=== PATIENT | female | born 1945 | race Caucasian/White ===

== ENCOUNTER → 2017-02-08 | Outpatient (CLI) | payer MEDICARE ==
[~2017-02-08] MED LIST: IOHEXOL 180 MG/ML 10 ML VIAL. ONE; methylPREDNISolone ACETATE 40 MG/ML VIAL. ONE; methylPREDNISolone ACETATE 80 MG/ML VIAL. ONE
--- NOTE | 2017-02-09 01:21 | PN ---
DATE: 02/08/2017 PROGRESS NOTE FOR PAIN CLINIC DIAGNOSES: 1. Lumbar radiculopathy with lumbar degenerative disk disease and lumbar spinal stenosis. 2. Cervical radiculopathy with cervical degenerative disk disease. HISTORY OF PRESENT ILLNESS: The patient is a 71-year-old female who returns for followup status post cervical epidural steroid injection x 1 and lumbar epidural steroid injection x 1. The patient reports about 50% improvement overall. The pain is improved in the low back and bilateral lower extremities. The patient reports increasing activity with greater ease and comfort, still has some significant pain, rates as a 6 on a scale 10, but is currently a 2 on a scale of 10, which is . The patient reports she is sleeping well during the night. It does not awaken her from sleep. Otherwise, no new motor or sensory deficits, no new bowel or bladder incontinence or other complaints. The patient reports the pain is on and off, is aching and dull in the low back and the bilateral posterior gluteus, posterior thighs, again much improved after last injection and not constant. PHYSICAL EXAMINATION: VITAL SIGNS: The patient's blood pressure is 132/78, pulse 73, respirations are 20, temperature is 98.2 degrees Fahrenheit, height is 5 feet 4-1/2 inches, weight is 237 pounds. GENERAL: The patient is awake, alert, oriented, appropriate, has a very pleasant demeanor. HEENT: Head shows normocephalic, atraumatic. Extraocular movements are intact and symmetrical. Oral cavity shows mucous membranes moist and pink. Dentition is intact. NECK: Shows anterior throat supple without palpable lymphadenopathy noted. Swallow reflex is symmetrical. CHEST: Shows normal on inspection. Breath sounds are clear to auscultation bilaterally. HEART: Shows S1 and S2 clear. ABDOMEN: Soft, nontender, nondistended. No palpable organomegaly. There is no rebound or guarding demonstrated. BACK: Shows spine grossly in the midline. Lumbar paraspinous muscle shows some moderate tenderness with palpation, but only diffusely bilaterally, appears roughly symmetrical. The patient shows good rotational motion bilaterally of the lumbar spine, both right and left as well as extension and flexion without difficulty. EXTREMITIES: The patient's lower extremities showed deep tendon reflexes 1+ in the patellar and tendo calcaneus tendons. Motor exam is approximately 4 on a scale of 5 with dorsiflexion, extension, quadriceps and hamstring flexion, but is equal and symmetrical. Options were discussed with the patient and the patient's old chart was reviewed as her current medication regimen updated. Current review of systems updated today as well. We will proceed with a second lumbar, third total epidural steroid injection in the series with fluoroscopic guidance. Risks were again discussed including, but not limited to bleeding, infection, possibility of epidural hematoma and subsequent neurologic compromise, dural puncture, headaches, spinal cord and/or nerve damage, side effects of steroid medication and poor results regarding pain control. The patient understands and wishes to proceed. The patient will return to clinic in approximately 2 weeks for followup, was counseled on return appointment, activity level and side effects to be aware of. DIAGNOSIS: Lumbar radiculopathy with lumbar degenerative disk disease and lumbar spinal stenosis. PROCEDURE: Lumbar epidural steroid injection in translaminar approach at L5-S1 level using C-arm fluoroscopic guidance under sterile prep and drape using local anesthetic. Medication injected is 120 mg Depo-Medrol plus 10 mL of preservative-free normal saline and 2 mL of Isovue for contrast. CONDITION AT DISCHARGE: Stable. The patient tolerated the procedure well, had no complications. SOTO COLÓN MD DR: JATIN/dominique JOB#: [id number] / [id number]
== END | disposition home or self-care (01) ==
LOC: PNCL 08:30
PROVIDERS: ATTEND Anesthesiology
DX: M51.16 Intervertebral disc disorders with radiculopathy, lumbar region (principal); M48.06 Spinal stenosis, lumbar region; M50.10 Cervical disc disorder with radiculopathy, unspecified cervical region
CPT/HCPCS: 62323; J1030; J1040

== ENCOUNTER → 2017-09-06 | Outpatient (CLI) | payer MEDICARE | END | disposition home or self-care (01) | LOC: KCIC MAMMO 11:19 | DX: Z12.31 Encounter for screening mammogram for malignant neoplasm of breast (principal) | CPT/HCPCS: 77063; 77067 ==

== ENCOUNTER → 2018-07-28 | Outpatient (CLI) | payer MEDICARE, BC ==
[2014-09-25 15:00] VITALS: BP 130/75
[~2018-07-28] MED LIST changes: +AMLO1CAP12 PO; +ASPI325T8 PO; +CA C1TAB63 PO; +CHOL500045 PO; +ESTR0.5T PO; +FLUO40CA2 PO; +HYDR-2145 PO; +HYDR-3165 PO; -IOHEXOL 180 MG/ML 10 ML VIAL. ONE; +MULT-245 PO; +NAPR-514 PO; +POTA10TA12 PO; +REGADENOSON 0.4 MG/5 ML DISP.SYRIN. IV ONE; +SIMV20TA3 PO; +TRAM50TA PO; -methylPREDNISolone ACETATE 40 MG/ML VIAL. ONE; -methylPREDNISolone ACETATE 80 MG/ML VIAL. ONE
--- NOTE | 2018-07-28 12:10 | RAD ---
MR#: [id number] Date of Study: 07/28/2018 Ordering Physician: KECIA MOON, Referring Physician: ROB AYOUB Tech: RT Inna Veras) (N) APPROVED REPORT Test Type: Pharmacological Stress Nurse/Tech: Cha Britt RN Test Indications: Arm pain,dyspnea Cardiac History: Hypertension Medications: See Electronic Medical Record Medical History: See Electronic Medical Record Resting ECG: SB Resting Heart Rate: 59 bpm Resting Blood Pressure: 123/62mmHg Pretest Chest Pain: No chest pain Nurse/Tech Notes S1,S2. Lungs clear to auscultation. Consent: The procedure was explained to the patient in lay terms. Informed consent was witnessed. Curtis eout was entered into [facility]. History and Stress Test performed by RT Dawson (R) (N) Pharm. Details Pharmacologic stress testing was performed using 0.4mg per 5ml of regadenoson given intravenously ove r 7-10 seconds. Stress Symptoms Nausea,Dyspnea POST EXERCISE Reason for Termination: Infusion complete Target HR: No Max HR: 73 bpm Max Blood Pressure: 115/50mmHg Blood Pressure response to exercise: Normal blood pressure response during stress. Heart Rate response to exercise: WNL Chest Pain: No. Arrhythmia: No. ST Change: No. INTERPRETATION Stress EKG Conclusion: Negative for stress induced EKG changes. Imaging Protocol IMAGE PROTOCOL: Rest Tc-99m/stress Tc-99m 1 day Rest: Stress: Viability: Radiopharm.Tc99m VoxxyeqohDt22w Sestamibi Mbnt63tDp 34.1mCi Duration 13min. 13min. Img Date 07/28/2018 07/28/2018 Inj-Img Umjk49jsd. 60min. Rest Admin Site:IV - Right AntecubitalAdministrator:RT Dawson (Tung)(N) Stress Admin Site: IV - Right AntecubitalAdministrator: RT Eda (R)(N) STRESS DATA End Diast. Vol.83.0mlLVEDV index BSA42.0ml End Syst. Vol.20.0mlLVESV index BSA10.0ml Myocardial Zwwo532.0gEject. Ydvawmrb48.0% Stress Scores Regional WT0.00Summed WT0.00 Regional WM0.00Summed WM5.00 The rest and stress images show normal perfusion, normal contraction and thickening. LV Perfusion There is very minimal apical and anterior wall reversible defect, likely artifactual in nature and be low the threshold of abnormality. Wall Motion Normal wall motion. EF > 70% LV Perf. Quant 17 Seg. SSS2.00 17 Seg. SRS0.00 17 Seg. SDS2.00 Stress Defect Extent (% LAD)1.30Rest Defect Extent (% LAD)0.00Rev. Defect Extent (% LAD)1.30 Stress Defect Extent (% LCX) 0.00Rest Defect Extent (% LCX)7.50Rev. Defect Extent (% LCX)0.00 Stress Defect Extent (% RCA)0.00Rest Defect Extent (% RCA)0.00Rev. Defect Extent (% RCA)0.00 Stress Defect Extent (% BAILEE)3.70Rest Defect Extent (% BAILEE)1.30Rev. Defect Extent (% BAILEE)3.50 Other Information Quality:Good Risk Assessment: Low Risk Conclusion 1. No evidence of EKG changes with stress testing. 2. Normal perfusion at stress/rest. (There is a very minimal anterior/apical perfusion defect that is below the limits of quantification, likely artifactual but no significant ischemia noted. Normal TID ratio). 3. Low risk study. 4. EF > 60%. Signed by : Barrett Cali, Electronically Approved : 07/28/2018 12:09:23
== END | disposition home or self-care (01) ==
LOC: NM 08:06
PROVIDERS: ATTEND Internal Medicine Cardiovascular Disease
DX: R07.9 Chest pain, unspecified (principal); I10 Essential (primary) hypertension
CPT/HCPCS: 78452; 93017; 96374; 96375; 96376; A9500; J2785

== ENCOUNTER → 2018-08-11 | Outpatient (CLI) | payer MEDICARE, BC ==
[2014-09-25 15:00] VITALS: BP 130/75
[~2018-08-11] MED LIST changes: -REGADENOSON 0.4 MG/5 ML DISP.SYRIN. IV ONE
--- NOTE | 2018-08-11 15:12 | CARD ---
MR#: [id number] Date of Study: 08/11/2018 Ordering Physician: KECIA MOON, Referring Physician: KECIA MOON, Tech: Keesha Okeefe [facility] APPROVED REPORT EXAM: Two-dimensional and M-mode echocardiogram with Doppler and color Doppler. Other Information Quality : AverageHR: 56bpm Rhythm : NSR INDICATION Murmur 2D DIMENSIONS RVDd3.1 (2.9-3.5cm)Left Atrium(2D)3.6 (1.6-4.0cm) IVSd1.3 (0.7-1.1cm)Aortic Root(2D)3.4 (2.0-3.7cm) LVDd4.5 (3.9-5.9cm)LVOT Diameter2.1 (1.8-2.4cm) PWd1.2 (0.7-1.1cm)LVDs2.7 (2.5-4.0cm) FS (%) 39.6 %SV63.5 ml LVEF(%)70.4 (>50%) M-Mode DIMENSIONS Left Atrium(MM)4.06 (2.5-4.0cm)Aortic Root3.75 (2.2-3.7cm) Aortic Valve AoV Peak Armando.169.8cm/sAoV VTI39.6cm AO Peak GR.11.5mmHgLVOT Peak Armando.112.3cm/s AO Mean GR.6mmHgAVA (VMAX)2.35cm2 Mitral Valve MV E Lufuasvv593.0cm/sMV DECEL VKEM458ic MV A Paclanzr943.1cm/sE/A Ratio0.8 MV A Lounszja119zh Pulmonary Valve PV Peak Pneqhncg65.9cm/s Pulmonary Vein S1 Dhohfqht21.9cm/sD2 Ooewajew52.1cm/s PVa [id number] LEFT VENTRICLE The left ventricle is normal size. There is mild concentric left ventricular hypertrophy. The left ve ntricular systolic function is normal. The Ejection Fraction is 65-70%. There is normal LV segmental wall motion. Transmitral Doppler flow pattern is Grade I-abnormal relaxation pattern. RIGHT VENTRICLE The right ventricle is normal size. There is normal right ventricular wall thickness. The right ventr icular systolic function is normal. ATRIA The left atrium size is normal. The right atrium size is normal. The interatrial septum is intact wit h no evidence for an atrial septal defect or patent foramen ovale as noted on 2-D or Doppler imaging. AORTIC VALVE The aortic valve is trileaflet. The left coronary cusp is calcified. Doppler and Color Flow revealed no significant aortic regurgitation. There is no significant aortic valvular stenosis. MITRAL VALVE The mitral valve is normal in structure and function. There is no evidence of mitral valve prolapse. There is no mitral valve stenosis. Doppler and Color-flow revealed trace mitral regurgitation. TRICUSPID VALVE The tricuspid valve is normal in structure and function. Doppler and Color Flow revealed no tricuspid valve regurgitation noted. There is no tricuspid valve prolapse or vegetation. There is no tricuspid valve stenosis. PULMONIC VALVE Pulmonic not well visualized. Doppler and Color Flow revealed no pulmonic valvular regurgitation. The re is no pulmonic valvular stenosis. GREAT VESSELS The aortic root is normal in size. The ascending aorta is normal in size. The IVC is normal in size a nd collapses >50% with inspiration. PERICARDIAL EFFUSION There is no evidence of significant pericardial effusion. Critical Notification Critical Value: No <Conclusion> The left ventricular systolic function is normal. The Ejection Fraction is 65-70%. There is normal LV segmental wall motion. Transmitral Doppler flow pattern is Grade I-abnormal relaxation pattern. Doppler and Color-flow revealed trace mitral regurgitation. There is no evidence of significant pericardial effusion. Signed by : Lance Feliz, Electronically Approved : 08/11/2018 15:11:05
== END | disposition home or self-care (01) ==
LOC: ECHO 13:31
PROVIDERS: ATTEND Internal Medicine Cardiovascular Disease
DX: I51.7 Cardiomegaly (principal)
CPT/HCPCS: 93306

== ENCOUNTER → 2018-09-05 | Outpatient (CLI) | payer MEDICARE, BC ==
[2014-09-25 15:00] VITALS: BP 130/75
[~2018-09-05] MED LIST changes: -AMLO1CAP12 PO; +AMLO1CAP13 PO
--- NOTE | 2018-09-05 11:38 | RAD ---
EXAM: Chest, 2 views. HISTORY: Shortness of breath. COMPARISON: None. FINDINGS: 2 views of the chest are obtained. There is suspected bilateral lower lobe atelectasis or scarring. There is no consolidation, pleural effusion or pneumothorax. There is enlargement of the cardiac silhouette. There are calcified granulomas. There is proximal humeral fracture fixation instrumentation. IMPRESSION: 1. Suspected bilateral lower lobe atelectasis or pleural-parenchymal scarring. 2. Mild cardiomegaly. Electronically signed by: Taisha Del Real MD (09/05/2018 11:34 AM) [place] [id number]
== END | disposition home or self-care (01) ==
LOC: RAD 10:50
PROVIDERS: ATTEND Internal Medicine Cardiovascular Disease
DX: I51.7 Cardiomegaly (principal); J84.10 Pulmonary fibrosis, unspecified
CPT/HCPCS: 71046

== ENCOUNTER → 2018-09-12 | Outpatient (CLI) | payer MEDICARE ==
[2014-09-25 15:00] VITALS: BP 130/75
[~2018-09-12] MED LIST changes: +AMLO1CAP12 PO; -AMLO1CAP13 PO
--- NOTE | 2018-09-19 15:12 | KCIC ---
BILATERAL SCREENING MAMMOGRAM, 3-D History: Routine screening. Comparison: Bilateral mammogram September 06, 2017. Technique: MLO and CC digital tomosynthesis (3D) images obtained. Radiologist reviewed these images on dedicated workstation. Findings: Breast Tissue Density B : There are scattered areas of fibroglandular density. There is a new asymmetry in the left breast on the CC view just medial to the nipple line 5.8 cm posterior to the nipple. Tomosynthesis images suggest that the finding is inferior. There are no dominant suspicious masses, suspicious microcalcifications, or architectural distortion. IMPRESSION: New asymmetry in the medial and probably inferior left breast. Recommend further evaluation with spot compression CC tomosynthesis digital view. If finding persists ultrasound is suggested. BI-RADS Category 0: Incomplete: Need additional imaging evaluation. The images were reviewed with computer-aided detection. Patient information is entered into reminder system with a target due date for the next screening mammogram. Mammography is the most sensitive method for finding small breast cancers, but it does not detect them all and is not a substitute for careful clinical examination. A negative mammogram does not negate a clinically suspicious finding and should not result in delay in biopsying a clinically suspicious abnormality. "Our facility is accredited by the [employer] Mammography Program." Electronically signed by: Gabe Sanchez MD (09/14/2018 3:51 PM) [id number]
== END | disposition home or self-care (01) ==
LOC: KCIC MAMMO 09:53
PROVIDERS: ATTEND Family Medicine
DX: Z12.31 Encounter for screening mammogram for malignant neoplasm of breast (principal)
CPT/HCPCS: 77063; 77067

== ENCOUNTER → 2018-09-14 | Outpatient (CLI) | payer MEDICARE ==
[2014-09-25 15:00] VITALS: BP 130/75
[~2018-09-14] MED LIST changes: -AMLO1CAP12 PO; +AMLO1CAP13 PO; +ZOLPIDEM 5 MG TABLET. PO ONE
--- NOTE | 2018-09-15 09:52 | SLEEP ---
DATE OF STUDY: ATTENDING PHYSICIAN: Dr. Jones. REFERRING PHYSICIAN: Dr. Eliot Giordano. The patient is 72 years old who weighs 210 pounds with a BMI of 35. The patient's [place] score was 13. The patient had a sleep study 12 years ago and was positive for CLEMENCIA, but lost 40 pounds. The patient was referred back to sleep lab for evaluation. During the night of study, the patient spent 436 minutes in bed and slept for 401 minutes with a sleep efficiency of 92%. Sleep latency was 31 minutes with a REM latency of 347 minutes, which is prolonged. Overall, sleep architecture showed normal stage I and stage 2 sleep; increased slow wave sleep, which was 29% of total sleep time and reduced REM sleep, which was 11% of the total sleep time. EKG monitoring revealed normal sinus rhythm, average heart rate was 70 beats per minute, no sustained arrhythmias were observed. Mild PLM seen at index of 19 per hour and 6 per hour caused EEG arousals. Nocturnal oximetry study revealed an average oxygen saturation of 95% with the lowest of 85%. 3% of time oxygen saturation remained between 80% and 89%. During the night study, the patient had 14 obstructive apneas, 7 mixed apneas, 1 central apnea and 60 hypopneas. The patient's apnea-hypopnea index was 12 per hour, supine index 16 per hour with a REM index of 36 per hour. Due to low AHI, the patient did not meet the split night criteria for CPAP initiation, but the patient would benefit from CPAP. IMPRESSION: 1. Mild sleep apnea-hypopnea syndrome with moderate increase during supine sleep and further increase during REM sleep. Total AHI 12 per hour with a supine AHI of 16 per hour and a REM AHI of 36 per hour. 2. Nocturnal hypoxia, which was mild and related to obstructive sleep apnea. 3. Mild PLMS. RECOMMENDATIONS: 1. The patient is clinically symptomatic and as such would benefit from treatment of sleep apnea with either oral appliance or a trial of CPAP titration. 2. If the patient undergoes CPAP titration, then she should be followed up in 4-6 weeks to assess compliance and to document clinical improvement. 3. Continued Weight loss is advised. 4. Avoid [employer] depressants. 5. Caution regarding driving until symptoms of sleep apnea resolve with the above recommendations. FOUZIA PEREZ MD DR: ELIDA/dominique JOB#: [id number] / [id number] JEFFERY Elias MD, GEORGE MD
== END | disposition home or self-care (01) ==
LOC: SLPLAB 19:00
PROVIDERS: ATTEND Internal Medicine Pulmonary Disease
DX: G47.33 Obstructive sleep apnea (adult) (pediatric) (principal); G47.34 Idiopathic sleep related nonobstructive alveolar hypoventilation; G47.61 Periodic limb movement disorder
CPT/HCPCS: 95810

== ENCOUNTER → 2018-09-21 | Outpatient (CLI) | payer MEDICARE ==
[2014-09-25 15:00] VITALS: BP 130/75
[~2018-09-21] MED LIST changes: +AMLO1CAP12 PO; -AMLO1CAP13 PO; -ZOLPIDEM 5 MG TABLET. PO ONE
== END | disposition home or self-care (01) ==
LOC: LAB 13:32
PROVIDERS: ATTEND Internal Medicine Pulmonary Disease
DX: R60.0 Localized edema (principal)
CPT/HCPCS: 36415; 85379

== ENCOUNTER → 2018-09-29 | Outpatient (CLI) | payer MEDICARE ==
[2014-09-25 15:00] VITALS: BP 130/75
--- NOTE | 2018-09-29 14:32 | KCIC ---
Left breast diagnostic digital mammogram: Reason for examination: Parenchymal asymmetry in the left breast on cc view. Comparison is made to previous examinations dated 09/06/2017 and 07/14/2013. A true lateral and coned compression CC views were obtained of the left breast. With these additional views, a parenchymal density appears to persist which appears to be located at the 6:00 B position. No other focal lesions are seen. Further evaluation with ultrasound will follow. IMPRESSION: Parenchymal density persists at 6:00 B position of the left breast. This is similar to parenchymal density seen on previous exams especially on the oblique projections. Further evaluation with ultrasound will follow. BI-RADS Category 0: Incomplete. Needs additional imaging evaluation. Left breast ultrasound: Left whole breast ultrasound including evaluation of all 4 quadrants and the retroareolar and axillary regions of the left breast was performed. In the 6:00 position 6 cm from the nipple and corresponding to the area of mammographic concern, there is a patch of heterogeneous decreased echogenicity with appearance suggesting fibrocystic changes. No other cystic or solid lesions are seen. No abnormal appearing lymph nodes are seen in the axilla. IMPRESSION: Probable fibrocystic changes in the 6:00 position. Recommend close follow-up with reevaluation with ultrasound in 3 months to verify stability of these findings. BI-RADS Category 3: Probably Benign. "Our facility is accredited by the [employer] Mammography Program." This patient's information has been entered into a reminder system for the patient to be notified with the results of her examination and a target date for the next mammogram. Electronically signed by: Lissy Dos Santos MD (09/29/2018 2:28 PM) [id number]
== END | disposition home or self-care (01) ==
LOC: KCIC MAMMO 09:20
PROVIDERS: ATTEND Family Medicine
DX: R92.8 Other abnormal and inconclusive findings on diagnostic imaging of breast (principal)
CPT/HCPCS: 76641; 77065

== ENCOUNTER → 2018-12-28 | Outpatient (CLI) | payer MEDICARE ==
[2014-09-25 15:00] VITALS: BP 130/75
--- NOTE | 2018-12-28 16:50 | KCIC ---
Left breast ultrasound: Reason for examination: Follow-up nodules. Comparison is made to previous study dated 09/29/2018. Ultrasound examination of the left breast was performed with attention to the 6:00 position and the axilla. There continue to be some patchy fibrocystic type changes in the breasts without a focal suspicious lesion seen. No abnormal appearing lymph nodes are seen in the axilla. IMPRESSION: Continued presence of some nodularity consistent with probable fibrocystic changes in the 6:00 position of the left breast without evidence of significant interval change. No suspicious abnormalities are seen. Recommend continued 6 month follow-up to be performed at the time of bilateral mammograms. BI-RADS Category 3: Probably benign. "Our facility is accredited by the [employer] Mammography Program." This patient's information has been entered into a reminder system for the patient to be notified with the results of her examination and a target date for the next mammogram. Electronically signed by: Lissy Dos Santos MD (12/28/2018 4:48 PM) [id number]
== END | disposition home or self-care (01) ==
LOC: KCIC US 08:56
PROVIDERS: ATTEND Family Medicine
DX: N63.20 Unspecified lump in the left breast, unspecified quadrant (principal)
CPT/HCPCS: 76641

== ENCOUNTER → 2019-03-17 | Outpatient (CLI) | payer MEDICARE ==
[2014-09-25 15:00] VITALS: BP 130/75
--- NOTE | 2019-03-17 09:55 | KCIC ---
LUMBAR SPINE WO CONTRAST History: Spinal stenosis. Low back pain bilateral lower extremity pain. Technique: Multiplanar, multi sequential MR imaging was performed of the lumbar spine. Comparison: MRI lumbar spine July 10, 2015 report available for review. Images not readily available for review. Findings: Normal vertebral body height and alignment. No fracture. Multilevel degenerative endplate changes with degenerative endplate edema L2-L3, L4-L5 and L5-S1. Conus terminates at the normal location. No evidence of nerve root clumping. L1-L2: Small left foraminal disc protrusion. Mild left neural foraminal narrowing. No canal narrowing. L2-L3: Minimal posterior disc bulge superimposed small left foraminal disc protrusion. No canal narrowing. Mild left neural foraminal narrowing. No right neuroforaminal narrowing. L3-L4: Minimal posterior disc bulge. Mild facet arthropathy. No canal narrowing. No neuroforaminal narrowing. L4-L5: Severe disc height loss. Broad-based disc bulge with superimposed right subarticular disc protrusion. Mild right subarticular recess narrowing. No canal narrowing. Moderate facet arthropathy. Ligamentum flavum thickening. Mild right neuroforaminal narrowing. L5-S1: Severe disc height loss. Broad-based disc bulge. Moderate facet arthropathy. Mild right subarticular recess narrowing. No canal narrowing. Moderate bilateral neural foraminal narrowing. Impression: 1. Moderate multilevel lumbar spondylosis most prominent at L4-L5 and L5-S1. 2. L4-L5 right subarticular recess disc protrusion contributing to moderate right subarticular recess narrowing. Correlate for right L5 radiculopathy. 3. Multilevel neural foraminal narrowing most prominent right L4-L5 and bilateral L5-S1. Electronically signed by: Trever Landeros DO (03/17/2019 9:52 AM) [id number]
== END | disposition home or self-care (01) ==
LOC: KCIC MRI 07:50
PROVIDERS: ATTEND Family Medicine
DX: M47.817 Spondylosis without myelopathy or radiculopathy, lumbosacral region (principal); M51.27 Other intervertebral disc displacement, lumbosacral region; M48.07 Spinal stenosis, lumbosacral region; G95.19 Other vascular myelopathies; M12.88 Other specific arthropathies, not elsewhere classified, other specified site
CPT/HCPCS: 72148

== ENCOUNTER → 2019-04-06 | Outpatient (CLI) | payer MEDICARE ==
[2014-09-25 15:00] VITALS: BP 130/75
[~2019-04-06] MED LIST changes: -AMLO1CAP12 PO; +AMLO1CAP13 PO; +IOHEXOL 180 MG/ML 10 ML VIAL. ONE; +methylPREDNISolone ACETATE 40 MG/ML VIAL. ONE; +methylPREDNISolone ACETATE 80 MG/ML VIAL. ONE
--- NOTE | 2019-04-07 02:35 | PAIN ---
DATE OF SERVICE: 04/06/2019 PROGRESS NOTE FOR PAIN CLINIC DIAGNOSES: 1. Lumbar radiculopathy with lumbar spinal stenosis, lumbar degenerative disk disease. 2. Cervical radiculopathy with cervical degenerative disk disease. HISTORY OF PRESENT ILLNESS: The patient is a 73-year-old female who returns for followup status post lumbar epidural steroid injections, last seen on 02/2017. The patient did very well with about 50% improvement overall. Pain is returning now over the past few months in her low back and bilateral lower extremities, posterior gluteus, posterior thigh, posterior calf, worse slightly on the right than the left, but present bilaterally. The patient reports it is tingling, burning, stabbing across the back is aching and dull, shooting in the legs, worse with walking, standing, changing positions, better with sitting or lying down. The patient reports it does not awaken her from sleep at night, better with resting, but worse with walking, changing positions, especially. The patient reports it as a 9 on a scale of 10 at its worst in the last week, 8 on average, 6 at the least and is a 6 today. The patient reports no new motor or sensory deficits. The patient did have a new MRI scan. We discussed that with she and her who accompanies her to visit today showing some fairly significant findings at L4-L5 and L5-S1 with ligamentum flavum thickening, broad-based disk bulge and superimposed right subarticular disk protrusion at L4-L5, severe disk height loss at L5-S1 with broad-based disk bulge, moderate bilateral neural foraminal narrowing as well. The patient reports no new motor or sensory deficits, no new bowel or bladder incontinence or other complaints. PHYSICAL EXAMINATION: VITAL SIGNS: The patient's blood pressure is 148/69, pulse 79, respirations 18, temperature 98.9 degrees Fahrenheit, height is 5 feet 3 inches, weight is 228 pounds. GENERAL: The patient is awake, alert, oriented, appropriate, very pleasant demeanor. HEENT: Head is normocephalic, atraumatic. Extraocular movements are intact and symmetrical. Oral cavity: Mucous membranes moist and pink. Dentition is intact. NECK: Shows anterior throat supple without palpable lymphadenopathy noted. Swallow reflex symmetrical. CHEST: Shows normal on inspection. Breath sounds are clear to auscultation bilaterally. HEART: Shows S1, S2 clear. No murmurs auscultated. ABDOMEN: Soft, nontender, nondistended. No palpable organomegaly is noted. No rebound or guarding demonstrated. BACK: Shows spine grossly in the midline. Normal appearing thoracic kyphosis and lumbar lordotic curvature. Lumbar paraspinous muscle shows symmetrical on inspection, on palpation shows some moderate tenderness diffusely throughout the upper, middle and lower distribution of paraspinous muscles, but only diffusely without radiation, without significant tenderness. The patient shows no tenderness over the spinous processes, sacrum or sacroiliac regions and good rotational motion both laterally greater than 10 degrees right and left as well as extension and full forward flexion without difficulty or pain reported. EXTREMITIES: The patient's lower extremities show deep tendon reflexes at 1+/4 in the patellar and tendo-calcaneus tendons. Motor exam is approximately 4 on a scale of 5, but equal and symmetrical dorsiflexion, extension, quadriceps and hamstring flexion. Peripheral pulses are 1+ posterior tibia. No peripheral edema is noted bilaterally. Options were discussed with the patient. The patient's old chart was reviewed as her current medication regimen updated. Current review of systems updated today as well. We will proceed with a lumbar epidural steroid injection today with fluoroscopic guidance. Risks were again discussed including, but not limited to bleeding, infection, possibility of epidural hematoma, subsequent neurological compromise, dural puncture, headaches, spinal cord and/or nerve damage, side effects of steroid medication and poor results regarding pain control. The patient understands and wished to proceed. The patient will return to clinic in approximately 2 weeks for followup. She was counseled on return appointment, activity level and side effects to be aware of. DIAGNOSES: Lumbar radiculopathy with lumbar spinal stenosis, lumbar degenerative disk disease. PROCEDURE: Lumbar epidural steroid injection, translaminar approach L5-S1 level using C-arm fluoroscopic guidance under sterile prep and drape using local anesthetic. MEDICATION INJECTED: A total of 120 mg Depo-Medrol plus 10 mL of preservative-free normal saline and 2 mL of contrast. CONDITION AT DISCHARGE: Stable. The patient tolerated the procedure well, had no complications. SOTO COLÓN MD DR: JATIN/dominique JOB#: [id number] / [id number]
== END ==
LOC: PNCL 08:32
PROVIDERS: ATTEND Anesthesiology
DX: M51.16 Intervertebral disc disorders with radiculopathy, lumbar region (principal); M48.061 Spinal stenosis, lumbar region without neurogenic claudication; M50.10 Cervical disc disorder with radiculopathy, unspecified cervical region
CPT/HCPCS: 62323; J1030; J1040; Q9965

== ENCOUNTER → 2019-05-19 | Outpatient (CLI) | payer MEDICARE ==
[2014-09-25 15:00] VITALS: BP 130/75
[~2019-05-19] MED LIST changes: +PANT40TA77 PO
--- NOTE | 2019-05-20 04:26 | PAIN ---
DATE OF SERVICE: 05/19/2019 PROGRESS NOTE FOR PAIN CLINIC DIAGNOSES: 1. Lumbar radiculopathy with lumbar spinal stenosis, lumbar degenerative disk disease. 2. Cervical radiculopathy with cervical degenerative disk disease. SUBJECTIVE: The patient is a 73-year-old female who returns for followup status post lumbar epidural steroid injection x 1. The patient reports only minimal decrease in pain after the last injection. She had been increasing her activity with some greater ease and comfort, but overall the pain is still same with some numbness traveling in the right leg, in the posterior gluteus, posterolateral thigh, lateral anterior thigh and posterior calf. The patient reports the numbness is increasing. Reports it is also aching, sharp pain shooting, tingling, burning pain that is becoming severe with walking and standing. The patient reports it awakens her from sleep about every 6 hours. Rates her pain as an 8 on a scale of 10 at its worst, 3 on average, 3 at its least, and is a 3 today. The patient reports no new motor or sensory deficits, no new bowel or bladder incontinence or other complaints. PHYSICAL EXAMINATION: VITAL SIGNS: The patient's blood pressure is 128/72, pulse 70, respirations 16, temperature 97.7 degrees Fahrenheit, weight is 224 pounds. GENERAL: The patient is awake, alert, oriented, appropriate, very pleasant demeanor. HEENT: Head shows normocephalic, atraumatic. Extraocular movements are intact and symmetrical. Oral cavity: Mucous membranes moist and pink. Dentition is intact. NECK: Shows anterior throat supple without palpable lymphadenopathy noted. Swallow reflex symmetrical. CHEST: Shows normal on inspection. Breath sounds are clear to auscultation bilaterally. HEART: Shows S1, S2 clear. No murmurs auscultated. ABDOMEN: Obese, soft, nontender, nondistended. No palpable organomegaly is noted. No rebound or guarding demonstrated. BACK: Shows spine grossly in the midline. Normal appearing thoracic kyphosis and lumbar lordotic curvature. Lumbar paraspinous muscles show symmetrical on inspection, on palpation shows some moderate tenderness diffusely bilaterally midline to the low lumbar distribution without significant radiation. The patient has good rotational motion of lumbar spine, both laterally as well as extension and flexion. EXTREMITIES: Lower extremities show deep tendon reflexes 1+ in patellar and tendo-calcaneus tendons. Motor exam is strong with 5/5 dorsiflexion, extension, quadriceps, and hamstring flexion and symmetrical. Peripheral pulses are 1+ posterior tibia. No peripheral edema is noted. Options were discussed with the patient. The patient's old chart was reviewed as her current medication regimen updated. Current review of systems updated today as well. We will proceed with a second in the series of lumbar epidural steroid injection today with fluoroscopic guidance. Risks were again discussed including, but not limited to, bleeding, infection, possibility of epidural hematoma, subsequent neurologic compromise, dural puncture, headaches, spinal cord and/or nerve damage, side effects of steroid medication, and poor results regarding pain control. The patient understands and wished to proceed. The patient will return to clinic in approximately 2 weeks for followup. She was counseled on return appointment, activity level and side effects to be aware of. DIAGNOSES: Lumbar radiculopathy with lumbar degenerative disk disease and lumbar spinal stenosis. PROCEDURE: Lumbar epidural steroid injection, translaminar approach at L4-L5 level using C-arm fluoroscopic guidance under sterile prep and drape using local anesthetic. MEDICATION INJECTED: The patient received a total of 120 mg Depo-Medrol plus 10 mL of preservative-free normal saline and 2 mL of contrast. CONDITION AT DISCHARGE: Stable. The patient tolerated the procedure well, had no complications. SOTO COLÓN MD DR: JATIN/dominique JOB#: [id number] / [id number]
== END ==
LOC: PNCL 08:55
PROVIDERS: ATTEND Anesthesiology
DX: M51.16 Intervertebral disc disorders with radiculopathy, lumbar region (principal); M50.10 Cervical disc disorder with radiculopathy, unspecified cervical region
CPT/HCPCS: 62323; J1030; J1040; Q9965

== ENCOUNTER → 2019-06-13 | Outpatient (CLI) | payer MEDICARE ==
[2014-09-25 15:00] VITALS: BP 130/75
[~2019-06-13] MED LIST changes: -IOHEXOL 180 MG/ML 10 ML VIAL. ONE
--- NOTE | 2019-06-14 00:35 | PAIN ---
DATE OF SERVICE: 06/13/2019 PROGRESS NOTE FOR PAIN CLINIC DIAGNOSES: Lumbar radiculopathy with lumbar degenerative disk disease and lumbar spinal stenosis. HISTORY OF PRESENT ILLNESS: The patient is a 73-year-old female who returns for followup status post lumbar epidural steroid injection x 2. The patient reports only minimal decrease in pain when the past she had benefited greatly with the injections as recently as 2016. This time around, she has only had some mild decrease in pain overall. The patient did have an MRI scan, which we again went over with her today dated 03/17 showing L4-L5 right subarticular recess disk protrusion contributing to moderate right subarticular recess narrowing. The patient reports still significant pain in low back, right lower extremity, posterior gluteus, posterolateral thigh, lateral anterior thigh, medial thigh, posterior thigh in both legs to some extent, but right greater than left and across the low back on the right as well. The patient reports some tightness in the upper back as well since last visit. The patient reports the pain is tingling and cramping in the low back, radiating and shooting into the right leg, aching, dull, tight, severe at times. The patient reports it is 8 on a scale of 10 at its worst, 7 on average, 6 at its least and is a 7 today. The patient reports it is better with sitting or lying down, but does awaken her from sleep about every 3-4 hours. The patient reports no new motor or sensory deficits, no new bowel or bladder incontinence or other complaints. PHYSICAL EXAMINATION: VITAL SIGNS: The patient's blood pressure 131/72, pulse 75, respirations 18, temperature 98.1 degrees Fahrenheit, height is 5 feet 3 inches, weighs is 221 pounds. GENERAL: The patient is awake, alert, oriented, appropriate, very pleasant demeanor. HEENT: Shows normocephalic, atraumatic. Extraocular movements are intact and symmetrical. Oral cavity: Mucous membranes moist and pink. Dentition is intact. NECK: Shows anterior throat supple without palpable lymphadenopathy noted. Swallow reflex symmetrical. CHEST: Shows normal on inspection. Breath sounds are clear to auscultation bilaterally. HEART: Shows S1, S2 clear. No murmurs auscultated. ABDOMEN: Soft, nontender, nondistended. BACK: Shows spine grossly in the midline, slight exaggerated thoracic kyphosis and minor flattening of lumbar lordotic curvature. Lumbar paraspinous muscle shows symmetrical on inspection, on palpation shows some moderate tenderness diffusely bilaterally, but only diffusely without radiation. EXTREMITIES: The patient's lower extremities show deep tendon reflexes 1+ in the patellar and tendo calcaneus tendons. Motor exam is strong with 5/5 dorsiflexion, extension, quadriceps and hamstring flexion symmetrical. Peripheral pulses are 1+ posterior tibia. No peripheral edema is noted bilaterally. Options were discussed with the patient. The patient's old chart was reviewed as her current medication regimen updated. Current review of systems updated today as well. We will proceed with a third in the series of lumbar epidural steroid injection today with fluoroscopic guidance. Risks were again discussed including, but not limited to bleeding, infection, possibility of epidural hematoma, subsequent neurological compromise, dural puncture, headaches, spinal cord and/or nerve damage, side effects of steroid medication and poor results regarding pain control. The patient understands and wished to proceed. The patient will return to clinic in approximately 2 weeks for followup. She was counseled as to return appointment, activity level and side effects to be aware of. DIAGNOSES: Lumbar radiculopathy with lumbar degenerative disk disease, lumbar spinal stenosis. PROCEDURE: Lumbar epidural steroid injection, translaminar approach L4-L5 level using C-arm fluoroscopic guidance under sterile prep and drape using local anesthetic. MEDICATION INJECTED: A total of 120 mg Depo-Medrol plus 10 mL of preservative-free normal saline and 2 mL of contrast. CONDITION AT DISCHARGE: Stable. The patient tolerated procedure well, had no complications. SOTO COLÓN MD DR: JATIN/dominique JOB#: [id number] / [id number]
== END ==
LOC: PNCL 10:34
PROVIDERS: ATTEND Anesthesiology
DX: M51.16 Intervertebral disc disorders with radiculopathy, lumbar region (principal); M48.061 Spinal stenosis, lumbar region without neurogenic claudication
CPT/HCPCS: 62323; J1030; J1040

== ENCOUNTER → 2019-09-05 | Outpatient (CLI) | payer MEDICARE ==
[2014-09-25 15:00] VITALS: BP 130/75
[~2019-09-05] MED LIST changes: +SIMV20TA18 PO; -SIMV20TA3 PO; -methylPREDNISolone ACETATE 40 MG/ML VIAL. ONE; -methylPREDNISolone ACETATE 80 MG/ML VIAL. ONE
--- NOTE | 2019-09-05 17:00 | KCIC ---
EXAM: Lumbar spine, 3 views. HISTORY: Spondylolisthesis. COMPARISON: MRI dated 03/17/2019 FINDINGS: Lateral neutral, flexion and extension views of the lumbar spine are obtained. There is degenerative endplate remodeling with disc space narrowing, facet arthropathy and vacuum phenomenon at L4-L5 and L5-S1. There is no abnormal motion between flexion and extension. IMPRESSION: 1. Degenerative change at the lower lumbar levels. 2. No acute osseous finding. Electronically signed by: Taisha Del Real MD (09/05/2019 4:57 PM) [place] [id number]
== END | disposition home or self-care (01) ==
LOC: KCIC 15:34
PROVIDERS: ATTEND Neurological Surgery
DX: M43.16 Spondylolisthesis, lumbar region (principal); M48.07 Spinal stenosis, lumbosacral region; M47.816 Spondylosis without myelopathy or radiculopathy, lumbar region; M12.88 Other specific arthropathies, not elsewhere classified, other specified site
CPT/HCPCS: 72100

== ENCOUNTER → 2019-09-25 | Outpatient (CLI) | payer MEDICARE ==
[2014-09-25 15:00] VITALS: BP 130/75
--- NOTE | 2019-09-25 13:58 | KCIC ---
MRI Cervical Spine Without Contrast History: Cervical radiculopathy, left radiculopathy, numbness and tingling for about one week Technique: Multiplanar, multi sequential noncontrast MR imaging was performed of the cervical spine. Comparison: September 19, 2015 Findings: There is some motion degradation. Cervical cord caliber is within normal limits without defined or expansile signal abnormality, limited motion for subtle signal change due to motion. Cervical vertebral body stature is overall maintained. There is minimal grade 1 anterior spondylolisthesis C7-T1. There is again advanced degenerative disc disease C3-4 and C5-C6 and to a somewhat lesser degree at C6-7, mild to moderate degenerative disc disease C4-5, minimally at C7-T1. There is no significant marrow edema. C2-C3: Spinal canal and neural foramina are adequate. C3-C4: There is minimal disc osteophyte complex, central canal minimally narrowed about 9 to 10 mm. There is bilateral facet degenerative change, also likely mild right uncovertebral degenerative change. Left neural foramen is adequate. There is likely moderate narrowing of the right neural foramen. C4-C5: There is fairly severe left facet degenerative change, minimally on the right. Central canal is adequate about 13 mm. Right neural foramen is adequate, probable minimal narrowing on the left neural foramen from posteriorly by facet. C5-C6: There is minimal disc osteophyte complex, central canal narrowed to about 8 mm. There is bilateral facet degenerative change, also uncovertebral degenerative change. Poorly characterized due to motion degradation, there is suspected probable moderate left and likely [id number] right neural foramina compromise. C6-C7: There is minimal bulge. Central canal is minimally narrowed to 9 to 10 mm measured on sagittal images. There is minimal buckling of the ligamentum flavum. Neural foramina are not significantly narrowed, possible mild narrowing on the right. There is mild facet degenerative change. C7-T1: Spinal canal and neural foramina are adequate. Impression: 1. Exam is degraded by motion, somewhat limited accurate characterization of the neural foramina. There is suspected neural foramina compromise as stated greatest on the right at C3-4 and left greater than right at C5-6. 2. There is multilevel cervical degenerative disc disease greatest C3-4, C5-6, and C6-7. 3. There is spinal stenosis on the order of 8 mm at C5-6 and to lesser degree at C3-4 and C6-7 as described. Electronically signed by: Juan Jose Govea MD (09/25/2019 1:55 PM) [id number]
== END | disposition home or self-care (01) ==
LOC: KCIC MRI 08:26
PROVIDERS: ATTEND Neurological Surgery
DX: M50.13 Cervical disc disorder with radiculopathy, cervicothoracic region (principal); M48.02 Spinal stenosis, cervical region; M25.78 Osteophyte, vertebrae; M43.13 Spondylolisthesis, cervicothoracic region
CPT/HCPCS: 72141

== ENCOUNTER → 2019-09-29 | Outpatient (CLI) | payer MEDICARE ==
[2014-09-25 15:00] VITALS: BP 130/75
--- NOTE | 2019-09-29 16:19 | KCIC ---
Barium esophagram History: Reflux, mild abnormal manometry Comparison: None. Findings: Barium esophagram was performed. Overall caliber of the esophagus is within normal limits, no flow-limiting stricture identified. There is normal relaxation of the lower esophageal sphincter. Barium capsule passed without difficulty. There was transient, small sliding hiatal hernia. Overall esophageal motility was effective, minimal residual contrast in the esophagus with patient in prone oblique position, normal emptying with patient in upright position. There is some atherosclerotic calcification of the thoracic aorta. Fluoroscopy time 93 seconds, 14 images Impression: 1. No stricture was identified. Barium capsule passed without delay. There was transient, small sliding hernia hernia. Electronically signed by: Juan Jose Govea MD (09/29/2019 4:16 PM) [facility]
== END | disposition home or self-care (01) ==
LOC: KCIC 12:35
PROVIDERS: ATTEND Internal Medicine Gastroenterology
DX: K44.9 Diaphragmatic hernia without obstruction or gangrene (principal); I70.0 Atherosclerosis of aorta
CPT/HCPCS: 74220

== ENCOUNTER → 2019-11-27 | Outpatient (CLI) | payer MEDICARE ==
[2014-09-25 15:00] VITALS: BP 130/75
[~2019-11-27] MED LIST changes: +ALEN70TA6 PO; +AMLO10TA8 PO; +ASPI-630 PO; +CHOL500062 PO; +HYDR-2761 PO; +HYDR50TA6 PO; +LATA2.5D3 OU; +LINZESS145 MCG PO; +MULT-246 PO; +POTA10TA6 PO
[2019-11-27 14:14] LABS: BASO % 1 % (0-3); EOS # 0.1 x10^3/uL (0.0-0.7); EOS % 1 % (0-3); HEMATOCRIT 39.2 % (36.0-47.0); LYMPH # 1.3 x10^3/uL (1.0-4.8); LYMPH % 21 % (24-48); MEAN CORPUSCULAR HEMOGLOBIN 31 pg (25-35); MEAN CORPUSCULAR HGB CONC 33 g/dL (31-37); MEAN CORPUSCULAR VOLUME 92 fL (79-100); MONO # 0.5 x10^3/uL (0.0-1.1); MONO % 7 % (0-9); NEUT # 4.5 x10^3/uL (1.8-7.7); NEUT % 71 % (31-73); PLATELET COUNT 200 x10^3/uL (140-400); RED BLOOD COUNT 4.26 x10^6/uL (3.50-5.40); RED CELL DISTRIBUTION WIDTH 12.6 % (11.5-14.5); WHITE BLOOD COUNT 6.3 x10^3/uL (4.0-11.0)
[2019-11-27 14:47] LABS: ALBUMIN 3.4 g/dL (3.4-5.0); ALBUMIN/GLOBULIN RATIO 0.9 (1.0-1.7); CALCIUM 9.2 mg/dL (8.5-10.1); CREATININE 0.8 mg/dL (0.6-1.0); GFR 70.1; POTASSIUM 3.1 mmol/L (3.5-5.1); TOTAL BILIRUBIN 0.5 mg/dL (0.2-1.0); TOTAL PROTEIN 7.3 g/dL (6.4-8.2)
== END | disposition home or self-care (01) ==
LOC: SURGPAT 12:45
PROVIDERS: ATTEND Neurological Surgery
DX: Z01.812 Encounter for preprocedural laboratory examination (principal); M48.02 Spinal stenosis, cervical region; M54.12 Radiculopathy, cervical region
CPT/HCPCS: 36415; 80053; 85025; 87641

== ENCOUNTER → 2020-02-19 | Outpatient (CLI) | payer MEDICARE ==
[2019-12-05 11:00] VITALS: BP 127/67
[~2020-02-19] MED LIST changes: +IOHEXOL 180 MG/ML 10 ML VIAL. IT ONE; +LIDOCAINE 1% Multi-Dose 20 ML VIAL. ID ONE
--- NOTE | 2020-02-19 11:33 | KCIC ---
CT lumbar spine exam History:Lumbar radiculopathy, stenosis, spondylolisthesis Technique: CT imaging was performed of the lumbar spine after injection for lumbar myelogram. Multiplanar reconstruction images are submitted. Exposure: One or more of the following individualized dose reduction techniques were utilized for this examination: 1. Automated exposure control 2. Adjustment of the mA and/or kV according to patient size 3. Use of iterative reconstruction technique. Comparison: March 17, 2019 Findings: Lumbar vertebral body stature is maintained. There is again fairly advanced degenerative disc disease L4-5 and L5-S1 with associated vacuum disc disease, [id number] degenerative disc disease at L2-3 and minimally at L3-4. Conus terminates at L1-2. There is mild levoscoliosis centered near L4-5, negligible left lateral subluxation L4 relative to L5. There is scattered calcified plaque of the abdominal aorta and iliac arteries. T12-L1: Neural foramina and spinal canal are adequate. L1-L2: There is mild to moderate facet degenerative change. Spinal canal is overall adequate. There is mild narrowing of the left neural foramen from posteriorly by facet, right neural foramen adequate. L2-L3: There is again minimal disc osteophyte complex. There is moderate, left greater than right facet degenerative change and mild buckling of the ligamentum flavum. Neural foramina are adequate. Spinal canal is overall adequate. L3-L4: There is moderate facet degenerative change and mild buckling of the ligamentum flavum. There is minimal disc osteophyte complex. Neural foramina and spinal canal are adequate. L4-L5: There is disc osteophyte complex more eccentric to the right lateral recess, near the descending right L5 nerve root again with near minimal posterior displacement minimal narrowing the far right lateral recess. There is minimal buckling of the ligamentum flavum and moderate facet degenerative change. Left neural foramen is adequate. There is mild narrowing of the right neural foramen. Disc osteophyte complex contacts the undersurface of the proximal extraforaminal right L4 nerve root. L5-S1: There is minimal disc osteophyte complex without displacement descending S1 nerve roots or spinal stenosis. There is moderate to severe facet degenerative change greater on the right. There is moderate left and fairly severe right neural foramina compromise, impingement of the exiting right L5 nerve root in the distal neural foramen by disc osteophyte complex, also posterior narrowing by facet. Impression: 1. There is no significant lumbar spinal stenosis, mild narrowing of the right lateral recess at L4-5 by disc osteophyte complex with contact of the descending right L5 nerve root. 2. There is fairly advanced degenerative disc disease at L4-5 and L5-S1, to lesser degree at L2-3 and L3-4. 3. There is severe narrowing of the right L5-S1 neural foramen with contact exiting right L5 nerve root by disc osteophyte complex, also posterior narrowing by facet. There is moderate narrowing of the left L5-S1 neural foramen, minimal narrowing on the left at L1-L2 and on the right at L4-5. 4. There is mild lumbar levoscoliosis. There is multilevel lumbar facet degenerative change. Electronically signed by: Juan Jose Govea MD (02/19/2020 11:30 AM) [id number]
--- NOTE | 2020-02-19 11:36 | KCIC ---
Lumbar Myelogram History: Lumbar radiculopathy Technique: Patient was informed of the risks of the procedure to include pain, infection, bleeding, seizures, nerve root injury, and allergic reaction to the contrast. All questions were answered. Patient signed a written consent form for a lumbar myelogram. The patient was placed in a prone oblique position on the fluoroscopy table. External site of the lower back was prepped and draped in the usual sterile fashion. Betadine was utilized for cleansing solution. 1% lidocaine was utilized for local anesthesia at the anticipated site of puncture right L2-3 interlaminar space. A 19-gauge guiding needle was advanced into the soft tissues. Through the guiding needle, a 25 gauge Joy needle was advanced until there was return of cerebral spinal fluid. Approximately cc of 200 were then injected during fluoroscopic visualization. The needles were removed. Fluoroscopic spot images including standing images were acquired of the lumbar spine. The patient was then transferred to the CT department for CT examination of the lumbar spine. There were no immediate complications. Fluoroscopy time: 1 minute 15 seconds, 13 images Findings: There is no evidence of myelographic block. There is mild inferior lumbar levoscoliosis. There is anterior extradural defect on the right at L4-5, also very small anterior extradural defects at L1-2, L2-3, L3-4 There is degenerative disc disease greatest L4-5 and L5-S1. There is atherosclerotic calcification of the abdominal aorta. Impression: 1. There is anterior extradural defect on the right at the L4-5 level, very small anterior extradural defects L1-L2 through L3-4. There is degenerative disc disease greatest at L4-5 and L5-S1. 2. There is mild inferior lumbar levoscoliosis. Electronically signed by: Juan Jose Govea MD (02/19/2020 11:33 AM) [id number]
== END | disposition home or self-care (01) ==
LOC: KCIC 08:59
PROVIDERS: ATTEND Neurological Surgery
DX: M43.16 Spondylolisthesis, lumbar region (principal); M54.16 Radiculopathy, lumbar region; M41.86 Other forms of scoliosis, lumbar region; M51.37 Other intervertebral disc degeneration, lumbosacral region; M47.896 Other spondylosis, lumbar region; I70.0 Atherosclerosis of aorta; I70.8 Atherosclerosis of other arteries
CPT/HCPCS: 62304; 72132; J3490; Q9965

== ENCOUNTER → 2020-02-28 | Outpatient (CLI) | payer MEDICARE ==
[2019-12-05 11:00] VITALS: BP 127/67
[~2020-02-28] MED LIST changes: -IOHEXOL 180 MG/ML 10 ML VIAL. IT ONE; -LIDOCAINE 1% Multi-Dose 20 ML VIAL. ID ONE
--- NOTE | 2020-02-28 10:43 | KCIC ---
Ultrasound of the abdomen 02/28/2020 CLINICAL HISTORY: Abdominal pain. GERD. TECHNIQUE: A real-time ultrasound examination of the abdomen was performed. Multiple images were obtained. FINDINGS: The gallbladder is well-distended. No gallstones are visualized. The gallbladder wall thickness is within normal limits. No pericholecystic fluid is seen. The common bile duct measures 2 mm in diameter which is within normal limits. The liver is mildly enlarged measuring 21 cm in length. Increased echogenicity of the liver parenchyma is seen consistent with fatty infiltration. No focal abnormality of the liver is seen. The spleen is normal in size measuring 8.6 cm in length. Both kidneys are within normal limits in size and echogenicity. The pancreas is not well-visualized due to overlying bowel gas. The abdominal aorta tapers normally. The inferior vena cava is within normal limits. No free fluid is seen. IMPRESSION: Mild hepatomegaly with fatty infiltration of the liver. Otherwise negative study. Electronically signed by: Glenn Bateman MD (02/28/2020 10:40 AM) [id number]
== END | disposition home or self-care (01) ==
LOC: KCIC US 07:53
PROVIDERS: ATTEND Internal Medicine Gastroenterology
DX: K76.0 Fatty (change of) liver, not elsewhere classified (principal); R16.0 Hepatomegaly, not elsewhere classified; K82.8 Other specified diseases of gallbladder
CPT/HCPCS: 76700

== ENCOUNTER → 2020-03-21 | Outpatient (CLI) | payer MEDICARE ==
[2019-12-05 11:00] VITALS: BP 127/67
[~2020-03-21] MED LIST changes: +DOCU-109 PO; +HYDR-2763 PO; +OMEP40CA45 PO
[2020-03-21 09:40] LABS: BASO % 1 % (0-3); EOS # 0.1 x10^3/uL (0.0-0.7); EOS % 1 % (0-3); HEMATOCRIT 38.5 % (36.0-47.0); HEMOGLOBIN 13.3 g/dL (12.0-15.5); LYMPH # 1.1 x10^3/uL (1.0-4.8); LYMPH % 19 % (24-48); MEAN CORPUSCULAR HEMOGLOBIN 32 pg (25-35); MEAN CORPUSCULAR HGB CONC 35 g/dL (31-37); MEAN CORPUSCULAR VOLUME 92 fL (79-100); MONO # 0.5 x10^3/uL (0.0-1.1); MONO % 8 % (0-9); NEUT # 4.2 x10^3/uL (1.8-7.7); NEUT % 71 % (31-73); PLATELET COUNT 208 x10^3/uL (140-400); RED BLOOD COUNT 4.18 x10^6/uL (3.50-5.40); RED CELL DISTRIBUTION WIDTH 12.4 % (11.5-14.5); WHITE BLOOD COUNT 5.9 x10^3/uL (4.0-11.0)
[2020-03-21 09:57] LABS: ALBUMIN 3.6 g/dL (3.4-5.0); ALBUMIN/GLOBULIN RATIO 0.8 (1.0-1.7); CALCIUM 9.4 mg/dL (8.5-10.1); GFR 54.2; POTASSIUM 3.4 mmol/L (3.5-5.1); TOTAL BILIRUBIN 0.3 mg/dL (0.2-1.0); TOTAL PROTEIN 7.9 g/dL (6.4-8.2)
== END | disposition home or self-care (01) ==
LOC: SURGPAT 08:49
PROVIDERS: ATTEND Neurological Surgery
DX: Z01.818 Encounter for other preprocedural examination (principal); Z11.59 Encounter for screening for other viral diseases; M47.26 Other spondylosis with radiculopathy, lumbar region; M48.061 Spinal stenosis, lumbar region without neurogenic claudication
CPT/HCPCS: 36415; 80053; 85025; 87641; U0003

== ENCOUNTER 2020-03-27 10:17 | Day surgery (SDC) | payer MEDICARE ==
--- NOTE | 2020-03-26 18:28 | HP ---
ADMIT DATE:03/27/2020. PREOPERATIVE HISTORY AND PHYSICAL DATE OF SURGERY: 03/27/2020. HISTORY OF PRESENT ILLNESS: The patient is a pleasant 74-year-old, who has difficulty with low back pain and pain which radiates into both of her hips. The right side is much more involved than the left. These problems have been present for about 4 years. She says the pain is normally a 6/10, with regard to back and hip pain. Occasionally, it can reach a 10/10. Walking increases her pain. Sitting helps her. She takes 1-2 [place] per day. She has been receiving epidural steroid injections for the last 2 years, which do seem to help but only for a short time. Prior to that, she had physical therapy. PAST MEDICAL HISTORY: Arthritis, hypertension, osteoporosis, shingles, tonsillitis. PAST SURGICAL HISTORY: Tonsillectomy in 1952, hysterectomy in 1994, shattered right ankle in 1996, broken left arm in 2007, ACDF C5-C6 in 11/2019. FAMILY HISTORY: Aneurysm and hypertension. SOCIAL HISTORY: Retired. . Rarely exercises. Denies tobacco use. Denies substance abuse. Denies alcohol consumption. Drinks coffee daily. ALLERGIES: No known drug allergies. CURRENT MEDICATIONS: Simvastatin; fluoxetine; amlodipine; hydrochlorothiazide; latanoprost; alendronate sodium; Linzess; aspirin; vitamin D3, a multivitamin per her; naproxen; [place]. REVIEW OF SYSTEMS: A 12-point review of systems was obtained and is noncontributory except that mentioned above. PHYSICAL EXAMINATION: NEUROSURGERY EXAMINATION: GENERAL APPEARANCE: Alert, pleasant, no acute distress. HEAD: Normocephalic and atraumatic. NECK AND THYROID: Well-healed incision. SKIN: Warm and dry. MUSCULOSKELETAL: Lumbar paraspinal muscle bulk is normal, restricted range of motion of the lumbar spine, [id number] tenderness of the lower lumbar spine with palpation, normal range of motion of the lower extremities bilaterally. EXTREMITIES: No clubbing, cyanosis, or edema. NEUROLOGIC: Alert and oriented x 3, normal recent and remote memory, strength 5/5 in bilateral lower extremities, sensory is intact to light touch in bilateral lower extremities, reflexes are present and symmetric in the lower extremities bilaterally, negative straight leg raising bilaterally. IMAGING: I reviewed a lumbar myelogram and post-myelogram CT scan as well as comparing these to lumbar MRI scan from last year. On these studies, I did not see significant lumbar spinal stenosis. She does have an anterior extradural defect on the right at L4-L5, which appears to be due to a right-sided disc osteophyte complex. She does also have fairly severe right neuroforaminal compromise, which does impinge on the right L5 root and L5-S1. ASSESSMENT/PLAN: I feel that her right buttock and hip pain is related to the disc osteophyte complex on the right at L4-L5 as well as foraminal narrowing at L5-S1 on the right. At this point, my recommendation would be to operate on the right and decompress both of these levels to see if this one helps her. I did speak with her about this. I explained that this might not help with all of her pain, but that I did think that it could help her significantly with some of her pain. She does understand. She would like for us to go ahead. I outlined the surgery as well as the risks and expected postoperative course. She understands. She would like to go ahead. We will make the arrangements. MERCEDES CARRIZALES MD DR: LEANNE/dominique JOB#: [id number] / [id number] MALIK
[~2020-03-27] VITALS: Ht 165.1 cm; Wt 99.7 kg
[~2020-03-27 10:17] MED LIST changes: -DOCU-109 PO; -HYDR-2763 PO; +HYDROmorphone 2 MG/ML VIAL IV PRN; +MORPHINE SULFATE 2 MG/ML VIAL. IV PRN; +ONDANSETRON PF 4 MG/2 ML VIAL. IV PRN; +PROCHLORPERAZINE 10 MG/2 ML VIAL. IV PRN; +fentaNYL PF VIAL 100 MCG/2 ML VIAL IV PRN
[2020-03-27] MEDS ORDERED: PROPOFOL 100 ML IV ONE (10:50)
[2020-03-27] MEDS: IV RINGERS,LACTATED 1000ML 1,000 ML IV SCH (10:56)
[2020-03-27] MEDS ORDERED: GLYCOPYRROLATE 1 MG/5 ML VIAL. ONE (10:59)
[2020-03-27] MEDS ORDERED: REMIFENTANIL 2 MG VIAL. IV ONE (10:59)
[2020-03-27] MEDS ORDERED: fentaNYL PF VIAL 100 MCG/2 ML VIAL ONE (10:59)
[2020-03-27] MEDS ORDERED: MIDAZOLAM HCL/PF 2 MG/2 ML VIAL. ONE (10:59)
[2020-03-27] MEDS ORDERED: ceFAZolin 2GM PREMIX 2 GM/50 ML BAG IV ONE (11:00)
[2020-03-27] MEDS ORDERED: PROPOFOL 10 MG/ML (20ML) VIAL. IV ONE (11:00)
[2020-03-27] MEDS ORDERED: NEOSTIGMINE METHYLSULFATE 5 MG/5 ML SYRINGE. ONE (11:00)
[2020-03-27] MEDS ORDERED: ROCURONIUM 50 MG/5 ML VIAL. ONE (11:00)
[2020-03-27] MEDS ORDERED: PHENYLEPHRINE 10 MG/ML VIAL. ONE ×2 (11:00→11:45)
[2020-03-27] MEDS ORDERED: DEXAMETHASONE SOD PHOS 4 MG/ML VIAL ONE (11:01)
[2020-03-27] MEDS ORDERED: LIDOCAINE 2% PF 5 ML VIAL. ONE (11:01)
[2020-03-27] MEDS ORDERED: ONDANSETRON PF 4 MG/2 ML VIAL. ONE ×2 (11:01→12:52)
--- NOTE | 2020-03-27 11:04 | EKG ---
[facility] [address] [place] [address] Test Date: 2020-03-27 Test Time: 11:03:19 Pat Name: HANS JUSTIN Department: Room: Gender: F [employer]: ALEKSANDR : 1945 Requested By: MERCEDES CARRIZALES Order Number: [id number] Reading MD: Measurements Intervals Gideon Rate: 71 P: -3 NV: 164 QRS: -17 QRSD: 80 T: -11 QT: 444 QTc: 483 Interpretive Statements SINUS RHYTHM LEFTWARD AXIS R-S TRANSITION ZONE IN V LEADS DISPLACED TO THE LEFT ST & T ABNORMALITY, CONSIDER INFERIOR ISCHEMIA OR LEFT VENTRICULAR STRAIN ABNORMAL ECG RI6.01 No previous ECG available for comparison
[2020-03-27] MEDS ORDERED: DESFLURANE > 120 MINUTES IH ONE ×2 (11:45→14:58)
[2020-03-27] MEDS ORDERED: SUCCINYLCHOLINE 200 MG/10 ML VIAL. ONE (11:52)
[2020-03-27] MEDS ORDERED: FAMOTIDINE 20 MG/2 ML VIAL ONE (11:52)
[2020-03-27] MEDS ORDERED: DEXAMETHASONE SOD PHOS 20 MG/5 ML VIAL. ONE (12:33)
[2020-03-27] MEDS: GELATIN SPONGE SIZE 100. ONE (13:09)
[2020-03-27] MEDS: BUPIVACAINE-EPI 0.5%-1:200000 MPF 30 ML VIAL. ONE (13:09)
[2020-03-27] MEDS: BACITRACIN 50,000 UNIT in IV NORMAL SALINE 1000ML BAG 1,000 ML IRR ONE (13:09)
[2020-03-27] MEDS: KETOROLAC 60 MG/2 ML VIAL. ONE (13:09)
[2020-03-27] MEDS: THROMBIN TOPICAL 20,000 UNIT SPRAY.SYRN KIT TP ONE (13:09)
[2020-03-27] MEDS ORDERED: HYDR-2763 PO (14:52)
[2020-03-27] MEDS ORDERED: DOCU-109 PO (14:52)
--- NOTE | 2020-03-27 14:54 | DISCH ---
DISCHARGE INSTRUCTIONS Condition on Discharge Condition on Discharge: Stable Activity After Discharge Activity Instructions for Disc: Activity as tolerated, Avoid exertion Bathing Instructions: Shower-keep dressing dry, No Tub Bath until see Lifting Instructions after Dis: No heavy lifting, No pulling or pushing, Do not lift >10 pounds Exercise Instruction after Dis: Progress as tolerated Driving Instructions after Dis: No driving for 2 weeks Weight Bearing Status after Di: No restrictions Diet after Discharge Diet after Discharge: Regular Additional Diet Restrictions: resume home diet Diet Texture: Regular Wound Incision Care Wound/Incision Care: Ice to area for comfort, May get incision wet Other wound/incision instructi: may remove dressing in 48 hours if dry then may shower, no soaking Contacting the DRCarissa after DC Call your doctor for: Concerns you may have Follow-Up Follow up with: Dr. Carrizales's nurse in 2 weeks [phone] Treatment/Equipment after DC Adaptive Equipment Issued: None MERCEDES CARRIZALES MD Mar 27, 2020 14:54
[2020-03-27] MEDS ORDERED: HYDROcodone/APAP 7.5/325MG 1 TAB TABLET PO ONE ×2 (15:45→17:00)
[2020-03-27 16:30] VITALS: BP 129/35
--- NOTE | 2020-03-27 19:10 | OP ---
DATE OF SURGERY: 03/27/2020 PREOPERATIVE DIAGNOSES: 1. Herniated lumbar disc, L4-L5, right, with right lumbar radiculopathy. 2. Severe lateral recess stenosis, L5-S1, right, with right lumbar radiculopathy. POSTOPERATIVE DIAGNOSES: 1. Herniated lumbar disc, L4-L5, right, with right lumbar radiculopathy. 2. Severe lateral recess stenosis, L5-S1, right, with right lumbar radiculopathy. OPERATION PERFORMED: 1. Hemilaminotomy and microdiscectomy, right L4-L5 with decompression of dura and nerve root. 2. Hemilaminotomy and decompression of dura and nerve root, L5-S1, right. The operation was done with EMG monitoring, SSEP monitoring, fluoroscopy, and microscopic dissection. SURGEON: Joseph Finney M.D. HYDROGEOLOGIST: PIEDAD Nassar assisted with the surgery. She assisted with the exposure, the 2-level microdecompression, and discectomy as well as the closure. OPERATIVE INDICATIONS: The patient is a pleasant 74-year-old who developed intractable back and primarily right lower extremity pain. On imaging studies, she had above-mentioned findings. She failed to improve with conservative measures, and I recommended surgery. She understood the surgery, the risks, the technique, and expected postoperative course and wished to go ahead. DESCRIPTION OF PROCEDURE: Following general endotracheal anesthesia, the patient was positioned prone on the Dannie table. Lumbar region prepped and draped in standard fashion. ANGELA hose and AV impulse boots were applied for DVT prophylaxis. The microscope was draped. Fluoroscopy was draped and brought into field. Monitoring was established. Ancef 2 gram was given less than 1 hour prior to initiation of surgery. Using fluoroscopic guidance, incision was made from mid L4 to mid S1, dissected down through skin and subcutaneous tissue, reflected the paraspinal muscles, and placed a [place] microdisk retractor. I directed my attention to L4-L5. I drilled a generous hemilaminotomy, trimmed away very thickened ligamentum flavum, and performed a partial foraminotomy. I gently retracted the root medially. There was a large calcified mass which was mobile, however, beneath the root and I gently retracted the root medially and then began to work through this mass and remove pieces of calcified disc material. As I worked, I was able to get an excellent decompression. I did use micro Kerrison's as well to help with removal of the disc. Following this, then I explored carefully and assured myself that the root was very free and no longer under any pressure. I then moved down to L5-S1. I drilled the generous hemilaminotomy, trimmed away ligamentum flavum, and then worked laterally. There was very thickened calcified ligament laterally which was compressing the root and its takeoff. I then gently retracted the root medially and trimmed this material away and fully decompressed the entire region and also performed a partial foraminotomy at this point, then I felt that both levels were very well decompressed. I irrigated copiously with antibiotic solution. I closed the wound in layers after obtaining excellent hemostasis. The skin was closed with several 4-0 subcuticular stitch. I felt the surgery went very well. JOSEPH CARRIZALES MD DR: LEANNE/dominique JOB#: [id number] / [id number] MALIK
--- NOTE | 2020-03-29 17:07 | PATHOLOGY ---
[facility] Accession Number: [id number] . 01 Material submitted: . vertebral column - LUMBAR DISC AND DECOMPRESSION . 01 Clinician provided ICD-10: y . 01 Clinical history: . Lumbar herniated disc with radiculopathy; back pain; stenosis . 02 Diagnosis: Segments of fibrocartilaginous, adipose, and skeletal muscle tissue and bone, lumbar disc and decompression: - Degenerative changes of fibrocartilaginous tissue. 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 02 Comment: There is no evidence of an acute inflammatory process or malignancy. 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 02 Electronically signed: . Stalin Corado MD, Pathologist NPI- [id number] . 01 Gross description: . The specimen is received in formalin, labeled "Samantha Green, lumbar disc and decompression". Received are multiple segments of pale conklin fibrous, gritty tissue admixed with small fragments of bone measuring 4.8 x 4.6 x 0.8 cm in aggregate dimensions. The specimen is submitted representatively in cassette A1, following decalcification. (CAA; 03/28/2020) QAC/QAC 03/28/2020 1715 Local . 02 Pathologist provided ICD-10: M51.36 . 02 CPT . 974299, [id number] Specimen Comment: A courtesy copy of this report has been sent to [phone], [phone] Specimen Comment: 1893 Specimen Comment: Report sent to / DR PERSAUD Performed at: [address], [place], [place] [id number] MD Patrick Lao MD Phone: [phone] Performed at: [address] [id number] MD Stalin Corado MD Phone: [phone]
== END 2020-03-27 17:27 | disposition home or self-care (01) ==
LOC: SURG 10:17
PROVIDERS: ATTEND Neurological Surgery
DX: M51.16 Intervertebral disc disorders with radiculopathy, lumbar region (principal); I10 Essential (primary) hypertension; M19.90 Unspecified osteoarthritis, unspecified site; M81.0 Age-related osteoporosis without current pathological fracture; Z82.49 Family history of ischemic heart disease and other diseases of the circulatory system; Z79.899 Other long term (current) drug therapy
CPT/HCPCS: 63030; 63047; 88304; 88311; 93005; 97116; 97162; 97530; A7015; J0330; J0690; J1100; J1885; J2250; J2370; J2405; J2704; J2710; J3010; J3490; J7030; J7120; 76000

== ENCOUNTER → 2020-07-23 | Outpatient (CLI) | payer MEDICARE ==
[~2020-07-23] MED LIST changes: -ALEN70TA6 PO; +ALEN70TA60 PO; +AMLO-187 PO; -AMLO10TA8 PO; +BUPIVACAINE MPF 0.25% 10 ML VIAL. ONE; +DOCU-109 PO; +HYDR-2763 PO; +HYDR-2765 PO; -HYDROmorphone 2 MG/ML VIAL IV PRN; +IOHEXOL 180 MG/ML 10 ML VIAL. ONE; -MORPHINE SULFATE 2 MG/ML VIAL. IV PRN; -ONDANSETRON PF 4 MG/2 ML VIAL. IV PRN; -PROCHLORPERAZINE 10 MG/2 ML VIAL. IV PRN; -fentaNYL PF VIAL 100 MCG/2 ML VIAL IV PRN; +methylPREDNISolone ACETATE 40 MG/ML VIAL. ONE; +methylPREDNISolone ACETATE 80 MG/ML VIAL. ONE
--- NOTE | 2020-07-23 10:58 | PDOC ---
Progress Note - Pain Clinic Date of Service: DOS: DATE: 07/23/20 TIME: 10:53 Diagnosis: Dx: Lumbar radiculopathy with lumbar spinal stenosis lumbar degenerative disc disease Cervical radiculopathy with cervical degenerative disc disease Bilateral sacroiliitis History or Present Illness: HPI: 11/2018. Patient has had laminectomy discectomy in the lumbar distribution as well as an anterior cervical discectomy and fusion in the cervical spine since her last visit here. Patient reports she is doing much better with the low back and especially the neck but over the past few months she started having pain which she thought was in her hip she was referred to her orthopedic surgeon who did extensive work-up and x-rays showing no significant pathology in the hips and is more worried about the low back and posterior aspect of the hips. Patient reports the pain is in the posterior aspect of the hips worse with walking standing changing position especially getting up from seated position rate is a 9 on scale 10 is worse over the past week 6 on average 5 its least is a 6 today patient cries pain is burning sharp tight dull alternating severe sometimes in the low posterior hip and unbearable on and off in intensity though generally does not awaken her from sleep at night but can but not more than once every 7 or 8 hours and may awaken her at night. Patient reports no new motor or sensory deficits no new bowel or bladder incontinence or other complaints.34- year female returns follow-up status post lumbar epidural steroid Physical Exam: VS: Blood pressure is 120/70 pulse 83 respirations 16 temperature 90.1 F height is 5 feet 3 inches weight is 218 pounds PE: PHYSICAL EXAMINATION: GENERAL: The patient is awake, alert, oriented, appropriate, very pleasant demeanor HEENT: Shows normocephalic, atraumatic. Extraocular movements are intact and symmetrical. Oral cavity: Mucous membranes moist and pink. Dentition is intact. NECK: Shows anterior throat supple without palpable lymphadenopathy noted. Swallow reflex symmetrical. CHEST: Shows normal on inspection. Breath sounds are clear bilaterally, no rales rhonchi or wheezes auscultated. HEART: Shows S1, S2 clear. No murmurs auscultated. ABDOMEN: Soft, nontender, nondistended, obese. No palpable organomegaly is noted. No rebound or guarding demonstrated. BACK: Shows spine grossly in the midline. Normal-appearing cervical lordotic curvature. There is slightly increased thoracic kyphosis, some minor flattening of the lumbar lordotic curvature. Well-healed surgical scars noted in the midline. Lumbar paraspinous muscles show symmetrical on inspection, on palpatio n shows some moderate tenderness diffusely throughout the upper, middle and lower distribution of the paraspinous muscles, but without specific trigger points, without radiation of pain. The patient has good rotational motion of the lumbar spine, both laterally as well as extension and flexion without significant difficulty. No tenderness over the spinous processes, sacrum or sac roiliac regions. EXTREMITIES: Lower extremities show deep tendon reflexes 1+ in the patellar and tendo calcaneus tendons. Motor exam is 5 on a scale of 5 with right dorsiflexion, extension, quadriceps and hamstring flexion and 5/5 on the left. Peripheral pulses are 1+ posterior tibial. No peripheral edema is noted bilaterally. Lower extremities are warm and dry to touch, equal in color and appearance. With palpation of the sacroiliac regions no significant tenderness over the posterior superior iliac spines as well as the superior and inferior aspect of the sacroiliac joints bilaterally slightly more tender on the right than the left. Gaenslen's maneuver shows positive bilaterally with external displacement and posterior displacement of the lower extremities with significant pain over the sacroiliac regions bilaterally slightly worse on the right than the left. SKIN: Shows warm and dry, good turgor. No edema. No sores, rashes or bruising throughout. Procedure: Procedure: Options were discussed with the patient. Patient chart was reviewed as her current medication regimen updated current review of systems updated today as well. We will proceed with bilateral sacroiliac joint injections today with fluoroscopic guidance. Risks were discussed including but not limited to bleeding infection possibility of intravascular injection sequelae spread local anesthetic numbness side effects of steroid medication exposure to fluoroscopy and poor results regarding pain control. Patient understands wished to proceed. Patient return to clinic in approximate 2 weeks for follow-up was counseled as to return appointment activity level and side effects to be aware of. Medication Injected: Med Injected: Under sterile prep and drape using C-arm fluoroscopic guidance, sacroiliac joints were injected using 2 cc 0.25% bupivacaine +60 mg Depo-Medrol +2 cc contrast, on each side after negative aspiration. Condition at discharge is stable, patient tolerated procedure well and had no complications. Condition at Discharge: Condition at Discharge: Patient discharged stable, patient tolerated procedure well and had no complications SOTO COLÓN MD Jul 23, 2020 10:58
== END | disposition home or self-care (01) ==
LOC: PNCL 10:05
PROVIDERS: ATTEND Anesthesiology
DX: M46.1 Sacroiliitis, not elsewhere classified (principal); M51.16 Intervertebral disc disorders with radiculopathy, lumbar region; M50.10 Cervical disc disorder with radiculopathy, unspecified cervical region; M48.061 Spinal stenosis, lumbar region without neurogenic claudication; I10 Essential (primary) hypertension; E78.00 Pure hypercholesterolemia, unspecified; K21.9 Gastro-esophageal reflux disease without esophagitis; G47.30 Sleep apnea, unspecified; E66.9 Obesity, unspecified; M19.90 Unspecified osteoarthritis, unspecified site; F32.9 Major depressive disorder, single episode, unspecified; M81.0 Age-related osteoporosis without current pathological fracture; Z90.710 Acquired absence of both cervix and uterus; Z98.890 Other specified postprocedural states; Z79.899 Other long term (current) drug therapy; Z79.82 Long term (current) use of aspirin
CPT/HCPCS: 27096; J1030; J1040; J3490; Q9965; G0260

== ENCOUNTER → 2020-09-26 | Outpatient (CLI) | payer MEDICARE ==
[~2020-09-26] MED LIST changes: -ALEN70TA60 PO; +ALEN70TA71 PO; -BUPIVACAINE MPF 0.25% 10 ML VIAL. ONE; -IOHEXOL 180 MG/ML 10 ML VIAL. ONE; -methylPREDNISolone ACETATE 40 MG/ML VIAL. ONE; -methylPREDNISolone ACETATE 80 MG/ML VIAL. ONE
--- NOTE | 2020-09-26 17:38 | KCIC ---
INDICATION: Reason: LBP S/P FALL 08/02, LUMBAR SURGERY 02/2020 / Spl. Instructions: / History: COMPARISON: January 2020 IMPRESSION: Lumbar spine: 5 views obtained including flexion and extension. Degenerative changes throughout the l umbar spine with facet hypertrophy as well as degenerative disc disease with osteophyte formation at the vertebral body endplates. Mild grade 1 anterolisthesis of L4 on 5. Mild retrolisthesis of L1 on 2 . These are seen on extension and neutral images. Calcific atherosclerosis. The anterolisthesis at L4 -5 is also seen on the flexion images but retrolisthesis at L1-2 is not. A definite acute fracture li ne is not seen. Electronically signed by: Jovan Henriquez MD (09/26/2020 5:36 PM) [id number]
== END ==
LOC: KCIC 11:14
PROVIDERS: ATTEND Neurological Surgery
DX: M47.816 Spondylosis without myelopathy or radiculopathy, lumbar region (principal); M51.36 Other intervertebral disc degeneration, lumbar region; M43.16 Spondylolisthesis, lumbar region; M25.78 Osteophyte, vertebrae
CPT/HCPCS: 72110

== ENCOUNTER → 2020-10-02 | Outpatient (CLI) | payer MEDICARE ==
[~2020-10-02] MED LIST changes: -HYDR50TA6 PO; +HYDR50TA9 PO; -OMEP40CA45 PO; +OMEP40CA7 PO
--- NOTE | 2020-10-02 13:07 | KCIC ---
Bilateral digital screening mammograms with 3-D tomosynthesis: Reason for examination: Routine screening. Comparison is made to previous studies dated back to 07/14/2013. Bilateral mammograms in CC and oblique projections were obtained with 2-D imaging and 3-D tomosynthes is imaging on a Siemens Inspiration unit and reviewed on the workstation. Interpretation was made wit h the benefit of CAD. The skin and nipples show no abnormalities. No abnormal axillary lymph nodes are seen. The breast par enchyma shows scattered fatty and fibroglandular density. (Breast density: Category B.) There are no dominant masses, suspicious calcifications or architectural distortion. Impression: No evidence of malignancy. Recommend routine screening. BI-RAD Category 1: Negative. "Our facility is accredited by the [employer] Mammography Program." This patient's information has been entered into a reminder system for the patient to be notified wit h the results of her examination and a target date for the next mammogram. Electronically signed by: Lissy Dos Santos MD (10/02/2020 1:04 PM) [id number]
== END ==
LOC: KCIC MAMMO 10:03
PROVIDERS: ATTEND Family Medicine
DX: Z12.31 Encounter for screening mammogram for malignant neoplasm of breast (principal)
CPT/HCPCS: 77063; 77067

== ENCOUNTER → 2020-10-09 | Outpatient (CLI) | payer MEDICARE ==
[~2020-10-09] MED LIST changes: +GADOTERATE 5 MMOL/10ML VIAL. IVP ONE; +OMEP40CA45 PO; -OMEP40CA7 PO
--- NOTE | 2020-10-09 16:27 | KCIC ---
MRI LUMBAR SPINE WITHOUT AND WITH IV CONTRAST Date: 10/09/2020 12:35 PM Indication: Rt lumbar radiculopathy post surgery last year Comparison: CT myelogram 02/19/2020. Technique: Multi-planar multi-weighted magnetic resonance imaging of the lumbar spine was performed w ith and without intravenous contrast using the standard lumbar spine protocol. [address] was administered intravenously during the examination. FINDINGS: The lumbar spine is normally aligned. No acute fracture. Mild multilevel degenerative disc desiccatio n and disc height loss, moderate at L4-5 and L5-S1. L1 hemangioma. The conus terminates at a normal level. No abnormal signal is seen within the visualized distal spina l cord. No clumping of intrathecal nerve roots. No soft tissue abnormality in the visualized abdomen or pelvis. T12-L1: No disc bulge. No facet arthropathy. No significant spinal stenosis or neural foraminal narro wing. L1-L2: Disc bulge. Mild facet arthropathy. No significant spinal stenosis. Mild left neural foraminal narrowing. L2-L3: Disc bulge. Mild facet arthropathy. No significant spinal stenosis. Mild bilateral neural fora anson narrowing. L3-L4: Disc bulge. Moderate facet arthropathy. No significant spinal stenosis or neural foraminal ava rowing. L4-L5: Right hemilaminectomy. Enhancing soft tissue in the laminectomy defect and right lateral reces s, likely postsurgical change. Mild facet arthropathy. No spinal canal stenosis. Mild right lateral r ecess narrowing. Mild right neural foraminal narrowing. Right far lateral disc protrusion which abuts the exiting right L4 nerve root. L5-S1: Right hemilaminectomy. Right far lateral disc protrusion which abuts the exiting right L5 nerv e root No spinal canal stenosis. Moderate bilateral neural foraminal narrowing. IMPRESSION: 1. Moderate lumbar spondylosis, detailed level by level above. 2. Postsurgical changes of posterior decompression at L4-5 and L5-S1. Electronically signed by: Juan Jose Leong MD (10/09/2020 4:24 PM) [id number]
== END ==
LOC: KCIC MRI 12:22
PROVIDERS: ATTEND Neurological Surgery
DX: M47.26 Other spondylosis with radiculopathy, lumbar region (principal)
CPT/HCPCS: 72158; A9575

== ENCOUNTER → 2020-11-05 | Outpatient (CLI) | payer MEDICARE ==
[~2020-11-05] MED LIST changes: +CONTRAST GIVEN. MC PRN; -GADOTERATE 5 MMOL/10ML VIAL. IVP ONE; +IOHEXOL 180 MG/ML 10 ML VIAL. IT ONE
[2020-11-05 09:58] VITALS: BP 122/59
[2020-11-05 10:28] VITALS: BP 119/56
--- NOTE | 2020-11-05 10:43 | RAD ---
EXAM: Fluoroscopic guided lumbar puncture for CT myelography; lumbar spine CT myelogram. HISTORY: Lower back pain the right lower extremity radiculopathy. TECHNIQUE: The risks of the procedure discussed with the patient and written consent was obtained. A timeout was performed. Fluoroscopic imaging of the lumbar spine was performed and a site overlying L5 -S1 was selected for needle entry. The skin in this location was sterilely prepped, draped and infilt rated with 1 percent lidocaine. A 22-gauge spinal needle was advanced into the thecal sac. 18 cc of O mnipaque 180 intrathecal contrast was injected into the thecal sac. The needle was removed and a ster ile bandage was placed at the needle entry site. Upright neutral, flexion and extension images and edwards pine bilateral oblique and crosstable lateral image were obtained. The total fluoroscopy time was 0.9 minutes. 7 fluoroscopic images were obtained. The patient was then transferred to the CT suite for t he post injection CT portion of the exam. The patient tolerated the procedure without difficulty and was discharged in stable condition with post myelogram instructions. *One or more of the following individualized dose reduction techniques were utilized for this examina tion: 1. Automated exposure control. 2. Adjustment of the mA and/or kV according to patient size. 3. Use of iterative reconstruction technique. COMPARISON: MRI dated 10/09/2020 and mammogram dated 02/19/2020. FINDINGS: The fluoroscopic flexion-extension images demonstrate grade 1 anterolisthesis of L4 and L5, measuring 3 mm. This does not change between flexion and extension. There is degenerative endplate r emodeling and disc space narrowing at L5-S1, and to a lesser extent, L4-L5. There are disc bulges at all levels, better characterized on the CT myelogram portion of the exam. The CT portion of the exam demonstrates grade 1 anterolisthesis of L4 and L5, measuring 2 mm. There i s degenerative endplate remodeling with disc space narrowing, Schmorl's node formation and vacuum phe nomenon at L4-L5, and to a lesser extent, L5-S1. There is mild endplate remodeling at the remainder o f the lumbar levels. There is no fracture. There is no suspicious osseous lesion. The conus terminate s at L1. There is bilateral basilar atelectasis or pleural-parenchymal scarring. There is no infiltrate or ple ural effusion. There is aortobiiliac atherosclerosis. There is a vacuum phenomenon involving the sacr oiliac joints. The uterus is surgically absent. At T11-T12, there is a minimal shallow left paracentral disc protrusion. There is no stenosis. At T12-L1, there is no stenosis. At L1-L2, there is a disc bulge and endplate remodeling. There is mild left foraminal stenosis. At L2-L3, there is a shallow broad-based left lateral recess to foraminal disc protrusion superimpose d on a left lateral predominant disc bulge and endplate remodeling. There is mild left foraminal sten osis. There is narrowing of the left lateral recess and minimal central canal stenosis. At L3-L4, there is a disc bulge and endplate remodeling. There is mild central canal stenosis. At L4-L5, there is a right paracentral to lateral recess disc protrusion and osteophyte complex with 4 mm superior and 2 mm inferior extrusion superimposed on a right lateral predominant disc bulge and endplate osteophytosis. There is moderate right facet arthropathy. There is moderate right foraminal stenosis with abutment the exiting right L4 nerve root. There is effacement of the right lateral rece ss and deviation of the traversing right nerve roots with minimal central canal stenosis. There are r ight hemilaminectomy changes. At L5-S1, there is a right paracentral to lateral recess disc protrusion and there are right greater than left foraminal to lateral disc protrusions and osteophyte complexes superimposed on a disc bulge and endplate osteophytosis. There is moderate bilateral facet arthropathy. There is severe bilateral foraminal stenosis with abutment the exiting L5 nerve roots. There is narrowing of the right lateral recess. IMPRESSION: 1. L4-L5: Right paracentral to lateral recess disc protrusion and osteophyte complex with slight extr usion superimposed on a right lateral predominant disc bulge, endplate osteophytosis and right facet arthropathy. These changes are stable to minimally increased compared to the prior CT myelogram, resu lting in moderate right foraminal stenosis with abutment the exiting right L4 nerve root and effaceme nt of the right lateral recess with deviation of the traversing right nerve roots. There are right he micolectomy changes at this level. 2. L5-S1: Right paracentral to lateral recess disc protrusion and right greater than left foraminal t o lateral disc protrusions and osteophyte complexes superimposed on a disc bulge, endplate osteophyto sis and facet arthropathy, resulting in severe bilateral foraminal stenosis with abutment the exiting L5 nerve root and narrowing of the right lateral recess. This is stable in appearance. 3. Mild degenerative change throughout the remainder of the lumbar spine, described in detail above. This is associated with mild left foraminal stenosis at L1-L2, mild left foraminal and left lateral r ecess stenosis and minimal central canal stenosis at L2-L3 and mild central canal stenosis at L3-L4. These findings are not significantly changed compared to the prior exam. 4. Minimal grade 1 anterolisthesis of L4 and L5 which does not significantly change between flexion a nd extension. Electronically signed by: Taisha Del Real MD (11/05/2020 10:41 AM) [id number]
--- NOTE | 2020-11-05 10:44 | NUR ---
Patient d/c. Taken to private vehicle via wheelchair. No bleeding at site, no pain. VS WNL. Instructions provided on procedure, patient has copy. Patient's driving home.
== END | disposition home or self-care (01) ==
LOC: RAD 09:04
PROVIDERS: ATTEND Neurological Surgery
DX: M54.5 Low back pain (principal); M54.16 Radiculopathy, lumbar region; M48.061 Spinal stenosis, lumbar region without neurogenic claudication; I10 Essential (primary) hypertension; E78.00 Pure hypercholesterolemia, unspecified; K21.9 Gastro-esophageal reflux disease without esophagitis; E66.9 Obesity, unspecified; G47.30 Sleep apnea, unspecified; M19.90 Unspecified osteoarthritis, unspecified site; F32.9 Major depressive disorder, single episode, unspecified; Z90.710 Acquired absence of both cervix and uterus; Z98.890 Other specified postprocedural states; Z79.899 Other long term (current) drug therapy; Z79.82 Long term (current) use of aspirin
CPT/HCPCS: 62304; 72132; Q9965

== ENCOUNTER → 2020-12-30 | Outpatient (CLI) | payer MEDICARE ==
[2020-11-05 10:28] VITALS: BP 119/56
[~2020-12-30] MED LIST changes: -CONTRAST GIVEN. MC PRN; -IOHEXOL 180 MG/ML 10 ML VIAL. IT ONE
--- NOTE | 2020-12-31 08:50 | KCIC ---
EXAM: PA and Lateral Views of the Chest DATE: 12/30/2020 2:19 PM INDICATION: Reason: SHORT OF AIR / Spl. Instructions: / History: COMPARISON: No Prior FINDINGS: Mild cardiac megaly. Aorta is tortuous. Small bilateral pleural effusions. No lobar consolidation. Ca lcified hilar lymph nodes bilaterally. Prominence of pulmonary arterial trunk. Patchy perihilar paren chymal opacities. IMPRESSION: 1. Cardiomegaly with bilateral parenchymal opacities and small pleural effusions may be seen with pu lmonary edema or atypical infectious/inflammatory process. Electronically signed by: Shayne So MD (12/31/2020 8:48 AM) [facility]
== END ==
LOC: KCIC 14:15
PROVIDERS: ATTEND Internal Medicine Pulmonary Disease
DX: J90 Pleural effusion, not elsewhere classified (principal); I51.7 Cardiomegaly
CPT/HCPCS: 71046

== ENCOUNTER → 2021-01-06 | Outpatient (CLI) | payer MEDICARE ==
[2020-11-05 10:28] VITALS: BP 119/56
[~2021-01-06] MED LIST changes: +IOHEXOL 300 MG/ML 100ML VIAL. IV ONE
--- NOTE | 2021-01-06 10:02 | KCIC ---
CTA Chest with contrast: Clinical History: Reason: SOA, elevated D-dimer, pleural effusions / Axial helical images of the chest were obtained after the administration of 100 cc of IV Omni 300 and timed appropriately for a pulmonary arterial study. Conventional axial reconstruction was performed in addition to coronal, sagittal and bilateral oblique MIP (maximum intensity projection). This catalina dy was ordered to detect possible pulmonary embolism. There are no filling defects to suggest pulmonary embolism. There is a mild left pleural effusion. There is no mediastinal or hilar lymphadenopathy. The thoracic aorta appears normal. Impression: 1. No evidence of pulmonary embolism. 2. Mild left pleural effusion. End impression PQRS Compliance Statement: One or more of the following individualized dose reduction techniques were utilized for this examinat ion: 1. Automated exposure control 2. Adjustment of the mA and/or kV according to patient size 3. Use of iterative reconstruction technique Electronically signed by: Lyle Rouse III, MD (01/06/2021 10:00 AM) [id number]
== END ==
LOC: KCIC CT 09:07
PROVIDERS: ATTEND Internal Medicine Pulmonary Disease
DX: J90 Pleural effusion, not elsewhere classified (principal); R79.89 Other specified abnormal findings of blood chemistry; R06.02 Shortness of breath
CPT/HCPCS: 71275; 82565; Q9967

== ENCOUNTER → 2021-01-07 | Outpatient (CLI) | payer MEDICARE ==
[2020-11-05 10:28] VITALS: BP 119/56
[~2021-01-07] MED LIST changes: -IOHEXOL 300 MG/ML 100ML VIAL. IV ONE; +REGADENOSON 0.4 MG/5 ML DISP.SYRIN. IV ONE
--- NOTE | 2021-01-07 16:48 | CARD ---
MR#: [id number] Date of Study: 01/07/2021 Ordering Physician: KECIA MOON, Referring Physician: KECIA MOON, Tech: Kimberly Benedict [facility] APPROVED REPORT EXAM: Two-dimensional and M-mode echocardiogram with Doppler and color Doppler. Other Information Quality : Technically LimitedHR: 81bpm Rhythm : NSR INDICATION Dyspnea RISK FACTORS Hypertension Obesity 2D DIMENSIONS RVDd2.9 (2.9-3.5cm)Left Atrium(2D)5.3 (1.6-4.0cm) IVSd1.4 (0.7-1.1cm)Aortic Root(2D)3.4 (2.0-3.7cm) LVDd5.6 (3.9-5.9cm)LVOT Diameter2.2 (1.8-2.4cm) PWd1.4 (0.7-1.1cm)LVDs4.2 (2.5-4.0cm) FS (%) 23.9 %SV71.7 ml LVEF(%)47.1 (>50%) Aortic Valve AoV Peak Armando.149.1cm/sAoV VTI28.8cm AO Peak GR.8.9mmHgLVOT Peak Armando.158.3cm/s AO Mean GR.4mmHgAVA (VMAX)3.94cm2 Mitral Valve MV E Mwfifdiu434.2cm/sMV DECEL [id number] MV A Isctxygt48.2cm/sE/A Ratio1.7 Pulmonary Valve PV Peak Bxororlz640.6cm/s Tricuspid Valve TR P. Fmnzkeml645zs/sTR Peak Gr.46mmHg Pulmonary Vein S1 Mjvvvlqu33.1cm/sD2 Tibgbjxx26.0cm/s PVa [id number] LEFT VENTRICLE The Left Ventricle is mildly dilated. There is moderate concentric left ventricular hypertrophy. The left ventricular systolic function is normal and the ejection fraction is within normal range. Estima fernando ejection fraction 60-65%. There is normal LV segmental wall motion. The left ventricular diastoli c function and filling is normal for age. RIGHT VENTRICLE The right ventricle is normal size. There is normal right ventricular wall thickness. The right ventr icular systolic function is normal. ATRIA The left atrium size is normal. The right atrium size is normal. The interatrial septum is intact wit h no evidence for an atrial septal defect or patent foramen ovale as noted on 2-D or Doppler imaging. AORTIC VALVE The aortic valve is normal in structure and function. Doppler and Color Flow revealed no significant aortic regurgitation. There is no significant aortic valvular stenosis. MITRAL VALVE The mitral valve is normal in structure and function. There is no evidence of mitral valve prolapse. There is no mitral valve stenosis. Doppler and Color-flow revealed mild mitral regurgitation. TRICUSPID VALVE The tricuspid valve is normal in structure and function. Doppler and Color Flow revealed trace tricus pid regurgitation. Estimated PAP 35 mmHg. PULMONIC VALVE Doppler and Color Flow revealed no pulmonic valvular regurgitation. There is no pulmonic valvular sanya nosis. GREAT VESSELS The aortic root is normal in size. The ascending aorta is normal in size. The IVC is normal in size a nd collapses >50% with inspiration. PERICARDIAL EFFUSION There is no evidence of significant pericardial effusion. Critical Notification Critical Value: No <Conclusion> The left ventricular systolic function is normal and the ejection fraction is within normal range. E stimated ejection fraction 60-65%. There is normal LV segmental wall motion. There is moderate concentric left ventricular hypertrophy. Doppler and Color Flow revealed trace tricuspid regurgitation. Estimated PAP 35 mmHg. Signed by : Barrett Cali, Electronically Approved : 01/07/2021 16:47:34
--- NOTE | 2021-01-08 12:26 | RAD ---
MR#: [id number] Date of Study: 01/07/2021 Ordering Physician: KECIA MOON, Referring Physician: ROB AYOUB Tech: RT Inna Veras) (N) APPROVED REPORT Test Type: Pharmacological Stress Nurse/Tech: ERIK MAN Test Indications: [place]STER Cardiac History: HTN- SEE EMR Medications: SEE EMR Medical History: SEE EMR Resting ECG: SR W/ PROLONGED QT INTERVAL Resting Heart Rate: 66 bpm Resting Blood Pressure: 114/55mmHg Pretest Chest Pain: No chest pain Nurse/Tech Notes S1,S2, LUNGS CTA, DENIED CHEST PAIN OR SOA AT REST, PRIOR TO TESTING. VSS. Consent: The procedure was explained to the patient in lay terms. Informed consent was witnessed. Curtis eout was entered into [employer]. History and Stress Test performed by RT Inna Veras) (N) Pharm. Details Pharmacologic stress testing was performed using 0.4mg per 5ml of regadenoson given intravenously ove r 7-10 seconds. Stress Symptoms PT C/O SOA DURING TESTING, DENIED CHEST PAIN. VSS. SYMPTOMS RESOLVED AFTER A FEW MINUTES, NO OTHER CO MPLAINTS. POST EXERCISE Reason for Termination: Infusion complete Max HR: 96 bpm Max Blood Pressure: 111/53mmHg Blood Pressure response to exercise: Normal blood pressure response during stress. Heart Rate response to exercise: WNL Chest Pain: No. Arrhythmia: . NO SIGNIFICANT CHANGES NOTED FROM BASELINE EKG. INTERPRETATION Stress EKG Conclusion: No evidence of stress induced EKG changes. Imaging Protocol IMAGE PROTOCOL: Rest Tc-99m/stress Tc-99m 1 day Rest: Stress: Viability: Radiopharm.Tc99m EsupnwtdaEa99s Sestamibi Dose10.5mCi 31.6mCi Duration 15min. 10min. Img Date 01/07/2021 01/07/2021 Inj-Img Fehm79bhn. 60min. Rest Admin Site:IV - Right AntecubitalAdministrator:RT Inna Osman)(N) Stress Admin Site: IV - Right AntecubitalAdministrator: Taisha Murdock, RT (R)(N) STRESS DATA End Diast. Vol.119.0mlAv. Heart Rate75.0bpm End Syst. Vol.37.0mlCO Index BSA6.2L/min Myocardial Fwlb158.0gEject. Lghaccpz20.0% Stress Rates Pk. Fill Rate3.68EDV/secLVtime Pk. Fill 165.99msec Pk. Empty Rate4.03ESV/secLVtime Pk. Btuek541.59msec 09/01 Pk. Fill1.28EDV/sec Stress Scores Regional WT0.00Summed WT0.00 Regional WM0.00Summed WM0.00 The rest and stress images show normal perfusion, normal contraction and thickening. LV Perf. Quant 17 Seg. SSS4.00 17 Seg. SRS8.00 17 Seg. SDS0.00 Stress Defect Extent (% LAD)5.00Rest Defect Extent (% LAD)5.60Rev. Defect Extent (% LAD)0.00 Stress Defect Extent (% LCX) 21.30Rest Defect Extent (% LCX)63.80Rev. Defect Extent (% LCX)0.00 Stress Defect Extent (% RCA)0.00Rest Defect Extent (% RCA)0.00Rev. Defect Extent (% RCA)0.00 Stress Defect Extent (% BAILEE)6.70Rest Defect Extent (% BAILEE)15.40Rev. Defect Extent (% BAILEE)0.00 Other Information Quality:Fair Risk Assessment: Low Risk Conclusion 1. No evidence of EKG changes with stress testing. 2. Normal perfusion at stress/rest. 3. Low risk study. 4. Significant motion artifact is noted. 5. EF > 60%. Signed by : Barrett Cali, Electronically Approved : 01/08/2021 12:26:14
== END ==
LOC: NM 10:35
PROVIDERS: ATTEND Internal Medicine Cardiovascular Disease
DX: I34.0 Nonrheumatic mitral (valve) insufficiency (principal); I10 Essential (primary) hypertension; R01.1 Cardiac murmur, unspecified
CPT/HCPCS: 78452; 93017; 93306; A9500; J2785

== ENCOUNTER → 2021-01-28 | Outpatient (CLI) | payer MEDICARE ==
[2020-11-05 10:28] VITALS: BP 119/56
[~2021-01-28] MED LIST changes: -REGADENOSON 0.4 MG/5 ML DISP.SYRIN. IV ONE; +ZOLPIDEM 5 MG TABLET. PO ONE
--- NOTE | 2021-01-29 12:23 | SLEEP ---
DATE OF STUDY: 01/28/2021 SLEEP STUDY ATTENDING PHYSICIAN: Mallory Jones MD REFERRING PHYSICIAN: Osei Barber MD The patient is a 75-year-old who weighs 204 pounds with a BMI of 35. The patient had a previous sleep study and was diagnosed with CLEMENCIA. The patient's AHI was 12 per hour with a REM AHI of 36 per hour. The patient has been on CPAP at 12 cm of water. The patient has increased daytime somnolence. Another CPAP titration study was performed. During the night study, the patient spent 411 minutes in bed and slept for 340 minutes with a sleep efficiency of 83%. Sleep latency was short. REM latency was 117 minutes. Sleep architecture showed normal stage 1 and stage 2 sleep, increased slow wave sleep, which was 31% of total sleep time and reduced REM sleep, which was 11% of total sleep time. EKG monitoring revealed no sustained arrhythmias. No significant PLMs seen. The patient was started on CPAP and titrated up to 14 cm of water. At the final pressure, the patient slept for 218 minutes. The patient had supine as well as REM sleep. The patient's AHI was reduced to 3 per hour and oxygen saturation remained above 90%. The patient used a medium sized nasal pillows. IMPRESSION: 1. Sleep apnea diagnosed previously. 2. No clinically significant periodic limb movements. RECOMMENDATIONS: 1. CPAP at 14 cm water completely eliminated the patient's sleep apnea and should be used on a nightly basis. 2. Follow up in 4-6 weeks to assess compliance with CPAP and to document clinical improvement. 3. Weight loss is advised. Avoid INDIGO MIXER depressants. 4. Cautioned regarding driving until symptoms of sleep apnea resolves with the use of CPAP. ABEBA DR: Liliana TID: [id number] CC: MALLORY JONES MD, OSEI BARBER MD
== END ==
LOC: RT 19:00
PROVIDERS: ATTEND Internal Medicine Pulmonary Disease
DX: G47.30 Sleep apnea, unspecified (principal); G47.34 Idiopathic sleep related nonobstructive alveolar hypoventilation
CPT/HCPCS: 95811

== ENCOUNTER → 2021-04-14 | Outpatient (CLI) | payer MEDICARE ==
[2020-11-05 10:28] VITALS: BP 119/56
[~2021-04-14] MED LIST changes: +CONTRAST GIVEN. MC PRN; +FURO-69 PO; +IOHEXOL 240 MG/ML 50ML VIAL. PO ONE; +IOHEXOL 300 MG/ML 100ML VIAL. IV ONE; +ISOS60TA55 PO; +NITR0.4T22 SL; -OMEP40CA45 PO; +OMEP40CA7 PO; -ZOLPIDEM 5 MG TABLET. PO ONE
--- NOTE | 2021-04-14 14:57 | KCIC ---
Study: CT of the abdomen with contrast. Day Comparison: None Clinical Indication: Epigastric pain, evaluate for hernia Technique: Contiguous axial images are obtained from the apex of the diaphragm to the pelvic floor. I mages are obtained in the portal venous phase(s). Sagittal and coronal reformations are evaluated. Dose Reduction: One or more of the following individualized dose reduction techniques were utilized f or this examination: 1. Automated exposure control, 2. Adjustment of the mA and/or kV according to p atient size, 3. Use of iterative reconstruction technique FINDINGS: Lung bases: Grossly unremarkable Lower Mediastinum: Grossly unremarkable. Possible tiny sliding hiatal hernia. Liver: Normal in size and contour with no focal parenchymal abnormalities. Biliary: No intra or extra hepatic biliary ductal dilatation. Gallbladder: Partially fluid distended and grossly unremarkable with no radiographically discernible stones. No pericholecystic fluid. Pancreas: Grossly unremarkable Spleen: Grossly unremarkable Adrenals: Grossly unremarkable Kidneys: Free of any hydronephrosis, nephrolithiasis or focal parenchymal abnormality. Gastroduodenum:Grossly unremarkable. Vascular:Aorta is nonaneurysmal. No clinically significant aortic or visceral arterial stenoses. Bones:No suspicious osteoblastic or osteolytic bone lesions. Moderate multifocal degenerative change of the lower lumbar levels. Soft Tissues: Small fat-containing umbilical hernia. IMPRESSION: 1. No acute process in the abdomen to explain patient's epigastric pain. 2. Possible tiny sliding hiatal hernia. Electronically signed by: Israel Valencia (04/14/2021 2:55 PM) [id number]
== END ==
LOC: KCIC CT 09:47
PROVIDERS: ATTEND Family Medicine
DX: K42.9 Umbilical hernia without obstruction or gangrene (principal); K82.8 Other specified diseases of gallbladder
CPT/HCPCS: 74160; Q9966; Q9967

== ENCOUNTER 2021-04-16 07:05 | Inpatient (IN) | payer MEDICARE ==
[2021-04-16] VITALS (31 sets, daily range): BP systolic 63–124; BP diastolic 42–63
[~2021-04-16] VITALS: Ht 165.1 cm; Wt 84.8 kg
[~2021-04-16 07:05] MED LIST changes: -CONTRAST GIVEN. MC PRN; -FURO-69 PO; -IOHEXOL 240 MG/ML 50ML VIAL. PO ONE; -IOHEXOL 300 MG/ML 100ML VIAL. IV ONE; -ISOS60TA55 PO; -NITR0.4T22 SL
[2021-04-16] MEDS ORDERED: IODIXANOL 320 MG/ML 100 ML VIAL. ONE ×2 (07:35→09:40)
[2021-04-16] MEDS ORDERED: LIDOCAINE 1% Multi-Dose 20 ML VIAL. ONE (07:35)
[2021-04-16] MEDS ORDERED: HEPARIN for ARTERIAL LINE 1,500 ML ONE (07:37)
[2021-04-16 07:41] LABS: HEMATOCRIT 35.5 % (36.0-47.0); HEMOGLOBIN 11.8 g/dL (12.0-15.5); RED BLOOD COUNT 3.79 x10^6/uL (3.50-5.40); RED CELL DISTRIBUTION WIDTH 13.2 % (11.5-14.5); WHITE BLOOD COUNT 4.9 x10^3/uL (4.0-11.0)
[2021-04-16 07:49] LABS: CALCIUM 9.5 mg/dL (8.5-10.1); CREATININE 0.9 mg/dL (0.6-1.0); POTASSIUM 3.6 mmol/L (3.5-5.1)
[2021-04-16] MEDS ORDERED: POTA-116 PO (08:15)
[2021-04-16] MEDS ORDERED: ISOS60TA55 PO (08:15)
[2021-04-16] MEDS ORDERED: NITR0.4T22 SL (08:15)
[2021-04-16] MEDS ORDERED: FURO-69 PO (08:15)
[2021-04-16] MEDS ORDERED: IODIXANOL 320 MG/ML 100 ML VIAL. IART ONE (08:30)
[2021-04-16] MEDS ORDERED: CONTRAST GIVEN. MC PRN (08:30)
[2021-04-16] MEDS ORDERED: LIDOCAINE 1% Multi-Dose 20 ML VIAL. INJ ONE (08:30)
[2021-04-16] MEDS ORDERED: fentaNYL PF VIAL 100 MCG/2 ML VIAL IV ONE (08:30)
[2021-04-16] MEDS ORDERED: MIDAZOLAM HCL/PF 5 MG/5 ML VIAL. IV ONE (08:30)
--- NOTE | 2021-04-16 08:53 | PDOC ---
MODERATE SEDATION ASSESSMENT RISKS/ALTERNATIVES Risks/Alternatives Risks and alternatives of this type of sedation and procedure discussed with: RISK/ALTERNATIVES: Patient H & P ON CHART H & P H & P on chart and reviewed for co-morbid conditions and appropriate labs. H&P ON CHART: Yes STATUS PREG STATUS ASSESSED: Yes MEDS/ALLERGIES REVIEWED Meds/Allergies Reviewed Medications and Allergies including time and route of recently administered narcotics and sedatives. MEDS/ALLERGIES REVIEWED: Yes ASA RATING ASA RATING: II AIRWAY ASSESSMENT Airway Assessment Airway patency, oral function limitations, presence of caps, crowns, dentures, partials, and ability to extend neck assessed. AIRWAY ASSESSMENT: Yes MALLAMPATI SCORE MALLAMPATI SCORE: II PRE-SEDATION ASSESSMENT PRE-SEDATION ASSESSMENT: Yes KECIA MOON MD Apr 16, 2021 08:53
[2021-04-16] MEDS ORDERED: FUROSEMIDE 100 MG/10 ML VIAL. ONE (09:57)
[2021-04-16] MEDS ORDERED: MORPHINE SULFATE 10 MG/ML VIAL. ONE (10:01)
[2021-04-16] MEDS ORDERED: ONDANSETRON PF 4 MG/2 ML VIAL. ONE (10:03)
[2021-04-16] MEDS ORDERED: SUCCINYLCHOLINE 200 MG/10 ML VIAL. ONE ×2 (10:26→16:48)
[2021-04-16] MEDS ORDERED: ONDANSETRON PF 4 MG/2 ML VIAL. IVP ONE (10:30)
[2021-04-16] MEDS ORDERED: FUROSEMIDE 100 MG/10 ML VIAL. IVP ONE (10:30)
[2021-04-16] MEDS ORDERED: MORPHINE SULFATE 10 MG/ML VIAL. IV ONE (10:30)
[2021-04-16 10:34] LABS: BASO % 1 % (0-3); EOS # 0.1 x10^3/uL (0.0-0.7); EOS % 1 % (0-3); HEMATOCRIT 37.1 % (36.0-47.0); HEMOGLOBIN 12.1 g/dL (12.0-15.5); LYMPH # 2.9 x10^3/uL (1.0-4.8); LYMPH % 36 % (24-48); MEAN CORPUSCULAR HEMOGLOBIN 32 pg (25-35); MEAN CORPUSCULAR HGB CONC 33 g/dL (31-37); MEAN CORPUSCULAR VOLUME 97 fL (79-100); MONO # 0.6 x10^3/uL (0.0-1.1); MONO % 8 % (0-9); NEUT # 4.5 x10^3/uL (1.8-7.7); NEUT % 55 % (31-73); PLATELET COUNT 183 x10^3/uL (140-400); RED BLOOD COUNT 3.84 x10^6/uL (3.50-5.40); RED CELL DISTRIBUTION WIDTH 13.2 % (11.5-14.5); WHITE BLOOD COUNT 8.1 x10^3/uL (4.0-11.0)
[2021-04-16 10:39] LABS: BASE EXCESS ABG -9 mmol/L (-3-3); HCO3 ABG 20 mmol/L (21-28); PO2 ABG 87 mmHg (65-108); SAT O2 ABG 93 % (92-99)
[2021-04-16 10:43] LABS: CALCIUM 8.6 mg/dL (8.5-10.1); GFR 54.1; POTASSIUM 3.1 mmol/L (3.5-5.1)
[2021-04-16 10:43] LABS: PCO2 ABG 63 mmHg (35-46)
[2021-04-16 10:44] LABS: FIO2 ABG 100/VENT
[2021-04-16] MEDS ORDERED: IPRATRPIUM/ALBUTEROL 0.5/2.5MG 3 ML NEBU. NEB ONE (10:45)
[2021-04-16 10:49] LABS: ALBUMIN 3.2 g/dL (3.4-5.0); ALBUMIN/GLOBULIN RATIO 0.8 (1.0-1.7); MAGNESIUM 2.4 mg/dL (1.8-2.4); TOTAL BILIRUBIN 0.5 mg/dL (0.2-1.0)
[2021-04-16] MEDS ORDERED: EPINEPHrine SYRINGE 1 MG/10 ML SYRINGE ONE (11:00)
--- NOTE | 2021-04-16 11:00 | NUR ---
pt had some minimal low b/p's -in the low 90's. pt had received 700 cc of NS throughout the procedure for the hypo tension. pt has CLEMENCIA and uses cpap at home. after initial dose of sedation her SPO2 was in the mid 80's even though she was awake. repositioned her head and increased O2 to 6 L n/c. she was tolerating the procedure well until the last set of images was taken. she c/o SOA and being hot. increased O2 to 100% NRB as her SPO2 has dropped to the mid 70's. pt's lung sounds before procedure were clear but diminished through out, when rechecked at this time they had wheezes throughout. gave pt IV lasix, morphine and zofran with no relief of SOA. pt became increasingly diaphoretic and less oriented. RT was called for to give a breathing tx but before they arrived pt's breaths became very shallow and not getting any air in, pulse check revealed PEA. code blue called and CPR started. see code blue sheets. pt was intubated and ROSC occurred. pt's was update on the above events. rt femoral venous and arterial sheaths sutured in place. pt taken back to CV observation while and ICU bed could be freed up.
[2021-04-16] MEDS: MIDAZOLAM 100mg/100ml NS BAG 100 ML IV PRN ×2 (11:20→22:33)
[2021-04-16 11:26] LABS: % BANDS 3 % (0-9); % LYMPHS 35 % (24-48); % METAS 3 % (0-0); % MONOS 3 % (0-10); % MYELOS 1 % (0-0); % SEGS 55 % (35-66); NUCLEATED RBC 2; PLT ESTIMATE ADEQUATE (ADEQUATE); POLYCHROMASIA OCCASIONAL
--- NOTE | 2021-04-16 11:30 | CONS ---
DATE OF CONSULTATION: 04/16/2021 PULMONARY CONSULTATION ATTENDING PHYSICIAN: Dr. Jones. REASON FOR CONSULTATION: Respiratory failure, code blue. HISTORY OF PRESENT ILLNESS: The patient is a 75-year-old female with history of obstructive sleep apnea, being followed by Dr. Vernon. Also, has a history of hypertension, hyperlipidemia and GI reflux. The patient has history of normal ejection fraction of 60-65%. She has history of congestive heart failure. She was admitted for elective cardiac cath. Her cardiac cath did not reveal any significant coronary artery disease per preliminary report. However, the patient coded. She required ACLS protocol for about 8 minutes. She had one round of epinephrine as well. She had return of spontaneous circulation. She was intubated in the laboratory mechanic helper. The right heart cath findings were suggestive of left heart failure. She had a pulmonary capillary wedge pressure of 23 and left ventricular end-diastolic pressure of 26. The patient's arterial blood gases, obtained on assist control mode, rate of 16, tidal volume of 500 and 100% FiO2, showed a pH of 7.13, pCO2 of 63 and a pO2 of 86. A chest x-ray has been ordered. She did receive Lasix in the laboratory mechanic helper. PAST MEDICAL HISTORY: Hypertension, hyperlipidemia, esophageal reflux disease and obstructive sleep apnea. PAST SURGICAL HISTORY: Hysterectomy, total with BSO, right ankle surgery, left humerus surgery, hip surgery, cervical laminectomy and back surgery. FAMILY HISTORY: Mother at 98 years old. Father at 64 with heart disease. SOCIAL HISTORY: Nonsmoker. ALLERGIES: None to any medications. MEDICATIONS: Given in the laboratory mechanic helper were reviewed. REVIEW OF SYSTEMS: Unable to obtain as she is on a ventilator. PHYSICAL EXAMINATION: VITAL SIGNS: Which was done in the laboratory mechanic helper, showed a blood pressure of 110 systolic, pulse ox is 100% on the ventilator. NECK: Supple. LUNGS: With few coarse rhonchi. CARDIOVASCULAR: With a regular rate. ABDOMEN: Soft, obese. EXTREMITIES: 1+ pitting edema. LABORATORY DATA: Reviewed. White cell count 8.1, hemoglobin 12.1, platelets are 183. Chemistries with a BUN of 9 and creatinine f 1.0. ABG is discussed in my history of present illness. IMPRESSION: 1. Acute hypercapnic and hypoxic respiratory failure secondary to cardiac arrest. 2. Cardiac arrest in the laboratory mechanic helper, requiring 8 minutes of CPR and ACLS protocol, with return of spontaneous circulation. Etiology could be hypoxia. We will await chest x-ray findings first before recommending any further diagnostic testing. 3. The patient with abnormal right heart cardiac catheterization, suggestive of left ventricular failure. She had a pulmonary capillary wedge pressure of 23 and a left ventricular end-diastolic pressure of 26. We will await for chest x-ray. 4. Underlying obstructive sleep apnea and suspected obesity hypoventilation syndrome. RECOMMENDATIONS: 1. Continue present assist control mode and I have made changes on the ventilator settings and follow ABGs and make necessary adjustment. 2. We will obtain chest x-ray and if it is obvious CHF, then we will continue to diurese until oxygenation gets better. 3. If the chest x-ray appears clear, then we will do a CTA chest to rule out thromboembolic disease. She had a CTA chest in December of this year and was negative for pulmonary embolism. 4. Follow Cardiology recommendations. 5. Deep venous thrombosis and stress ulcer prophylaxis. 6. The patient was examined in the laboratory mechanic helper. Chart reviewed, imaging studies reviewed. Critical care time [address] Marti and discussed with RN and RT. addend: cxr with CHF,no need for CTA chest ELIDA/THIEN/JASWINDER DR: Liliana TID: [id number] MALIK
[2021-04-16] MEDS ORDERED: FUROSEMIDE 40 MG/4 ML VIAL. IVP ONE (12:30)
[2021-04-16] MEDS ORDERED: FUROSEMIDE 40 MG/4 ML VIAL. ONE (12:37)
[2021-04-16 12:59] LABS: BASE EXCESS COOX -3 mmol/L (-3-3); HCO3 COOX 22 mmol/L (21-28); METHEMOGLOBIN 0.4 % (0.0-1.9); OXYHEMOGLOBIN 94.6 %; PCO2 COOX 37 mmHg (35-46); PO2 COOX 82 mmHg (65-108); SAT O2 COOX 95 % (92-99)
[2021-04-16] MEDS: POTASSIUM CHLORIDE 10MEQ 100 ML IV SCH ×2 (13:00→14:00)
--- NOTE | 2021-04-16 13:43 | CARD ---
MR#: [id number] Date of Study: 04/16/2021 Ordering Physician: KECIA DIXON, Referring Physician: KECIA DIXON, Tech: Anastasia Connautaishadanelle, RT(R) APPROVED REPORT Procedures Left heart catheterization Left ventriculogram Aortic root injection Coronary angiogram Emergent intubation The patient is a 75-year-old female with a history of hypertension, hyperlipidemia and pulmonary hype rtension. The patient also reported gradually increasing chest pain which was relieved with nitrogly cerin. Her symptoms were progressive and heart catheterization was recommended for more definitive d iagnosis of possible coronary artery disease in the setting of her progressive chest pain as well as a right heart catheterization for further evaluation of her pulmonary hypertension. Risks and benefi ts were discussed with the patient. She gave informed consent to proceed. After informed consent was obtained the patient was brought to the heart catheterization lab. The ar ea the right femoral artery and vein were prepared in the usual manner with Betadine, sterile draping and local anesthetic. An 18-gauge needle was used to enter the right femoral artery, a wire placed and a 6 Togolese sheath placed over wire. An 18-gauge needle was then used to engage the right femoral vein, a wire placed and a 7 Togolese sheath placed over the wire. Initially a Mcclure-Dyana catheter was advanced to the pulmonary cavity wedge position. Sequential measurements were made in the wedge posi tion, PA, RV and RA. Oxygen saturations were obtained in the PA, RA and an additional measurement wa s made through the arterial sheath. This catheter was then removed. A [address] was advanced to the ascending aorta. However this could not engage the left system. It was sequ entially replaced with a JL 3.5 and a JL 5 diagnostic catheters. These catheters could not engage th e left system. Therefore a pigtail catheter was advanced the ascending aorta. A 30 degree BRENDA injec tion was performed. This catheter was then passed to the left ventricle. Pressures were obtained. A 30 degree DAHL left ventriculogram was performed. Pullback pressures were measured. Following this a 6 Togolese JR4 diagnostic catheter was used to engage the right coronary system and sequential injec tions of various views were obtained. A MP catheter was then used to attempt to engage the left syst em but again could not engage the vessel. A ES 3.0 guide was then attempted to engage the left syste m. It was replaced with a EX 3.5 guide which was able to engage the left system and sequential injec tions in various views were obtained. At approximately the time of the final injections of the left system the patient was awaking from her original sedation. She gradually became mildly agitated and reported shortness of breath. All catheters were removed from the patient and the sheaths were remai cuate in place. The patient was treated with increasing doses of oxygen and 40 mg of IV Lasix were giv en. The respiratory service was called and was giving the patient a breathing treatment. However he r shortness of breath was progressive. At this time we called for an emergency intubation. As the patient's oxygen saturations fell her rate slowed and she had several brief episodes of severe bradyc ardia to asystole. CPR was performed with chest compressions and ACLS guidelines were followed. The patient was successfully intubated. Once intubated the patient's heart rate improved and stabilized . At this time the patient's ET tube was stabilized. Sheaths were sutured into place. The patient' s rhythm remained stable. She was then transferred to the holding room pending ICU transfer. This w as discussed with the patient's family on several occasions. Findings. Coronaries. Left main. The left main was a normal size vessel with no lesions. Left anterior descending. The LAD was a moderate size vessel with normal distribution and no lesions . Left circumflex. The left circumflex was a moderate size vessel with normal distribution and no lesi ons. Right coronary artery the right coronary was a moderate size vessel with normal distribution and no l esions. Left ventricle. The left ventricle had normal LV systolic function with an estimated ejection fraction of 55% and tra ce mitral regurgitation. Aortic root. The aortic root was mildly enlarged with trace aortic insufficiency. Right heart pressures. Pulmonary capillary wedge 42/23. PA 50/6/32 RV 50/4/14 RA 13 PA sat 68.2 RA sat 66.8 Femoral artery sat 93 Lesa cardiac output 4.59 Lesa cardiac index 2.31 LV 98/26. Aorta 96/68 <Conclusion> No evidence of significant coronary artery disease. Normal left ventricular systolic function. Mildly dilated aortic root with no significant aortic insufficiency. Elevated right-sided heart pressures. Emergency intubation of the patient. Episodes of brief asystole during hypoxia. Rate improved and s tabilized once intubated. Fluoroscopy time of 15 minutes. Dose of 74 Gycm2 Contrast 170 mils Estimated blood loss of 15 mils All radiation protective equipment was used during the procedure. The patient was independently monitored during the procedure. Signed by : Kecia Dixon MD Electronically Approved : 04/16/2021 13:42:54
--- NOTE | 2021-04-16 16:05 | PDOC1 ---
History and Physical Visit Information Date of Admission: Source: Chart review, Patient History of Present Illness History of Present Illness The patient is a 75-year-old female with a history of chest pain, dyspnea on exertion, hypertension, hyperlipidemia and probable sleep apnea. Outpatient echo showed intact LV systolic function. Patient was scheduled for heart catheterization today due to recurrent episodes of chest pain relieved with nitroglycerin. As per the report in the chart, the patient underwent a right and left heart catheterization that basically showed no evidence of significant coronary artery disease. The patient had intact LV systolic function and elevated right-sided pressures. At the end of the procedure the patient developed increasing shortness of breath. She was initially treated with oxygen, IV Lasix and increased pulmonary treatments. However her shortness of breath persisted and became more severe. We called for an emergency intubation and as this was being prepared the patient's heart rate continued to decline and she eventually had periods of asystole. This was treated with chest compressions and ACLS protocols. The patient was then successfully intubated. Patient's oxygenation significantly improved and her heart rate and rhythm improved. She was treated with further IV Lasix and pulmonary treatments and has been transferred to the holding area awaiting ICU admission. The patient also has been seen by the pulmonary service. On several return visits over the past 3 hours the patient has remained relatively stable on the ventilator. She has had no significant arrhythmias. She has had some episodes of hypotension that have been treated with dopamine with good effect. The patient's family has been kept up-to-date of her medical condition. Cardiac Risk Factors Cardiac Risk Factors: Hypertension, Overweight/Obese/Met Synd, Hyperlipidemia Past Medical History Cardiovascular: HTN, Hyperlipidemia Pulmonary: Other (Elevated right-sided pressures, sleep apnea) Past Surgical History Past Surgical History: Total hip replacement, Hysterectomy, Other ( left humerus fracture, cervical laminectomy.) Current Medications Current Medications Current Medications Albuterol/ Ipratropium (Duoneb) 3 ml 1X ONCE NEB Last administered on 03/30 04/19at 10:05; Start 04/16/21 at 10:45; Stop 04/16/21 at 10:46; Status DC Dopamine HCl/ Dextrose 250 ml @ 17.138 mls/ hr CONT PRN IV SEE I/O RECORD Last administered on 04/16/21at 11:14; Start 04/16/21 at 12:00; Stop 04/17/21 at 11:59 Dopamine HCl/ Dextrose 250 ml @ As Directed STK-MED ONCE IV ; Start 04/16/21 at 11:08; Stop 04/16/21 at 11:08; Status DC Fentanyl Citrate 30 ml @ 0 mls/hr CONT PRN IV SEE PROTOCOL Last administered on 04/16/21at 11:30; Start 04/16/21 at 10:45; Stop 04/17/21 at 10:44 Fentanyl Citrate (Fentanyl 2ml Vial) 100 mcg 1X ONCE IV Last administered on 04/16/21at 08:30; Start 04/16/21 at 08:30; Stop 04/16/21 at 08:31; Status DC Furosemide (Lasix) 40 mg 1X ONCE IVP Last administered on 04/16/21at 12:30; Start 04/16/21 at 12:30; Stop 04/16/21 at 12:31; Status DC Furosemide (Lasix) 40 mg STK-MED ONCE .ROUTE ; Start 04/16/21 at 12:37; Stop 04/16/21 at 12:37; Status DC Furosemide (Lasix) 100 mg 1X ONCE IVP Last administered on 04/16/21at 10:30; Start 04/16/21 at 10:30; Stop 04/16/21 at 10:35; Status DC Furosemide (Lasix) 100 mg STK-MED ONCE .ROUTE ; Start 04/16/21 at 09:57; Stop 04/16/21 at 09:58; Status DC Heparin Sodium/ Sodium Chloride 500 ml @ As Directed STK-MED ONCE .ROUTE ; Start 04/16/21 at 09:52; Stop 04/16/21 at 09:53; Status DC Heparin Sodium/ Sodium Chloride 500 ml @ As Directed STK-MED ONCE .ROUTE ; Start 04/16/21 at 10:24; Stop 04/16/21 at 10:24; Status DC Heparin Sodium/ Sodium Chloride 1,500 ml @ As Directed STK-MED ONCE .ROUTE ; Start 04/16/21 at 07:37; Stop 04/16/21 at 07:37; Status DC Heparin Sodium/ Sodium Chloride (HEPARIN for ARTERIAL LINE FLUSH) 1,000 unit 1X ONCE IART Last administered on 04/16/21at 08:30; Start 04/16/21 at 08:30; Stop 04/16/21 at 08:31; Status DC Heparin Sodium/ Sodium Chloride (HEPARIN for ARTERIAL LINE FLUSH) 1,000 unit 1X ONCE IART Last administered on 04/16/21at 08:30; Start 04/16/21 at 08:30; Stop 04/16/21 at 08:31; Status DC Info (CONTRAST GIVEN -- Rx MONITORING) 1 each PRN DAILY PRN MC SEE COMMENTS; Start 04/16/21 at 08:30; Stop 04/18/21 at 08:29 Iodixanol (Visipaque 320) 100 ml 1X ONCE IART Last administered on 04/16/21at 08:30; Start 04/16/21 at 08:30; Stop 04/16/21 at 08:31; Status DC Iodixanol (Visipaque 320) 100 ml STK-MED ONCE .ROUTE ; Start 04/16/21 at 07:35; Stop 04/16/21 at 07:35; Status DC Iodixanol (Visipaque 320) 100 ml STK-MED ONCE .ROUTE ; Start 04/16/21 at 09:40; Stop 04/16/21 at 09:41; Status DC Lidocaine HCl (Lidocaine 1% 20ml Vial) 20 ml 1X ONCE INJ Last administered on 04/16/21at 08:30; Start 04/16/21 at 08:30; Stop 04/16/21 at 08:31; Status DC Lidocaine HCl (Lidocaine 1% 20ml Vial) 20 ml STK-MED ONCE .ROUTE ; Start 04/16/21 at 07:35; Stop 04/16/21 at 07:35; Status DC Midazolam HCl 100 ml @ 0 mls/hr CONT PRN IV SEE PROTOCOL Last administered on 04/16/21at 11:20; Start 04/16/21 at 10:45; Stop 04/17/21 at 10:44 Midazolam HCl (Versed) 5 mg 1X ONCE IV Last administered on 04/16/21at 08:30; Start 04/16/21 at 08:30; Stop 04/16/21 at 08:31; Status DC Morphine Sulfate (Morphine Sulfate) 10 mg 1X ONCE IV Last administered on 04/16/21at 10:30; Start 04/16/21 at 10:30; Stop 04/16/21 at 10:35; Status DC Morphine Sulfate (Morphine Sulfate) 10 mg STK-MED ONCE .ROUTE ; Start 04/16/21 at 10:01; Stop 04/16/21 at 10:01; Status DC Ondansetron HCl (Zofran) 4 mg 1X ONCE IVP Last administered on 04/16/21at 10:30; Start 04/16/21 at 10:30; Stop 04/16/21 at 10:35; Status DC Ondansetron HCl (Zofran) 4 mg STK-MED ONCE .ROUTE ; Start 04/16/21 at 10:03; Stop 04/16/21 at 10:03; Status DC Potassium Chloride/Water 100 ml @ 100 mls/hr Q1H IV Last administered on 04/16/21at 13:00; Start 04/16/21 at 13:00; Stop 04/16/21 at 14:59; Status DC Succinylcholine Chloride (Anectine) 200 mg STK-MED ONCE .ROUTE ; Start 04/16/21 at 10:26; Stop 04/16/21 at 10:27; Status DC Allergies Allergies Allergies Coded Allergies Type Severity Reaction Last Updated Verified No Known Drug Allergies 03/27/20 No Social History Smoke: No ALCOHOL: none Family History Family History: Hypertension ROS General: YES: Fatigue Respiratory: YES: Shortness of breath, SOB with excertion Cardiovascular: yes Chest Pain Physical Exam General: Other (Intubated) Lungs: Other (Decreased breath sounds with mild wheezing) Heart: Regular rate Abdomen: Normal bowel sounds Vitals VITALS Vital Signs Date Time Temp Pulse Resp B/P (MAP) Pulse Ox O2 Delivery O2 Flow Rate FiO2 04/16/21 15:49 100 Ventilator 04/16/21 15:10 97.6 83 95/56 (69) 97.6 04/16/21 15:07 22 04/16/21 10:30 15.0 Labs Labs Laboratory Tests Test 04/16/21 07:30 04/16/21 10:25 04/16/21 10:34 04/16/21 12:53 White Blood Count 4.9 x10^3/uL (4.0-11.0) 8.1 x10^3/uL (4.0-11.0) Red Blood Count 3.79 x10^6/uL (3.50-5.40) 3.84 x10^6/uL (3.50-5.40) Hemoglobin 11.8 g/dL (12.0-15.5) 12.1 g/dL (12.0-15.5) Hematocrit 35.5 % (36.0-47.0) 37.1 % (36.0-47.0) Mean Corpuscular Volume 94 fL (79-100) 97 fL (79-100) Mean Corpuscular Hemoglobin 31 pg (25-35) 32 pg (25-35) Mean Corpuscular Hemoglobin Concent 33 g/dL (31-37) 33 g/dL (31-37) Red Cell Distribution Width 13.2 % (11.5-14.5) 13.2 % (11.5-14.5) Platelet Count 185 x10^3/uL (140-400) 183 x10^3/uL (140-400) Sodium Level 144 mmol/L (136-145) 143 mmol/L (136-145) Potassium Level 3.6 mmol/L (3.5-5.1) 3.1 mmol/L (3.5-5.1) Chloride Level 104 mmol/L (98-107) 103 mmol/L (98-107) Carbon Dioxide Level 28 mmol/L (21-32) 25 mmol/L (21-32) Anion Gap 12 (6-14) 15 (6-14) Blood Urea Nitrogen 10 mg/dL (7-20) 9 mg/dL (7-20) Creatinine 0.9 mg/dL (0.6-1.0) 1.0 mg/dL (0.6-1.0) Estimated GFR (Cockcroft-Gault) 61.0 54.1 Glucose Level 96 mg/dL (70-99) 196 mg/dL (70-99) Calcium Level 9.5 mg/dL (8.5-10.1) 8.6 mg/dL (8.5-10.1) Neutrophils (%) (Auto) 55 % (31-73) Lymphocytes (%) (Auto) 36 % (24-48) Monocytes (%) (Auto) 8 % (0-9) Eosinophils (%) (Auto) 1 % (0-3) Basophils (%) (Auto) 1 % (0-3) Neutrophils # (Auto) 4.5 x10^3/uL (1.8-7.7) Lymphocytes # (Auto) 2.9 x10^3/uL (1.0-4.8) Monocytes # (Auto) 0.6 x10^3/uL (0.0-1.1) Eosinophils # (Auto) 0.1 x10^3/uL (0.0-0.7) Basophils # (Auto) 0.0 x10^3/uL (0.0-0.2) Segmented Neutrophils % 55 % (35-66) Band Neutrophils % 3 % (0-9) Lymphocytes % 35 % (24-48) Monocytes % 3 % (0-10) Metamyelocytes % 3 % (0-0) Myelocytes % 1 % (0-0) Nucleated Red Blood Cells 2 Platelet Estimate Adequate (ADEQUATE) Large Platelets Occ Polychromasia Occasional BUN/Creatinine Ratio 9 (6-20) Magnesium Level 2.4 mg/dL (1.8-2.4) Total Bilirubin 0.5 mg/dL (0.2-1.0) Aspartate Amino Transf (AST/SGOT) 75 U/L (15-37) Alanine Aminotransferase (ALT/SGPT) 92 U/L (14-59) Alkaline Phosphatase 58 U/L (46-116) Total Protein 7.0 g/dL (6.4-8.2) Albumin 3.2 g/dL (3.4-5.0) Albumin/Globulin Ratio 0.8 (1.0-1.7) O2 Saturation 93 % (92-99) 95 % (92-99) Arterial Blood pH 7.13 (7.35-7.45) 7.39 (7.35-7.45) Arterial Blood pCO2 at Patient Temp 63 mmHg (35-46) 37 mmHg (35-46) Arterial Blood pO2 at Patient Temp 87 mmHg (65-108) 82 mmHg (65-108) Arterial Blood HCO3 20 mmol/L (21-28) 22 mmol/L (21-28) Arterial Blood Base Excess -9 mmol/L (-3-3) -3 mmol/L (-3-3) FiO2 100/vent 100 Oxyhemoglobin 94.6 % Methemoglobin 0.4 % (0.0-1.9) Carbon Monoxide, Quantitative 0.3 % (0.0-1.9) Laboratory Tests Test 04/16/21 07:30 04/16/21 10:25 04/16/21 10:34 04/16/21 12:53 White Blood Count 4.9 x10^3/uL (4.0-11.0) 8.1 x10^3/uL (4.0-11.0) Red Blood Count 3.79 x10^6/uL (3.50-5.40) 3.84 x10^6/uL (3.50-5.40) Hemoglobin 11.8 g/dL (12.0-15.5) 12.1 g/dL (12.0-15.5) Hematocrit 35.5 % (36.0-47.0) 37.1 % (36.0-47.0) Mean Corpuscular Volume 94 fL (79-100) 97 fL (79-100) Mean Corpuscular Hemoglobin 31 pg (25-35) 32 pg (25-35) Mean Corpuscular Hemoglobin Concent 33 g/dL (31-37) 33 g/dL (31-37) Red Cell Distribution Width 13.2 % (11.5-14.5) 13.2 % (11.5-14.5) Platelet Count 185 x10^3/uL (140-400) 183 x10^3/uL (140-400) Sodium Level 144 mmol/L (136-145) 143 mmol/L (136-145) Potassium Level 3.6 mmol/L (3.5-5.1) 3.1 mmol/L (3.5-5.1) Chloride Level 104 mmol/L (98-107) 103 mmol/L (98-107) Carbon Dioxide Level 28 mmol/L (21-32) 25 mmol/L (21-32) Anion Gap 12 (6-14) 15 (6-14) Blood Urea Nitrogen 10 mg/dL (7-20) 9 mg/dL (7-20) Creatinine 0.9 mg/dL (0.6-1.0) 1.0 mg/dL (0.6-1.0) Estimated GFR (Cockcroft-Gault) 61.0 54.1 Glucose Level 96 mg/dL (70-99) 196 mg/dL (70-99) Calcium Level 9.5 mg/dL (8.5-10.1) 8.6 mg/dL (8.5-10.1) Neutrophils (%) (Auto) 55 % (31-73) Lymphocytes (%) (Auto) 36 % (24-48) Monocytes (%) (Auto) 8 % (0-9) Eosinophils (%) (Auto) 1 % (0-3) Basophils (%) (Auto) 1 % (0-3) Neutrophils # (Auto) 4.5 x10^3/uL (1.8-7.7) Lymphocytes # (Auto) 2.9 x10^3/uL (1.0-4.8) Monocytes # (Auto) 0.6 x10^3/uL (0.0-1.1) Eosinophils # (Auto) 0.1 x10^3/uL (0.0-0.7) Basophils # (Auto) 0.0 x10^3/uL (0.0-0.2) Segmented Neutrophils % 55 % (35-66) Band Neutrophils % 3 % (0-9) Lymphocytes % 35 % (24-48) Monocytes % 3 % (0-10) Metamyelocytes % 3 % (0-0) Myelocytes % 1 % (0-0) Nucleated Red Blood Cells 2 Platelet Estimate Adequate (ADEQUATE) Large Platelets Occ Polychromasia Occasional BUN/Creatinine Ratio 9 (6-20) Magnesium Level 2.4 mg/dL (1.8-2.4) Total Bilirubin 0.5 mg/dL (0.2-1.0) Aspartate Amino Transf (AST/SGOT) 75 U/L (15-37) Alanine Aminotransferase (ALT/SGPT) 92 U/L (14-59) Alkaline Phosphatase 58 U/L (46-116) Total Protein 7.0 g/dL (6.4-8.2) Albumin 3.2 g/dL (3.4-5.0) Albumin/Globulin Ratio 0.8 (1.0-1.7) O2 Saturation 93 % (92-99) 95 % (92-99) Arterial Blood pH 7.13 (7.35-7.45) 7.39 (7.35-7.45) Arterial Blood pCO2 at Patient Temp 63 mmHg (35-46) 37 mmHg (35-46) Arterial Blood pO2 at Patient Temp 87 mmHg (65-108) 82 mmHg (65-108) Arterial Blood HCO3 20 mmol/L (21-28) 22 mmol/L (21-28) Arterial Blood Base Excess -9 mmol/L (-3-3) -3 mmol/L (-3-3) FiO2 100/vent 100 Oxyhemoglobin 94.6 % Methemoglobin 0.4 % (0.0-1.9) Carbon Monoxide, Quantitative 0.3 % (0.0-1.9) VTE Prophylaxis Ordered VTE Prophylaxis Devices: Yes VTE Pharmacological Prophylaxi: Yes Assessment/Plan Assessment/Plan 1. Respiratory arrest in the catheterization lab. As noted above following completion of a right and left heart catheterization the patient became progressively more short of breath eventually requiring intubation. During her more severe episodes of shortness of breath the patient became severely bradycardic and briefly asystolic. CPR and ACLS as per protocol was immediately initiated. Post intubation the patient has stabilized. She is having no significant arrhythmias. She has had some mild hypotension which has been treated with dopamine. We are continuing on adjusting the patient's ventilator settings as per the pulmonary service. Of note LV function appeared normal on catheterization. LVEDP was mildly elevated at 26. Right-sided pressures were elevated as per the catheterization report. 2. History of chest pain. Catheterization today showed no significant coronary artery disease. 3. History of hypertension. Patient has been hypotensive post intubation. Will treat with pressors and adjust as needed. 4. Hyperlipidemia. Will restart medications tomorrow. 5. History of obstructive sleep apnea. Patient is intubated as noted above. She has been evaluated and followed by the pulmonary service. Justicifation of Admission Dx: Justifications for Admission: Justification of Admission Dx: Yes Respiratory Failure: Mechanical Ventilation KECIA MOON MD Apr 16, 2021 16:05
--- NOTE | 2021-04-16 16:19 | NUR ---
Pt arrived in CV observation at 1055. Pt's sbp was in the 60s with diastolic in the 40s. Dopamine started at 5mcg/kg/min; and titrated to 6mcg as needed for blood pressure stabilization. Versed and Fentanyl started for sedation, pain, and patient comfort; while on ventilator. Dr. Marti was notified of patient's low potassium level; and orders received. Pt has been able to open eyes and shake head yes/no to questions at times while on sedation. Pt shakes head yes when asked if comfortable and pain free. Attempt to start a anderson catheter x2 was unsuccessful. Have communicated with family at bedside; education given on current situation and transfer to ICU. Report given to Renetta in ICU. Pt transferred to 114 with no complication.
--- NOTE | 2021-04-16 20:08 | NUR ---
patient has right femoral line for close bp monitoring and lab draws. BP will be documented under vital intervention and q 4hrs under arterial line intervention to avoid double charting. Addendum: 04/16/21 at 2011 by OPAL SMITH RN Amended: Links added.
[2021-04-16] MEDS ORDERED: HYDR-2761 PO (21:34)
[2021-04-17] VITALS (22 sets, daily range): BP systolic 88–107; BP diastolic 48–58
--- NOTE | 2021-04-17 03:52 | RAD ---
AP chest x-ray HISTORY: Congestive heart failure. Respiratory failure. COMPARISON: Chest x-ray April 16, 2021 FINDINGS: ACDF. Endotracheal tube tip is somewhat ill-defined appears to terminate 2 to 3 cm above th e elen. Nasogastric tube extends to the left upper quadrant abdomen outside the [id number]. Mode rate cardiomegaly stable. There is enlargement of the main pulmonary artery silhouette at the AP wind ow and the pulmonary arterial branches about the yelena are enlarged this could indicate enlargement fr om pulmonary hypertension. No pneumothorax. Consolidation/collapse of the left lower lobe obscuring the left diaphragm stable. Some improved aeration at the right infrahilar lower lobe with mild decrea sed density of the opacity. Mild layering bilateral pleural effusions grossly stable. IMPRESSION: Lines and tubes as described above. Bilateral pulmonary opacities may represent pulmonary edema or disseminated pulmonary infection again demonstrated. There is some mild improved aeration w ith decreased density of the opacity at the right lower lobe. There is stable consolidation/collapse of the left lower lobe. Mild layering pleural effusions are stable. Electronically signed by: Adi Stone MD (04/17/2021 3:49 AM) [facility]
[2021-04-17 06:58] LABS: CALCIUM 8.6 mg/dL (8.5-10.1); GFR 54.1; POTASSIUM 3.7 mmol/L (3.5-5.1)
[2021-04-17 07:13] LABS: BASO % 0 % (0-3); EOS % 0 % (0-3); HEMATOCRIT 31.4 % (36.0-47.0); HEMOGLOBIN 10.8 g/dL (12.0-15.5); LYMPH # 0.9 x10^3/uL (1.0-4.8); LYMPH % 9 % (24-48); MEAN CORPUSCULAR HEMOGLOBIN 32 pg (25-35); MEAN CORPUSCULAR HGB CONC 34 g/dL (31-37); MEAN CORPUSCULAR VOLUME 93 fL (79-100); MONO # 0.7 x10^3/uL (0.0-1.1); MONO % 6 % (0-9); NEUT # 8.9 x10^3/uL (1.8-7.7); NEUT % 85 % (31-73); PLATELET COUNT 150 x10^3/uL (140-400); RED BLOOD COUNT 3.39 x10^6/uL (3.50-5.40); RED CELL DISTRIBUTION WIDTH 13.1 % (11.5-14.5); WHITE BLOOD COUNT 10.5 x10^3/uL (4.0-11.0)
[2021-04-17] MEDS: MIDAZOLAM 100mg/100ml NS BAG 100 ML IV PRN ×2 (08:54→23:59)
[2021-04-17 09:24] LABS: BASE EXCESS ABG -2 mmol/L (-3-3); HCO3 ABG 20 mmol/L (21-28); PCO2 ABG 23 mmHg (35-46); PO2 ABG 100 mmHg (65-108); SAT O2 ABG 98 % (92-99)
[2021-04-17 09:26] LABS: FIO2 ABG 100% VENT
[2021-04-17] MEDS ORDERED: FUROSEMIDE 40 MG/4 ML VIAL. IVP ONE (10:00)
--- NOTE | 2021-04-17 10:29 | PDOC ---
CARDIO Progress Notes Date and Time Date of Service 04/17/2021 Time of Evaluation 0950 Subjective Subjective: Other (intubated) Vitals Vitals Vital Signs Date Time Temp Pulse Resp B/P (MAP) Pulse Ox O2 Delivery O2 Flow Rate FiO2 04/17/21 10:10 75 14 97/51 (66) 92 Ventilator 04/17/21 08:15 99.4 99.4 04/17/21 05:24 15.0 Weight Weight [ ] Input and Output Intake and Output Intake and Output 04/17/21 07:00 Intake Total 507 ml Output Total 1670 ml Balance -1163 ml Intake Oral 0 ml IV Total 507 ml Output Urine Total 1670 ml Laboratory Labs Laboratory Tests Test 04/16/21 10:25 04/16/21 10:34 04/16/21 12:53 04/17/21 05:32 White Blood Count 8.1 x10^3/uL (4.0-11.0) 10.5 x10^3/uL (4.0-11.0) Red Blood Count 3.84 x10^6/uL (3.50-5.40) 3.39 x10^6/uL (3.50-5.40) Hemoglobin 12.1 g/dL (12.0-15.5) 10.8 g/dL (12.0-15.5) Hematocrit 37.1 % (36.0-47.0) 31.4 % (36.0-47.0) Mean Corpuscular Volume 97 fL (79-100) 93 fL (79-100) Mean Corpuscular Hemoglobin 32 pg (25-35) 32 pg (25-35) Mean Corpuscular Hemoglobin Concent 33 g/dL (31-37) 34 g/dL (31-37) Red Cell Distribution Width 13.2 % (11.5-14.5) 13.1 % (11.5-14.5) Platelet Count 183 x10^3/uL (140-400) 150 x10^3/uL (140-400) Neutrophils (%) (Auto) 55 % (31-73) 85 % (31-73) Lymphocytes (%) (Auto) 36 % (24-48) 9 % (24-48) Monocytes (%) (Auto) 8 % (0-9) 6 % (0-9) Eosinophils (%) (Auto) 1 % (0-3) 0 % (0-3) Basophils (%) (Auto) 1 % (0-3) 0 % (0-3) Neutrophils # (Auto) 4.5 x10^3/uL (1.8-7.7) 8.9 x10^3/uL (1.8-7.7) Lymphocytes # (Auto) 2.9 x10^3/uL (1.0-4.8) 0.9 x10^3/uL (1.0-4.8) Monocytes # (Auto) 0.6 x10^3/uL (0.0-1.1) 0.7 x10^3/uL (0.0-1.1) Eosinophils # (Auto) 0.1 x10^3/uL (0.0-0.7) 0.0 x10^3/uL (0.0-0.7) Basophils # (Auto) 0.0 x10^3/uL (0.0-0.2) 0.0 x10^3/uL (0.0-0.2) Segmented Neutrophils % 55 % (35-66) Band Neutrophils % 3 % (0-9) Lymphocytes % 35 % (24-48) Monocytes % 3 % (0-10) Metamyelocytes % 3 % (0-0) Myelocytes % 1 % (0-0) Nucleated Red Blood Cells 2 Platelet Estimate Adequate (ADEQUATE) Large Platelets Occ Polychromasia Occasional Sodium Level 143 mmol/L (136-145) 138 mmol/L (136-145) Potassium Level 3.1 mmol/L (3.5-5.1) 3.7 mmol/L (3.5-5.1) Chloride Level 103 mmol/L (98-107) 103 mmol/L (98-107) Carbon Dioxide Level 25 mmol/L (21-32) 24 mmol/L (21-32) Anion Gap 15 (6-14) 11 (6-14) Blood Urea Nitrogen 9 mg/dL (7-20) 13 mg/dL (7-20) Creatinine 1.0 mg/dL (0.6-1.0) 1.0 mg/dL (0.6-1.0) Estimated GFR (Cockcroft-Gault) 54.1 54.1 BUN/Creatinine Ratio 9 (6-20) Glucose Level 196 mg/dL (70-99) 104 mg/dL (70-99) Calcium Level 8.6 mg/dL (8.5-10.1) 8.6 mg/dL (8.5-10.1) Magnesium Level 2.4 mg/dL (1.8-2.4) 2.0 mg/dL (1.8-2.4) Total Bilirubin 0.5 mg/dL (0.2-1.0) Aspartate Amino Transf (AST/SGOT) 75 U/L (15-37) Alanine Aminotransferase (ALT/SGPT) 92 U/L (14-59) Alkaline Phosphatase 58 U/L (46-116) Total Protein 7.0 g/dL (6.4-8.2) Albumin 3.2 g/dL (3.4-5.0) Albumin/Globulin Ratio 0.8 (1.0-1.7) O2 Saturation 93 % (92-99) 95 % (92-99) Arterial Blood pH 7.13 (7.35-7.45) 7.39 (7.35-7.45) Arterial Blood pCO2 at Patient Temp 63 mmHg (35-46) 37 mmHg (35-46) Arterial Blood pO2 at Patient Temp 87 mmHg (65-108) 82 mmHg (65-108) Arterial Blood HCO3 20 mmol/L (21-28) 22 mmol/L (21-28) Arterial Blood Base Excess -9 mmol/L (-3-3) -3 mmol/L (-3-3) FiO2 100/vent 100 Oxyhemoglobin 94.6 % Methemoglobin 0.4 % (0.0-1.9) Carbon Monoxide, Quantitative 0.3 % (0.0-1.9) Test 04/17/21 09:00 O2 Saturation 98 % (92-99) Arterial Blood pH 7.55 (7.35-7.45) Arterial Blood pCO2 at Patient Temp 23 mmHg (35-46) Arterial Blood pO2 at Patient Temp 100 mmHg (65-108) Arterial Blood HCO3 20 mmol/L (21-28) Arterial Blood Base Excess -2 mmol/L (-3-3) FiO2 100% vent Physical Exam HEENT: Neck Supple W Full Motion Chest: Symmetric LUNGS: Other (intubated with mechanical vent) Heart: RRR (SR no ectopies) Abdomen: Soft N/T Extremities: No Edema Neurology: other (sedated) Other Exams Bilateral groin arteriotomy sites intact, neurovascualr status intact to bilateral LE Assessment Assessment 1. Acute hypercapnic/hypoxic respiratory failure: per pulmonary 2. Cardiopulmonary arrest: noted asystolic event due to hypoxia. 8 min to ROSC. LHC revealed fluid overload but no significant CAD 3. Acute on chronic diastolic CHF/pulmonary edema 4. Obesity with suspected CLEMENCIA/OHS 5. HTN 6. HLP Recommendations 1. Continue lasix therapy. Hold BP meds for now. BP at low end 2. Pressor as warranted 3. Continue with pulmonary treatment Justicifation of Admission Dx: Justifications for Admission: Justification of Admission Dx: Yes Respiratory Failure: Mechanical Ventilation KYA FORTUNE FLASH WELDER Apr 17, 2021 10:29
--- NOTE | 2021-04-17 10:37 | PDOC ---
PULMONARY PROGRESS NOTES DATE: 04/17/21 TIME: 10:33 Subjective Remains on assist control mode. Still requiring 100% FiO2. On low-dose dopamine. Vitals Vital Signs Date Time Temp Pulse Resp B/P (MAP) Pulse Ox O2 Delivery O2 Flow Rate FiO2 04/17/21 10:10 75 14 97/51 (66) 92 Ventilator 04/17/21 08:15 99.4 99.4 04/17/21 05:24 15.0 General: No acute distress Lungs: Clear Cardiovascular: S1 Abdomen: Soft Extremities: Other (1+edema) Labs Laboratory Tests Test 04/16/21 07:30 04/16/21 10:25 04/16/21 10:34 04/16/21 12:53 White Blood Count 4.9 x10^3/uL (4.0-11.0) 8.1 x10^3/uL (4.0-11.0) Red Blood Count 3.79 x10^6/uL (3.50-5.40) 3.84 x10^6/uL (3.50-5.40) Hemoglobin 11.8 g/dL (12.0-15.5) 12.1 g/dL (12.0-15.5) Hematocrit 35.5 % (36.0-47.0) 37.1 % (36.0-47.0) Mean Corpuscular Volume 94 fL (79-100) 97 fL (79-100) Mean Corpuscular Hemoglobin 31 pg (25-35) 32 pg (25-35) Mean Corpuscular Hemoglobin Concent 33 g/dL (31-37) 33 g/dL (31-37) Red Cell Distribution Width 13.2 % (11.5-14.5) 13.2 % (11.5-14.5) Platelet Count 185 x10^3/uL (140-400) 183 x10^3/uL (140-400) Sodium Level 144 mmol/L (136-145) 143 mmol/L (136-145) Potassium Level 3.6 mmol/L (3.5-5.1) 3.1 mmol/L (3.5-5.1) Chloride Level 104 mmol/L (98-107) 103 mmol/L (98-107) Carbon Dioxide Level 28 mmol/L (21-32) 25 mmol/L (21-32) Anion Gap 12 (6-14) 15 (6-14) Blood Urea Nitrogen 10 mg/dL (7-20) 9 mg/dL (7-20) Creatinine 0.9 mg/dL (0.6-1.0) 1.0 mg/dL (0.6-1.0) Estimated GFR (Cockcroft-Gault) 61.0 54.1 Glucose Level 96 mg/dL (70-99) 196 mg/dL (70-99) Calcium Level 9.5 mg/dL (8.5-10.1) 8.6 mg/dL (8.5-10.1) Neutrophils (%) (Auto) 55 % (31-73) Lymphocytes (%) (Auto) 36 % (24-48) Monocytes (%) (Auto) 8 % (0-9) Eosinophils (%) (Auto) 1 % (0-3) Basophils (%) (Auto) 1 % (0-3) Neutrophils # (Auto) 4.5 x10^3/uL (1.8-7.7) Lymphocytes # (Auto) 2.9 x10^3/uL (1.0-4.8) Monocytes # (Auto) 0.6 x10^3/uL (0.0-1.1) Eosinophils # (Auto) 0.1 x10^3/uL (0.0-0.7) Basophils # (Auto) 0.0 x10^3/uL (0.0-0.2) Segmented Neutrophils % 55 % (35-66) Band Neutrophils % 3 % (0-9) Lymphocytes % 35 % (24-48) Monocytes % 3 % (0-10) Metamyelocytes % 3 % (0-0) Myelocytes % 1 % (0-0) Nucleated Red Blood Cells 2 Platelet Estimate Adequate (ADEQUATE) Large Platelets Occ Polychromasia Occasional BUN/Creatinine Ratio 9 (6-20) Magnesium Level 2.4 mg/dL (1.8-2.4) Total Bilirubin 0.5 mg/dL (0.2-1.0) Aspartate Amino Transf (AST/SGOT) 75 U/L (15-37) Alanine Aminotransferase (ALT/SGPT) 92 U/L (14-59) Alkaline Phosphatase 58 U/L (46-116) Total Protein 7.0 g/dL (6.4-8.2) Albumin 3.2 g/dL (3.4-5.0) Albumin/Globulin Ratio 0.8 (1.0-1.7) O2 Saturation 93 % (92-99) 95 % (92-99) Arterial Blood pH 7.13 (7.35-7.45) 7.39 (7.35-7.45) Arterial Blood pCO2 at Patient Temp 63 mmHg (35-46) 37 mmHg (35-46) Arterial Blood pO2 at Patient Temp 87 mmHg (65-108) 82 mmHg (65-108) Arterial Blood HCO3 20 mmol/L (21-28) 22 mmol/L (21-28) Arterial Blood Base Excess -9 mmol/L (-3-3) -3 mmol/L (-3-3) FiO2 100/vent 100 Oxyhemoglobin 94.6 % Methemoglobin 0.4 % (0.0-1.9) Carbon Monoxide, Quantitative 0.3 % (0.0-1.9) Test 04/17/21 05:32 04/17/21 09:00 White Blood Count 10.5 x10^3/uL (4.0-11.0) Red Blood Count 3.39 x10^6/uL (3.50-5.40) Hemoglobin 10.8 g/dL (12.0-15.5) Hematocrit 31.4 % (36.0-47.0) Mean Corpuscular Volume 93 fL (79-100) Mean Corpuscular Hemoglobin 32 pg (25-35) Mean Corpuscular Hemoglobin Concent 34 g/dL (31-37) Red Cell Distribution Width 13.1 % (11.5-14.5) Platelet Count 150 x10^3/uL (140-400) Neutrophils (%) (Auto) 85 % (31-73) Lymphocytes (%) (Auto) 9 % (24-48) Monocytes (%) (Auto) 6 % (0-9) Eosinophils (%) (Auto) 0 % (0-3) Basophils (%) (Auto) 0 % (0-3) Neutrophils # (Auto) 8.9 x10^3/uL (1.8-7.7) Lymphocytes # (Auto) 0.9 x10^3/uL (1.0-4.8) Monocytes # (Auto) 0.7 x10^3/uL (0.0-1.1) Eosinophils # (Auto) 0.0 x10^3/uL (0.0-0.7) Basophils # (Auto) 0.0 x10^3/uL (0.0-0.2) Sodium Level 138 mmol/L (136-145) Potassium Level 3.7 mmol/L (3.5-5.1) Chloride Level 103 mmol/L (98-107) Carbon Dioxide Level 24 mmol/L (21-32) Anion Gap 11 (6-14) Blood Urea Nitrogen 13 mg/dL (7-20) Creatinine 1.0 mg/dL (0.6-1.0) Estimated GFR (Cockcroft-Gault) 54.1 Glucose Level 104 mg/dL (70-99) Calcium Level 8.6 mg/dL (8.5-10.1) Magnesium Level 2.0 mg/dL (1.8-2.4) O2 Saturation 98 % (92-99) Arterial Blood pH 7.55 (7.35-7.45) Arterial Blood pCO2 at Patient Temp 23 mmHg (35-46) Arterial Blood pO2 at Patient Temp 100 mmHg (65-108) Arterial Blood HCO3 20 mmol/L (21-28) Arterial Blood Base Excess -2 mmol/L (-3-3) FiO2 100% vent Laboratory Tests Test 04/16/21 10:34 04/16/21 12:53 04/17/21 05:32 04/17/21 09:00 O2 Saturation 93 % (92-99) 95 % (92-99) 98 % (92-99) Arterial Blood pH 7.13 (7.35-7.45) 7.39 (7.35-7.45) 7.55 (7.35-7.45) Arterial Blood pCO2 at Patient Temp 63 mmHg (35-46) 37 mmHg (35-46) 23 mmHg (35-46) Arterial Blood pO2 at Patient Temp 87 mmHg (65-108) 82 mmHg (65-108) 100 mmHg (65-108) Arterial Blood HCO3 20 mmol/L (21-28) 22 mmol/L (21-28) 20 mmol/L (21-28) Arterial Blood Base Excess -9 mmol/L (-3-3) -3 mmol/L (-3-3) -2 mmol/L (-3-3) FiO2 100/vent 100 100% vent Oxyhemoglobin 94.6 % Methemoglobin 0.4 % (0.0-1.9) Carbon Monoxide, Quantitative 0.3 % (0.0-1.9) White Blood Count 10.5 x10^3/uL (4.0-11.0) Red Blood Count 3.39 x10^6/uL (3.50-5.40) Hemoglobin 10.8 g/dL (12.0-15.5) Hematocrit 31.4 % (36.0-47.0) Mean Corpuscular Volume 93 fL (79-100) Mean Corpuscular Hemoglobin 32 pg (25-35) Mean Corpuscular Hemoglobin Concent 34 g/dL (31-37) Red Cell Distribution Width 13.1 % (11.5-14.5) Platelet Count 150 x10^3/uL (140-400) Neutrophils (%) (Auto) 85 % (31-73) Lymphocytes (%) (Auto) 9 % (24-48) Monocytes (%) (Auto) 6 % (0-9) Eosinophils (%) (Auto) 0 % (0-3) Basophils (%) (Auto) 0 % (0-3) Neutrophils # (Auto) 8.9 x10^3/uL (1.8-7.7) Lymphocytes # (Auto) 0.9 x10^3/uL (1.0-4.8) Monocytes # (Auto) 0.7 x10^3/uL (0.0-1.1) Eosinophils # (Auto) 0.0 x10^3/uL (0.0-0.7) Basophils # (Auto) 0.0 x10^3/uL (0.0-0.2) Sodium Level 138 mmol/L (136-145) Potassium Level 3.7 mmol/L (3.5-5.1) Chloride Level 103 mmol/L (98-107) Carbon Dioxide Level 24 mmol/L (21-32) Anion Gap 11 (6-14) Blood Urea Nitrogen 13 mg/dL (7-20) Creatinine 1.0 mg/dL (0.6-1.0) Estimated GFR (Cockcroft-Gault) 54.1 Glucose Level 104 mg/dL (70-99) Calcium Level 8.6 mg/dL (8.5-10.1) Magnesium Level 2.0 mg/dL (1.8-2.4) Medications Active Scripts Medications Dose Route/Sig Max Daily Dose Days Date Category Hydrocodone-Apap 5-325 (Hydrocodone Bit/Acetaminophen) 1 Tab Tablet 1 Tab PO PRN Q6HRS PRN 04/16/21 Reported NITROGLYCERIN SubLingual (Nitroglycerin) 0.4 Mg Tab.subl 0.4 Mg SL PRN Q5MIN PRN 04/16/21 Reported Lasix (Furosemide) 20 Mg Tablet 1 Tab PO DAILY 30 04/16/21 Reported Isosorbide Mononitrate Er (Isosorbide Mononitrate) 60 Mg Tab.er.24h 1 Tab PO DAILY 04/16/21 Reported Klor-Con M10 (Potassium Chloride) 10 Meq Tab.er.prt 10 Meq PO DAILY 04/16/21 Reported Vitamin D3 (Cholecalciferol (Vitamin D3)) 5,000 Unit Tab.rapdis 5,000 Unit PO DAILY 11/24/19 Reported Aspirin 81 Mg Tab.chew 81 Mg PO DAILY 11/24/19 Reported Amlodipine Besylate 10 Mg Tablet 10 Mg PO DAILY 11/24/19 Reported Fluoxetine Hcl 40 Mg Capsule 40 Mg PO DAILY 11/24/19 Reported Simvastatin 20 Mg Tablet 20 Mg PO HS 11/24/19 Reported Multi-Vitamin Daily (Multivitamin) 1 Each Tablet 1 Each PO DAILY 11/24/19 Reported Latanoprost 2.5 Ml Drops 1 Drop OU HS 11/24/19 Reported Comments Chest x-ray reviewed dated 04/17/2021 There has been gradual improvement in overall flash pulmonary edema. Impression . 1. Acute hypercapnic and hypoxic respiratory failure secondary to cardiac arrest/flash pulmonary edema 2. 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 Etiology likely due to hypoxia. Initial chest x-ray consistent with flash pulmonary edema. 3. The patient with abnormal right heart cardiac catheterization, suggestive of left ventricular failure. She had a pulmonary capillary wedge pressure of 23 and a left ventricular end-diastolic pressure of 26. 4. Underlying obstructive sleep apnea and suspected obesity hypoventilation syndrome. 5. Shock, requiring dopamine, likely cardiogenic. 6. No significant coronary artery disease. Plan . 1. Continue present assist control mode and I have made changes on the ventilator settings and follow ABGs and make necessary adjustment. 2. Continue aggressive diuresis. 3. Follow chest x-ray. 4. Follow Cardiology recommendations. 5. Deep venous thrombosis and stress ulcer prophylaxis. 6. Start enteral nutrition. 7. Wean dopamine. Discussed with respiratory therapist and RN. Discussed with cardiology. Critical care time 30 minutes FOUZIA PEREZ MD Apr 17, 2021 10:37
--- NOTE | 2021-04-17 10:38 | NUR ---
SS following for discharge planning. SS reviewed pt chart and discussed with pt RN. Pt is from home with spouse. Pt had heart cath on 04/16/2021. 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 Pt is currently on the vent at 100%. Pt on Dopamine, Versed, and Fentanyl. Not stable. SS will continue to follow for discharge planning.
[2021-04-18] VITALS (29 sets, daily range): BP systolic 91–112; BP diastolic 46–63
[2021-04-18 06:07] LABS: BASO % 0 % (0-3); EOS % 0 % (0-3); HEMATOCRIT 30.8 % (36.0-47.0); HEMOGLOBIN 10.3 g/dL (12.0-15.5); LYMPH # 0.6 x10^3/uL (1.0-4.8); LYMPH % 7 % (24-48); MEAN CORPUSCULAR HEMOGLOBIN 31 pg (25-35); MEAN CORPUSCULAR HGB CONC 33 g/dL (31-37); MEAN CORPUSCULAR VOLUME 94 fL (79-100); MONO # 0.7 x10^3/uL (0.0-1.1); MONO % 8 % (0-9); NEUT # 7.3 x10^3/uL (1.8-7.7); NEUT % 84 % (31-73); PLATELET COUNT 136 x10^3/uL (140-400); RED BLOOD COUNT 3.27 x10^6/uL (3.50-5.40); RED CELL DISTRIBUTION WIDTH 13.1 % (11.5-14.5); WHITE BLOOD COUNT 8.7 x10^3/uL (4.0-11.0)
[2021-04-18 06:12] LABS: CALCIUM 8.4 mg/dL (8.5-10.1); GFR 54.1; MAGNESIUM 2.1 mg/dL (1.8-2.4); POTASSIUM 3.5 mmol/L (3.5-5.1)
[2021-04-18 07:18] LABS: BASE EXCESS ABG 1 mmol/L (-3-3); HCO3 ABG 25 mmol/L (21-28); PCO2 ABG 37 mmHg (35-46); PO2 ABG 77 mmHg (65-108); SAT O2 ABG 95 % (92-99)
[2021-04-18 07:57] LABS: FIO2 ABG 70
--- NOTE | 2021-04-18 09:10 | PDOC ---
CARDIO Progress Notes Date and Time Date of Service 04/18/2021 Time of Evaluation 0900 Subjective Subjective: Other (intubated) Vitals Vitals Vital Signs Date Time Temp Pulse Resp B/P (MAP) Pulse Ox O2 Delivery O2 Flow Rate FiO2 04/18/21 07:09 94 Ventilator 04/18/21 06:00 63 14 105/47 (66) 04/18/21 05:13 15.0 04/18/21 04:03 99.2 99.2 Weight Weight [ ] Input and Output Intake and Output Intake and Output 04/18/21 07:00 Intake Total 1299 ml Output Total 1485 ml Balance -186 ml IV Total 1299 ml Output Urine Total 1335 ml Gastric Drainage Total 150 ml Laboratory Labs Laboratory Tests Test 04/18/21 05:45 04/18/21 07:14 White Blood Count 8.7 x10^3/uL (4.0-11.0) Red Blood Count 3.27 x10^6/uL (3.50-5.40) Hemoglobin 10.3 g/dL (12.0-15.5) Hematocrit 30.8 % (36.0-47.0) Mean Corpuscular Volume 94 fL (79-100) Mean Corpuscular Hemoglobin 31 pg (25-35) Mean Corpuscular Hemoglobin Concent 33 g/dL (31-37) Red Cell Distribution Width 13.1 % (11.5-14.5) Platelet Count 136 x10^3/uL (140-400) Neutrophils (%) (Auto) 84 % (31-73) Lymphocytes (%) (Auto) 7 % (24-48) Monocytes (%) (Auto) 8 % (0-9) Eosinophils (%) (Auto) 0 % (0-3) Basophils (%) (Auto) 0 % (0-3) Neutrophils # (Auto) 7.3 x10^3/uL (1.8-7.7) Lymphocytes # (Auto) 0.6 x10^3/uL (1.0-4.8) Monocytes # (Auto) 0.7 x10^3/uL (0.0-1.1) Eosinophils # (Auto) 0.0 x10^3/uL (0.0-0.7) Basophils # (Auto) 0.0 x10^3/uL (0.0-0.2) Sodium Level 137 mmol/L (136-145) Potassium Level 3.5 mmol/L (3.5-5.1) Chloride Level 103 mmol/L (98-107) Carbon Dioxide Level 25 mmol/L (21-32) Anion Gap 9 (6-14) Blood Urea Nitrogen 20 mg/dL (7-20) Creatinine 1.0 mg/dL (0.6-1.0) Estimated GFR (Cockcroft-Gault) 54.1 Glucose Level 96 mg/dL (70-99) Calcium Level 8.4 mg/dL (8.5-10.1) Magnesium Level 2.1 mg/dL (1.8-2.4) O2 Saturation 95 % (92-99) Arterial Blood pH 7.44 (7.35-7.45) Arterial Blood pCO2 at Patient Temp 37 mmHg (35-46) Arterial Blood pO2 at Patient Temp 77 mmHg (65-108) Arterial Blood HCO3 25 mmol/L (21-28) Arterial Blood Base Excess 1 mmol/L (-3-3) FiO2 70 Physical Exam HEENT: Neck Supple W Full Motion Chest: Symmetric LUNGS: Other (intubated with mechanical vent) Heart: RRR (SR no ectopies) Abdomen: Soft N/T Extremities: No Edema Neurology: other (sedated) Assessment Assessment 1. Acute hypercapnic/hypoxic respiratory failure: per pulmonary 2. Cardiopulmonary arrest: noted asystolic event due to hypoxia. 8 min to ROSC. LHC revealed fluid overload but no significant CAD. No significnat arrhythmia so far 3. Acute on chronic diastolic CHF/pulmonary edema 4. Obesity with suspected CLEMENCIA/OHS 5. HTN: BP at low end 6. HLP Recommendations 1. Continue lasix therapy. Hold BP meds 2. Pressor as warranted. Dopamina ongoing 3. Continue with pulmonary treatment, Justicifation of Admission Dx: Justifications for Admission: Justification of Admission Dx: Yes Respiratory Failure: Mechanical Ventilation KYA FORTUNE DIABETOLOGIST Apr 18, 2021 09:10
[2021-04-18] MEDS ORDERED: POTASSIUM BICARB 20 MEQ EFFERVESCENT TABLET. PEG ONE (09:30)
[2021-04-18] MEDS ORDERED: FUROSEMIDE 40 MG/4 ML VIAL. IVP ONE ×2 (09:30→16:00)
[2021-04-18] MEDS ORDERED: ENOXAPARIN 40 MG/0.4 ML SYRINGE. SQ SCH (12:00)
--- NOTE | 2021-04-18 13:03 | RAD ---
Exam performed: One view chest HISTORY: Endotracheal tube placement. DATE OF SERVICE: 04/16/2021. COMPARISON: Two-view chest from 12/30/2020. FINDINGS: Single AP semiupright portable view of the chest is obtained. Cardiomegaly. There is central vascular congestion. Parenchymal opacities in both lower lobes with with obscuration of the left lung base. T here is endotracheal tube terminating in the mid to lower trachea. Feeding tube is seen in the left u pper abdomen. There is no pneumothorax. IMPRESSION: Cardiomegaly with Central vascular congestion and airspace opacities in both lower lobes likely CHF o r infiltrates. Stable support lines and tubes. Electronically signed by: Hailey Watts MD (04/18/2021 1:01 PM) [id number]
--- NOTE | 2021-04-18 16:09 | NUR ---
SS following up with discharge planning. SS reviewed pt chart and discussed with pt RN. Pt is currently on the vent at 60%. Pt on Fentanyl, Versed, and Dopamine. Pt on IV Lasix. SS will continue to follow for discharge planning.
[2021-04-18] MEDS ORDERED: POTASSIUM BICARB 20 MEQ EFFERVESCENT TABLET. FT ONE (16:15)
[2021-04-18] MEDS: FAMOTIDINE 20 MG/2 ML VIAL IVP SCH ×2 (16:24→21:00)
--- NOTE | 2021-04-18 19:37 | PDOC ---
PULMONARY PROGRESS NOTES DATE: 04/18/21 TIME: 19:36 Subjective Remains on assist control mode. On 70% FiO2. On low-dose dopamine. Vitals Vital Signs Date Time Temp Pulse Resp B/P (MAP) Pulse Ox O2 Delivery O2 Flow Rate FiO2 04/18/21 17:39 94 Ventilator 04/18/21 15:30 62 16 94/56 (69) 04/18/21 12:00 99.8 99.8 04/18/21 05:13 15.0 General: No acute distress Lungs: Clear Cardiovascular: S1 Abdomen: Soft Extremities: Other (1+edema) Labs Laboratory Tests Test 04/17/21 05:32 04/17/21 09:00 04/18/21 05:45 04/18/21 07:14 White Blood Count 10.5 x10^3/uL (4.0-11.0) 8.7 x10^3/uL (4.0-11.0) Red Blood Count 3.39 x10^6/uL (3.50-5.40) 3.27 x10^6/uL (3.50-5.40) Hemoglobin 10.8 g/dL (12.0-15.5) 10.3 g/dL (12.0-15.5) Hematocrit 31.4 % (36.0-47.0) 30.8 % (36.0-47.0) Mean Corpuscular Volume 93 fL (79-100) 94 fL (79-100) Mean Corpuscular Hemoglobin 32 pg (25-35) 31 pg (25-35) Mean Corpuscular Hemoglobin Concent 34 g/dL (31-37) 33 g/dL (31-37) Red Cell Distribution Width 13.1 % (11.5-14.5) 13.1 % (11.5-14.5) Platelet Count 150 x10^3/uL (140-400) 136 x10^3/uL (140-400) Neutrophils (%) (Auto) 85 % (31-73) 84 % (31-73) Lymphocytes (%) (Auto) 9 % (24-48) 7 % (24-48) Monocytes (%) (Auto) 6 % (0-9) 8 % (0-9) Eosinophils (%) (Auto) 0 % (0-3) 0 % (0-3) Basophils (%) (Auto) 0 % (0-3) 0 % (0-3) Neutrophils # (Auto) 8.9 x10^3/uL (1.8-7.7) 7.3 x10^3/uL (1.8-7.7) Lymphocytes # (Auto) 0.9 x10^3/uL (1.0-4.8) 0.6 x10^3/uL (1.0-4.8) Monocytes # (Auto) 0.7 x10^3/uL (0.0-1.1) 0.7 x10^3/uL (0.0-1.1) Eosinophils # (Auto) 0.0 x10^3/uL (0.0-0.7) 0.0 x10^3/uL (0.0-0.7) Basophils # (Auto) 0.0 x10^3/uL (0.0-0.2) 0.0 x10^3/uL (0.0-0.2) Sodium Level 138 mmol/L (136-145) 137 mmol/L (136-145) Potassium Level 3.7 mmol/L (3.5-5.1) 3.5 mmol/L (3.5-5.1) Chloride Level 103 mmol/L (98-107) 103 mmol/L (98-107) Carbon Dioxide Level 24 mmol/L (21-32) 25 mmol/L (21-32) Anion Gap 11 (6-14) 9 (6-14) Blood Urea Nitrogen 13 mg/dL (7-20) 20 mg/dL (7-20) Creatinine 1.0 mg/dL (0.6-1.0) 1.0 mg/dL (0.6-1.0) Estimated GFR (Cockcroft-Gault) 54.1 54.1 Glucose Level 104 mg/dL (70-99) 96 mg/dL (70-99) Calcium Level 8.6 mg/dL (8.5-10.1) 8.4 mg/dL (8.5-10.1) Magnesium Level 2.0 mg/dL (1.8-2.4) 2.1 mg/dL (1.8-2.4) O2 Saturation 98 % (92-99) 95 % (92-99) Arterial Blood pH 7.55 (7.35-7.45) 7.44 (7.35-7.45) Arterial Blood pCO2 at Patient Temp 23 mmHg (35-46) 37 mmHg (35-46) Arterial Blood pO2 at Patient Temp 100 mmHg (65-108) 77 mmHg (65-108) Arterial Blood HCO3 20 mmol/L (21-28) 25 mmol/L (21-28) Arterial Blood Base Excess -2 mmol/L (-3-3) 1 mmol/L (-3-3) FiO2 100% vent 70 Test 04/18/21 11:50 SARS-CoV-2 RNA (SHAKIRA) Negative (Negative) SARS-CoV-2 Antigen (Rapid) Negative (NEGATIVE) Laboratory Tests Test 04/18/21 05:45 04/18/21 07:14 04/18/21 11:50 White Blood Count 8.7 x10^3/uL (4.0-11.0) Red Blood Count 3.27 x10^6/uL (3.50-5.40) Hemoglobin 10.3 g/dL (12.0-15.5) Hematocrit 30.8 % (36.0-47.0) Mean Corpuscular Volume 94 fL (79-100) Mean Corpuscular Hemoglobin 31 pg (25-35) Mean Corpuscular Hemoglobin Concent 33 g/dL (31-37) Red Cell Distribution Width 13.1 % (11.5-14.5) Platelet Count 136 x10^3/uL (140-400) Neutrophils (%) (Auto) 84 % (31-73) Lymphocytes (%) (Auto) 7 % (24-48) Monocytes (%) (Auto) 8 % (0-9) Eosinophils (%) (Auto) 0 % (0-3) Basophils (%) (Auto) 0 % (0-3) Neutrophils # (Auto) 7.3 x10^3/uL (1.8-7.7) Lymphocytes # (Auto) 0.6 x10^3/uL (1.0-4.8) Monocytes # (Auto) 0.7 x10^3/uL (0.0-1.1) Eosinophils # (Auto) 0.0 x10^3/uL (0.0-0.7) Basophils # (Auto) 0.0 x10^3/uL (0.0-0.2) Sodium Level 137 mmol/L (136-145) Potassium Level 3.5 mmol/L (3.5-5.1) Chloride Level 103 mmol/L (98-107) Carbon Dioxide Level 25 mmol/L (21-32) Anion Gap 9 (6-14) Blood Urea Nitrogen 20 mg/dL (7-20) Creatinine 1.0 mg/dL (0.6-1.0) Estimated GFR (Cockcroft-Gault) 54.1 Glucose Level 96 mg/dL (70-99) Calcium Level 8.4 mg/dL (8.5-10.1) Magnesium Level 2.1 mg/dL (1.8-2.4) O2 Saturation 95 % (92-99) Arterial Blood pH 7.44 (7.35-7.45) Arterial Blood pCO2 at Patient Temp 37 mmHg (35-46) Arterial Blood pO2 at Patient Temp 77 mmHg (65-108) Arterial Blood HCO3 25 mmol/L (21-28) Arterial Blood Base Excess 1 mmol/L (-3-3) FiO2 70 SARS-CoV-2 RNA (SHAKIRA) Negative (Negative) SARS-CoV-2 Antigen (Rapid) Negative (NEGATIVE) Medications Active Scripts Medications Dose Route/Sig Max Daily Dose Days Date Category Hydrocodone-Apap 5-325 (Hydrocodone Bit/Acetaminophen) 1 Tab Tablet 1 Tab PO PRN Q6HRS PRN 04/16/21 Reported NITROGLYCERIN SubLingual (Nitroglycerin) 0.4 Mg Tab.subl 0.4 Mg SL PRN Q5MIN PRN 04/16/21 Reported Lasix (Furosemide) 20 Mg Tablet 1 Tab PO DAILY 30 04/16/21 Reported Isosorbide Mononitrate Er (Isosorbide Mononitrate) 60 Mg Tab.er.24h 1 Tab PO DAILY 04/16/21 Reported Klor-Con M10 (Potassium Chloride) 10 Meq Tab.er.prt 10 Meq PO DAILY 04/16/21 Reported Vitamin D3 (Cholecalciferol (Vitamin D3)) 5,000 Unit Tab.rapdis 5,000 Unit PO DAILY 11/24/19 Reported Aspirin 81 Mg Tab.chew 81 Mg PO DAILY 11/24/19 Reported Amlodipine Besylate 10 Mg Tablet 10 Mg PO DAILY 11/24/19 Reported Fluoxetine Hcl 40 Mg Capsule 40 Mg PO DAILY 11/24/19 Reported Simvastatin 20 Mg Tablet 20 Mg PO HS 11/24/19 Reported Multi-Vitamin Daily (Multivitamin) 1 Each Tablet 1 Each PO DAILY 11/24/19 Reported Latanoprost 2.5 Ml Drops 1 Drop OU HS 11/24/19 Reported Comments Chest x-ray reviewed dated 04/17/2021 There has been gradual improvement in overall flash pulmonary edema. Impression . 1. Acute hypercapnic and hypoxic respiratory failure secondary to cardiac arrest/flash pulmonary edema 2. 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 Etiology likely due to hypoxia. Initial chest x-ray consistent with flash pulmonary edema. 3. The patient with abnormal right heart cardiac catheterization, suggestive of left ventricular failure. She had a pulmonary capillary wedge pressure of 23 and a left ventricular end-diastolic pressure of 26. 4. Underlying obstructive sleep apnea and suspected obesity hypoventilation syndrome. 5. Shock, requiring dopamine, likely cardiogenic. 6. No significant coronary artery disease. Plan . 1. Continue present assist control mode and I have made changes on the ventilator settings and follow ABGs and make necessary adjustment.wean Fio2 2. Continue aggressive diuresis. 3. Follow chest x-ray in am 4. Follow Cardiology recommendations. 5. Deep venous thrombosis and stress ulcer prophylaxis. 6. enteral nutrition. 7. Wean dopamine. Discussed with respiratory therapist and RN. Discussed with cardiology. Critical care time 30 minutes. d/w cardiology FOUZIA PEREZ MD Apr 18, 2021 19:37
[2021-04-18] MEDS: ENOXAPARIN 40 MG/0.4 ML SYRINGE. SQ SCH (21:00)
[2021-04-19] VITALS (23 sets, daily range): BP systolic 105–118; BP diastolic 56–62
[2021-04-19 04:50] LABS: BASO % 0 % (0-3); EOS % 1 % (0-3); HEMATOCRIT 31.2 % (36.0-47.0); HEMOGLOBIN 10.5 g/dL (12.0-15.5); LYMPH # 0.5 x10^3/uL (1.0-4.8); LYMPH % 5 % (24-48); MEAN CORPUSCULAR HEMOGLOBIN 31 pg (25-35); MEAN CORPUSCULAR HGB CONC 34 g/dL (31-37); MEAN CORPUSCULAR VOLUME 93 fL (79-100); MONO # 0.7 x10^3/uL (0.0-1.1); MONO % 8 % (0-9); NEUT # 7.5 x10^3/uL (1.8-7.7); NEUT % 86 % (31-73); PLATELET COUNT 136 x10^3/uL (140-400); RED BLOOD COUNT 3.36 x10^6/uL (3.50-5.40); RED CELL DISTRIBUTION WIDTH 12.3 % (11.5-14.5); WHITE BLOOD COUNT 8.7 x10^3/uL (4.0-11.0)
[2021-04-19 05:11] LABS: CALCIUM 8.5 mg/dL (8.5-10.1); CREATININE 0.9 mg/dL (0.6-1.0); POTASSIUM 3.3 mmol/L (3.5-5.1)
--- NOTE | 2021-04-19 06:06 | RAD ---
AP chest x-ray HISTORY: Congestive heart failure, intubated for mechanical ventilation for respiratory failure. COMPARISON: Chest x-ray April 17, 2021 FINDINGS: Endotracheal tube tip 4 cm above the elen. Nasogastric tube extends to the abdomen. Cardi omegaly stable. No pneumothorax. There is mild improved aeration with decreased density of the perihi lar opacities and lower lobe opacities with persistent lower lobe opacities as well as consolidation of the left lower lobe, and mild layering left pleural effusion remaining. IMPRESSION: Congestive heart failure with cardiomegaly, pulmonary edema and mild left pleural effusio n again demonstrated, the opacities have mildly decreased since the prior exam. See above. Electronically signed by: Adi Stone MD (04/19/2021 6:03 AM) [facility]
--- NOTE | 2021-04-19 06:35 | PDOC ---
PULMONARY PROGRESS NOTES DATE: 04/19/21 TIME: 06:32 Subjective Remains on assist control mode. On peep 6 70% FiO2. sedated on versed fentanyl small ett secretion open eyes at times On low-dose dopamine. Vitals Vital Signs Date Time Temp Pulse Resp B/P (MAP) Pulse Ox O2 Delivery O2 Flow Rate FiO2 04/19/21 05:26 96 Ventilator 04/19/21 03:51 15.0 04/19/21 03:00 64 14 110/58 (75) 04/19/21 02:00 98.9 98.9 Comments ros unable to obtain General: No acute distress HEENT: Other (nc at perrl nose clear orally intubated) Lungs: Clear Cardiovascular: S1, S2 Abdomen: Soft, Non-tender Extremities: Other (1+edema) Skin: Warm Labs Laboratory Tests Test 04/17/21 09:00 04/18/21 05:45 04/18/21 07:14 04/18/21 11:50 O2 Saturation 98 % (92-99) 95 % (92-99) Arterial Blood pH 7.55 (7.35-7.45) 7.44 (7.35-7.45) Arterial Blood pCO2 at Patient Temp 23 mmHg (35-46) 37 mmHg (35-46) Arterial Blood pO2 at Patient Temp 100 mmHg (65-108) 77 mmHg (65-108) Arterial Blood HCO3 20 mmol/L (21-28) 25 mmol/L (21-28) Arterial Blood Base Excess -2 mmol/L (-3-3) 1 mmol/L (-3-3) FiO2 100% vent 70 White Blood Count 8.7 x10^3/uL (4.0-11.0) Red Blood Count 3.27 x10^6/uL (3.50-5.40) Hemoglobin 10.3 g/dL (12.0-15.5) Hematocrit 30.8 % (36.0-47.0) Mean Corpuscular Volume 94 fL (79-100) Mean Corpuscular Hemoglobin 31 pg (25-35) Mean Corpuscular Hemoglobin Concent 33 g/dL (31-37) Red Cell Distribution Width 13.1 % (11.5-14.5) Platelet Count 136 x10^3/uL (140-400) Neutrophils (%) (Auto) 84 % (31-73) Lymphocytes (%) (Auto) 7 % (24-48) Monocytes (%) (Auto) 8 % (0-9) Eosinophils (%) (Auto) 0 % (0-3) Basophils (%) (Auto) 0 % (0-3) Neutrophils # (Auto) 7.3 x10^3/uL (1.8-7.7) Lymphocytes # (Auto) 0.6 x10^3/uL (1.0-4.8) Monocytes # (Auto) 0.7 x10^3/uL (0.0-1.1) Eosinophils # (Auto) 0.0 x10^3/uL (0.0-0.7) Basophils # (Auto) 0.0 x10^3/uL (0.0-0.2) Sodium Level 137 mmol/L (136-145) Potassium Level 3.5 mmol/L (3.5-5.1) Chloride Level 103 mmol/L (98-107) Carbon Dioxide Level 25 mmol/L (21-32) Anion Gap 9 (6-14) Blood Urea Nitrogen 20 mg/dL (7-20) Creatinine 1.0 mg/dL (0.6-1.0) Estimated GFR (Cockcroft-Gault) 54.1 Glucose Level 96 mg/dL (70-99) Calcium Level 8.4 mg/dL (8.5-10.1) Magnesium Level 2.1 mg/dL (1.8-2.4) SARS-CoV-2 RNA (SHAKIRA) Negative (Negative) SARS-CoV-2 Antigen (Rapid) Negative (NEGATIVE) Test 04/19/21 00:13 04/19/21 04:00 Glucose (Fingerstick) 92 mg/dL (70-99) White Blood Count 8.7 x10^3/uL (4.0-11.0) Red Blood Count 3.36 x10^6/uL (3.50-5.40) Hemoglobin 10.5 g/dL (12.0-15.5) Hematocrit 31.2 % (36.0-47.0) Mean Corpuscular Volume 93 fL (79-100) Mean Corpuscular Hemoglobin 31 pg (25-35) Mean Corpuscular Hemoglobin Concent 34 g/dL (31-37) Red Cell Distribution Width 12.3 % (11.5-14.5) Platelet Count 136 x10^3/uL (140-400) Neutrophils (%) (Auto) 86 % (31-73) Lymphocytes (%) (Auto) 5 % (24-48) Monocytes (%) (Auto) 8 % (0-9) Eosinophils (%) (Auto) 1 % (0-3) Basophils (%) (Auto) 0 % (0-3) Neutrophils # (Auto) 7.5 x10^3/uL (1.8-7.7) Lymphocytes # (Auto) 0.5 x10^3/uL (1.0-4.8) Monocytes # (Auto) 0.7 x10^3/uL (0.0-1.1) Eosinophils # (Auto) 0.0 x10^3/uL (0.0-0.7) Basophils # (Auto) 0.0 x10^3/uL (0.0-0.2) Sodium Level 139 mmol/L (136-145) Potassium Level 3.3 mmol/L (3.5-5.1) Chloride Level 104 mmol/L (98-107) Carbon Dioxide Level 27 mmol/L (21-32) Anion Gap 8 (6-14) Blood Urea Nitrogen 18 mg/dL (7-20) Creatinine 0.9 mg/dL (0.6-1.0) Estimated GFR (Cockcroft-Gault) 61.0 Glucose Level 92 mg/dL (70-99) Calcium Level 8.5 mg/dL (8.5-10.1) Laboratory Tests Test 04/18/21 07:14 04/18/21 11:50 04/19/21 00:13 04/19/21 04:00 O2 Saturation 95 % (92-99) Arterial Blood pH 7.44 (7.35-7.45) Arterial Blood pCO2 at Patient Temp 37 mmHg (35-46) Arterial Blood pO2 at Patient Temp 77 mmHg (65-108) Arterial Blood HCO3 25 mmol/L (21-28) Arterial Blood Base Excess 1 mmol/L (-3-3) FiO2 70 SARS-CoV-2 RNA (SHAKIRA) Negative (Negative) SARS-CoV-2 Antigen (Rapid) Negative (NEGATIVE) Glucose (Fingerstick) 92 mg/dL (70-99) White Blood Count 8.7 x10^3/uL (4.0-11.0) Red Blood Count 3.36 x10^6/uL (3.50-5.40) Hemoglobin 10.5 g/dL (12.0-15.5) Hematocrit 31.2 % (36.0-47.0) Mean Corpuscular Volume 93 fL (79-100) Mean Corpuscular Hemoglobin 31 pg (25-35) Mean Corpuscular Hemoglobin Concent 34 g/dL (31-37) Red Cell Distribution Width 12.3 % (11.5-14.5) Platelet Count 136 x10^3/uL (140-400) Neutrophils (%) (Auto) 86 % (31-73) Lymphocytes (%) (Auto) 5 % (24-48) Monocytes (%) (Auto) 8 % (0-9) Eosinophils (%) (Auto) 1 % (0-3) Basophils (%) (Auto) 0 % (0-3) Neutrophils # (Auto) 7.5 x10^3/uL (1.8-7.7) Lymphocytes # (Auto) 0.5 x10^3/uL (1.0-4.8) Monocytes # (Auto) 0.7 x10^3/uL (0.0-1.1) Eosinophils # (Auto) 0.0 x10^3/uL (0.0-0.7) Basophils # (Auto) 0.0 x10^3/uL (0.0-0.2) Sodium Level 139 mmol/L (136-145) Potassium Level 3.3 mmol/L (3.5-5.1) Chloride Level 104 mmol/L (98-107) Carbon Dioxide Level 27 mmol/L (21-32) Anion Gap 8 (6-14) Blood Urea Nitrogen 18 mg/dL (7-20) Creatinine 0.9 mg/dL (0.6-1.0) Estimated GFR (Cockcroft-Gault) 61.0 Glucose Level 92 mg/dL (70-99) Calcium Level 8.5 mg/dL (8.5-10.1) Medications Active Scripts Medications Dose Route/Sig Max Daily Dose Days Date Category Hydrocodone-Apap 5-325 (Hydrocodone Bit/Acetaminophen) 1 Tab Tablet 1 Tab PO PRN Q6HRS PRN 04/16/21 Reported NITROGLYCERIN SubLingual (Nitroglycerin) 0.4 Mg Tab.subl 0.4 Mg SL PRN Q5MIN PRN 04/16/21 Reported Lasix (Furosemide) 20 Mg Tablet 1 Tab PO DAILY 30 04/16/21 Reported Isosorbide Mononitrate Er (Isosorbide Mononitrate) 60 Mg Tab.er.24h 1 Tab PO DAILY 04/16/21 Reported Klor-Con M10 (Potassium Chloride) 10 Meq Tab.er.prt 10 Meq PO DAILY 04/16/21 Reported Vitamin D3 (Cholecalciferol (Vitamin D3)) 5,000 Unit Tab.rapdis 5,000 Unit PO DAILY 11/24/19 Reported Aspirin 81 Mg Tab.chew 81 Mg PO DAILY 11/24/19 Reported Amlodipine Besylate 10 Mg Tablet 10 Mg PO DAILY 11/24/19 Reported Fluoxetine Hcl 40 Mg Capsule 40 Mg PO DAILY 11/24/19 Reported Simvastatin 20 Mg Tablet 20 Mg PO HS 11/24/19 Reported Multi-Vitamin Daily (Multivitamin) 1 Each Tablet 1 Each PO DAILY 11/24/19 Reported Latanoprost 2.5 Ml Drops 1 Drop OU HS 11/24/19 Reported Comments cxr 04/19 reviewed Congestive heart failure with cardiomegaly, pulmonary edema and mild left pleural effusion again demonstrated, the opacities have mildly decreased since the prior exam. Chest x-ray reviewed dated 04/17/2021 There has been gradual improvement in overall flash pulmonary edema. Impression . 1. Acute hypercapnic and hypoxic respiratory failure secondary to cardiac arrest/flash pulmonary edema 2. 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 Etiology likely due to hypoxia. Initial chest x-ray consistent with flash pulmonary edema. 3. The patient with abnormal right heart cardiac catheterization, suggestive of left ventricular failure. She had a pulmonary capillary wedge pressure of 23 and a left ventricular end-diastolic pressure of 26. 4. Underlying obstructive sleep apnea and suspected obesity hypoventilation syndrome. 5. Shock, requiring dopamine, likely cardiogenic. 6. No significant coronary artery disease. Plan . updated 04/19 1. cont vent support setting reviewed, titrate peep fio2 peep as tolerated 2. Continue aggressive diuresis. 3. chest x-ray reviewed slightly better 4. Follow Cardiology recommendations. 5. Deep venous thrombosis and stress ulcer prophylaxis. 6. enteral nutrition. 7. Wean dopamine. Discussed with respiratory therapist and RN. 1. Continue present assist control mode and I have made changes on the ventilator settings and follow ABGs and make necessary adjustment.wean Fio2 2. Continue aggressive diuresis. 3. Follow chest x-ray in am 4. Follow Cardiology recommendations. 5. Deep venous thrombosis and stress ulcer prophylaxis. 6. enteral nutrition. 7. Wean dopamine. Discussed with respiratory therapist and RN. Discussed with cardiology. Critical care time 30 minutes. d/w cardiology SEBASTIAN WYMAN MD Apr 19, 2021 06:35
[2021-04-19 08:04] LABS: BASE EXCESS ABG 5 mmol/L (-3-3); HCO3 ABG 29 mmol/L (21-28); PCO2 ABG 38 mmHg (35-46); PO2 ABG 88 mmHg (65-108); SAT O2 ABG 97 % (92-99)
[2021-04-19 08:07] LABS: FIO2 ABG 60
[2021-04-19] MEDS: FAMOTIDINE 20 MG/2 ML VIAL IVP SCH ×2 (09:15→20:43)
[2021-04-19] MEDS: FUROSEMIDE 40 MG/4 ML VIAL. IVP SCH (09:16)
[2021-04-19] MEDS ORDERED: POTASSIUM BICARB 20 MEQ EFFERVESCENT TABLET. PO ONE (10:15)
[2021-04-19] MEDS: MIDAZOLAM 100mg/100ml NS BAG 100 ML IV PRN (11:38)
[2021-04-19] MEDS: ENOXAPARIN 40 MG/0.4 ML SYRINGE. SQ SCH (20:44)
[2021-04-20] VITALS (25 sets, daily range): BP systolic 82–115; BP diastolic 48–72
[2021-04-20 06:23] LABS: CALCIUM 8.6 mg/dL (8.5-10.1); CREATININE 0.8 mg/dL (0.6-1.0); GFR 69.9; POTASSIUM 3.4 mmol/L (3.5-5.1)
--- NOTE | 2021-04-20 06:23 | PDOC ---
PULMONARY PROGRESS NOTES DATE: 04/20/21 TIME: 06:21 Subjective Remains on assist control mode. On peep7 FiO2. 50 sedated on versed fentanyl small ett secretion open eyes at times On low-dose dopamine. per cardiology Vitals Vital Signs Date Time Temp Pulse Resp B/P (MAP) Pulse Ox O2 Delivery O2 Flow Rate FiO2 04/20/21 05:20 98 Ventilator 04/20/21 04:00 56 14 90/60 (70) 04/20/21 00:00 99.7 99.7 Comments ros unable to obtain General: No acute distress HEENT: Other (nc at perrl nose clear orally intubated) Lungs: Clear Cardiovascular: S1, S2 Abdomen: Soft, Non-tender Extremities: Other (1+edema) Skin: Warm Labs Laboratory Tests Test 04/18/21 07:14 04/18/21 11:50 04/19/21 00:13 04/19/21 04:00 O2 Saturation 95 % (92-99) Arterial Blood pH 7.44 (7.35-7.45) Arterial Blood pCO2 at Patient Temp 37 mmHg (35-46) Arterial Blood pO2 at Patient Temp 77 mmHg (65-108) Arterial Blood HCO3 25 mmol/L (21-28) Arterial Blood Base Excess 1 mmol/L (-3-3) FiO2 70 SARS-CoV-2 RNA (SHAKIRA) Negative (Negative) SARS-CoV-2 Antigen (Rapid) Negative (NEGATIVE) Glucose (Fingerstick) 92 mg/dL (70-99) White Blood Count 8.7 x10^3/uL (4.0-11.0) Red Blood Count 3.36 x10^6/uL (3.50-5.40) Hemoglobin 10.5 g/dL (12.0-15.5) Hematocrit 31.2 % (36.0-47.0) Mean Corpuscular Volume 93 fL (79-100) Mean Corpuscular Hemoglobin 31 pg (25-35) Mean Corpuscular Hemoglobin Concent 34 g/dL (31-37) Red Cell Distribution Width 12.3 % (11.5-14.5) Platelet Count 136 x10^3/uL (140-400) Neutrophils (%) (Auto) 86 % (31-73) Lymphocytes (%) (Auto) 5 % (24-48) Monocytes (%) (Auto) 8 % (0-9) Eosinophils (%) (Auto) 1 % (0-3) Basophils (%) (Auto) 0 % (0-3) Neutrophils # (Auto) 7.5 x10^3/uL (1.8-7.7) Lymphocytes # (Auto) 0.5 x10^3/uL (1.0-4.8) Monocytes # (Auto) 0.7 x10^3/uL (0.0-1.1) Eosinophils # (Auto) 0.0 x10^3/uL (0.0-0.7) Basophils # (Auto) 0.0 x10^3/uL (0.0-0.2) Sodium Level 139 mmol/L (136-145) Potassium Level 3.3 mmol/L (3.5-5.1) Chloride Level 104 mmol/L (98-107) Carbon Dioxide Level 27 mmol/L (21-32) Anion Gap 8 (6-14) Blood Urea Nitrogen 18 mg/dL (7-20) Creatinine 0.9 mg/dL (0.6-1.0) Estimated GFR (Cockcroft-Gault) 61.0 Glucose Level 92 mg/dL (70-99) Calcium Level 8.5 mg/dL (8.5-10.1) Test 04/19/21 07:45 04/19/21 23:22 O2 Saturation 97 % (92-99) Arterial Blood pH 7.49 (7.35-7.45) Arterial Blood pCO2 at Patient Temp 38 mmHg (35-46) Arterial Blood pO2 at Patient Temp 88 mmHg (65-108) Arterial Blood HCO3 29 mmol/L (21-28) Arterial Blood Base Excess 5 mmol/L (-3-3) FiO2 60 Glucose (Fingerstick) 93 mg/dL (70-99) Laboratory Tests Test 04/19/21 07:45 04/19/21 23:22 O2 Saturation 97 % (92-99) Arterial Blood pH 7.49 (7.35-7.45) Arterial Blood pCO2 at Patient Temp 38 mmHg (35-46) Arterial Blood pO2 at Patient Temp 88 mmHg (65-108) Arterial Blood HCO3 29 mmol/L (21-28) Arterial Blood Base Excess 5 mmol/L (-3-3) FiO2 60 Glucose (Fingerstick) 93 mg/dL (70-99) Medications Active Scripts Medications Dose Route/Sig Max Daily Dose Days Date Category Hydrocodone-Apap 5-325 (Hydrocodone Bit/Acetaminophen) 1 Tab Tablet 1 Tab PO PRN Q6HRS PRN 04/16/21 Reported NITROGLYCERIN SubLingual (Nitroglycerin) 0.4 Mg Tab.subl 0.4 Mg SL PRN Q5MIN PRN 04/16/21 Reported Lasix (Furosemide) 20 Mg Tablet 1 Tab PO DAILY 30 04/16/21 Reported Isosorbide Mononitrate Er (Isosorbide Mononitrate) 60 Mg Tab.er.24h 1 Tab PO DAILY 04/16/21 Reported Klor-Con M10 (Potassium Chloride) 10 Meq Tab.er.prt 10 Meq PO DAILY 04/16/21 Reported Vitamin D3 (Cholecalciferol (Vitamin D3)) 5,000 Unit Tab.rapdis 5,000 Unit PO DAILY 11/24/19 Reported Aspirin 81 Mg Tab.chew 81 Mg PO DAILY 11/24/19 Reported Amlodipine Besylate 10 Mg Tablet 10 Mg PO DAILY 11/24/19 Reported Fluoxetine Hcl 40 Mg Capsule 40 Mg PO DAILY 11/24/19 Reported Simvastatin 20 Mg Tablet 20 Mg PO HS 11/24/19 Reported Multi-Vitamin Daily (Multivitamin) 1 Each Tablet 1 Each PO DAILY 11/24/19 Reported Latanoprost 2.5 Ml Drops 1 Drop OU HS 11/24/19 Reported Comments cxr 04/19 reviewed Congestive heart failure with cardiomegaly, pulmonary edema and mild left pleural effusion again demonstrated, the opacities have mildly decreased since the prior exam. Chest x-ray reviewed dated 04/17/2021 There has been gradual improvement in overall flash pulmonary edema. Impression . 1. Acute hypercapnic and hypoxic respiratory failure secondary to cardiac arrest/flash pulmonary edema 2. 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 Etiology likely due to hypoxia. Initial chest x-ray consistent with flash pulmonary edema. 3. The patient with abnormal right heart cardiac catheterization, suggestive of left ventricular failure. She had a pulmonary capillary wedge pressure of 23 and a left ventricular end-diastolic pressure of 26. 4. Underlying obstructive sleep apnea and suspected obesity hypoventilation syndrome. 5. Shock, requiring dopamine, likely cardiogenic. 6. No significant coronary artery disease. Plan . updated 04/20 1. cont vent support setting reviewed, decrease peep to 5 if tolerates d ecrease sedation sbt when awake 2. Continue aggressive diuresis. 3. chest x-ray reviewed slightly better 4. Follow Cardiology recommendations. 5. Deep venous thrombosis and stress ulcer prophylaxis. 6. enteral nutrition. 7. Wean dopamine. Discussed with respiratory therapist and RN. updated 04/19 1. cont vent support setting reviewed, titrate peep fio2 peep as tolerated 2. Continue aggressive diuresis. 3. chest x-ray reviewed slightly better 4. Follow Cardiology recommendations. 5. Deep venous thrombosis and stress ulcer prophylaxis. 6. enteral nutrition. 7. Wean dopamine. Discussed with respiratory therapist and RN. 1. Continue present assist control mode and I have made changes on the ventilator settings and follow ABGs and make necessary adjustment.wean Fio2 2. Continue aggressive diuresis. 3. Follow chest x-ray in am 4. Follow Cardiology recommendations. 5. Deep venous thrombosis and stress ulcer prophylaxis. 6. enteral nutrition. 7. Wean dopamine. Discussed with respiratory therapist and RN. Discussed with cardiology. Critical care time 30 minutes. d/w cardiology SEBASTIAN WYMAN MD Apr 20, 2021 06:23
[2021-04-20 06:34] LABS: HEMATOCRIT 30.7 % (36.0-47.0); HEMOGLOBIN 10.5 g/dL (12.0-15.5); RED BLOOD COUNT 3.34 x10^6/uL (3.50-5.40); RED CELL DISTRIBUTION WIDTH 12.7 % (11.5-14.5); WHITE BLOOD COUNT 7.7 x10^3/uL (4.0-11.0)
[2021-04-20] MEDS ORDERED: POTASSIUM BICARB 20 MEQ EFFERVESCENT TABLET. PO ONE (07:30)
[2021-04-20] MEDS: MIDAZOLAM 100mg/100ml NS BAG 100 ML IV PRN (07:38)
[2021-04-20] MEDS: FAMOTIDINE 20 MG/2 ML VIAL IVP SCH ×2 (08:13→20:02)
[2021-04-20] MEDS: FUROSEMIDE 40 MG/4 ML VIAL. IVP SCH (08:14)
[2021-04-20 08:52] LABS: BASE EXCESS ABG 2 mmol/L (-3-3); HCO3 ABG 25 mmol/L (21-28); PCO2 ABG 35 mmHg (35-46); PO2 ABG 98 mmHg (65-108); SAT O2 ABG 97 % (92-99)
[2021-04-20 09:07] LABS: FIO2 ABG 50
--- NOTE | 2021-04-20 15:39 | PDOC ---
CARDIOLOGY PROGRESS NOTE SUBJECTIVE: No new events overnight. She remains sedated. She is also continuing to require dopamine therapy OBJECTIVE: Vital Signs/I&O: Vital signs stable, she is mildly febrile with a temperature of 100.1 Since admission she is approximately -3 L Objective: The patient appeared well nourished and normally developed. Head exam is unremarkable. No scleral icterus or corneal arcus noted. Neck is without jugular venous distension, thyromegaly, or carotid bruits. Carotid upstrokes are brisk bilaterally. Lungs are notable for decreased breath sounds. Cardiac exam reveals the PMI to be normally sized and situated. Rhythm is regular. First and second heart sounds normal. No murmurs, rubs or gallops. Abdominal exam reveals normal bowel sounds, no masses, no organomegaly and no ao rtic enlargement. Extremities are nonedematous and both femoral and pedal pulses are normal. Msk: No traumua Neuro: No focal deficits CURRENT MEDICATIONS: Dopamine and furosemide DIAGNOSTIC TESTING: Labs reviewed Chest x-ray reviewed and shows improvement Labs: Laboratory Tests 04/20/21 05:22 ASSESSMENT: 1. Acute on chronic diastolic heart failure 2. Hypotension PLAN: 1. Continue diuresis as tolerated. Her chest x-ray appears to be improving 2. Etiology of her vasoplegia and hypotension is unclear. We will continue supportive dopamine for now 3. Respiratory failure appears to be much improved. Weaning trial per pulmonary service. Supportive care. Discussed with nursing staff. Justicifation of Admission Dx: Justifications for Admission: Justification of Admission Dx: Yes Respiratory Failure: Mechanical Ventilation FREDERICK GREER MD Apr 20, 2021 15:39
[2021-04-20] MEDS: ENOXAPARIN 40 MG/0.4 ML SYRINGE. SQ SCH (20:01)
[2021-04-21] VITALS (25 sets, daily range): BP systolic 80–124; BP diastolic 45–86
[2021-04-21 05:47] LABS: CALCIUM 8.7 mg/dL (8.5-10.1); CREATININE 0.8 mg/dL (0.6-1.0); GFR 69.9; POTASSIUM 3.6 mmol/L (3.5-5.1)
--- NOTE | 2021-04-21 06:03 | PDOC ---
PULMONARY PROGRESS NOTES DATE: 04/21/21 TIME: 05:59 Subjective Remains on vent support 40%/PEEP of 5 Remains on dopamine drip Nursing reports patient sedation has been off for 24 hours patient remains unresponsive, nursing also reports that the patient did not tolerate being off of dopamine secondary to hypotension Vitals Vital Signs Date Time Temp Pulse Resp B/P (MAP) Pulse Ox O2 Delivery O2 Flow Rate FiO2 04/21/21 05:00 98.9 60 14 113/52 (72) 97 Ventilator 98.9 04/21/21 04:04 15.0 Comments ros unable to obtain General: No acute distress HEENT: Other (intubated) Lungs: Clear Cardiovascular: S1, S2 Abdomen: Soft, Non-tender Extremities: Other (1+edema) Skin: Warm Labs Laboratory Tests Test 04/19/21 07:45 04/19/21 23:22 04/20/21 05:22 04/20/21 08:00 O2 Saturation 97 % (92-99) 97 % (92-99) Arterial Blood pH 7.49 (7.35-7.45) 7.48 (7.35-7.45) Arterial Blood pCO2 at Patient Temp 38 mmHg (35-46) 35 mmHg (35-46) Arterial Blood pO2 at Patient Temp 88 mmHg (65-108) 98 mmHg (65-108) Arterial Blood HCO3 29 mmol/L (21-28) 25 mmol/L (21-28) Arterial Blood Base Excess 5 mmol/L (-3-3) 2 mmol/L (-3-3) FiO2 60 50 Glucose (Fingerstick) 93 mg/dL (70-99) White Blood Count 7.7 x10^3/uL (4.0-11.0) Red Blood Count 3.34 x10^6/uL (3.50-5.40) Hemoglobin 10.5 g/dL (12.0-15.5) Hematocrit 30.7 % (36.0-47.0) Mean Corpuscular Volume 92 fL (79-100) Mean Corpuscular Hemoglobin 32 pg (25-35) Mean Corpuscular Hemoglobin Concent 34 g/dL (31-37) Red Cell Distribution Width 12.7 % (11.5-14.5) Platelet Count 154 x10^3/uL (140-400) Sodium Level 141 mmol/L (136-145) Potassium Level 3.4 mmol/L (3.5-5.1) Chloride Level 106 mmol/L (98-107) Carbon Dioxide Level 26 mmol/L (21-32) Anion Gap 9 (6-14) Blood Urea Nitrogen 16 mg/dL (7-20) Creatinine 0.8 mg/dL (0.6-1.0) Estimated GFR (Cockcroft-Gault) 69.9 Glucose Level 97 mg/dL (70-99) Calcium Level 8.6 mg/dL (8.5-10.1) Test 04/21/21 04:45 Sodium Level 141 mmol/L (136-145) Potassium Level 3.6 mmol/L (3.5-5.1) Chloride Level 105 mmol/L (98-107) Carbon Dioxide Level 28 mmol/L (21-32) Anion Gap 8 (6-14) Blood Urea Nitrogen 17 mg/dL (7-20) Creatinine 0.8 mg/dL (0.6-1.0) Estimated GFR (Cockcroft-Gault) 69.9 Glucose Level 93 mg/dL (70-99) Calcium Level 8.7 mg/dL (8.5-10.1) Laboratory Tests Test 04/20/21 08:00 04/21/21 04:45 O2 Saturation 97 % (92-99) Arterial Blood pH 7.48 (7.35-7.45) Arterial Blood pCO2 at Patient Temp 35 mmHg (35-46) Arterial Blood pO2 at Patient Temp 98 mmHg (65-108) Arterial Blood HCO3 25 mmol/L (21-28) Arterial Blood Base Excess 2 mmol/L (-3-3) FiO2 50 Sodium Level 141 mmol/L (136-145) Potassium Level 3.6 mmol/L (3.5-5.1) Chloride Level 105 mmol/L (98-107) Carbon Dioxide Level 28 mmol/L (21-32) Anion Gap 8 (6-14) Blood Urea Nitrogen 17 mg/dL (7-20) Creatinine 0.8 mg/dL (0.6-1.0) Estimated GFR (Cockcroft-Gault) 69.9 Glucose Level 93 mg/dL (70-99) Calcium Level 8.7 mg/dL (8.5-10.1) Medications Active Scripts Medications Dose Route/Sig Max Daily Dose Days Date Category Hydrocodone-Apap 5-325 (Hydrocodone Bit/Acetaminophen) 1 Tab Tablet 1 Tab PO PRN Q6HRS PRN 04/16/21 Reported NITROGLYCERIN SubLingual (Nitroglycerin) 0.4 Mg Tab.subl 0.4 Mg SL PRN Q5MIN PRN 04/16/21 Reported Lasix (Furosemide) 20 Mg Tablet 1 Tab PO DAILY 30 04/16/21 Reported Isosorbide Mononitrate Er (Isosorbide Mononitrate) 60 Mg Tab.er.24h 1 Tab PO DAILY 04/16/21 Reported Klor-Con M10 (Potassium Chloride) 10 Meq Tab.er.prt 10 Meq PO DAILY 04/16/21 Reported Vitamin D3 (Cholecalciferol (Vitamin D3)) 5,000 Unit Tab.rapdis 5,000 Unit PO DAILY 11/24/19 Reported Aspirin 81 Mg Tab.chew 81 Mg PO DAILY 11/24/19 Reported Amlodipine Besylate 10 Mg Tablet 10 Mg PO DAILY 11/24/19 Reported Fluoxetine Hcl 40 Mg Capsule 40 Mg PO DAILY 11/24/19 Reported Simvastatin 20 Mg Tablet 20 Mg PO HS 11/24/19 Reported Multi-Vitamin Daily (Multivitamin) 1 Each Tablet 1 Each PO DAILY 11/24/19 Reported Latanoprost 2.5 Ml Drops 1 Drop OU HS 11/24/19 Reported Comments cxr 04/19 reviewed Congestive heart failure with cardiomegaly, pulmonary edema and mild left pleural effusion again demonstrated, the opacities have mildly decreased since the prior exam. Chest x-ray reviewed dated 04/17/2021 There has been gradual improvement in overall flash pulmonary edema. Impression . 1. Acute hypercapnic and hypoxic respiratory failure secondary to cardiac arrest/flash pulmonary edema 2. Cardiac arrest in the quality control lab tech, requiring 8 minutes of CPR and ACLS protocol, with return of spontaneous circulation. Etiology likely due to hypoxia. Initial chest x-ray consistent with flash pulmonary edema. 3. The patient with abnormal right heart cardiac catheterization, suggestive of left ventricular failure. She had a pulmonary capillary wedge pressure of 23 and a left ventricular end-diastolic pressure of 26. 4. Underlying obstructive sleep apnea and suspected obesity hypoventilation syndrome. 5. Shock, requiring dopamine, likely cardiogenic.--improved 6. No significant coronary artery disease. 7. Encephalopathy.? anoxic vs post sedation Plan . Updated 04/21/2021 Continue current vent support 10/500/40/5 DC fentanyl continue to hold other sedation to proceed with pressure support trial and assess mental status, consider neurology consult in no improvement in MS in next few days Follow chest x-ray and ABG, current cxr 04/21 with improving CHF Follow cardiology recommendations--status post cardiac catheterization 55% coronaries clean, diuresis per cardiology Continue dopamine, keep MAP greater than 65 Continue tube feed for nutritional support DVT/GI prophylaxis: Lovenox Discussed with RN and RT d/w at bed side in detail. Explained to him that we are waiting on her improvement in MS before doing CPAP trials. All questions answered. Critical care time 30 minutes FOUZIA PEREZ MD Apr 21, 2021 06:03
[2021-04-21 07:49] LABS: BASE EXCESS ABG 3 mmol/L (-3-3); HCO3 ABG 26 mmol/L (21-28); PCO2 ABG 36 mmHg (35-46); PO2 ABG 88 mmHg (65-108); SAT O2 ABG 97 % (92-99)
[2021-04-21 08:16] LABS: FIO2 ABG 40/VENT
--- NOTE | 2021-04-21 08:36 | RAD ---
EXAM: Chest, single view. HISTORY: Respiratory failure. COMPARISON: 04/19/2021 FINDINGS: A frontal view of the chest is obtained. There has been interval increase in small right an d small to moderate left pleural effusions and diffuse lower lobe predominant interstitial infiltrate . There is a stable enlarged cardiac silhouette. There is no pneumothorax. There is an endotracheal t ube within the mid trachea. There is a nasogastric tube within the stomach. There is internal fixatio n of the left humerus. There is cervical spinal fusion instrumentation. IMPRESSION: 1. Increase in small right and small to moderate left pleural effusion and diffuse lower lobe predomi nant interstitial infiltrate. 2. Stable cardiomegaly. 3. Stable support lines and tubes. Electronically signed by: Taisha Del Real MD (04/21/2021 8:34 AM) [id number]
[2021-04-21] MEDS: FUROSEMIDE 40 MG/4 ML VIAL. IVP SCH (09:37)
[2021-04-21] MEDS: FAMOTIDINE 20 MG/2 ML VIAL IVP SCH (09:37)
--- NOTE | 2021-04-21 10:40 | PDOC ---
CARDIO Progress Notes Date and Time Date of Service 04/21/21 Time of Evaluation 1030 Subjective Subjective: Other (intubated) Vitals Vitals Vital Signs Date Time Temp Pulse Resp B/P (MAP) Pulse Ox O2 Delivery O2 Flow Rate FiO2 04/21/21 10:00 53 10 80/54 (63) 93 Ventilator 04/21/21 08:00 99.8 99.8 04/21/21 04:04 15.0 Weight Weight [ ] Input and Output Intake and Output Intake and Output 04/21/21 07:00 Intake Total 929 ml Output Total 1865 ml Balance -936 ml IV Total 224 ml Other 705 ml Output Urine Total 1515 ml Gastric Drainage Total 350 ml Laboratory Labs Laboratory Tests Test 04/21/21 04:45 04/21/21 08:00 Sodium Level 141 mmol/L (136-145) Potassium Level 3.6 mmol/L (3.5-5.1) Chloride Level 105 mmol/L (98-107) Carbon Dioxide Level 28 mmol/L (21-32) Anion Gap 8 (6-14) Blood Urea Nitrogen 17 mg/dL (7-20) Creatinine 0.8 mg/dL (0.6-1.0) Estimated GFR (Cockcroft-Gault) 69.9 Glucose Level 93 mg/dL (70-99) Calcium Level 8.7 mg/dL (8.5-10.1) O2 Saturation 97 % (92-99) Arterial Blood pH 7.48 (7.35-7.45) Arterial Blood pCO2 at Patient Temp 36 mmHg (35-46) Arterial Blood pO2 at Patient Temp 88 mmHg (65-108) Arterial Blood HCO3 26 mmol/L (21-28) Arterial Blood Base Excess 3 mmol/L (-3-3) FiO2 40/vent Physical Exam HEENT: Neck Supple W Full Motion Chest: Symmetric LUNGS: Other (intubated with mechanical vent) Heart: RRR (SR no ectopies) Abdomen: Other (soft ) Extremities: No Edema Neurology: other (off sedation, not awake ) Assessment Assessment 1. Acute hypercapnic/hypoxic respiratory failure; s/p intubation 2. Cardiopulmonary arrest: noted asystolic event due to hypoxia. 8 min to ROSC. LHC revealed fluid overload but no significant CAD. 3. Acute on chronic diastolic CHF/pulmonary edema; s/p IV diuresis 4. Obesity with suspected CLEMENCIA/OHS 5. HTN: hypotensive requiring Dopamine 6. HLP 7. Encephalopathy Recommendations Continue lasix therapy Pressor as warranted. Dopamine ongoing Ongoing lung optimization, weaning Supportive care Justicifation of Admission Dx: Justifications for Admission: Justification of Admission Dx: Yes Respiratory Failure: Mechanical Ventilation CHRISTOPHER FREITAS APRN Apr 21, 2021 10:40
--- NOTE | 2021-04-21 16:47 | NUR ---
SS following up with discharge planning. SS reviewed pt chart and discussed with pt RN. Pt is currently on the vent at 40%. Pt on Dopamine. Pt on IV Lasix. SS will continue to follow for discharge planning.
[2021-04-22] VITALS (24 sets, daily range): BP systolic 90–149; BP diastolic 0–93
[2021-04-22] MEDS: LATANOPROST 0.005% OPHTH SOLUTION 2.5ML BOTTLE. OU SCH ×2 (00:05→21:00)
[2021-04-22] MEDS: ENOXAPARIN 40 MG/0.4 ML SYRINGE. SQ SCH ×2 (00:05→21:34)
[2021-04-22] MEDS: FAMOTIDINE 20 MG/2 ML VIAL IVP SCH ×3 (00:05→21:34)
[2021-04-22 07:38] LABS: BASE EXCESS ABG -1 mmol/L (-3-3); HCO3 ABG 24 mmol/L (21-28); PCO2 ABG 38 mmHg (35-46); PO2 ABG 71 mmHg (65-108); SAT O2 ABG 93 % (92-99)
[2021-04-22 08:01] LABS: FIO2 ABG 40/VENT
[2021-04-22] MEDS: FUROSEMIDE 40 MG/4 ML VIAL. IVP SCH (09:08)
[2021-04-22] MEDS ORDERED: PIP/TAZO PER PHARMACY MC PRN (11:00)
--- NOTE | 2021-04-22 11:19 | PDOC ---
PULMONARY PROGRESS NOTES DATE: 04/22/21 TIME: 11:18 Subjective Remains on vent support 40%/PEEP of 5 Off dopamine. Nursing reports patient sedation has been off for 48 hours patient remains unresponsive, Vitals Vital Signs Date Time Temp Pulse Resp B/P (MAP) Pulse Ox O2 Delivery O2 Flow Rate FiO2 04/22/21 10:00 102 21 126/70 (88) 93 Ventilator 04/22/21 08:00 98.8 98.8 Comments ros unable to obtain General: No acute distress HEENT: Other (intubated) Lungs: Clear Cardiovascular: S1, S2 Abdomen: Soft, Non-tender Extremities: Other (1+edema) Skin: Warm Labs Laboratory Tests Test 04/21/21 04:45 04/21/21 08:00 04/22/21 07:30 Sodium Level 141 mmol/L (136-145) Potassium Level 3.6 mmol/L (3.5-5.1) Chloride Level 105 mmol/L (98-107) Carbon Dioxide Level 28 mmol/L (21-32) Anion Gap 8 (6-14) Blood Urea Nitrogen 17 mg/dL (7-20) Creatinine 0.8 mg/dL (0.6-1.0) Estimated GFR (Cockcroft-Gault) 69.9 Glucose Level 93 mg/dL (70-99) Calcium Level 8.7 mg/dL (8.5-10.1) O2 Saturation 97 % (92-99) 93 % (92-99) Arterial Blood pH 7.48 (7.35-7.45) 7.41 (7.35-7.45) Arterial Blood pCO2 at Patient Temp 36 mmHg (35-46) 38 mmHg (35-46) Arterial Blood pO2 at Patient Temp 88 mmHg (65-108) 71 mmHg (65-108) Arterial Blood HCO3 26 mmol/L (21-28) 24 mmol/L (21-28) Arterial Blood Base Excess 3 mmol/L (-3-3) -1 mmol/L (-3-3) FiO2 40/vent 40/vent Laboratory Tests Test 04/22/21 07:30 O2 Saturation 93 % (92-99) Arterial Blood pH 7.41 (7.35-7.45) Arterial Blood pCO2 at Patient Temp 38 mmHg (35-46) Arterial Blood pO2 at Patient Temp 71 mmHg (65-108) Arterial Blood HCO3 24 mmol/L (21-28) Arterial Blood Base Excess -1 mmol/L (-3-3) FiO2 40/vent Medications Active Scripts Medications Dose Route/Sig Max Daily Dose Days Date Category Hydrocodone-Apap 5-325 (Hydrocodone Bit/Acetaminophen) 1 Tab Tablet 1 Tab PO PRN Q6HRS PRN 04/16/21 Reported NITROGLYCERIN SubLingual (Nitroglycerin) 0.4 Mg Tab.subl 0.4 Mg SL PRN Q5MIN PRN 04/16/21 Reported Lasix (Furosemide) 20 Mg Tablet 1 Tab PO DAILY 30 04/16/21 Reported Isosorbide Mononitrate Er (Isosorbide Mononitrate) 60 Mg Tab.er.24h 1 Tab PO DAILY 04/16/21 Reported Klor-Con M10 (Potassium Chloride) 10 Meq Tab.er.prt 10 Meq PO DAILY 04/16/21 Reported Vitamin D3 (Cholecalciferol (Vitamin D3)) 5,000 Unit Tab.rapdis 5,000 Unit PO DAILY 11/24/19 Reported Aspirin 81 Mg Tab.chew 81 Mg PO DAILY 11/24/19 Reported Amlodipine Besylate 10 Mg Tablet 10 Mg PO DAILY 11/24/19 Reported Fluoxetine Hcl 40 Mg Capsule 40 Mg PO DAILY 11/24/19 Reported Simvastatin 20 Mg Tablet 20 Mg PO HS 11/24/19 Reported Multi-Vitamin Daily (Multivitamin) 1 Each Tablet 1 Each PO DAILY 11/24/19 Reported Latanoprost 2.5 Ml Drops 1 Drop OU HS 11/24/19 Reported Comments cxr 04/19 reviewed Congestive heart failure with cardiomegaly, pulmonary edema and mild left pleural effusion again demonstrated, the opacities have mildly decreased since the prior exam. Chest x-ray reviewed dated 04/17/2021 There has been gradual improvement in overall flash pulmonary edema. Impression . 1. Acute hypercapnic and hypoxic respiratory failure secondary to cardiac arrest/flash pulmonary edema 2. Cardiac arrest in the pathology laboratory director, requiring 8 minutes of CPR and ACLS protocol, with return of spontaneous circulation. Etiology likely due to hypoxia. Initial chest x-ray consistent with flash pulmonary edema. 3. The patient with abnormal right heart cardiac catheterization, suggestive of left ventricular failure. She had a pulmonary capillary wedge pressure of 23 and a left ventricular end-diastolic pressure of 26. 4. Underlying obstructive sleep apnea and suspected obesity hypoventilation syndrome. 5. Shock, requiring dopamine, likely cardiogenic.--improved 6. No significant coronary artery disease. 7. Encephalopathy.? anoxic vs post sedation Plan . Updated 04/22/2021 Continue current vent support 10/500/40/5 Keep her off all sedation to assess for mental status improvement. Consider neurology consult in no improvement in MS in next few days Follow chest x-ray and ABG, current cxr 04/21 with improving CHF Follow cardiology recommendations--status post cardiac catheterization 55% coronaries clean, diuresis per cardiology Continue dopamine, keep MAP greater than 65 Continue tube feed for nutritional support DVT/GI prophylaxis: Lovenox Discussed with RN and RT d/w at bed side in detail. Explained to him that we are waiting on her improvement in MS before doing CPAP trials. All questions answered. Critical care time 30 minutes Updated 04/21/2021 Continue current vent support 10/500/40/5 DC fentanyl continue to hold other sedation to proceed with pressure support trial and assess mental status, consider neurology consult in no improvement in MS in next few days Follow chest x-ray and ABG, current cxr 04/21 with improving CHF Follow cardiology recommendations--status post cardiac catheterization 55% coronaries clean, diuresis per cardiology Continue dopamine, keep MAP greater than 65 Continue tube feed for nutritional support DVT/GI prophylaxis: Lovenox Discussed with RN and RT d/w at bed side in detail. Explained to him that we are waiting on her improvement in MS before doing CPAP trials. All questions answered. Critical care time 30 minutes FOUZIA PEREZ MD Apr 22, 2021 11:19
[2021-04-22] MEDS: PIPERACILLIN/TAZOBACTAM 3.375 GM in IV NORMAL SALINE 50ML 50 ML IV SCH ×2 (11:35→17:41)
--- NOTE | 2021-04-22 12:17 | PDOC ---
CARDIO Progress Notes Date and Time Date of Service 04/22/21 Time of Evaluation 1215 Subjective Subjective: Other (intubated) Vitals Vitals Vital Signs Date Time Temp Pulse Resp B/P (MAP) Pulse Ox O2 Delivery O2 Flow Rate FiO2 04/22/21 11:33 92 Ventilator 04/22/21 11:00 102 22 129/84 (99) 04/22/21 08:00 98.8 98.8 Weight Weight [ ] Input and Output Intake and Output Intake and Output 04/22/21 07:00 Intake Total 670 ml Output Total 1265 ml Balance -595 ml Intake Oral 0 ml IV Total 161 ml Tube Feeding 309 ml Other 200 ml Output Urine Total 1240 ml Gastric Drainage Total 25 ml Laboratory Labs Laboratory Tests Test 04/22/21 07:30 O2 Saturation 93 % (92-99) Arterial Blood pH 7.41 (7.35-7.45) Arterial Blood pCO2 at Patient Temp 38 mmHg (35-46) Arterial Blood pO2 at Patient Temp 71 mmHg (65-108) Arterial Blood HCO3 24 mmol/L (21-28) Arterial Blood Base Excess -1 mmol/L (-3-3) FiO2 40/vent Physical Exam HEENT: Neck Supple W Full Motion Chest: Symmetric LUNGS: Other (intubated with mechanical vent) Heart: RRR (SR no ectopies) Abdomen: Other (soft ) Extremities: No Edema Neurology: other (off sedation ) Assessment Assessment 1. Acute hypercapnic/hypoxic respiratory failure; s/p intubation 2. Cardiopulmonary arrest: noted asystolic event due to hypoxia. 8 min to ROSC. LHC revealed fluid overload but no significant CAD. 3. Acute on chronic diastolic CHF/pulmonary edema; s/p IV diuresis 4. Obesity with suspected CLEMENCIA/OHS 5. HTN; off pressor support, BP adequate 6. HLP 7. Encephalopathy; off sedation. not awake Recommendations Continue Lasix therapy Ongoing lung optimization, weaning Supportive care Justicifation of Admission Dx: Justifications for Admission: Justification of Admission Dx: Yes Respiratory Failure: Mechanical Ventilation CHRISTOPHER FREITAS APRN Apr 22, 2021 12:17
[2021-04-22] MEDS: PROPOFOL 100 ML IV PRN ×2 (14:20→21:46)
[2021-04-23] VITALS (23 sets, daily range): BP systolic 98–162; BP diastolic 51–79
[2021-04-23] MEDS: PIPERACILLIN/TAZOBACTAM 3.375 GM in IV NORMAL SALINE 50ML 50 ML IV SCH ×4 (00:27→17:55)
[2021-04-23 07:53] LABS: BASE EXCESS ABG 4 mmol/L (-3-3); FIO2 ABG 60; HCO3 ABG 27 mmol/L (21-28); PCO2 ABG 36 mmHg (35-46); PO2 ABG 76 mmHg (65-108); SAT O2 ABG 95 % (92-99)
[2021-04-23] MEDS: FUROSEMIDE 40 MG/4 ML VIAL. IVP SCH (08:40)
[2021-04-23] MEDS: PROPOFOL 100 ML IV PRN (08:40)
[2021-04-23] MEDS: FAMOTIDINE 20 MG/2 ML VIAL IVP SCH ×2 (08:40→20:46)
--- NOTE | 2021-04-23 11:09 | PDOC ---
CHRISTOPHER FREITAS [employer] MEMBER 04/23/21 1108: CARDIO Progress Notes Date and Time Date of Service 04/23/21 Time of Evaluation 1100 Subjective Subjective: Other (intubated) Vitals Vitals Vital Signs Date Time Temp Pulse Resp B/P (MAP) Pulse Ox O2 Delivery O2 Flow Rate FiO2 04/23/21 09:48 95 Ventilator 04/23/21 09:00 85 23 138/65 (89) 04/23/21 08:00 99.3 99.3 Weight Weight [ ] Input and Output Intake and Output Intake and Output 04/23/21 07:00 Intake Total 1178 ml Output Total 1350 ml Balance -172 ml Tube Feeding 878 ml Other 300 ml Output Urine Total 1350 ml Laboratory Labs Laboratory Tests Test 04/23/21 07:50 O2 Saturation 95 % (92-99) Arterial Blood pH 7.49 (7.35-7.45) Arterial Blood pCO2 at Patient Temp 36 mmHg (35-46) Arterial Blood pO2 at Patient Temp 76 mmHg (65-108) Arterial Blood HCO3 27 mmol/L (21-28) Arterial Blood Base Excess 4 mmol/L (-3-3) FiO2 60 Physical Exam HEENT: Neck Supple W Full Motion Chest: Symmetric LUNGS: Other (intubated with mechanical vent) Heart: RRR (SR no ectopies) Abdomen: Other (soft ) Extremities: No Edema Neurology: other (off sedation, not awake ) Assessment Assessment 1. Acute hypercapnic/hypoxic respiratory failure; s/p intubation 2. Cardiopulmonary arrest: noted asystolic event due to hypoxia. 8 min to ROSC. LHC revealed fluid overload but no significant CAD. 3. Acute on chronic diastolic CHF/flash pulmonary edema; LVEF 55% per cath. s/p IV diuresis 4. Obesity with suspected CLEMENCIA 5. HTN: off pressor support. maintaining low-end 6. HLP 7. Encephalopathy; back on propofol overnight Recommendations Lasix therapy Hold sedation Neurology consult Ongoing lung optimization, weaning Supportive care Justicifation of Admission Dx: Justifications for Admission: Justification of Admission Dx: Yes Respiratory Failure: Mechanical Ventilation WILBERTO STARKS MD 04/23/21 5857: CARDIO Progress Notes Assessment Assessment Patient seen and examined. Agree with OUTBOUND SALES ADVISOR's assessment and plan. Acute on chronic diastolic heart failure better compensated with diuresis Telemetry did not show any significant arrhythmias Cardiac catheterization did not show any significant coronary artery disease Continue vent management per pulmonary team CHRISTOPHER FREITAS APRN Apr 23, 2021 11:08 WILBERTO STARKS MD Apr 23, 2021 17:27
--- NOTE | 2021-04-23 12:02 | PDOC ---
PULMONARY PROGRESS NOTES DATE: 04/23/21 TIME: 11:57 Subjective Remains on vent support 40%/PEEP of 5 patient sedation has been off for 72 hours patient remains unresponsive, Vitals Vital Signs Date Time Temp Pulse Resp B/P (MAP) Pulse Ox O2 Delivery O2 Flow Rate FiO2 04/23/21 11:38 94 Ventilator 04/23/21 11:00 82 15 129/64 (85) 04/23/21 08:00 99.3 99.3 Comments ros unable to obtain General: No acute distress HEENT: Other (intubated) Lungs: Clear Cardiovascular: S1, S2 Abdomen: Soft, Non-tender Extremities: Other (1+edema) Skin: Warm Labs Laboratory Tests Test 04/22/21 07:30 04/23/21 07:50 O2 Saturation 93 % (92-99) 95 % (92-99) Arterial Blood pH 7.41 (7.35-7.45) 7.49 (7.35-7.45) Arterial Blood pCO2 at Patient Temp 38 mmHg (35-46) 36 mmHg (35-46) Arterial Blood pO2 at Patient Temp 71 mmHg (65-108) 76 mmHg (65-108) Arterial Blood HCO3 24 mmol/L (21-28) 27 mmol/L (21-28) Arterial Blood Base Excess -1 mmol/L (-3-3) 4 mmol/L (-3-3) FiO2 40/vent 60 Laboratory Tests Test 04/23/21 07:50 O2 Saturation 95 % (92-99) Arterial Blood pH 7.49 (7.35-7.45) Arterial Blood pCO2 at Patient Temp 36 mmHg (35-46) Arterial Blood pO2 at Patient Temp 76 mmHg (65-108) Arterial Blood HCO3 27 mmol/L (21-28) Arterial Blood Base Excess 4 mmol/L (-3-3) FiO2 60 Medications Active Scripts Medications Dose Route/Sig Max Daily Dose Days Date Category Hydrocodone-Apap 5-325 (Hydrocodone Bit/Acetaminophen) 1 Tab Tablet 1 Tab PO PRN Q6HRS PRN 04/16/21 Reported NITROGLYCERIN SubLingual (Nitroglycerin) 0.4 Mg Tab.subl 0.4 Mg SL PRN Q5MIN PRN 04/16/21 Reported Lasix (Furosemide) 20 Mg Tablet 1 Tab PO DAILY 30 04/16/21 Reported Isosorbide Mononitrate Er (Isosorbide Mononitrate) 60 Mg Tab.er.24h 1 Tab PO DAILY 04/16/21 Reported Klor-Con M10 (Potassium Chloride) 10 Meq Tab.er.prt 10 Meq PO DAILY 04/16/21 Reported Vitamin D3 (Cholecalciferol (Vitamin D3)) 5,000 Unit Tab.rapdis 5,000 Unit PO DAILY 11/24/19 Reported Aspirin 81 Mg Tab.chew 81 Mg PO DAILY 11/24/19 Reported Amlodipine Besylate 10 Mg Tablet 10 Mg PO DAILY 11/24/19 Reported Fluoxetine Hcl 40 Mg Capsule 40 Mg PO DAILY 11/24/19 Reported Simvastatin 20 Mg Tablet 20 Mg PO HS 11/24/19 Reported Multi-Vitamin Daily (Multivitamin) 1 Each Tablet 1 Each PO DAILY 11/24/19 Reported Latanoprost 2.5 Ml Drops 1 Drop OU HS 11/24/19 Reported Comments cxr 04/19 reviewed Congestive heart failure with cardiomegaly, pulmonary edema and mild left pleura l effusion again demonstrated, the opacities have mildly decreased since the prior exam. Chest x-ray reviewed dated 04/17/2021 There has been gradual improvement in overall flash pulmonary edema. Impression . 1. Acute hypercapnic and hypoxic respiratory failure secondary to cardiac arrest/flash pulmonary edema 2. Cardiac arrest in the manager laboratory, requiring 8 minutes of CPR and ACLS protocol, with return of spontaneous circulation. Etiology likely due to hypoxia. Initial chest x-ray consistent with flash pulmonary edema. 3. The patient with abnormal right heart cardiac catheterization, suggestive of left ventricular failure. She had a pulmonary capillary wedge pressure of 23 and a left ventricular end-diastolic pressure of 26. 4. Underlying obstructive sleep apnea and suspected obesity hypoventilation syndrome. 5. Shock, requiring dopamine, likely cardiogenic.--improved 6. No significant coronary artery disease. 7. Encephalopathy.? anoxic vs post sedation Plan . Updated 04/23/2021 Continue current vent support 10500/40/5 off sedation x 72 hours, non responsive consult neurology today Follow chest x-ray and ABG, Follow cardiology recommendations--status post cardiac catheterization 55% coronaries clean, diuresis per cardiology off pressors Continue tube feed for nutritional support DVT/GI prophylaxis: Lovenox Discussed with RN and RT Critical care time 30 minutes Updated 04/22/2021 Continue current vent support 10/500/40/5 Keep her off all sedation to assess for mental status improvement. Consider neurology consult in no improvement in MS in next few days Follow chest x-ray and ABG, current cxr 04/21 with improving CHF Follow cardiology recommendations--status post cardiac catheterization 55% coronaries clean, diuresis per cardiology Continue dopamine, keep MAP greater than 65 Continue tube feed for nutritional support DVT/GI prophylaxis: Lovenox Discussed with RN and RT d/w at bed side in detail. Explained to him that we are waiting on her improvement in MS before doing CPAP trials. All questions answered. Critical care time 30 minutes Updated 04/21/2021 Continue current vent support 10/500/40/5 DC fentanyl continue to hold other sedation to proceed with pressure support trial and assess mental status, consider neurology consult in no improvement in MS in next few days Follow chest x-ray and ABG, current cxr 04/21 with improving CHF Follow cardiology recommendations--status post cardiac catheterization 55% coronaries clean, diuresis per cardiology Continue dopamine, keep MAP greater than 65 Continue tube feed for nutritional support DVT/GI prophylaxis: Lovenox Discussed with RN and RT d/w at bed side in detail. Explained to him that we are waiting on her improvement in MS before doing CPAP trials. All questions answered. Critical care time 30 minutes FOUZIA PEREZ MD Apr 23, 2021 12:02
--- NOTE | 2021-04-23 13:11 | PDOC2 ---
NEUROLOGY CONSULT Date of Service DOS: DATE: 04/23/21 TIME: 13:02 Reason for Consult Reason for Consult: Postcode Referring Physician Referring Physician: Dr. Figueroa Snow Source Source: Caregiver (, granddaughter), Chart review History of Present Illness History of Present Illness The patient is a 75-year-old right-handed female who presented a week ago for a cardiac catheterization, as part of work-up for chest pain and dyspnea on exertion. There was no evidence of coronary artery disease. At the end of the procedure, she developed shortness of breath, was treated with oxygen, IV Lasix, pulmonary treatments, she was emergently intubated, during the procedure, she had periods of asystole requiring chest compressions. No seizure activity was observed. She had been off sedation for 2 days, was on it last night, it was d iscontinued about an hour before my visit. Past Medical History Cardiovascular: HTN, Hyperlipidemia, Pulmonary hypertension Pulmonary: Other (Obstructive sleep apnea) Past Surgical History Past Surgical History: Total hip replacement, Hysterectomy, Other ( left humerus fracture, cervical laminectomy) Family History Family History: Hypertension Social History Social History , no tobacco or alcohol Current Medications Current Medications Current Medications Lidocaine HCl (Lidocaine 1% 20ml Vial) 20 ml STK-MED ONCE .ROUTE ; Start 04/16/21 at 07:35; Stop 04/16/21 at 07:35; Status DC Iodixanol (Visipaque 320) 100 ml STK-MED ONCE .ROUTE ; Start 04/16/21 at 07:35; Stop 04/16/21 at 07:35; Status DC Heparin Sodium/ Sodium Chloride 1,500 ml @ As Directed STK-MED ONCE .ROUTE ; Start 04/16/21 at 07:37; Stop 04/16/21 at 07:37; Status DC Heparin Sodium/ Sodium Chloride (HEPARIN for ARTERIAL LINE FLUSH) 1,000 unit 1X ONCE IART Last administered on 04/16/21at 08:30; Start 04/16/21 at 08:30; Stop 04/16/21 at 08:31; Status DC Heparin Sodium/ Sodium Chloride (HEPARIN for ARTERIAL LINE FLUSH) 1,000 unit 1X ONCE IART Last administered on 04/16/21at 08:30; Start 04/16/21 at 08:30; Stop 04/16/21 at 08:31; Status DC Midazolam HCl (Versed) 5 mg 1X ONCE IV Last administered on 04/16/21at 08:30; Start 04/16/21 at 08:30; Stop 04/16/21 at 08:31; Status DC Fentanyl Citrate (Fentanyl 2ml Vial) 100 mcg 1X ONCE IV Last administered on 04/16/21at 08:30; Start 04/16/21 at 08:30; Stop 04/16/21 at 08:31; Status DC Iodixanol (Visipaque 320) 100 ml 1X ONCE IART Last administered on 04/16/21at 08:30; Start 04/16/21 at 08:30; Stop 04/16/21 at 08:31; Status DC Lidocaine HCl (Lidocaine 1% 20ml Vial) 20 ml 1X ONCE INJ Last administered on 04/16/21at 08:30; Start 04/16/21 at 08:30; Stop 04/16/21 at 08:31; Status DC Info (CONTRAST GIVEN -- Rx MONITORING) 1 each PRN DAILY PRN MC SEE COMMENTS; Start 04/16/21 at 08:30; Stop 04/18/21 at 08:29; Status DC Iodixanol (Visipaque 320) 100 ml STK-MED ONCE .ROUTE ; Start 04/16/21 at 09:40; Stop 04/16/21 at 09:41; Status DC Heparin Sodium/ Sodium Chloride 500 ml @ As Directed STK-MED ONCE .ROUTE ; Start 04/16/21 at 09:52; Stop 04/16/21 at 09:53; Status DC Furosemide (Lasix) 100 mg STK-MED ONCE .ROUTE ; Start 04/16/21 at 09:57; Stop 04/16/21 at 09:58; Status DC Morphine Sulfate (Morphine Sulfate) 10 mg STK-MED ONCE .ROUTE ; Start 04/16/21 at 10:01; Stop 04/16/21 at 10:01; Status DC Ondansetron HCl (Zofran) 4 mg STK-MED ONCE .ROUTE ; Start 04/16/21 at 10:03; Stop 04/16/21 at 10:03; Status DC Heparin Sodium/ Sodium Chloride 500 ml @ As Directed STK-MED ONCE .ROUTE ; Start 04/16/21 at 10:24; Stop 04/16/21 at 10:24; Status DC Succinylcholine Chloride (Anectine) 200 mg STK-MED ONCE .ROUTE ; Start 04/16/21 at 10:26; Stop 04/16/21 at 10:27; Status DC Furosemide (Lasix) 100 mg 1X ONCE IVP Last administered on 04/16/21at 10:30; Start 04/16/21 at 10:30; Stop 04/16/21 at 10:35; Status DC Morphine Sulfate (Morphine Sulfate) 10 mg 1X ONCE IV Last administered on 04/16/21at 10:30; Start 04/16/21 at 10:30; Stop 04/16/21 at 10:35; Status DC Ondansetron HCl (Zofran) 4 mg 1X ONCE IVP Last administered on 04/16/21at 10:30; Start 04/16/21 at 10:30; Stop 04/16/21 at 10:35; Status DC Albuterol/ Ipratropium (Duoneb) 3 ml 1X ONCE NEB Last administered on 04/16/21at 10:05; Start 04/16/21 at 10:45; Stop 04/16/21 at 10:46; Status DC Fentanyl Citrate 30 ml @ 0 mls/hr CONT PRN IV SEE PROTOCOL Last administered on 04/17/21at 05:24; Start 04/16/21 at 10:45; Stop 04/17/21 at 10:44; Status DC Midazolam HCl 100 ml @ 0 mls/hr CONT PRN IV SEE PROTOCOL Last administered on 04/17/21at 08:54; Start 04/16/21 at 10:45; Stop 04/17/21 at 10:44; Status DC Dopamine HCl/ Dextrose 250 ml @ As Directed STK-MED ONCE IV ; Start 04/16/21 at 11:08; Stop 04/16/21 at 11:08; Status DC Dopamine HCl/ Dextrose 250 ml @ 17.138 mls/ hr CONT PRN IV SEE I/O RECORD Last administered on 04/17/21at 11:02; Start 04/16/21 at 12:00; Stop 04/17/21 at 11:59; Status DC Furosemide (Lasix) 40 mg 1X ONCE IVP Last administered on 04/16/21at 12:30; Start 04/16/21 at 12:30; Stop 04/16/21 at 12:31; Status DC Potassium Chloride/Water 100 ml @ 100 mls/hr Q1H IV Last administered on 04/16/21at 14:00; Start 04/16/21 at 13:00; Stop 04/16/21 at 14:59; Status DC Furosemide (Lasix) 40 mg STK-MED ONCE .ROUTE ; Start 04/16/21 at 12:37; Stop 04/16/21 at 12:37; Status DC Succinylcholine Chloride (Anectine) 200 mg STK-MED ONCE .ROUTE ; Start 04/16/21 at 16:48; Stop 04/16/21 at 16:49; Status DC Epinephrine HCl (EPINEPHrine SYRINGE) 2 mg STK-MED ONCE .ROUTE ; Start 04/16/21 at 11:00; Stop 04/16/21 at 18:11; Status DC Furosemide (Lasix) 40 mg 1X ONCE IVP Last administered on 04/17/21at 10:10; Start 04/17/21 at 10:00; Stop 04/17/21 at 10:01; Status DC Fentanyl Citrate 30 ml @ 0 mls/hr CONT PRN IV SEE PROTOCOL Last administered on 04/21/21at 04:04; Start 04/17/21 at 16:15 Midazolam HCl 100 ml @ 0 mls/hr CONT PRN IV SEE PROTOCOL Last administered on 04/20/21at 07:38; Start 04/17/21 at 16:15 Dopamine HCl/ Dextrose 250 ml @ 16.031 mls/ hr CONT PRN IV SEE I/O RECORD Last administered on 04/20/21at 02:00; Start 04/18/21 at 00:00; Stop 04/20/21 at 13:29; Status DC Furosemide (Lasix) 40 mg 1X ONCE IVP Last administered on 04/18/21at 10:00; Start 04/18/21 at 09:30; Stop 04/18/21 at 09:31; Status DC Potassium Bicarbonate (Potassium Effervescent Tablet) 40 meq 1X ONCE PEG Last administered on 04/18/21at 09:59; Start 04/18/21 at 09:30; Stop 04/18/21 at 09:31; Status DC Famotidine (Pepcid Vial) 20 mg BID IVP Last administered on 04/23/21at 08:40; Start 04/18/21 at 12:00 Enoxaparin Sodium (Lovenox 40mg Syringe) 40 mg Q24H SQ ; Start 04/18/21 at 12:00; Status Cancel Furosemide (Lasix) 40 mg 1X ONCE IVP Last administered on 04/18/21at 16:24; Start 04/18/21 at 16:00; Stop 04/18/21 at 16:01; Status DC Furosemide (Lasix) 40 mg DAILY IVP Last administered on 04/23/21at 08:40; Start 04/19/21 at 09:00 Potassium Bicarbonate (Potassium Effervescent Tablet) 40 meq 1X ONCE FT Last administered on 04/18/21at 16:24; Start 04/18/21 at 16:15; Stop 04/18/21 at 16:16; Status DC Enoxaparin Sodium (Lovenox 40mg Syringe) 40 mg Q24H SQ Last administered on 04/22/21at 21:34; Start 04/18/21 at 21:00 Potassium Bicarbonate (Potassium Effervescent Tablet) 40 meq 1X ONCE PO Last administered on 04/19/21at 10:25; Start 04/19/21 at 10:15; Stop 04/19/21 at 10:16; Status DC Potassium Bicarbonate (Potassium Effervescent Tablet) 40 meq 1X ONCE PO Last administered on 04/20/21at 08:13; Start 04/20/21 at 07:30; Stop 04/20/21 at 0 7:31; Status DC Dopamine HCl/ Dextrose 250 ml @ 18.113 mls/ hr CONT PRN IV SEE I/O RECORD Last administered on 04/21/21at 04:18; Start 04/20/21 at 13:45 Latanoprost (Xalatan) 1 drop HS OU Last administered on 04/22/21at 21:00; Start 04/21/21 at 21:00 Piperacillin Sod/ Tazobactam Sod (Zosyn Per Pharmacy) 1 each PRN DAILY PRN MC SEE COMMENTS; Start 04/22/21 at 11:00 Propofol 100 ml @ 2.823 mls/ hr CONT PRN IV PER PROTOCOL Last administered on 04/23/21at 08:40; Start 04/22/21 at 11:00 Piperacillin Sod/ Tazobactam Sod 3.375 gm/Sodium Chloride 50 ml @ 100 mls/hr Q6HRS IV Last administered on 04/23/21at 12:12; Start 04/22/21 at 12:00 Active Scripts Active Reported Hydrocodone-Apap 5-325 (Hydrocodone Bit/Acetaminophen) 1 Tab Tablet 1 Tab PO PRN Q6HRS PRN NITROGLYCERIN SubLingual (Nitroglycerin) 0.4 Mg Tab.subl 0.4 Mg SL PRN Q5MIN PRN Lasix (Furosemide) 20 Mg Tablet 1 Tab PO DAILY 30 Days Isosorbide Mononitrate Er (Isosorbide Mononitrate) 60 Mg Tab.er.24h 1 Tab PO DAILY Klor-Con M10 (Potassium Chloride) 10 Meq Tab.er.prt 10 Meq PO DAILY Vitamin D3 (Cholecalciferol (Vitamin D3)) 5,000 Unit Tab.rapdis 5,000 Unit PO DAILY Aspirin 81 Mg Tab.chew 81 Mg PO DAILY Amlodipine Besylate 10 Mg Tablet 10 Mg PO DAILY Fluoxetine Hcl 40 Mg Capsule 40 Mg PO DAILY Simvastatin 20 Mg Tablet 20 Mg PO HS Multi-Vitamin Daily (Multivitamin) 1 Each Tablet 1 Each PO DAILY Latanoprost 2.5 Ml Drops 1 Drop OU HS Allergies Allergies: Coded Allergies: olanzapine (Verified Allergy, Intermediate, Unknown, 04/18/21) ROS Review of System Negative for fever, chills, weight loss, shortness of breath, chest pain, indigestion, hematochezia, melena, and dysuria. Full 14-point review of systems is negative. Physical Exam Physical Examination General: Well-developed, well-nourished white female in no acute distress HEENT: Normocephalic andatraumatic.Temporal arteriespulsatile and nontender. Neck: Supple without bruit, no meningismus Musculoskeletal: Stability:see neurologic. Gait exam:see neurologic. Tone:see neurologic.Strength:see neurologic. Neurological: Mental Status:orientation, memory, attention span/concentration, language, fund of knowledge: Intubated, off sedation, moves all extremities spontaneously, stirs to voice, moves head in all directions. Cranial Nerves:Pupils equal and reactive to light, extraocular movements areintact. There is no facial asymmetry. All other cranial related problems are negative except as mentioned before.Reflexes:2+ and symmetric with flexor plantar responses. Motor:Moves all extremities, normal tone and bulk. Coordinationand gait:Not cooperative. Sensory:Not cooperative. Vitals VITALS Vital Signs Date Time Temp Pulse Resp B/P (MAP) Pulse Ox O2 Delivery O2 Flow Rate FiO2 04/23/21 12:00 86 19 127/64 (85) 95 Ventilator 04/23/21 08:00 99.3 99.3 Labs Labs Laboratory Tests Test 04/22/21 07:30 04/23/21 07:50 O2 Saturation 93 % (92-99) 95 % (92-99) Arterial Blood pH 7.41 (7.35-7.45) 7.49 (7.35-7.45) Arterial Blood pCO2 at Patient Temp 38 mmHg (35-46) 36 mmHg (35-46) Arterial Blood pO2 at Patient Temp 71 mmHg (65-108) 76 mmHg (65-108) Arterial Blood HCO3 24 mmol/L (21-28) 27 mmol/L (21-28) Arterial Blood Base Excess -1 mmol/L (-3-3) 4 mmol/L (-3-3) FiO2 40/vent 60 Laboratory Tests Test 04/23/21 07:50 O2 Saturation 95 % (92-99) Arterial Blood pH 7.49 (7.35-7.45) Arterial Blood pCO2 at Patient Temp 36 mmHg (35-46) Arterial Blood pO2 at Patient Temp 76 mmHg (65-108) Arterial Blood HCO3 27 mmol/L (21-28) Arterial Blood Base Excess 4 mmol/L (-3-3) FiO2 60 Assessment/Plan Assessment/Plan Impression: Anoxic encephalopathy, does not sound like she had a very prolonged downtime, we are not even sure of the causative event as her coronary arteries were clean and there were no arrhythmias. Prognosis is guarded, but she has all intact brainstem and higher functions, no reason why she cannot make a full recovery. Certainly is too soon to make a assessment of permanence. Recommendations: CT of the head Electroencephalogram Discussed with patient's and granddaughter. Thank you for letting me help with the patient's care. UNIQUE LONG MD Apr 23, 2021 13:11
--- NOTE | 2021-04-23 15:37 | NUR ---
SS following up with discharge planning. SS reviewed pt chart and discussed with pt RN. Pt is currently on the vent at 50%. COVID19 negative. Pt following commands. No sedation. Pt on IV Zosyn and IV Lasix. SS will continue to follow for discharge planning.
[2021-04-23] MEDS ORDERED: ATROPINE 0.5 MG/5 ML DISP.SYRINGE. IV PRN (18:30)
[2021-04-23] MEDS ORDERED: DEXMEDETOMIDINE 400 MCG in IV NORMAL SALINE 100ML 96 ML IV PRN (18:30)
[2021-04-23] MEDS ORDERED: IV NORMAL SALINE 500ML BAG 500 ML IV PRN (18:30)
[2021-04-23] MEDS: ENOXAPARIN 40 MG/0.4 ML SYRINGE. SQ SCH (20:46)
[2021-04-23] MEDS: LATANOPROST 0.005% OPHTH SOLUTION 2.5ML BOTTLE. OU SCH (20:47)
[2021-04-24] VITALS (24 sets, daily range): BP systolic 96–140; BP diastolic 48–71
[2021-04-24] MEDS: PIPERACILLIN/TAZOBACTAM 3.375 GM in IV NORMAL SALINE 50ML 50 ML IV SCH ×5 (00:03→23:37)
[2021-04-24 07:56] LABS: BASE EXCESS ABG 5 mmol/L (-3-3); HCO3 ABG 28 mmol/L (21-28); PCO2 ABG 35 mmHg (35-46); PO2 ABG 94 mmHg (65-108); SAT O2 ABG 97 % (92-99)
[2021-04-24 07:59] LABS: FIO2 ABG 50
[2021-04-24] MEDS: FAMOTIDINE 20 MG/2 ML VIAL IVP SCH ×2 (10:09→21:47)
--- NOTE | 2021-04-24 10:30 | PDOC ---
PROGRESS NOTES Date of Service DATE: 04/24/21 TIME: 10:29 Assessment Anoxic encephalopathy, does not sound like she had a very prolonged downtime, we are not even sure of the causative event as her coronary arteries were clean and there were no arrhythmias. After I saw her yesterday she woke up and was communicating with family, now she is on Precedex Plan I still would like to check a CT of the head I canceled the electroencephalogram Subjective None Objective Vital Signs Date Time Temp Pulse Resp B/P (MAP) Pulse Ox O2 Delivery O2 Flow Rate FiO2 04/24/21 09:25 99 Ventilator 04/24/21 06:00 66 18 122/61 (81) 04/24/21 04:00 98.1 98.1 Intake and Output 04/24/21 07:00 Intake Total 1539.9 ml Output Total 1365 ml Balance 174.9 ml IV Total 408.9 ml Tube Feeding 630 ml Other 501 ml Output Urine Total 1365 ml PHYSICAL EXAM Sedated on ventilator, stirs to voice, eyes open to voice PERRL. EOMI. CN: no focal findings. Muscle tone: normal. Muscle strength: Moves all extremities DTR: 2+ Plantar reflex: Flexor Gait: not examined Sensory exam: no abnormal findings. Cerebellar: Not cooperative Review of Relevant I have reviewed the following items clarisa (where applicable) has been applied. Labs Laboratory Tests Test 04/23/21 07:50 04/24/21 07:30 O2 Saturation 95 % (92-99) 97 % (92-99) Arterial Blood pH 7.49 (7.35-7.45) 7.52 (7.35-7.45) Arterial Blood pCO2 at Patient Temp 36 mmHg (35-46) 35 mmHg (35-46) Arterial Blood pO2 at Patient Temp 76 mmHg (65-108) 94 mmHg (65-108) Arterial Blood HCO3 27 mmol/L (21-28) 28 mmol/L (21-28) Arterial Blood Base Excess 4 mmol/L (-3-3) 5 mmol/L (-3-3) FiO2 60 50 Laboratory Tests Test 04/24/21 07:30 O2 Saturation 97 % (92-99) Arterial Blood pH 7.52 (7.35-7.45) Arterial Blood pCO2 at Patient Temp 35 mmHg (35-46) Arterial Blood pO2 at Patient Temp 94 mmHg (65-108) Arterial Blood HCO3 28 mmol/L (21-28) Arterial Blood Base Excess 5 mmol/L (-3-3) FiO2 50 Medications Current Medications Lidocaine HCl (Lidocaine 1% 20ml Vial) 20 ml STK-MED ONCE .ROUTE ; Start 04/16/21 at 07:35; Stop 04/16/21 at 07:35; Status DC Iodixanol (Visipaque 320) 100 ml STK-MED ONCE .ROUTE ; Start 04/16/21 at 07:35; Stop 04/16/21 at 07:35; Status DC Heparin Sodium/ Sodium Chloride 1,500 ml @ As Directed STK-MED ONCE .ROUTE ; Start 04/16/21 at 07:37; Stop 04/16/21 at 07:37; Status DC Heparin Sodium/ Sodium Chloride (HEPARIN for ARTERIAL LINE FLUSH) 1,000 unit 1X ONCE IART Last administered on 04/16/21at 08:30; Start 04/16/21 at 08:30; Stop 04/16/21 at 08:31; Status DC Heparin Sodium/ Sodium Chloride (HEPARIN for ARTERIAL LINE FLUSH) 1,000 unit 1X ONCE IART Last administered on 04/16/21at 08:30; Start 04/16/21 at 08:30; Stop 04/16/21 at 08:31; Status DC Midazolam HCl (Versed) 5 mg 1X ONCE IV Last administered on 04/16/21at 08:30; Start 04/16/21 at 08:30; Stop 04/16/21 at 08:31; Status DC Fentanyl Citrate (Fentanyl 2ml Vial) 100 mcg 1X ONCE IV Last administered on 04/16/21at 08:30; Start 04/16/21 at 08:30; Stop 04/16/21 at 08:31; Status DC Iodixanol (Visipaque 320) 100 ml 1X ONCE IART Last administered on 04/16/21at 08:30; Start 04/16/21 at 08:30; Stop 04/16/21 at 08:31; Status DC Lidocaine HCl (Lidocaine 1% 20ml Vial) 20 ml 1X ONCE INJ Last administered on 04/16/21at 08:30; Start 04/16/21 at 08:30; Stop 04/16/21 at 08:31; Status DC Info (CONTRAST GIVEN -- Rx MONITORING) 1 each PRN DAILY PRN MC SEE COMMENTS; Start 04/16/21 at 08:30; Stop 04/18/21 at 08:29; Status DC Iodixanol (Visipaque 320) 100 ml STK-MED ONCE .ROUTE ; Start 04/16/21 at 09:40; Stop 04/16/21 at 09:41; Status DC Heparin Sodium/ Sodium Chloride 500 ml @ As Directed STK-MED ONCE .ROUTE ; Start 04/16/21 at 09:52; Stop 04/16/21 at 09:53; Status DC Furosemide (Lasix) 100 mg STK-MED ONCE .ROUTE ; Start 04/16/21 at 09:57; Stop 04/16/21 at 09:58; Status DC Morphine Sulfate (Morphine Sulfate) 10 mg STK-MED ONCE .ROUTE ; Start 04/16/21 at 10:01; Stop 04/16/21 at 10:01; Status DC Ondansetron HCl (Zofran) 4 mg STK-MED ONCE .ROUTE ; Start 04/16/21 at 10:03; Stop 04/16/21 at 10:03; Status DC Heparin Sodium/ Sodium Chloride 500 ml @ As Directed STK-MED ONCE .ROUTE ; Start 04/16/21 at 10:24; Stop 04/16/21 at 10:24; Status DC Succinylcholine Chloride (Anectine) 200 mg STK-MED ONCE .ROUTE ; Start 04/16/21 at 10:26; Stop 04/16/21 at 10:27; Status DC Furosemide (Lasix) 100 mg 1X ONCE IVP Last administered on 04/16/21at 10:30; Start 04/16/21 at 10:30; Stop 04/16/21 at 10:35; Status DC Morphine Sulfate (Morphine Sulfate) 10 mg 1X ONCE IV Last administered on 04/16/21at 10:30; Start 04/16/21 at 10:30; Stop 04/16/21 at 10:35; Status DC Ondansetron HCl (Zofran) 4 mg 1X ONCE IVP Last administered on 04/16/21at 10:30; Start 04/16/21 at 10:30; Stop 04/16/21 at 10:35; Status DC Albuterol/ Ipratropium (Duoneb) 3 ml 1X ONCE NEB Last administered on 04/16/21at 10:05; Start 04/16/21 at 10:45; Stop 04/16/21 at 10:46; Status DC Fentanyl Citrate 30 ml @ 0 mls/hr CONT PRN IV SEE PROTOCOL Last administered on 04/17/21at 05:24; Start 04/16/21 at 10:45; Stop 04/17/21 at 10:44; Status DC Midazolam HCl 100 ml @ 0 mls/hr CONT PRN IV SEE PROTOCOL Last administered on 04/17/21at 08:54; Start 04/16/21 at 10:45; Stop 04/17/21 at 10:44; Status DC Dopamine HCl/ Dextrose 250 ml @ As Directed STK-MED ONCE IV ; Start 04/16/21 at 11:08; Stop 04/16/21 at 11:08; Status DC Dopamine HCl/ Dextrose 250 ml @ 17.138 mls/ hr CONT PRN IV SEE I/O RECORD Last administered on 04/17/21at 11:02; Start 04/16/21 at 12:00; Stop 04/17/21 at 11:59; Status DC Furosemide (Lasix) 40 mg 1X ONCE IVP Last administered on 04/16/21at 12:30; Start 04/16/21 at 12:30; Stop 04/16/21 at 12:31; Status DC Potassium Chloride/Water 100 ml @ 100 mls/hr Q1H IV Last administered on 04/16/21at 14:00; Start 04/16/21 at 13:00; Stop 04/16/21 at 14:59; Status DC Furosemide (Lasix) 40 mg STK-MED ONCE .ROUTE ; Start 04/16/21 at 12:37; Stop 04/16/21 at 12:37; Status DC Succinylcholine Chloride (Anectine) 200 mg STK-MED ONCE .ROUTE ; Start 04/16/21 at 16:48; Stop 04/16/21 at 16:49; Status DC Epinephrine HCl (EPINEPHrine SYRINGE) 2 mg STK-MED ONCE .ROUTE ; Start 04/16/21 at 11:00; Stop 04/16/21 at 18:11; Status DC Furosemide (Lasix) 40 mg 1X ONCE IVP Last administered on 04/17/21at 10:10; Start 04/17/21 at 10:00; Stop 04/17/21 at 10:01; Status DC Fentanyl Citrate 30 ml @ 0 mls/hr CONT PRN IV SEE PROTOCOL Last administered on 04/21/21at 04:04; Start 04/17/21 at 16:15 Midazolam HCl 100 ml @ 0 mls/hr CONT PRN IV SEE PROTOCOL Last administered on 04/20/21at 07:38; Start 04/17/21 at 16:15 Dopamine HCl/ Dextrose 250 ml @ 16.031 mls/ hr CONT PRN IV SEE I/O RECORD Last administered on 04/20/21at 02:00; Start 04/18/21 at 00:00; Stop 04/20/21 at 1 3:29; Status DC Furosemide (Lasix) 40 mg 1X ONCE IVP Last administered on 04/18/21at 10:00; Start 04/18/21 at 09:30; Stop 04/18/21 at 09:31; Status DC Potassium Bicarbonate (Potassium Effervescent Tablet) 40 meq 1X ONCE PEG Last administered on 04/18/21at 09:59; Start 04/18/21 at 09:30; Stop 04/18/21 at 09:31; Status DC Famotidine (Pepcid Vial) 20 mg BID IVP Last administered on 04/24/21at 10:09; Start 04/18/21 at 12:00 Enoxaparin Sodium (Lovenox 40mg Syringe) 40 mg Q24H SQ ; Start 04/18/21 at 12:00; Status Cancel Furosemide (Lasix) 40 mg 1X ONCE IVP Last administered on 04/18/21at 16:24; Start 04/18/21 at 16:00; Stop 04/18/21 at 16:01; Status DC Furosemide (Lasix) 40 mg DAILY IVP Last administered on 04/23/21at 08:40; Start 04/19/21 at 09:00 Potassium Bicarbonate (Potassium Effervescent Tablet) 40 meq 1X ONCE FT Last administered on 04/18/21at 16:24; Start 04/18/21 at 16:15; Stop 04/18/21 at 16:16; Status DC Enoxaparin Sodium (Lovenox 40mg Syringe) 40 mg Q24H SQ Last administered on 04/23/21at 20:46; Start 04/18/21 at 21:00 Potassium Bicarbonate (Potassium Effervescent Tablet) 40 meq 1X ONCE PO Last administered on 04/19/21at 10:25; Start 04/19/21 at 10:15; Stop 04/19/21 at 10:16; Status DC Potassium Bicarbonate (Potassium Effervescent Tablet) 40 meq 1X ONCE PO Last administered on 04/20/21at 08:13; Start 04/20/21 at 07:30; Stop 04/20/21 at 07:31; Status DC Dopamine HCl/ Dextrose 250 ml @ 18.113 mls/ hr CONT PRN IV SEE I/O RECORD Last administered on 04/21/21at 04:18; Start 04/20/21 at 13:45 Latanoprost (Xalatan) 1 drop HS OU Last administered on 04/23/21at 20:47; Start 04/21/21 at 21:00 Piperacillin Sod/ Tazobactam Sod (Zosyn Per Pharmacy) 1 each PRN DAILY PRN MC SEE COMMENTS; Start 04/22/21 at 11:00 Propofol 100 ml @ 2.823 mls/ hr CONT PRN IV PER PROTOCOL Last administered on 04/23/21at 08:40; Start 04/22/21 at 11:00 Piperacillin Sod/ Tazobactam Sod 3.375 gm/Sodium Chloride 50 ml @ 100 mls/hr Q6HRS IV Last administered on 04/24/21at 10:10; Start 04/22/21 at 12:00 Dexmedetomidine HCl 400 mcg/ Sodium Chloride 100 ml @ 0 mls/hr CONT PRN IV PER PROTOCOL; Start 04/23/21 at 18:30 Sodium Chloride 500 ml @ 500 mls/hr 1X PRN PRN IV SEE COMMENTS; Start 04/23/21 at 18:30 Atropine Sulfate (ATROPINE 0.5mg SYRINGE) 0.5 mg PRN Q5MIN PRN IV SEE COMMENTS; Start 04/23/21 at 18:30 Active Scripts Active Reported Hydrocodone-Apap 5-325 (Hydrocodone Bit/Acetaminophen) 1 Tab Tablet 1 Tab PO PRN Q6HRS PRN NITROGLYCERIN SubLingual (Nitroglycerin) 0.4 Mg Tab.subl 0.4 Mg SL PRN Q5MIN PRN Lasix (Furosemide) 20 Mg Tablet 1 Tab PO DAILY 30 Days Isosorbide Mononitrate Er (Isosorbide Mononitrate) 60 Mg Tab.er.24h 1 Tab PO DAILY Klor-Con M10 (Potassium Chloride) 10 Meq Tab.er.prt 10 Meq PO DAILY Vitamin D3 (Cholecalciferol (Vitamin D3)) 5,000 Unit Tab.rapdis 5,000 Unit PO DAILY Aspirin 81 Mg Tab.chew 81 Mg PO DAILY Amlodipine Besylate 10 Mg Tablet 10 Mg PO DAILY Fluoxetine Hcl 40 Mg Capsule 40 Mg PO DAILY Simvastatin 20 Mg Tablet 20 Mg PO HS Multi-Vitamin Daily (Multivitamin) 1 Each Tablet 1 Each PO DAILY Latanoprost 2.5 Ml Drops 1 Drop OU HS Vitals/I & O Vital Sign - Last 24 Hours 04/23/21 04/23/21 04/23/21 04/23/21 11:00 11:38 12:00 12:00 Pulse 82 86 Resp 15 19 B/P (MAP) 129/64 (85) 127/64 (85) Pulse Ox 94 94 95 O2 Delivery Ventilator Ventilator Mechanical Ventilator Ventilator 04/23/21 04/23/21 04/23/21 04/23/21 13:00 13:20 14:00 15:00 Temp 99.2 99.2 Pulse 96 87 89 Resp 28 22 16 B/P (MAP) 162/79 (106) 144/68 (93) 144/79 (100) Pulse Ox 95 96 97 97 O2 Delivery Ventilator Ventilator Ventilator Ventilator 04/23/21 04/23/21 04/23/21 04/23/21 15:43 16:00 16:00 17:00 Temp 98.3 98.3 Pulse 88 95 Resp 16 22 B/P (MAP) 141/68 (92) 143/70 (94) Pulse Ox 95 96 96 O2 Delivery Ventilator Mechanical Ventilator Ventilator Ventilator 04/23/21 04/23/21 04/23/21 04/23/21 18:00 18:24 19:00 20:00 Temp 99.2 99.2 Pulse 96 91 91 Resp 19 20 20 B/P (MAP) 140/70 (93) 133/63 (86) 133/64 (87) Pulse Ox 97 96 97 97 O2 Delivery Ventilator Ventilator Ventilator Ventilator 04/23/21 04/23/21 04/23/21 04/23/21 20:00 20:34 21:00 22:00 Pulse 81 79 Resp 19 17 B/P (MAP) 124/64 (84) 112/51 (71) Pulse Ox 96 97 97 O2 Delivery Mechanical Ventilator Ventilator Ventilator Ventilator 04/23/21 04/23/21 04/23/21 04/24/21 22:50 23:00 23:59 00:00 Temp 97.6 97.6 Pulse 66 74 Resp 13 13 B/P (MAP) 104/64 (77) 111/56 (74) Pulse Ox 97 98 97 O2 Delivery Ventilator Ventilator Mechanical Ventilator Ventilator 04/24/21 04/24/21 04/24/21 04/24/21 00:20 01:00 02:00 02:57 Pulse 69 76 Resp 15 16 B/P (MAP) 107/51 (69) 113/57 (75) Pulse Ox 97 98 98 96 O2 Delivery Ventilator Ventilator Ventilator Ventilator 04/24/21 04/24/21 04/24/21 04/24/21 03:00 04:00 04:00 05:00 Temp 98.1 98.1 Pulse 77 70 68 Resp 18 15 18 B/P (MAP) 122/63 (82) 110/57 (74) 122/64 (83) Pulse Ox 98 98 98 O2 Delivery Ventilator Mechanical Ventilator Ventilator Ventilator 04/24/21 04/24/21 04/24/21 04/24/21 05:39 06:00 07:30 09:25 Pulse 66 Resp 18 B/P (MAP) 122/61 (81) Pulse Ox 99 98 98 99 O2 Delivery Ventilator Ventilator Ventilator Ventilator Intake and Output 04/23/21 04/23/21 04/24/21 15:00 23:00 07:00 Intake Total 583 ml 956.9 ml Output Total 775 ml 295 ml 295 ml Balance -775 ml 288 ml 661.9 ml Justicifation of Admission Dx: Justifications for Admission: Justification of Admission Dx: Yes Respiratory Failure: Mechanical Ventilation UNIQUE LONG MD Apr 24, 2021 10:30
[2021-04-24] MEDS: FUROSEMIDE 40 MG/4 ML VIAL. IVP SCH (12:01)
--- NOTE | 2021-04-24 12:07 | PDOC ---
CHRISTOPHER FREITAS CAR MANAGER 04/24/21 1207: CARDIO Progress Notes Date and Time Date of Service 04/24/21 Time of Evaluation 1215 Subjective Subjective: Other (intubated) Vitals Vitals Vital Signs Date Time Temp Pulse Resp B/P (MAP) Pulse Ox O2 Delivery O2 Flow Rate FiO2 04/24/21 11:50 Ventilator 04/24/21 11:35 100 04/24/21 06:00 66 18 122/61 (81) 04/24/21 04:00 98.1 98.1 Weight Weight [ ] Input and Output Intake and Output Intake and Output 04/24/21 07:00 Intake Total 1539.9 ml Output Total 1365 ml Balance 174.9 ml IV Total 408.9 ml Tube Feeding 630 ml Other 501 ml Output Urine Total 1365 ml Laboratory Labs Laboratory Tests Test 04/24/21 07:30 O2 Saturation 97 % (92-99) Arterial Blood pH 7.52 (7.35-7.45) Arterial Blood pCO2 at Patient Temp 35 mmHg (35-46) Arterial Blood pO2 at Patient Temp 94 mmHg (65-108) Arterial Blood HCO3 28 mmol/L (21-28) Arterial Blood Base Excess 5 mmol/L (-3-3) FiO2 50 Physical Exam HEENT: Neck Supple W Full Motion Chest: Symmetric LUNGS: Other (intubated with mechanical vent) Heart: RRR (SR no ectopies) Abdomen: Other (soft ) Extremities: No Edema Neurology: other (sleeping, follows some commands per RN ) Assessment Assessment 1. Acute hypercapnic/hypoxic respiratory failure; s/p intubation 2. Cardiopulmonary arrest: noted asystolic event due to hypoxia. 8 min to ROSC. LHC revealed fluid overload but no significant CAD. No significant ectopy 3. Acute on chronic diastolic CHF/flash pulmonary edema; LVEF 55% per cath. s/p IV diuresis 4. Obesity with suspected CLEMENCIA 5. HTN: off pressor support. maintaining low-end 6. HLP 7. Encephalopathy; following some commands Recommendations Lasix therapy Monitor I and O Ongoing lung optimization, weaning Follow neuro recs Transfer to Hospitalist service Supportive care Justicifation of Admission Dx: Justifications for Admission: Justification of Admission Dx: Yes Respiratory Failure: Mechanical Ventilation WILBERTO STARKS MD 04/25/21 0532: CARDIO Progress Notes Assessment Assessment Patient seen and examined. Agree with OTHER SPATIAL SCIENTIST's assessment and plan. Acute on chronic diastolic heart failure better compensated with diuresis Telemetry did not show any significant arrhythmias Cardiac catheterization did not show any significant coronary artery disease Continue vent management per pulmonary team CHRISTOPHER FREITAS APRN Apr 24, 2021 12:07 WILBERTO STARKS MD Apr 25, 2021 05:32
--- NOTE | 2021-04-24 13:14 | PDOC ---
PULMONARY PROGRESS NOTES DATE: 04/24/21 TIME: 13:11 Subjective Remains on vent support 40%/PEEP of 5 patient is following some commands no overnight concerns from nursing Vitals Vital Signs Date Time Temp Pulse Resp B/P (MAP) Pulse Ox O2 Delivery O2 Flow Rate FiO2 04/24/21 11:50 Ventilator 04/24/21 11:35 100 04/24/21 06:00 66 18 122/61 (81) 04/24/21 04:00 98.1 98.1 Comments ros unable to obtain General: No acute distress HEENT: Other (intubated) Lungs: Clear Cardiovascular: S1, S2 Abdomen: Soft, Non-tender Extremities: Other (1+edema) Skin: Warm Labs Laboratory Tests Test 04/23/21 07:50 04/24/21 07:30 O2 Saturation 95 % (92-99) 97 % (92-99) Arterial Blood pH 7.49 (7.35-7.45) 7.52 (7.35-7.45) Arterial Blood pCO2 at Patient Temp 36 mmHg (35-46) 35 mmHg (35-46) Arterial Blood pO2 at Patient Temp 76 mmHg (65-108) 94 mmHg (65-108) Arterial Blood HCO3 27 mmol/L (21-28) 28 mmol/L (21-28) Arterial Blood Base Excess 4 mmol/L (-3-3) 5 mmol/L (-3-3) FiO2 60 50 Laboratory Tests Test 04/24/21 07:30 O2 Saturation 97 % (92-99) Arterial Blood pH 7.52 (7.35-7.45) Arterial Blood pCO2 at Patient Temp 35 mmHg (35-46) Arterial Blood pO2 at Patient Temp 94 mmHg (65-108) Arterial Blood HCO3 28 mmol/L (21-28) Arterial Blood Base Excess 5 mmol/L (-3-3) FiO2 50 Medications Active Scripts Medications Dose Route/Sig Max Daily Dose Days Date Category Hydrocodone-Apap 5-325 (Hydrocodone Bit/Acetaminophen) 1 Tab Tablet 1 Tab PO PRN Q6HRS PRN 04/16/21 Reported NITROGLYCERIN SubLingual (Nitroglycerin) 0.4 Mg Tab.subl 0.4 Mg SL PRN Q5MIN PRN 04/16/21 Reported Lasix (Furosemide) 20 Mg Tablet 1 Tab PO DAILY 30 04/16/21 Reported Isosorbide Mononitrate Er (Isosorbide Mononitrate) 60 Mg Tab.er.24h 1 Tab PO DAILY 04/16/21 Reported Klor-Con M10 (Potassium Chloride) 10 Meq Tab.er.prt 10 Meq PO DAILY 04/16/21 Reported Vitamin D3 (Cholecalciferol (Vitamin D3)) 5,000 Unit Tab.rapdis 5,000 Unit PO DAILY 11/24/19 Reported Aspirin 81 Mg Tab.chew 81 Mg PO DAILY 11/24/19 Reported Amlodipine Besylate 10 Mg Tablet 10 Mg PO DAILY 11/24/19 Reported Fluoxetine Hcl 40 Mg Capsule 40 Mg PO DAILY 11/24/19 Reported Simvastatin 20 Mg Tablet 20 Mg PO HS 11/24/19 Reported Multi-Vitamin Daily (Multivitamin) 1 Each Tablet 1 Each PO DAILY 11/24/19 Reported Latanoprost 2.5 Ml Drops 1 Drop OU HS 11/24/19 Reported Impression . 1. Acute hypercapnic and hypoxic respiratory failure secondary to cardiac arrest/flash pulmonary edema 2. 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 Etiology likely due to hypoxia. Initial chest x-ray consistent with flash pulmonary edema. 3. The patient with abnormal right heart cardiac catheterization, suggestive of left ventricular failure. She had a pulmonary capillary wedge pressure of 23 and a left ventricular end-diastolic pressure of 26. 4. Underlying obstructive sleep apnea and suspected obesity hypoventilation syndrome. 5. Shock, requiring dopamine, likely cardiogenic.--improved 6. No significant coronary artery disease. 7. Encephalopathy.? anoxic vs post sedation Plan . Updated 04/24/2021 Continue current vent support /50/5 Follow neurology recs Follow chest x-ray and ABG, -- no change today plan to proceed with PS trial once more awake Cont. ABX Follow cardiology recommendations--status post cardiac catheterization 55% coronaries clean, diuresis per cardiology Continue tube feed for nutritional support DVT/GI prophylaxis: Lovenox Discussed with RN and RT Critical care time 30 minutes RON DOWELL APRN Apr 24, 2021 13:14
--- NOTE | 2021-04-24 15:02 | NUR ---
SS following up with discharge planning. SS reviewed pt chart and discussed with pt RN. Pt is currently on the vent at 50%. COVID19 negative. Pt following commands. Pt on Precedex. Pt on IV Zosyn and IV Lasix. SS will continue to follow for discharge planning.
--- NOTE | 2021-04-24 20:27 | NUR ---
[id number] Cpap 50% 14/5, 1 1/2 H w good tolerance by patient HR 59-68,RR controlled 11-20 no overt distress.BP 108-113/50-60. Does not respond to to verbal command w exception of "wiggling toes" in am when asked by CANDLE CUTTER. Does not open eyes but more compliant when explained what is being done.Family in during trial/
[2021-04-24] MEDS: LATANOPROST 0.005% OPHTH SOLUTION 2.5ML BOTTLE. OU SCH (21:48)
[2021-04-24] MEDS: ENOXAPARIN 40 MG/0.4 ML SYRINGE. SQ SCH (21:48)
[2021-04-25] VITALS (24 sets, daily range): BP systolic 97–148; BP diastolic 47–91
[2021-04-25] MEDS: PIPERACILLIN/TAZOBACTAM 3.375 GM in IV NORMAL SALINE 50ML 50 ML IV SCH ×3 (06:08→18:00)
[2021-04-25 08:25] LABS: BASE EXCESS ABG 7 mmol/L (-3-3); HCO3 ABG 30 mmol/L (21-28); PCO2 ABG 35 mmHg (35-46); PO2 ABG 107 mmHg (65-108); SAT O2 ABG 98 % (92-99)
[2021-04-25 08:26] LABS: FIO2 ABG 50
[2021-04-25 08:32] LABS: CHOLESTEROL/HDL RATIO 7.5
--- NOTE | 2021-04-25 09:21 | PDOC ---
KYA FORTUNE GAS COMBUSTION ENGINEER 04/25/21 0921: CARDIO Progress Notes Date and Time Date of Service 04/25/2021 Time of Evaluation 0900 Subjective Subjective: Other (intubated) Vitals Vitals Vital Signs Date Time Temp Pulse Resp B/P (MAP) Pulse Ox O2 Delivery O2 Flow Rate FiO2 04/25/21 08:00 100 Ventilator 04/25/21 07:18 98.4 60 17 132/63 (86) 98.4 Weight Weight [ ] Input and Output Intake and Output Intake and Output 04/25/21 07:00 Intake Total 1336 ml Output Total 1490 ml Balance -154 ml IV Total 186 ml Tube Feeding 750 ml Other 400 ml Output Urine Total 1490 ml Laboratory Labs Laboratory Tests Test 04/25/21 08:00 04/25/21 08:08 O2 Saturation 98 % (92-99) Arterial Blood pH 7.55 (7.35-7.45) Arterial Blood pCO2 at Patient Temp 35 mmHg (35-46) Arterial Blood pO2 at Patient Temp 107 mmHg (65-108) Arterial Blood HCO3 30 mmol/L (21-28) Arterial Blood Base Excess 7 mmol/L (-3-3) FiO2 50 PF-Eor-M-Type Natriuretic Peptide 33714 pg/mL (0-449) Triglycerides Level 129 mg/dL (0-150) Cholesterol Level 164 mg/dL (0-200) LDL Cholesterol, Calculated 116 mg/dL (0-100) VLDL Cholesterol, Calculated 26 mg/dL (0-40) Non-HDL Cholesterol Calculated 142 mg/dL (0-129) HDL Cholesterol 22 mg/dL (40-60) Cholesterol/HDL Ratio 7.5 Thyroid Stimulating Hormone (TSH) 1.025 uIU/mL (0.358-3.74) Physical Exam HEENT: Neck Supple W Full Motion Chest: Symmetric LUNGS: Other (intubated with mechanical vent) Heart: RRR (SR no ectopies) Abdomen: Other (soft ) Extremities: No Edema Neurology: other (restless) Assessment Assessment 1. Acute hypercapnic/hypoxic respiratory failure: per pulmonary 2. Cardiopulmonary arrest: noted asystolic event due to hypoxia. 8 min to ROSC. LHC revealed fluid overload but no significant CAD. No significant arrhythmia so far 3. Acute on chronic diastolic CHF/pulmonary edema 4. Obesity with suspected CLEMENCIA/OHS 5. HTN: controlled 6. HLP 7. Encephalopathy: neurology following Recommendations 1. Continue lasix therapy. Hold BP meds. Off precedex this morning awaiting CT head. Vent weaning in process 2. Pressor as warranted 3. Continue with pulmonary treatment, 4. Transfer care to primary service Justicifation of Admission Dx: Justifications for Admission: Justification of Admission Dx: Yes Respiratory Failure: Mechanical Ventilation WILBERTO STARKS MD 04/25/21 1930: CARDIO Progress Notes Assessment Assessment Patient seen and examined. Agree with PACKAGER AND STRAPPER's assessment and plan. Acute on chronic diastolic heart failure better compensated with diuresis Telemetry did not show any significant arrhythmias Cardiac catheterization did not show any significant coronary artery disease Continue vent management per pulmonary team KYA FORTUNE APRN Apr 25, 2021 09:21 WILBERTO STARKS MD Apr 25, 2021 19:30
--- NOTE | 2021-04-25 09:33 | PDOC ---
PROGRESS NOTES Date of Service DATE: 04/25/21 TIME: 09:31 Assessment Anoxic encephalopathy, does not sound like she had a very prolonged downtime, we are not even sure of the causative event as her coronary arteries were clean and there were no arrhythmias. She is on Precedex Plan I still want a CT of the head, nurse canceled that yesterday without informing me, no notation as to why it was canceled. Continue to attempt weaning Subjective none Objective Vital Signs Date Time Temp Pulse Resp B/P (MAP) Pulse Ox O2 Delivery O2 Flow Rate FiO2 04/25/21 09:19 99 Ventilator 04/25/21 07:18 98.4 60 17 132/63 (86) 98.4 Intake and Output 04/25/21 07:00 Intake Total 1336 ml Output Total 1490 ml Balance -154 ml IV Total 186 ml Tube Feeding 750 ml Other 400 ml Output Urine Total 1490 ml PHYSICAL EXAM Sedated on ventilator, stirs to voice, does not open eyes to voice PERRL. EOMI. CN: no focal findings. Muscle tone: normal. Muscle strength: Moves all extremities DTR: 2+ Plantar reflex: Flexor Gait: not examined Sensory exam: no abnormal findings. Cerebellar: Not cooperative Review of Relevant I have reviewed the following items clarisa (where applicable) has been applied. Labs Laboratory Tests Test 04/24/21 07:30 04/25/21 08:00 04/25/21 08:08 O2 Saturation 97 % (92-99) 98 % (92-99) Arterial Blood pH 7.52 (7.35-7.45) 7.55 (7.35-7.45) Arterial Blood pCO2 at Patient Temp 35 mmHg (35-46) 35 mmHg (35-46) Arterial Blood pO2 at Patient Temp 94 mmHg (65-108) 107 mmHg (65-108) Arterial Blood HCO3 28 mmol/L (21-28) 30 mmol/L (21-28) Arterial Blood Base Excess 5 mmol/L (-3-3) 7 mmol/L (-3-3) FiO2 50 50 RQ-Sue-K-Type Natriuretic Peptide 18377 pg/mL (0-449) Triglycerides Level 129 mg/dL (0-150) Cholesterol Level 164 mg/dL (0-200) LDL Cholesterol, Calculated 116 mg/dL (0-100) VLDL Cholesterol, Calculated 26 mg/dL (0-40) Non-HDL Cholesterol Calculated 142 mg/dL (0-129) HDL Cholesterol 22 mg/dL (40-60) Cholesterol/HDL Ratio 7.5 Thyroid Stimulating Hormone (TSH) 1.025 uIU/mL (0.358-3.74) Laboratory Tests Test 04/25/21 08:00 04/25/21 08:08 O2 Saturation 98 % (92-99) Arterial Blood pH 7.55 (7.35-7.45) Arterial Blood pCO2 at Patient Temp 35 mmHg (35-46) Arterial Blood pO2 at Patient Temp 107 mmHg (65-108) Arterial Blood HCO3 30 mmol/L (21-28) Arterial Blood Base Excess 7 mmol/L (-3-3) FiO2 50 NK-Uoz-F-Type Natriuretic Peptide 84231 pg/mL (0-449) Triglycerides Level 129 mg/dL (0-150) Cholesterol Level 164 mg/dL (0-200) LDL Cholesterol, Calculated 116 mg/dL (0-100) VLDL Cholesterol, Calculated 26 mg/dL (0-40) Non-HDL Cholesterol Calculated 142 mg/dL (0-129) HDL Cholesterol 22 mg/dL (40-60) Cholesterol/HDL Ratio 7.5 Thyroid Stimulating Hormone (TSH) 1.025 uIU/mL (0.358-3.74) Medications Current Medications Lidocaine HCl (Lidocaine 1% 20ml Vial) 20 ml STK-MED ONCE .ROUTE ; Start 04/16/21 at 07:35; Stop 04/16/21 at 07:35; Status DC Iodixanol (Visipaque 320) 100 ml STK-MED ONCE .ROUTE ; Start 04/16/21 at 07:35; Stop 04/16/21 at 07:35; Status DC Heparin Sodium/ Sodium Chloride 1,500 ml @ As Directed STK-MED ONCE .ROUTE ; Start 04/16/21 at 07:37; Stop 04/16/21 at 07:37; Status DC Heparin Sodium/ Sodium Chloride (HEPARIN for ARTERIAL LINE FLUSH) 1,000 unit 1X ONCE IART Last administered on 04/16/21at 08:30; Start 04/16/21 at 08:30; Stop 04/16/21 at 08:31; Status DC Heparin Sodium/ Sodium Chloride (HEPARIN for ARTERIAL LINE FLUSH) 1,000 unit 1X ONCE IART Last administered on 04/16/21at 08:30; Start 04/16/21 at 08:30; Stop 04/16/21 at 08:31; Status DC Midazolam HCl (Versed) 5 mg 1X ONCE IV Last administered on 04/16/21at 08:30; Start 04/16/21 at 08:30; Stop 04/16/21 at 08:31; Status DC Fentanyl Citrate (Fentanyl 2ml Vial) 100 mcg 1X ONCE IV Last administered on 04/16/21at 08:30; Start 04/16/21 at 08:30; Stop 04/16/21 at 08:31; Status DC Iodixanol (Visipaque 320) 100 ml 1X ONCE IART Last administered on 04/16/21at 08:30; Start 04/16/21 at 08:30; Stop 04/16/21 at 08:31; Status DC Lidocaine HCl (Lidocaine 1% 20ml Vial) 20 ml 1X ONCE INJ Last administered on 04/16/21at 08:30; Start 04/16/21 at 08:30; Stop 04/16/21 at 08:31; Status DC Info (CONTRAST GIVEN -- Rx MONITORING) 1 each PRN DAILY PRN MC SEE COMMENTS; Start 04/16/21 at 08:30; Stop 04/18/21 at 08:29; Status DC Iodixanol (Visipaque 320) 100 ml STK-MED ONCE .ROUTE ; Start 04/16/21 at 09:40; Stop 04/16/21 at 09:41; Status DC Heparin Sodium/ Sodium Chloride 500 ml @ As Directed STK-MED ONCE .ROUTE ; Start 04/16/21 at 09:52; Stop 04/16/21 at 09:53; Status DC Furosemide (Lasix) 100 mg STK-MED ONCE .ROUTE ; Start 04/16/21 at 09:57; Stop 04/16/21 at 09:58; Status DC Morphine Sulfate (Morphine Sulfate) 10 mg STK-MED ONCE .ROUTE ; Start 04/16/21 at 10:01; Stop 04/16/21 at 10:01; Status DC Ondansetron HCl (Zofran) 4 mg STK-MED ONCE .ROUTE ; Start 04/16/21 at 10:03; Stop 04/16/21 at 10:03; Status DC Heparin Sodium/ Sodium Chloride 500 ml @ As Directed STK-MED ONCE .ROUTE ; Start 04/16/21 at 10:24; Stop 04/16/21 at 10:24; Status DC Succinylcholine Chloride (Anectine) 200 mg STK-MED ONCE .ROUTE ; Start 04/16/21 at 10:26; Stop 04/16/21 at 10:27; Status DC Furosemide (Lasix) 100 mg 1X ONCE IVP Last administered on 04/16/21at 10:30; Start 04/16/21 at 10:30; Stop 04/16/21 at 10:35; Status DC Morphine Sulfate (Morphine Sulfate) 10 mg 1X ONCE IV Last administered on 04/16/21at 10:30; Start 04/16/21 at 10:30; Stop 04/16/21 at 10:35; Status DC Ondansetron HCl (Zofran) 4 mg 1X ONCE IVP Last administered on 04/16/21at 10:30; Start 04/16/21 at 10:30; Stop 04/16/21 at 10:35; Status DC Albuterol/ Ipratropium (Duoneb) 3 ml 1X ONCE NEB Last administered on 04/16/21at 10:05; Start 04/16/21 at 10:45; Stop 04/16/21 at 10:46; Status DC Fentanyl Citrate 30 ml @ 0 mls/hr CONT PRN IV SEE PROTOCOL Last administered on 04/17/21at 05:24; Start 04/16/21 at 10:45; Stop 04/17/21 at 10:44; Status DC Midazolam HCl 100 ml @ 0 mls/hr CONT PRN IV SEE PROTOCOL Last administered on 04/17/21at 08:54; Start 04/16/21 at 10:45; Stop 04/17/21 at 10:44; Status DC Dopamine HCl/ Dextrose 250 ml @ As Directed STK-MED ONCE IV ; Start 04/16/21 at 11:08; Stop 04/16/21 at 11:08; Status DC Dopamine HCl/ Dextrose 250 ml @ 17.138 mls/ hr CONT PRN IV SEE I/O RECORD Last administered on 04/17/21at 11:02; Start 04/16/21 at 12:00; Stop 04/17/21 at 11:59; Status DC Furosemide (Lasix) 40 mg 1X ONCE IVP Last administered on 04/16/21at 12:30; Start 04/16/21 at 12:30; Stop 04/16/21 at 12:31; Status DC Potassium Chloride/Water 100 ml @ 100 mls/hr Q1H IV Last administered on 04/16/21at 14:00; Start 04/16/21 at 13:00; Stop 04/16/21 at 14:59; Status DC Furosemide (Lasix) 40 mg STK-MED ONCE .ROUTE ; Start 04/16/21 at 12:37; Stop 04/16/21 at 12:37; Status DC Succinylcholine Chloride (Anectine) 200 mg STK-MED ONCE .ROUTE ; Start 04/16/21 at 16:48; Stop 04/16/21 at 16:49; Status DC Epinephrine HCl (EPINEPHrine SYRINGE) 2 mg STK-MED ONCE .ROUTE ; Start 04/16/21 at 11:00; Stop 04/16/21 at 18:11; Status DC Furosemide (Lasix) 40 mg 1X ONCE IVP Last administered on 04/17/21at 10:10; Start 04/17/21 at 10:00; Stop 04/17/21 at 10:01; Status DC Fentanyl Citrate 30 ml @ 0 mls/hr CONT PRN IV SEE PROTOCOL Last administered on 04/21/21at 04:04; Start 04/17/21 at 16:15 Midazolam HCl 100 ml @ 0 mls/hr CONT PRN IV SEE PROTOCOL Last administered on 04/20/21at 07:38; Start 04/17/21 at 16:15 Dopamine HCl/ Dextrose 250 ml @ 16.031 mls/ hr CONT PRN IV SEE I/O RECORD Last administered on 04/20/21at 02:00; Start 04/18/21 at 00:00; Stop 04/20/21 at 13:29; Status DC Furosemide (Lasix) 40 mg 1X ONCE IVP Last administered on 04/18/21at 10:00; Start 04/18/21 at 09:30; Stop 04/18/21 at 09:31; Status DC Potassium Bicarbonate (Potassium Effervescent Tablet) 40 meq 1X ONCE PEG Last administered on 04/18/21at 09:59; Start 04/18/21 at 09:30; Stop 04/18/21 at 09:31; Status DC Famotidine (Pepcid Vial) 20 mg BID IVP Last administered on 04/24/21at 21:47; Start 04/18/21 at 12:00 Enoxaparin Sodium (Lovenox 40mg Syringe) 40 mg Q24H SQ ; Start 04/18/21 at 12: 00; Status Cancel Furosemide (Lasix) 40 mg 1X ONCE IVP Last administered on 04/18/21at 16:24; Start 04/18/21 at 16:00; Stop 04/18/21 at 16:01; Status DC Furosemide (Lasix) 40 mg DAILY IVP Last administered on 04/24/21at 12:01; Start 04/19/21 at 09:00 Potassium Bicarbonate (Potassium Effervescent Tablet) 40 meq 1X ONCE FT Last administered on 04/18/21at 16:24; Start 04/18/21 at 16:15; Stop 04/18/21 at 16:16; Status DC Enoxaparin Sodium (Lovenox 40mg Syringe) 40 mg Q24H SQ Last administered on 04/24/21at 21:48; Start 04/18/21 at 21:00 Potassium Bicarbonate (Potassium Effervescent Tablet) 40 meq 1X ONCE PO Last administered on 04/19/21at 10:25; Start 04/19/21 at 10:15; Stop 04/19/21 at 10:16; Status DC Potassium Bicarbonate (Potassium Effervescent Tablet) 40 meq 1X ONCE PO Last administered on 04/20/21at 08:13; Start 04/20/21 at 07:30; Stop 04/20/21 at 07:31; Status DC Dopamine HCl/ Dextrose 250 ml @ 18.113 mls/ hr CONT PRN IV SEE I/O RECORD Last administered on 04/21/21at 04:18; Start 04/20/21 at 13:45 Latanoprost (Xalatan) 1 drop HS OU Last administered on 04/24/21at 21:48; Start 04/21/21 at 21:00 Piperacillin Sod/ Tazobactam Sod (Zosyn Per Pharmacy) 1 each PRN DAILY PRN MC SEE COMMENTS; Start 04/22/21 at 11:00 Propofol 100 ml @ 2.823 mls/ hr CONT PRN IV PER PROTOCOL Last administered on 04/23/21at 08:40; Start 04/22/21 at 11:00 Piperacillin Sod/ Tazobactam Sod 3.375 gm/Sodium Chloride 50 ml @ 100 mls/hr Q6HRS IV Last administered on 04/25/21at 06:08; Start 04/22/21 at 12:00 Dexmedetomidine HCl 400 mcg/ Sodium Chloride 100 ml @ 0 mls/hr CONT PRN IV PER PROTOCOL Last administered on 04/24/21at 23:37; Start 04/23/21 at 18:30 Sodium Chloride 500 ml @ 500 mls/hr 1X PRN PRN IV SEE COMMENTS; Start 04/23/21 at 18:30 Atropine Sulfate (ATROPINE 0.5mg SYRINGE) 0.5 mg PRN Q5MIN PRN IV SEE COMMENTS; Start 04/23/21 at 18:30 Active Scripts Active Reported Hydrocodone-Apap 5-325 (Hydrocodone Bit/Acetaminophen) 1 Tab Tablet 1 Tab PO PRN Q6HRS PRN NITROGLYCERIN SubLingual (Nitroglycerin) 0.4 Mg Tab.subl 0.4 Mg SL PRN Q5MIN PRN Lasix (Furosemide) 20 Mg Tablet 1 Tab PO DAILY 30 Days Isosorbide Mononitrate Er (Isosorbide Mononitrate) 60 Mg Tab.er.24h 1 Tab PO DAILY Klor-Con M10 (Potassium Chloride) 10 Meq Tab.er.prt 10 Meq PO DAILY Vitamin D3 (Cholecalciferol (Vitamin D3)) 5,000 Unit Tab.rapdis 5,000 Unit PO DAILY Aspirin 81 Mg Tab.chew 81 Mg PO DAILY Amlodipine Besylate 10 Mg Tablet 10 Mg PO DAILY Fluoxetine Hcl 40 Mg Capsule 40 Mg PO DAILY Simvastatin 20 Mg Tablet 20 Mg PO HS Multi-Vitamin Daily (Multivitamin) 1 Each Tablet 1 Each PO DAILY Latanoprost 2.5 Ml Drops 1 Drop OU HS Vitals/I & O Vital Sign - Last 24 Hours 04/24/21 04/24/21 04/24/21 04/24/21 10:00 11:00 11:35 11:50 Pulse 62 64 Resp 17 16 B/P (MAP) 110/54 (72) 102/52 (69) Pulse Ox 100 100 100 O2 Delivery Ventilator Ventilator Ventilator Ventilator 04/24/21 04/24/21 04/24/21 04/24/21 12:00 12:00 13:00 13:30 Temp 98.3 98.3 Pulse 64 70 Resp 18 21 20 B/P (MAP) 108/48 (68) 116/52 (73) Pulse Ox 100 98 O2 Delivery Mechanical Ventilator Ventilator Ventilator 04/24/21 04/24/21 04/24/21 04/24/21 14:00 15:00 16:00 16:00 Temp 98.5 98.5 Pulse 70 70 78 Resp 17 18 17 B/P (MAP) 126/62 (83) 128/60 (82) 134/64 (87) Pulse Ox 99 99 99 O2 Delivery Ventilator Ventilator Ventilator Mechanical Ventilator 04/24/21 04/24/21 04/24/21 04/24/21 16:00 17:00 17:37 18:00 Pulse 61 64 Resp 17 16 B/P (MAP) 140/61 (87) 120/68 (85) Pulse Ox 100 100 100 O2 Delivery Ventilator Ventilator Ventilator Ventilator 04/24/21 04/24/21 04/24/21 04/24/21 19:00 20:00 20:00 20:15 Temp 99.7 99.7 Pulse 54 54 Resp 13 12 B/P (MAP) 103/48 (66) 102/48 (66) Pulse Ox 100 100 100 O2 Delivery Ventilator Ventilator Mechanical Ventilator Ventilator 04/24/21 04/24/21 04/24/21 04/24/21 21:00 22:00 23:00 23:35 Pulse 61 56 54 Resp 13 14 13 B/P (MAP) 113/51 (71) 110/52 (71) 108/50 (69) Pulse Ox 100 100 100 100 O2 Delivery Ventilator Ventilator Ventilator Ventilator 04/24/21 04/25/21 04/25/21 04/25/21 23:59 00:00 01:00 02:00 Temp 98.6 98.6 Pulse 55 59 54 Resp 13 15 13 B/P (MAP) 102/47 (65) 138/61 (86) 106/48 (67) Pulse Ox 100 100 100 O2 Delivery Mechanical Ventilator Ventilator Ventilator Ventilator 04/25/21 04/25/21 04/25/21 04/25/21 02:25 03:00 04:00 04:00 Temp 98.2 98.2 Pulse 57 61 Resp 13 19 B/P (MAP) 122/55 (77) 128/58 (81) Pulse Ox 100 100 100 O2 Delivery Ventilator Ventilator Mechanical Ventilator Ventilator 04/25/21 04/25/21 04/25/21 04/25/21 04:43 05:00 06:00 07:18 Temp 98.4 98.4 Pulse 60 60 60 Resp 14 13 17 B/P (MAP) 126/66 (86) 105/50 (68) 132/63 (86) Pulse Ox 100 100 99 99 O2 Delivery Ventilator Ventilator Ventilator Ventilator 04/25/21 04/25/21 08:00 09:19 Pulse Ox 100 99 O2 Delivery Ventilator Ventilator Intake and Output 04/24/21 04/24/21 04/25/21 15:00 23:00 07:00 Intake Total 625 ml 711 ml Output Total 825 ml 465 ml 200 ml Balance -825 ml 160 ml 511 ml Justicifation of Admission Dx: Justifications for Admission: Justification of Admission Dx: Yes Respiratory Failure: Mechanical Ventilation UNIQUE LONG MD Apr 25, 2021 09:33
--- NOTE | 2021-04-25 11:14 | PDOC ---
PULMONARY PROGRESS NOTES DATE: 04/25/21 TIME: 11:13 Subjective Remains on vent support 40%/PEEP of 5 patient is following some commands. She is able to squeeze my hand. no overnight concerns from nursing Vitals Vital Signs Date Time Temp Pulse Resp B/P (MAP) Pulse Ox O2 Delivery O2 Flow Rate FiO2 04/25/21 09:19 99 Ventilator 04/25/21 07:18 98.4 60 17 132/63 (86) 98.4 Comments ros unable to obtain General: No acute distress HEENT: Other (intubated) Lungs: Clear Cardiovascular: S1, S2 Abdomen: Soft, Non-tender Extremities: Other (1+edema) Skin: Warm Labs Laboratory Tests Test 04/24/21 07:30 04/25/21 08:00 04/25/21 08:08 O2 Saturation 97 % (92-99) 98 % (92-99) Arterial Blood pH 7.52 (7.35-7.45) 7.55 (7.35-7.45) Arterial Blood pCO2 at Patient Temp 35 mmHg (35-46) 35 mmHg (35-46) Arterial Blood pO2 at Patient Temp 94 mmHg (65-108) 107 mmHg (65-108) Arterial Blood HCO3 28 mmol/L (21-28) 30 mmol/L (21-28) Arterial Blood Base Excess 5 mmol/L (-3-3) 7 mmol/L (-3-3) FiO2 50 50 HS-Klu-G-Type Natriuretic Peptide 72686 pg/mL (0-449) Triglycerides Level 129 mg/dL (0-150) Cholesterol Level 164 mg/dL (0-200) LDL Cholesterol, Calculated 116 mg/dL (0-100) VLDL Cholesterol, Calculated 26 mg/dL (0-40) Non-HDL Cholesterol Calculated 142 mg/dL (0-129) HDL Cholesterol 22 mg/dL (40-60) Cholesterol/HDL Ratio 7.5 Thyroid Stimulating Hormone (TSH) 1.025 uIU/mL (0.358-3.74) Laboratory Tests Test 04/25/21 08:00 04/25/21 08:08 O2 Saturation 98 % (92-99) Arterial Blood pH 7.55 (7.35-7.45) Arterial Blood pCO2 at Patient Temp 35 mmHg (35-46) Arterial Blood pO2 at Patient Temp 107 mmHg (65-108) Arterial Blood HCO3 30 mmol/L (21-28) Arterial Blood Base Excess 7 mmol/L (-3-3) FiO2 50 YG-Jee-G-Type Natriuretic Peptide 77401 pg/mL (0-449) Triglycerides Level 129 mg/dL (0-150) Cholesterol Level 164 mg/dL (0-200) LDL Cholesterol, Calculated 116 mg/dL (0-100) VLDL Cholesterol, Calculated 26 mg/dL (0-40) Non-HDL Cholesterol Calculated 142 mg/dL (0-129) HDL Cholesterol 22 mg/dL (40-60) Cholesterol/HDL Ratio 7.5 Thyroid Stimulating Hormone (TSH) 1.025 uIU/mL (0.358-3.74) Medications Active Scripts Medications Dose Route/Sig Max Daily Dose Days Date Category Hydrocodone-Apap 5-325 (Hydrocodone Bit/Acetaminophen) 1 Tab Tablet 1 Tab PO PRN Q6HRS PRN 04/16/21 Reported NITROGLYCERIN SubLingual (Nitroglycerin) 0.4 Mg Tab.subl 0.4 Mg SL PRN Q5MIN PRN 04/16/21 Reported Lasix (Furosemide) 20 Mg Tablet 1 Tab PO DAILY 30 04/16/21 Reported Isosorbide Mononitrate Er (Isosorbide Mononitrate) 60 Mg Tab.er.24h 1 Tab PO DAILY 04/16/21 Reported Klor-Con M10 (Potassium Chloride) 10 Meq Tab.er.prt 10 Meq PO DAILY 04/16/21 Reported Vitamin D3 (Cholecalciferol (Vitamin D3)) 5,000 Unit Tab.rapdis 5,000 Unit PO DAILY 11/24/19 Reported Aspirin 81 Mg Tab.chew 81 Mg PO DAILY 11/24/19 Reported Amlodipine Besylate 10 Mg Tablet 10 Mg PO DAILY 11/24/19 Reported Fluoxetine Hcl 40 Mg Capsule 40 Mg PO DAILY 11/24/19 Reported Simvastatin 20 Mg Tablet 20 Mg PO HS 11/24/19 Reported Multi-Vitamin Daily (Multivitamin) 1 Each Tablet 1 Each PO DAILY 11/24/19 Reported Latanoprost 2.5 Ml Drops 1 Drop OU HS 11/24/19 Reported Impression . 1. Acute hypercapnic and hypoxic respiratory failure secondary to cardiac arrest/flash pulmonary edema 2. Cardiac arrest in the medical laboratory specialist, requiring 8 minutes of CPR and ACLS protocol, with return of spontaneous circulation. Etiology likely due to hypoxia. Initial chest x-ray consistent with flash pulmonary edema. 3. The patient with abnormal right heart cardiac catheterization, suggestive of left ventricular failure. She had a pulmonary capillary wedge pressure of 23 and a left ventricular end-diastolic pressure of 26. 4. Underlying obstructive sleep apnea and suspected obesity hypoventilation syndrome. 5. Shock, requiring dopamine, likely cardiogenic.--improved 6. No significant coronary artery disease. 7. Encephalopathy. Likely post sedation Plan . Updated 04/25/2021 Continue current vent support 500/50/5 Follow neurology recs. Patient is scheduled for CT head. Once back from CT head will proceed with CPAP trial and possible extubation. Follow chest x-ray and ABG, -- no change today Cont. ABX Follow cardiology recommendations--status post cardiac catheterization 55% coronaries clean, diuresis per cardiology Continue tube feed for nutritional support DVT/GI prophylaxis: Lovenox Discussed with RN and RT Updated 04/24/2021 Continue current vent support 10/500/50/5 Follow neurology recs Follow chest x-ray and ABG, -- no change today plan to proceed with PS trial once more awake Cont. ABX Follow cardiology recommendations--status post cardiac catheterization 55% coronaries clean, diuresis per cardiology Continue tube feed for nutritional support DVT/GI prophylaxis: Lovenox Discussed with RN and RT Critical care time 30 minutes FOUZIA PEREZ MD Apr 25, 2021 11:14
--- NOTE | 2021-04-25 11:28 | RAD ---
EXAM: Head CT without contrast. HISTORY: Altered mental status. TECHNIQUE: Computed tomographic images of the head were obtained without contrast. *One or more of the following individualized dose reduction techniques were utilized for this examina tion: 1. Automated exposure control. 2. Adjustment of the mA and/or kV according to patient size. 3. Use of iterative reconstruction technique. COMPARISON: None. FINDINGS: There is no acute or subacute extra-axial or intraparenchymal hemorrhage. There is no mass effect or midline shift. There is no hydrocephalus. There are areas of decreased attenuation within the cerebral white matter, nonspecific and likely rel ated to chronic small vessel disease. There is cerebral volume loss. There is no complete opacification of the maxillary sinuses and there is severe ethmoid and moderate sphenoid sinus mucosal thickening. There is minimal fluid within the inferior mastoid air cells. Ther e is no suspicious osseous lesion. IMPRESSION: 1. No acute intracranial finding. MRI is more sensitive for acute infarction. 2. Bilateral cerebral white matter changes, likely due to chronic small vessel disease. 3. Cerebral volume loss. 4. Paranasal sinus disease. Electronically signed by: Taisha Del Real MD (04/25/2021 11:25 AM) [id number]
[2021-04-25 13:03] LABS: BASE EXCESS ABG 9 mmol/L (-3-3); HCO3 ABG 31 mmol/L (21-28); PCO2 ABG 37 mmHg (35-46); PO2 ABG 108 mmHg (65-108); SAT O2 ABG 98 % (92-99)
[2021-04-25 13:04] LABS: FIO2 ABG 50
--- NOTE | 2021-04-25 13:38 | PDOC1 ---
History and Physical Date of Service: DOS: DATE: 04/25/21 TIME: 13:26 Chief Complaint: Chief Complain: Cardiac arrest History of Present Illness: HPI: Patient is a 75-year-old female with past medical history of hypertension, obesity, dyslipidemia, sleep apnea, who was admitted for scheduled left heart cath on 04/16/2021 for chest pains that was relieved with nitroglycerin. Patient underwent left and right heart cath which showed no significant CAD. Unfortunately, at the end of the procedure patient developed increasing s hortness of breath she was initially treated with IV diuretics and oxygen but her dyspnea persisted and she required emergency intubation and had periods of asystole. ACLS protocol was initiated. Please see CODE BLUE sheet for details. She was transferred to the ICU for further management and the hospitalist service was consulted for medical management. I saw the patient this morning intubated and not on any sedation. Pulmonology is following for vent management. Patient was responding appropriately to external stimuli and started to wake up. She will likely need a CT of the head as there is no sedation and the patient is not responding appropriately. Past Medical/Surgical History: PMH/PSH: Past medical history: Hypertension, dyslipidemia, GERD, CLEMENCIA Past surgical history: TAHBSO, right ankle surgery, left humerus surgery, hip surgery, cervical laminectomy and back surgeries Allergies: Allergies: Coded Allergies: olanzapine (Verified Allergy, Intermediate, 04/25/21) Family History: Family History: Reviewed with no relevant findings Social History: Social History: Chart review showed no history of alcohol, drug or tobacco abuse Current Medications: Current Medications Current Medications Lidocaine HCl (Lidocaine 1% 20ml Vial) 20 ml STK-MED ONCE .ROUTE ; Start 04/16/21 at 07:35; Stop 04/16/21 at 07:35; Status DC Iodixanol (Visipaque 320) 100 ml STK-MED ONCE .ROUTE ; Start 04/16/21 at 07:35; Stop 04/16/21 at 07:35; Status DC Heparin Sodium/ Sodium Chloride 1,500 ml @ As Directed STK-MED ONCE .ROUTE ; Start 04/16/21 at 07:37; Stop 04/16/21 at 07:37; Status DC Heparin Sodium/ Sodium Chloride (HEPARIN for ARTERIAL LINE FLUSH) 1,000 unit 1X ONCE IART Last administered on 04/16/21at 08:30; Start 04/16/21 at 08:30; Stop 04/16/21 at 08:31; Status DC Heparin Sodium/ Sodium Chloride (HEPARIN for ARTERIAL LINE FLUSH) 1,000 unit 1X ONCE IART Last administered on 04/16/21at 08:30; Start 04/16/21 at 08:30; Stop 04/16/21 at 08:31; Status DC Midazolam HCl (Versed) 5 mg 1X ONCE IV Last administered on 04/16/21at 08:30; Start 04/16/21 at 08:30; Stop 04/16/21 at 08:31; Status DC Fentanyl Citrate (Fentanyl 2ml Vial) 100 mcg 1X ONCE IV Last administered on 04/16/21at 08:30; Start 04/16/21 at 08:30; Stop 04/16/21 at 08:31; Status DC Iodixanol (Visipaque 320) 100 ml 1X ONCE IART Last administered on 04/16/21at 08:30; Start 04/16/21 at 08:30; Stop 04/16/21 at 08:31; Status DC Lidocaine HCl (Lidocaine 1% 20ml Vial) 20 ml 1X ONCE INJ Last administered on 04/16/21at 08:30; Start 04/16/21 at 08:30; Stop 04/16/21 at 08:31; Status DC Info (CONTRAST GIVEN -- Rx MONITORING) 1 each PRN DAILY PRN MC SEE COMMENTS; Start 04/16/21 at 08:30; Stop 04/18/21 at 08:29; Status DC Iodixanol (Visipaque 320) 100 ml STK-MED ONCE .ROUTE ; Start 04/16/21 at 09:40; Stop 04/16/21 at 09:41; Status DC Heparin Sodium/ Sodium Chloride 500 ml @ As Directed STK-MED ONCE .ROUTE ; Start 04/16/21 at 09:52; Stop 04/16/21 at 09:53; Status DC Furosemide (Lasix) 100 mg STK-MED ONCE .ROUTE ; Start 04/16/21 at 09:57; Stop 04/16/21 at 09:58; Status DC Morphine Sulfate (Morphine Sulfate) 10 mg STK-MED ONCE .ROUTE ; Start 04/16/21 at 10:01; Stop 04/16/21 at 10:01; Status DC Ondansetron HCl (Zofran) 4 mg STK-MED ONCE .ROUTE ; Start 04/16/21 at 10:03; Stop 04/16/21 at 10:03; Status DC Heparin Sodium/ Sodium Chloride 500 ml @ As Directed STK-MED ONCE .ROUTE ; Start 04/16/21 at 10:24; Stop 04/16/21 at 10:24; Status DC Succinylcholine Chloride (Anectine) 200 mg STK-MED ONCE .ROUTE ; Start 04/16/21 at 10:26; Stop 04/16/21 at 10:27; Status DC Furosemide (Lasix) 100 mg 1X ONCE IVP Last administered on 04/16/21at 10:30; Start 04/16/21 at 10:30; Stop 04/16/21 at 10:35; Status DC Morphine Sulfate (Morphine Sulfate) 10 mg 1X ONCE IV Last administered on 04/16/21at 10:30; Start 04/16/21 at 10:30; Stop 04/16/21 at 10:35; Status DC Ondansetron HCl (Zofran) 4 mg 1X ONCE IVP Last administered on 04/16/21at 10:30; Start 04/16/21 at 10:30; Stop 04/16/21 at 10:35; Status DC Albuterol/ Ipratropium (Duoneb) 3 ml 1X ONCE NEB Last administered on 04/16/21at 10:05; Start 04/16/21 at 10:45; Stop 04/16/21 at 10:46; Status DC Fentanyl Citrate 30 ml @ 0 mls/hr CONT PRN IV SEE PROTOCOL Last administered on 04/17/21at 05:24; Start 04/16/21 at 10:45; Stop 04/17/21 at 10:44; Status DC Midazolam HCl 100 ml @ 0 mls/hr CONT PRN IV SEE PROTOCOL Last administered on 04/17/21at 08:54; Start 04/16/21 at 10:45; Stop 04/17/21 at 10:44; Status DC Dopamine HCl/ Dextrose 250 ml @ As Directed STK-MED ONCE IV ; Start 04/16/21 at 11:08; Stop 04/16/21 at 11:08; Status DC Dopamine HCl/ Dextrose 250 ml @ 17.138 mls/ hr CONT PRN IV SEE I/O RECORD Last administered on 04/17/21at 11:02; Start 04/16/21 at 12:00; Stop 04/17/21 at 11:59; Status DC Furosemide (Lasix) 40 mg 1X ONCE IVP Last administered on 04/16/21at 12:30; Start 04/16/21 at 12:30; Stop 04/16/21 at 12:31; Status DC Potassium Chloride/Water 100 ml @ 100 mls/hr Q1H IV Last administered on 04/16/21at 14:00; Start 04/16/21 at 13:00; Stop 04/16/21 at 14:59; Status DC Furosemide (Lasix) 40 mg STK-MED ONCE .ROUTE ; Start 04/16/21 at 12:37; Stop 04/16/21 at 12:37; Status DC Succinylcholine Chloride (Anectine) 200 mg STK-MED ONCE .ROUTE ; Start 04/16/21 at 16:48; Stop 04/16/21 at 16:49; Status DC Epinephrine HCl (EPINEPHrine SYRINGE) 2 mg STK-MED ONCE .ROUTE ; Start 04/16/21 at 11:00; Stop 04/16/21 at 18:11; Status DC Furosemide (Lasix) 40 mg 1X ONCE IVP Last administered on 04/17/21at 10:10; Start 04/17/21 at 10:00; Stop 04/17/21 at 10:01; Status DC Fentanyl Citrate 30 ml @ 0 mls/hr CONT PRN IV SEE PROTOCOL Last administered on 04/21/21at 04:04; Start 04/17/21 at 16:15 Midazolam HCl 100 ml @ 0 mls/hr CONT PRN IV SEE PROTOCOL Last administered on 04/20/21at 07:38; Start 04/17/21 at 16:15 Dopamine HCl/ Dextrose 250 ml @ 16.031 mls/ hr CONT PRN IV SEE I/O RECORD Last administered on 04/20/21at 02:00; Start 04/18/21 at 00:00; Stop 04/20/21 at 13:29; Status DC Furosemide (Lasix) 40 mg 1X ONCE IVP Last administered on 04/18/21at 10:00; Start 04/18/21 at 09:30; Stop 04/18/21 at 09:31; Status DC Potassium Bicarbonate (Potassium Effervescent Tablet) 40 meq 1X ONCE PEG Last administered on 04/18/21at 09:59; Start 04/18/21 at 09:30; Stop 04/18/21 at 09:31; Status DC Famotidine (Pepcid Vial) 20 mg BID IVP Last administered on 04/24/21at 21:47; Start 04/18/21 at 12:00 Enoxaparin Sodium (Lovenox 40mg Syringe) 40 mg Q24H SQ ; Start 04/18/21 at 12:00; Status Cancel Furosemide (Lasix) 40 mg 1X ONCE IVP Last administered on 04/18/21at 16:24; Start 04/18/21 at 16:00; Stop 04/18/21 at 16:01; Status DC Furosemide (Lasix) 40 mg DAILY IVP Last administered on 04/24/21at 12:01; Start 04/19/21 at 09:00 Potassium Bicarbonate (Potassium Effervescent Tablet) 40 meq 1X ONCE FT Last administered on 04/18/21at 16:24; Start 04/18/21 at 16:15; Stop 04/18/21 at 16:16; Status DC Enoxaparin Sodium (Lovenox 40mg Syringe) 40 mg Q24H SQ Last administered on 04/24/21at 21:48; Start 04/18/21 at 21:00 Potassium Bicarbonate (Potassium Effervescent Tablet) 40 meq 1X ONCE PO Last administered on 04/19/21at 10:25; Start 04/19/21 at 10:15; Stop 04/19/21 at 10:16; Status DC Potassium Bicarbonate (Potassium Effervescent Tablet) 40 meq 1X ONCE PO Last administered on 04/20/21at 08:13; Start 04/20/21 at 07:30; Stop 04/20/21 at 07:31; Status DC Dopamine HCl/ Dextrose 250 ml @ 18.113 mls/ hr CONT PRN IV SEE I/O RECORD Last administered on 04/21/21at 04:18; Start 04/20/21 at 13:45 Latanoprost (Xalatan) 1 drop HS OU Last administered on 04/24/21at 21:48; Start 04/21/21 at 21:00 Piperacillin Sod/ Tazobactam Sod (Zosyn Per Pharmacy) 1 each PRN DAILY PRN MC SEE COMMENTS; Start 04/22/21 at 11:00 Propofol 100 ml @ 2.823 mls/ hr CONT PRN IV PER PROTOCOL Last administered on 04/23/21at 08:40; Start 04/22/21 at 11:00 Piperacillin Sod/ Tazobactam Sod 3.375 gm/Sodium Chloride 50 ml @ 100 mls/hr Q6HRS IV Last administered on 04/25/21at 06:08; Start 04/22/21 at 12:00 Dexmedetomidine HCl 400 mcg/ Sodium Chloride 100 ml @ 0 mls/hr CONT PRN IV PER PROTOCOL Last administered on 04/24/21at 23:37; Start 04/23/21 at 18:30 Sodium Chloride 500 ml @ 500 mls/hr 1X PRN PRN IV SEE COMMENTS; Start 04/23/21 at 18:30 Atropine Sulfate (ATROPINE 0.5mg SYRINGE) 0.5 mg PRN Q5MIN PRN IV SEE COMMENTS; Start 04/23/21 at 18:30 Active Scripts Active Reported Hydrocodone-Apap 5-325 (Hydrocodone Bit/Acetaminophen) 1 Tab Tablet 1 Tab PO PRN Q6HRS PRN NITROGLYCERIN SubLingual (Nitroglycerin) 0.4 Mg Tab.subl 0.4 Mg SL PRN Q5MIN PRN Lasix (Furosemide) 20 Mg Tablet 1 Tab PO DAILY 30 Days Isosorbide Mononitrate Er (Isosorbide Mononitrate) 60 Mg Tab.er.24h 1 Tab PO DAILY Klor-Con M10 (Potassium Chloride) 10 Meq Tab.er.prt 10 Meq PO DAILY Vitamin D3 (Cholecalciferol (Vitamin D3)) 5,000 Unit Tab.rapdis 5,000 Unit PO DAILY Aspirin 81 Mg Tab.chew 81 Mg PO DAILY Amlodipine Besylate 10 Mg Tablet 10 Mg PO DAILY Fluoxetine Hcl 40 Mg Capsule 40 Mg PO DAILY Simvastatin 20 Mg Tablet 20 Mg PO HS Multi-Vitamin Daily (Multivitamin) 1 Each Tablet 1 Each PO DAILY Latanoprost 2.5 Ml Drops 1 Drop OU HS ROS: Review of Systems Review of System Unable to obtain due to intubation. Physical Exam: Vital Signs: Vital Signs Date Time Temp Pulse Resp B/P (MAP) Pulse Ox O2 Delivery O2 Flow Rate FiO2 04/25/21 13:00 100 Ventilator 04/25/21 07:18 98.4 60 17 132/63 (86) 98.4 Physcial Exam: General: Intubated and no acute distress HEENT: Pupils equally round and reactive to light, EOMI, no discharge, normal conjunctiva Neck: Supple, no nuchal rigidity, no JVD, trachea midline, no tenderness Cardiac: RRR, no murmurs, no gallops, no rubs Chest/Lungs: CTAB, no wheeze, no rhonchi, no crackles Abdomen: soft, non-distended, no guarding, no peritoneal signs, non-tender Back: No tenderness Extremities: no edema, pulses intact, non-tender,capillary refill <3 sec bilateral upper and lower extremities, Neuro: Intubated. Moving all extremities spontaneously without any obvious focal deficits. Labs: Labs: Laboratory Tests Test 04/24/21 07:30 04/25/21 08:00 04/25/21 08:08 04/25/21 13:00 O2 Saturation 97 % (92-99) 98 % (92-99) 98 % (92-99) Arterial Blood pH 7.52 (7.35-7.45) 7.55 (7.35-7.45) 7.55 (7.35-7.45) Arterial Blood pCO2 at Patient Temp 35 mmHg (35-46) 35 mmHg (35-46) 37 mmHg (35-46) Arterial Blood pO2 at Patient Temp 94 mmHg (65-108) 107 mmHg (65-108) 108 mmHg (65-108) Arterial Blood HCO3 28 mmol/L (21-28) 30 mmol/L (21-28) 31 mmol/L (21-28) Arterial Blood Base Excess 5 mmol/L (-3-3) 7 mmol/L (-3-3) 9 mmol/L (-3-3) FiO2 50 50 50 [id number]-Mgr-[id number]-Type Natriuretic Peptide 56925 pg/mL (0-449) Triglycerides Level 129 mg/dL (0-150) Cholesterol Level 164 mg/dL (0-200) LDL Cholesterol, Calculated 116 mg/dL (0-100) VLDL Cholesterol, Calculated 26 mg/dL (0-40) Non-HDL Cholesterol Calculated 142 mg/dL (0-129) HDL Cholesterol 22 mg/dL (40-60) Cholesterol/HDL Ratio 7.5 Thyroid Stimulating Hormone (TSH) 1.025 uIU/mL (0.358-3.74) Laboratory Tests Test 04/25/21 08:00 04/25/21 08:08 04/25/21 13:00 O2 Saturation 98 % (92-99) 98 % (92-99) Arterial Blood pH 7.55 (7.35-7.45) 7.55 (7.35-7.45) Arterial Blood pCO2 at Patient Temp 35 mmHg (35-46) 37 mmHg (35-46) Arterial Blood pO2 at Patient Temp 107 mmHg (65-108) 108 mmHg (65-108) Arterial Blood HCO3 30 mmol/L (21-28) 31 mmol/L (21-28) Arterial Blood Base Excess 7 mmol/L (-3-3) 9 mmol/L (-3-3) FiO2 50 50 YK-Dui-R-Type Natriuretic Peptide 45898 pg/mL (0-449) Triglycerides Level 129 mg/dL (0-150) Cholesterol Level 164 mg/dL (0-200) LDL Cholesterol, Calculated 116 mg/dL (0-100) VLDL Cholesterol, Calculated 26 mg/dL (0-40) Non-HDL Cholesterol Calculated 142 mg/dL (0-129) HDL Cholesterol 22 mg/dL (40-60) Cholesterol/HDL Ratio 7.5 Thyroid Stimulating Hormone (TSH) 1.025 uIU/mL (0.358-3.74) Images: Images PROCEDURE: PORTABLE CHEST 1V IMPRESSION: 1. Increase in small right and small to moderate left pleural effusion and diffuse lower lobe predominant interstitial infiltrate. 2. Stable cardiomegaly. 3. Stable support lines and tubes. Assessment/Plan Assessment/Plan Acute hypoxic hypercapnic respiratory failure status post intubation Cardiopulmonary arrest due to hypoxia 8 minutes with ROSC Acute metabolic and possible ischemic encephalopathy Acute on chronic CHF CLEMENCIA Hypertension Continue ICU management Pulmonology consulted for vent management Neurology following for encephalopathy while on the ventilator status post cardiac arrest Continue empiric IV antibiotics for possible aspiration pneumonia Lovenox for DVT prophylaxis Protonix or Pepcid GI prophylaxis ADA diet Full code Discussed with RN and SW Disposition inpatient management as above Surrogate decision maker is Justifications for Admission Other Justification GERALD CRONIN MD Apr 25, 2021 13:38
[2021-04-25] MEDS: FUROSEMIDE 40 MG/4 ML VIAL. IVP SCH (13:47)
[2021-04-25] MEDS: FAMOTIDINE 20 MG/2 ML VIAL IVP SCH ×2 (13:47→22:53)
--- NOTE | 2021-04-25 13:57 | NUR ---
SS following up with discharge planning. SS reviewed pt chart and discussed with pt RN. Pt extubated now and is on venti mask at 15 liters. COVID19 negative. Pt on IV Zosyn and IV Lasix. SS will continue to follow for discharge planning.
[2021-04-25] MEDS: LATANOPROST 0.005% OPHTH SOLUTION 2.5ML BOTTLE. OU SCH (22:54)
[2021-04-25] MEDS: ENOXAPARIN 40 MG/0.4 ML SYRINGE. SQ SCH (22:54)
[2021-04-26] VITALS (13 sets, daily range): BP systolic 93–164; BP diastolic 63–89
[2021-04-26] MEDS: PIPERACILLIN/TAZOBACTAM 3.375 GM in IV NORMAL SALINE 50ML 50 ML IV SCH ×5 (00:19→23:58)
--- NOTE | 2021-04-26 06:47 | PDOC ---
PULMONARY PROGRESS NOTES DATE: 04/26/21 TIME: 06:45 Subjective extubated on 04/25 she was tachypneac i started her on bipap last night on bipap 08/06 fio2 35% now alert not on home 02 sob better Vitals Vital Signs Date Time Temp Pulse Resp B/P (MAP) Pulse Ox O2 Delivery O2 Flow Rate FiO2 04/26/21 05:38 99 BiPAP/CPAP 04/26/21 05:00 71 18 150/88 (108) 04/26/21 04:00 97.6 97.6 04/25/21 20:00 15.0 General: Alert, No acute distress HEENT: Other (intubated) Lungs: Clear Cardiovascular: S1, S2 Abdomen: Soft, Non-tender Neuro Exam: Alert Extremities: Other (1+edema) Skin: Warm Labs Laboratory Tests Test 04/24/21 07:30 04/25/21 08:00 04/25/21 08:08 04/25/21 13:00 O2 Saturation 97 % (92-99) 98 % (92-99) 98 % (92-99) Arterial Blood pH 7.52 (7.35-7.45) 7.55 (7.35-7.45) 7.55 (7.35-7.45) Arterial Blood pCO2 at Patient Temp 35 mmHg (35-46) 35 mmHg (35-46) 37 mmHg (35-46) Arterial Blood pO2 at Patient Temp 94 mmHg (65-108) 107 mmHg (65-108) 108 mmHg (65-108) Arterial Blood HCO3 28 mmol/L (21-28) 30 mmol/L (21-28) 31 mmol/L (21-28) Arterial Blood Base Excess 5 mmol/L (-3-3) 7 mmol/L (-3-3) 9 mmol/L (-3-3) FiO2 50 50 50 FH-Gey-F-Type Natriuretic Peptide 75399 pg/mL (0-449) Triglycerides Level 129 mg/dL (0-150) Cholesterol Level 164 mg/dL (0-200) LDL Cholesterol, Calculated 116 mg/dL (0-100) VLDL Cholesterol, Calculated 26 mg/dL (0-40) Non-HDL Cholesterol Calculated 142 mg/dL (0-129) HDL Cholesterol 22 mg/dL (40-60) Cholesterol/HDL Ratio 7.5 Thyroid Stimulating Hormone (TSH) 1.025 uIU/mL (0.358-3.74) Laboratory Tests Test 04/25/21 08:00 04/25/21 08:08 04/25/21 13:00 O2 Saturation 98 % (92-99) 98 % (92-99) Arterial Blood pH 7.55 (7.35-7.45) 7.55 (7.35-7.45) Arterial Blood pCO2 at Patient Temp 35 mmHg (35-46) 37 mmHg (35-46) Arterial Blood pO2 at Patient Temp 107 mmHg (65-108) 108 mmHg (65-108) Arterial Blood HCO3 30 mmol/L (21-28) 31 mmol/L (21-28) Arterial Blood Base Excess 7 mmol/L (-3-3) 9 mmol/L (-3-3) FiO2 50 50 NE-Qpj-V-Type Natriuretic Peptide 72273 pg/mL (0-449) Triglycerides Level 129 mg/dL (0-150) Cholesterol Level 164 mg/dL (0-200) LDL Cholesterol, Calculated 116 mg/dL (0-100) VLDL Cholesterol, Calculated 26 mg/dL (0-40) Non-HDL Cholesterol Calculated 142 mg/dL (0-129) HDL Cholesterol 22 mg/dL (40-60) Cholesterol/HDL Ratio 7.5 Thyroid Stimulating Hormone (TSH) 1.025 uIU/mL (0.358-3.74) Medications Active Scripts Medications Dose Route/Sig Max Daily Dose Days Date Category Hydrocodone-Apap 5-325 (Hydrocodone Bit/Acetaminophen) 1 Tab Tablet 1 Tab PO PRN Q6HRS PRN 04/16/21 Reported NITROGLYCERIN SubLingual (Nitroglycerin) 0.4 Mg Tab.subl 0.4 Mg SL PRN Q5MIN PRN 04/16/21 Reported Lasix (Furosemide) 20 Mg Tablet 1 Tab PO DAILY 30 04/16/21 Reported Isosorbide Mononitrate Er (Isosorbide Mononitrate) 60 Mg Tab.er.24h 1 Tab PO DAILY 04/16/21 Reported Klor-Con M10 (Potassium Chloride) 10 Meq Tab.er.prt 10 Meq PO DAILY 04/16/21 Reported Vitamin D3 (Cholecalciferol (Vitamin D3)) 5,000 Unit Tab.rapdis 5,000 Unit PO DAILY 11/24/19 Reported Aspirin 81 Mg Tab.chew 81 Mg PO DAILY 11/24/19 Reported Amlodipine Besylate 10 Mg Tablet 10 Mg PO DAILY 11/24/19 Reported Fluoxetine Hcl 40 Mg Capsule 40 Mg PO DAILY 11/24/19 Reported Simvastatin 20 Mg Tablet 20 Mg PO HS 11/24/19 Reported Multi-Vitamin Daily (Multivitamin) 1 Each Tablet 1 Each PO DAILY 11/24/19 Reported Latanoprost 2.5 Ml Drops 1 Drop OU HS 11/24/19 Reported Impression . 1. Acute hypercapnic and hypoxic respiratory failure secondary to cardiac arrest/flash pulmonary edema 2. 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 Etiology likely due to hypoxia. Initial chest x-ray consistent with flash pulmonary edema. 3. The patient with abnormal right heart cardiac catheterization, suggestive of left ventricular failure. She had a pulmonary capillary wedge pressure of 23 and a left ventricular end-diastolic pressure of 26. 4. Underlying obstructive sleep apnea and suspected obesity hypoventilation syndrome. 5. Shock, requiring dopamine, likely cardiogenic.--improved 6. No significant coronary artery disease. 7. Encephalopathy. Likely post sedation Plan . Updated 04/26/2021 extubated 04/25 on bipap titrate fio2 to keep sat 90% bipap prn during day cont at night Follow neurology recs. CT head reviewed Follow chest x-ray and ABG, Cont. ABX Follow cardiology recommendations--status post cardiac catheterization 55% coronaries clean, diuresis per cardiology speech eval DVT/GI prophylaxis: Lovenox Discussed with RN and RT Updated 04/25/2021 Continue current vent support 10500/50/5 Follow neurology recs. Patient is scheduled for CT head. Once back from CT head will proceed with CPAP trial and possible extubation. Follow chest x-ray and ABG, -- no change today Cont. ABX Follow cardiology recommendations--status post cardiac catheterization 55% cor onaries clean, diuresis per cardiology Continue tube feed for nutritional support DVT/GI prophylaxis: Lovenox Discussed with RN and RT Updated 04/24/2021 Continue current vent support 10/500/50/5 Follow neurology recs Follow chest x-ray and ABG, -- no change today plan to proceed with PS trial once more awake Cont. ABX Follow cardiology recommendations--status post cardiac catheterization 55% coronaries clean, diuresis per cardiology Continue tube feed for nutritional support DVT/GI prophylaxis: Lovenox Discussed with RN and RT Critical care time 30 minutes SEBASTIAN WYMAN MD Apr 26, 2021 06:47
[2021-04-26] MEDS: FAMOTIDINE 20 MG/2 ML VIAL IVP SCH ×2 (09:03→20:38)
[2021-04-26] MEDS: FUROSEMIDE 40 MG/4 ML VIAL. IVP SCH (09:03)
--- NOTE | 2021-04-26 11:33 | PDOC ---
[facility] [facility] PROGRESS NOTE Date of Service DOS: DATE: 04/26/21 TIME: 11:31 Chief Complaint Chief Complaint Acute hypoxic hypercapnic respiratory failure status post intubation. Status post extubation on 04/26/2021 Cardiopulmonary arrest due to hypoxia 8 minutes with ROSC Acute metabolic and possible ischemic encephalopathy Acute on chronic CHF CLEMENCIA Hypertension Transferred to the [facility] telemetry floor Pulmonology consulted, patient will likely need outpatient sleep study for CPAP Continue empiric IV antibiotics for possible aspiration pneumonia Lovenox for DVT prophylaxis Protonix or Pepcid GI prophylaxis ADA diet Full code Discussed with RN and SW Disposition inpatient management as above Surrogate decision maker is History of Present Illness History of Present Illness 75-year-old female with past medical history of hypertension, obesity, dyslipidemia, sleep apnea, who was admitted for scheduled left heart cath on 04/16/2021 for chest pains that was relieved with nitroglycerin. Patient underwent left and right heart cath which showed no significant CAD. Unfortunately, at the end of the procedure patient developed increasing shortness of breath she was initially treated with IV diuretics and oxygen but her dyspnea persisted and she required emergency intubation and had periods of asystole. ACLS protocol was initiated. Please see CODE BLUE sheet for details. She was transferred to the ICU for further management and the hospitalist service was consulted for medical management. I saw the patient this morning intubated and not on any sedation. Pulmonology is following for vent management. Patient was responding appropriately to external stimuli and started to wake up. She will likely need a CT of the head as there is no sedation and the patient is not responding appropriately. 04/26/2021 No acute events overnight. Patient was extubated early in the evening and she tolerated well.. Patient is currently saturating 97 on room air. Patient is wanting to eat Jell-O. Ending speech evaluation. Pending PT OT evaluation for determining placement needs. Patient's chart, labs, images were reviewed and discussed with RN Vitals/I&O Vitals/I&O: Vital Signs Date Time Temp Pulse Resp B/P (MAP) Pulse Ox O2 Delivery O2 Flow Rate FiO2 04/26/21 07:23 97 BiPAP/CPAP 04/26/21 07:00 70 20 139/74 (95) 04/26/21 04:00 97.6 97.6 04/26/21 04:00 15.0 I & O 04/25/21 04/25/2104/26/21 15:00 23:00 07:00 Intake Total 300 ml Output Total 2400 ml 1300 ml 750 ml Balance -2100 ml -1300 ml -750 ml Physical Exam General: Alert, Oriented X3, Cooperative Heart: Regular rate Lungs: Clear Abdomen: Normal bowel sounds, No tenderness Extremities: No edema, Normal pulses Labs Labs: Laboratory Tests Test 04/25/21 13:00 O2 Saturation 98 % (92-99) Arterial Blood pH 7.55 (7.35-7.45) Arterial Blood pCO2 at Patient Temp 37 mmHg (35-46) Arterial Blood pO2 at Patient Temp 108 mmHg (65-108) Arterial Blood HCO3 31 mmol/L (21-28) Arterial Blood Base Excess 9 mmol/L (-3-3) FiO2 50 Comment Review of Relevant I have reviewed the following items clarisa (where applicable) has been applied. Justifications for Admission Other Justification GERALD CRONIN MD Apr 26, 2021 11:33
[2021-04-26 14:41] LABS: BASO % 0 % (0-3); EOS % 0 % (0-3); HEMATOCRIT 36.8 % (36.0-47.0); HEMOGLOBIN 12.4 g/dL (12.0-15.5); LYMPH # 0.8 x10^3/uL (1.0-4.8); LYMPH % 7 % (24-48); MEAN CORPUSCULAR HEMOGLOBIN 31 pg (25-35); MEAN CORPUSCULAR HGB CONC 34 g/dL (31-37); MEAN CORPUSCULAR VOLUME 92 fL (79-100); MONO % 9 % (0-9); NEUT # 9.3 x10^3/uL (1.8-7.7); NEUT % 83 % (31-73); PLATELET COUNT 325 x10^3/uL (140-400); RED BLOOD COUNT 3.98 x10^6/uL (3.50-5.40); RED CELL DISTRIBUTION WIDTH 13.1 % (11.5-14.5); WHITE BLOOD COUNT 11.2 x10^3/uL (4.0-11.0)
[2021-04-26 14:58] LABS: CALCIUM 8.9 mg/dL (8.5-10.1); GFR 54.1; MAGNESIUM 2.6 mg/dL (1.8-2.4); PHOSPHORUS 3.3 mg/dL (2.6-4.7)
[2021-04-26 15:00] LABS: POTASSIUM 2.8 mmol/L (3.5-5.1)
[2021-04-26] MEDS: POTASSIUM CHLORIDE 10MEQ 100 ML IV SCH ×6 (16:19→23:21)
[2021-04-26] MEDS: ENOXAPARIN 40 MG/0.4 ML SYRINGE. SQ SCH (20:38)
[2021-04-26] MEDS: LATANOPROST 0.005% OPHTH SOLUTION 2.5ML BOTTLE. OU SCH (20:38)
[2021-04-27] VITALS: BP 122/72
[2021-04-27] MEDS: POTASSIUM CHLORIDE 10MEQ 100 ML IV SCH ×6 (00:42→13:11)
[2021-04-27 04:00] VITALS: BP 153/77
[2021-04-27] MEDS: PIPERACILLIN/TAZOBACTAM 3.375 GM in IV NORMAL SALINE 50ML 50 ML IV SCH ×4 (05:47→23:09)
[2021-04-27 06:31] LABS: CALCIUM 9.4 mg/dL (8.5-10.1); CREATININE 0.9 mg/dL (0.6-1.0); POTASSIUM 3.2 mmol/L (3.5-5.1)
--- NOTE | 2021-04-27 07:26 | PDOC ---
PULMONARY PROGRESS NOTES DATE: 04/27/21 TIME: 07:25 Subjective extubated on 04/25 used bipap 2 hrs last night on vm 35% not on home 02 sob better Vitals Vital Signs Date Time Temp Pulse Resp B/P (MAP) Pulse Ox O2 Delivery O2 Flow Rate FiO2 04/27/21 04:00 98.5 73 18 153/77 (102) 98 Venturi Mask 98.5 ROS: No Nausea, No Chest Pain General: Alert, No acute distress HEENT: Other (intubated) Lungs: Crackles Cardiovascular: S1, S2 Abdomen: Soft, Non-tender Neuro Exam: Alert Extremities: Other (1+edema) Skin: Warm Labs Laboratory Tests Test 04/25/21 08:00 04/25/21 08:08 04/25/21 13:00 04/26/21 14:35 O2 Saturation 98 % (92-99) 98 % (92-99) Arterial Blood pH 7.55 (7.35-7.45) 7.55 (7.35-7.45) Arterial Blood pCO2 at Patient Temp 35 mmHg (35-46) 37 mmHg (35-46) Arterial Blood pO2 at Patient Temp 107 mmHg (65-108) 108 mmHg (65-108) Arterial Blood HCO3 30 mmol/L (21-28) 31 mmol/L (21-28) Arterial Blood Base Excess 7 mmol/L (-3-3) 9 mmol/L (-3-3) FiO2 50 50 PG-Vtw-D-Type Natriuretic Peptide 84292 pg/mL (0-449) Triglycerides Level 129 mg/dL (0-150) Cholesterol Level 164 mg/dL (0-200) LDL Cholesterol, Calculated 116 mg/dL (0-100) VLDL Cholesterol, Calculated 26 mg/dL (0-40) Non-HDL Cholesterol Calculated 142 mg/dL (0-129) HDL Cholesterol 22 mg/dL (40-60) Cholesterol/HDL Ratio 7.5 Thyroid Stimulating Hormone (TSH) 1.025 uIU/mL (0.358-3.74) White Blood Count 11.2 x10^3/uL (4.0-11.0) Red Blood Count 3.98 x10^6/uL (3.50-5.40) Hemoglobin 12.4 g/dL (12.0-15.5) Hematocrit 36.8 % (36.0-47.0) Mean Corpuscular Volume 92 fL (79-100) Mean Corpuscular Hemoglobin 31 pg (25-35) Mean Corpuscular Hemoglobin Concent 34 g/dL (31-37) Red Cell Distribution Width 13.1 % (11.5-14.5) Platelet Count 325 x10^3/uL (140-400) Neutrophils (%) (Auto) 83 % (31-73) Lymphocytes (%) (Auto) 7 % (24-48) Monocytes (%) (Auto) 9 % (0-9) Eosinophils (%) (Auto) 0 % (0-3) Basophils (%) (Auto) 0 % (0-3) Neutrophils # (Auto) 9.3 x10^3/uL (1.8-7.7) Lymphocytes # (Auto) 0.8 x10^3/uL (1.0-4.8) Monocytes # (Auto) 1.0 x10^3/uL (0.0-1.1) Eosinophils # (Auto) 0.0 x10^3/uL (0.0-0.7) Basophils # (Auto) 0.0 x10^3/uL (0.0-0.2) Sodium Level 149 mmol/L (136-145) Potassium Level 2.8 mmol/L (3.5-5.1) Chloride Level 106 mmol/L (98-107) Carbon Dioxide Level 37 mmol/L (21-32) Anion Gap 6 (6-14) Blood Urea Nitrogen 16 mg/dL (7-20) Creatinine 1.0 mg/dL (0.6-1.0) Estimated GFR (Cockcroft-Gault) 54.1 Glucose Level 117 mg/dL (70-99) Calcium Level 8.9 mg/dL (8.5-10.1) Phosphorus Level 3.3 mg/dL (2.6-4.7) Magnesium Level 2.6 mg/dL (1.8-2.4) Test 04/27/21 06:15 Sodium Level 146 mmol/L (136-145) Potassium Level 3.2 mmol/L (3.5-5.1) Chloride Level 106 mmol/L (98-107) Carbon Dioxide Level 33 mmol/L (21-32) Anion Gap 7 (6-14) Blood Urea Nitrogen 20 mg/dL (7-20) Creatinine 0.9 mg/dL (0.6-1.0) Estimated GFR (Cockcroft-Gault) 61.0 Glucose Level 120 mg/dL (70-99) Calcium Level 9.4 mg/dL (8.5-10.1) Laboratory Tests Test 04/26/21 14:35 04/27/21 06:15 White Blood Count 11.2 x10^3/uL (4.0-11.0) Red Blood Count 3.98 x10^6/uL (3.50-5.40) Hemoglobin 12.4 g/dL (12.0-15.5) Hematocrit 36.8 % (36.0-47.0) Mean Corpuscular Volume 92 fL (79-100) Mean Corpuscular Hemoglobin 31 pg (25-35) Mean Corpuscular Hemoglobin Concent 34 g/dL (31-37) Red Cell Distribution Width 13.1 % (11.5-14.5) Platelet Count 325 x10^3/uL (140-400) Neutrophils (%) (Auto) 83 % (31-73) Lymphocytes (%) (Auto) 7 % (24-48) Monocytes (%) (Auto) 9 % (0-9) Eosinophils (%) (Auto) 0 % (0-3) Basophils (%) (Auto) 0 % (0-3) Neutrophils # (Auto) 9.3 x10^3/uL (1.8-7.7) Lymphocytes # (Auto) 0.8 x10^3/uL (1.0-4.8) Monocytes # (Auto) 1.0 x10^3/uL (0.0-1.1) Eosinophils # (Auto) 0.0 x10^3/uL (0.0-0.7) Basophils # (Auto) 0.0 x10^3/uL (0.0-0.2) Sodium Level 149 mmol/L (136-145) 146 mmol/L (136-145) Potassium Level 2.8 mmol/L (3.5-5.1) 3.2 mmol/L (3.5-5.1) Chloride Level 106 mmol/L (98-107) 106 mmol/L (98-107) Carbon Dioxide Level 37 mmol/L (21-32) 33 mmol/L (21-32) Anion Gap 6 (6-14) 7 (6-14) Blood Urea Nitrogen 16 mg/dL (7-20) 20 mg/dL (7-20) Creatinine 1.0 mg/dL (0.6-1.0) 0.9 mg/dL (0.6-1.0) Estimated GFR (Cockcroft-Gault) 54.1 61.0 Glucose Level 117 mg/dL (70-99) 120 mg/dL (70-99) Calcium Level 8.9 mg/dL (8.5-10.1) 9.4 mg/dL (8.5-10.1) Phosphorus Level 3.3 mg/dL (2.6-4.7) Magnesium Level 2.6 mg/dL (1.8-2.4) Medications Active Scripts Medications Dose Route/Sig Max Daily Dose Days Date Category Hydrocodone-Apap 5-325 (Hydrocodone Bit/Acetaminophen) 1 Tab Tablet 1 Tab PO PRN Q6HRS PRN 04/16/21 Reported NITROGLYCERIN SubLingual (Nitroglycerin) 0.4 Mg Tab.subl 0.4 Mg SL PRN Q5MIN PRN 04/16/21 Reported Lasix (Furosemide) 20 Mg Tablet 1 Tab PO DAILY 30 04/16/21 Reported Isosorbide Mononitrate Er (Isosorbide Mononitrate) 60 Mg Tab.er.24h 1 Tab PO DAILY 04/16/21 Reported Klor-Con M10 (Potassium Chloride) 10 Meq Tab.er.prt 10 Meq PO DAILY 04/16/21 Reported Vitamin D3 (Cholecalciferol (Vitamin D3)) 5,000 Unit Tab.rapdis 5,000 Unit PO DAILY 11/24/19 Reported Aspirin 81 Mg Tab.chew 81 Mg PO DAILY 11/24/19 Reported Amlodipine Besylate 10 Mg Tablet 10 Mg PO DAILY 11/24/19 Reported Fluoxetine Hcl 40 Mg Capsule 40 Mg PO DAILY 11/24/19 Reported Simvastatin 20 Mg Tablet 20 Mg PO HS 11/24/19 Reported Multi-Vitamin Daily (Multivitamin) 1 Each Tablet 1 Each PO DAILY 11/24/19 Reported Latanoprost 2.5 Ml Drops 1 Drop OU HS 11/24/19 Reported Impression . 1. Acute hypercapnic and hypoxic respiratory failure secondary to cardiac arrest/flash pulmonary edema 2. 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 Etiology likely due to hypoxia. Initial chest x-ray consistent with flash pulmonary edema. 3. The patient with abnormal right heart cardiac catheterization, suggestive of left ventricular failure. She had a pulmonary capillary wedge pressure of 23 and a left ventricular end-diastolic pressure of 26. 4. Underlying obstructive sleep apnea and suspected obesity hypoventilation syndrome. 5. Shock, requiring dopamine, likely cardiogenic.--improved 6. No significant coronary artery disease. 7. Encephalopathy. Likely post sedation Plan . Updated 04/27/2021 extubated 04/25 on 02 vm 35% fio2 titrate fio2 to keep sat 90% bipap prn during day cont at night Follow neurology recs. CT head reviewed Follow chest x-ray and ABG, Cont. ABX Follow cardiology recommendations--status post cardiac catheterization 55% coronaries clean, diuresis per cardiology lasix monitor k cr replace k DVT/GI prophylaxis: Lovenox Discussed with RN and RT Updated 04/25/2021 Continue current vent support 10/500/50/5 Follow neurology recs. Patient is scheduled for CT head. Once back from CT head will proceed with CPAP trial and possible extubation. Follow chest x-ray and ABG, -- no change today Cont. ABX Follow cardiology recommendations--status post cardiac catheterization 55% coronaries clean, diuresis per cardiology Continue tube feed for nutritional support DVT/GI prophylaxis: Lovenox Discussed with RN and RT Updated 04/24/2021 Continue current vent support 10/500/50/5 Follow neurology recs Follow chest x-ray and ABG, -- no change today plan to proceed with PS trial once more awake Cont. ABX Follow cardiology recommendations--status post cardiac catheterization 55% coronaries clean, diuresis per cardiology Continue tube feed for nutritional support DVT/GI prophylaxis: Lovenox Discussed with RN and RT Critical care time 30 minutes SEBASTIAN WYMAN MD Apr 27, 2021 07:26
[2021-04-27 08:00] VITALS: BP 138/75
[2021-04-27] MEDS: FAMOTIDINE 20 MG/2 ML VIAL IVP SCH ×2 (09:34→19:41)
[2021-04-27] MEDS: FUROSEMIDE 40 MG/4 ML VIAL. IVP SCH (09:35)
--- NOTE | 2021-04-27 11:17 | PDOC ---
[employer] [facility] PROGRESS NOTE Date of Service DOS: DATE: 04/27/21 TIME: 11:16 Chief Complaint Chief Complaint Dysphagiathat is post intubation Acute hypoxic hypercapnic respiratory failure status post intubation. Status post extubation on 04/26/2021 Cardiopulmonary arrest due to hypoxia 8 minutes with ROSC Acute metabolic and possible ischemic encephalopathy Acute on chronic CHF CLEMENCIA Hypertension Hypokalemia Transferred to the [facility] telemetry floor Pulmonology consulted, patient will likely need outpatient sleep study for CPAP Continue empiric IV antibiotics for possible aspiration pneumonia Lovenox for DVT prophylaxis Protonix or Pepcid GI prophylaxis ADA diet Full code Discussed with RN and SW Disposition inpatient management as above Surrogate decision maker is History of Present Illness History of Present Illness 75-year-old female with past medical history of hypertension, obesity, dyslipide jose m, sleep apnea, who was admitted for scheduled left heart cath on 04/16/2021 for chest pains that was relieved with nitroglycerin. Patient underwent left and right heart cath which showed no significant CAD. Unfortunately, at the end of the procedure patient developed increasing shortness of breath she was initially treated with IV diuretics and oxygen but her dyspnea persisted and she required emergency intubation and had periods of asystole. ACLS protocol was initiated. Please see CODE BLUE sheet for details. She was transferred to the ICU for further management and the hospitalist service was consulted for medical management. I saw the patient this morning intubated and not on any sedation. Pulmonology is following for vent management. Patient was responding appropriately to external stimuli and started to wake up. She will likely need a CT of the head as there is no sedation and the patient is not responding appropriately. 04/26/2021 No acute events overnight. Patient was extubated early in the evening and she tolerated well.. Patient is currently saturating 97 on room air. Patient is wanting to eat Jell-O. Pending speech evaluation. Pending PT OT evaluation for determining placement needs. Patient's chart, labs, images were reviewed and d iscussed with RN 04/27/2021 No acute events overnight. Patient responding well to 40 mg IV Lasix with 1.5 L urine output. We will repeat IV Lasix today and pending further speech evaluation. Patient is currently n.p.o. due to aspiration risk. Pending PT OT evaluation. Patient's chart, labs, images were reviewed and discussed with RN Vitals/I&O Vitals/I&O: Vital Signs Date Time Temp Pulse Resp B/P (MAP) Pulse Ox O2 Delivery O2 Flow Rate FiO2 04/27/21 08:00 Venturi Mask 04/27/21 08:00 98.7 58 21 138/75 (96) 97 4.0 98.7 I & O 04/26/21 04/26/21 04/27/21 15:00 23:00 07:00 Intake Total 290 ml 200 ml 914.47 ml Output Total 1950 ml 550 ml 345 ml Balance -1660 ml -350 ml 569.47 ml Physical Exam General: Alert, Oriented X3, Cooperative Heart: Regular rate Lungs: Crackles Abdomen: Normal bowel sounds, No tenderness Extremities: No edema, Normal pulses Labs Labs: Laboratory Tests Test 04/26/21 14:35 04/27/21 06:15 White Blood Count 11.2 x10^3/uL (4.0-11.0) Red Blood Count 3.98 x10^6/uL (3.50-5.40) Hemoglobin 12.4 g/dL (12.0-15.5) Hematocrit 36.8 % (36.0-47.0) Mean Corpuscular Volume 92 fL (79-100) Mean Corpuscular Hemoglobin 31 pg (25-35) Mean Corpuscular Hemoglobin Concent 34 g/dL (31-37) Red Cell Distribution Width 13.1 % (11.5-14.5) Platelet Count 325 x10^3/uL (140-400) Neutrophils (%) (Auto) 83 % (31-73) Lymphocytes (%) (Auto) 7 % (24-48) Monocytes (%) (Auto) 9 % (0-9) Eosinophils (%) (Auto) 0 % (0-3) Basophils (%) (Auto) 0 % (0-3) Neutrophils # (Auto) 9.3 x10^3/uL (1.8-7.7) Lymphocytes # (Auto) 0.8 x10^3/uL (1.0-4.8) Monocytes # (Auto) 1.0 x10^3/uL (0.0-1.1) Eosinophils # (Auto) 0.0 x10^3/uL (0.0-0.7) Basophils # (Auto) 0.0 x10^3/uL (0.0-0.2) Sodium Level 149 mmol/L (136-145) 146 mmol/L (136-145) Potassium Level 2.8 mmol/L (3.5-5.1) 3.2 mmol/L (3.5-5.1) Chloride Level 106 mmol/L (98-107) 106 mmol/L (98-107) Carbon Dioxide Level 37 mmol/L (21-32) 33 mmol/L (21-32) Anion Gap 6 (6-14) 7 (6-14) Blood Urea Nitrogen 16 mg/dL (7-20) 20 mg/dL (7-20) Creatinine 1.0 mg/dL (0.6-1.0) 0.9 mg/dL (0.6-1.0) Estimated GFR (Cockcroft-Gault) 54.1 61.0 Glucose Level 117 mg/dL (70-99) 120 mg/dL (70-99) Calcium Level 8.9 mg/dL (8.5-10.1) 9.4 mg/dL (8.5-10.1) Phosphorus Level 3.3 mg/dL (2.6-4.7) Magnesium Level 2.6 mg/dL (1.8-2.4) Comment Review of Relevant I have reviewed the following items clarisa (where applicable) has been applied. Medications: Current Medications Medications (Trade) Dose Ordered Sig/Miguel Angel Route PRN Reason Start Time Stop Time Status Last Admin Dose Admin Potassium Chloride/Water 100 ml @ 100 mls/hr Q1H IV 04/26/21 16:00 04/26/21 23:59 DC 04/27/21 02:03 Potassium Chloride/Water 100 ml @ 100 mls/hr Q1H IV 04/27/21 09:00 04/27/21 12:59 04/27/21 09:49 Justifications for Admission Other Justification GERALD CRONIN MD Apr 27, 2021 11:17
[2021-04-27 16:00] VITALS: BP 146/85
[2021-04-27 19:27] VITALS: BP 127/68
[2021-04-27] MEDS: ENOXAPARIN 40 MG/0.4 ML SYRINGE. SQ SCH (19:41)
[2021-04-27] MEDS: LATANOPROST 0.005% OPHTH SOLUTION 2.5ML BOTTLE. OU SCH (19:41)
[2021-04-27 22:39] VITALS: BP 146/70
[2021-04-28 02:51] VITALS: BP 128/77
[2021-04-28] MEDS: PIPERACILLIN/TAZOBACTAM 3.375 GM in IV NORMAL SALINE 50ML 50 ML IV SCH (05:22)
[2021-04-28 07:00] VITALS: BP 113/85
--- NOTE | 2021-04-28 08:56 | PDOC ---
PROGRESS NOTES Date of Service DATE: 04/28/21 TIME: 08:54 Assessment Anoxic encephalopathy, did not have prolonged downtime Head CT negative Dysphagia post extubation, getting better Plan Will follow Subjective No complaints, still has Subramanian in Objective Vital Signs Date Time Temp Pulse Resp B/P (MAP) Pulse Ox O2 Delivery O2 Flow Rate FiO2 04/28/21 03:11 96 Nasal Cannula 2.0 04/28/21 02:51 97.5 78 22 128/77 (94) 97.5 Intake and Output 04/28/21 07:00 Intake Total 1220 ml Output Total 2000 ml Balance -780 ml Intake Oral 1220 ml Output Urine Total 2000 ml # Bowel Movements 3 PHYSICAL EXAM Alert. Oriented to place and person. PERRL. EOMI. CN: no focal findings. Muscle tone: normal. Muscle strength: 4/5 DTR: 2+ Plantar reflex: Flexor Gait: not examined in bed. Sensory exam: no abnormal findings. No cerebellar signs elicited. Review of Relevant I have reviewed the following items clarisa (where applicable) has been applied. Labs Laboratory Tests Test 04/26/21 14:35 04/27/21 06:15 White Blood Count 11.2 x10^3/uL (4.0-11.0) Red Blood Count 3.98 x10^6/uL (3.50-5.40) Hemoglobin 12.4 g/dL (12.0-15.5) Hematocrit 36.8 % (36.0-47.0) Mean Corpuscular Volume 92 fL (79-100) Mean Corpuscular Hemoglobin 31 pg (25-35) Mean Corpuscular Hemoglobin Concent 34 g/dL (31-37) Red Cell Distribution Width 13.1 % (11.5-14.5) Platelet Count 325 x10^3/uL (140-400) Neutrophils (%) (Auto) 83 % (31-73) Lymphocytes (%) (Auto) 7 % (24-48) Monocytes (%) (Auto) 9 % (0-9) Eosinophils (%) (Auto) 0 % (0-3) Basophils (%) (Auto) 0 % (0-3) Neutrophils # (Auto) 9.3 x10^3/uL (1.8-7.7) Lymphocytes # (Auto) 0.8 x10^3/uL (1.0-4.8) Monocytes # (Auto) 1.0 x10^3/uL (0.0-1.1) Eosinophils # (Auto) 0.0 x10^3/uL (0.0-0.7) Basophils # (Auto) 0.0 x10^3/uL (0.0-0.2) Sodium Level 149 mmol/L (136-145) 146 mmol/L (136-145) Potassium Level 2.8 mmol/L (3.5-5.1) 3.2 mmol/L (3.5-5.1) Chloride Level 106 mmol/L (98-107) 106 mmol/L (98-107) Carbon Dioxide Level 37 mmol/L (21-32) 33 mmol/L (21-32) Anion Gap 6 (6-14) 7 (6-14) Blood Urea Nitrogen 16 mg/dL (7-20) 20 mg/dL (7-20) Creatinine 1.0 mg/dL (0.6-1.0) 0.9 mg/dL (0.6-1.0) Estimated GFR (Cockcroft-Gault) 54.1 61.0 Glucose Level 117 mg/dL (70-99) 120 mg/dL (70-99) Calcium Level 8.9 mg/dL (8.5-10.1) 9.4 mg/dL (8.5-10.1) Phosphorus Level 3.3 mg/dL (2.6-4.7) Magnesium Level 2.6 mg/dL (1.8-2.4) Medications Current Medications Lidocaine HCl (Lidocaine 1% 20ml Vial) 20 ml STK-MED ONCE .ROUTE ; Start 04/16/21 at 07:35; Stop 04/16/21 at 07:35; Status DC Iodixanol (Visipaque 320) 100 ml STK-MED ONCE .ROUTE ; Start 04/16/21 at 07:35; Stop 04/16/21 at 07:35; Status DC Heparin Sodium/ Sodium Chloride 1,500 ml @ As Directed STK-MED ONCE .ROUTE ; Start 04/16/21 at 07:37; Stop 04/16/21 at 07:37; Status DC Heparin Sodium/ Sodium Chloride (HEPARIN for ARTERIAL LINE FLUSH) 1,000 unit 1X ONCE IART Last administered on 04/16/21at 08:30; Start 04/16/21 at 08:30; Stop 04/16/21 at 08:31; Status DC Heparin Sodium/ Sodium Chloride (HEPARIN for ARTERIAL LINE FLUSH) 1,000 unit 1X ONCE IART Last administered on 04/16/21at 08:30; Start 04/16/21 at 08:30; Stop 04/16/21 at 08:31; Status DC Midazolam HCl (Versed) 5 mg 1X ONCE IV Last administered on 04/16/21at 08:30; Start 04/16/21 at 08:30; Stop 04/16/21 at 08:31; Status DC Fentanyl Citrate (Fentanyl 2ml Vial) 100 mcg 1X ONCE IV Last administered on 04/16/21at 08:30; Start 04/16/21 at 08:30; Stop 04/16/21 at 08:31; Status DC Iodixanol (Visipaque 320) 100 ml 1X ONCE IART Last administered on 04/16/21at 08:30; Start 04/16/21 at 08:30; Stop 04/16/21 at 08:31; Status DC Lidocaine HCl (Lidocaine 1% 20ml Vial) 20 ml 1X ONCE INJ Last administered on 04/16/21at 08:30; Start 04/16/21 at 08:30; Stop 04/16/21 at 08:31; Status DC Info (CONTRAST GIVEN -- Rx MONITORING) 1 each PRN DAILY PRN MC SEE COMMENTS; Start 04/16/21 at 08:30; Stop 04/18/21 at 08:29; Status DC Iodixanol (Visipaque 320) 100 ml STK-MED ONCE .ROUTE ; Start 04/16/21 at 09:40; Stop 04/16/21 at 09:41; Status DC Heparin Sodium/ Sodium Chloride 500 ml @ As Directed STK-MED ONCE .ROUTE ; Start 04/16/21 at 09:52; Stop 04/16/21 at 09:53; Status DC Furosemide (Lasix) 100 mg STK-MED ONCE .ROUTE ; Start 04/16/21 at 09:57; Stop 04/16/21 at 09:58; Status DC Morphine Sulfate (Morphine Sulfate) 10 mg STK-MED ONCE .ROUTE ; Start 04/16/21 at 10:01; Stop 04/16/21 at 10:01; Status DC Ondansetron HCl (Zofran) 4 mg STK-MED ONCE .ROUTE ; Start 04/16/21 at 10:03; Stop 04/16/21 at 10:03; Status DC Heparin Sodium/ Sodium Chloride 500 ml @ As Directed STK-MED ONCE .ROUTE ; Start 04/16/21 at 10:24; Stop 04/16/21 at 10:24; Status DC Succinylcholine Chloride (Anectine) 200 mg STK-MED ONCE .ROUTE ; Start 04/16/21 at 10:26; Stop 04/16/21 at 10:27; Status DC Furosemide (Lasix) 100 mg 1X ONCE IVP Last administered on 04/16/21at 10:30; Start 04/16/21 at 10:30; Stop 04/16/21 at 10:35; Status DC Morphine Sulfate (Morphine Sulfate) 10 mg 1X ONCE IV Last administered on 04/16/21at 10:30; Start 04/16/21 at 10:30; Stop 04/16/21 at 10:35; Status DC Ondansetron HCl (Zofran) 4 mg 1X ONCE IVP Last administered on 04/16/21at 10:30; Start 04/16/21 at 10:30; Stop 04/16/21 at 10:35; Status DC Albuterol/ Ipratropium (Duoneb) 3 ml 1X ONCE NEB Last administered on 04/16/21at 10:05; Start 04/16/21 at 10:45; Stop 04/16/21 at 10:46; Status DC Fentanyl Citrate 30 ml @ 0 mls/hr CONT PRN IV SEE PROTOCOL Last administered on 04/17/21at 05:24; Start 04/16/21 at 10:45; Stop 04/17/21 at 10:44; Status DC Midazolam HCl 100 ml @ 0 mls/hr CONT PRN IV SEE PROTOCOL Last administered on 04/17/21at 08:54; Start 04/16/21 at 10:45; Stop 04/17/21 at 10:44; Status DC Dopamine HCl/ Dextrose 250 ml @ As Directed STK-MED ONCE IV ; Start 04/16/21 at 11:08; Stop 04/16/21 at 11:08; Status DC Dopamine HCl/ Dextrose 250 ml @ 17.138 mls/ hr CONT PRN IV SEE I/O RECORD Last administered on 04/17/21at 11:02; Start 04/16/21 at 12:00; Stop 04/17/21 at 11:59; Status DC Furosemide (Lasix) 40 mg 1X ONCE IVP Last administered on 04/16/21at 12:30; Start 04/16/21 at 12:30; Stop 04/16/21 at 12:31; Status DC Potassium Chloride/Water 100 ml @ 100 mls/hr Q1H IV Last administered on 04/16/21at 14:00; Start 04/16/21 at 13:00; Stop 04/16/21 at 14:59; Status DC Furosemide (Lasix) 40 mg STK-MED ONCE .ROUTE ; Start 04/16/21 at 12:37; Stop 04/16/21 at 12:37; Status DC Succinylcholine Chloride (Anectine) 200 mg STK-MED ONCE .ROUTE ; Start 04/16/21 at 16:48; Stop 04/16/21 at 16:49; Status DC Epinephrine HCl (EPINEPHrine SYRINGE) 2 mg STK-MED ONCE .ROUTE ; Start 04/16/21 at 11:00; Stop 04/16/21 at 18:11; Status DC Furosemide (Lasix) 40 mg 1X ONCE IVP Last administered on 04/17/21at 10:10; Start 04/17/21 at 10:00; Stop 04/17/21 at 10:01; Status DC Fentanyl Citrate 30 ml @ 0 mls/hr CONT PRN IV SEE PROTOCOL Last administered on 04/21/21at 04:04; Start 04/17/21 at 16:15 Midazolam HCl 100 ml @ 0 mls/hr CONT PRN IV SEE PROTOCOL Last administered on 04/20/21at 07:38; Start 04/17/21 at 16:15 Dopamine HCl/ Dextrose 250 ml @ 16.031 mls/ hr CONT PRN IV SEE I/O RECORD Last administered on 04/20/21at 02:00; Start 04/18/21 at 00:00; Stop 04/20/21 at 13:29; Status DC Furosemide (Lasix) 40 mg 1X ONCE IVP Last administered on 04/18/21at 10:00; Start 04/18/21 at 09:30; Stop 04/18/21 at 09:31; Status DC Potassium Bicarbonate (Potassium Effervescent Tablet) 40 meq 1X ONCE PEG Last administered on 04/18/21 09:59; Start 04/18/21 at 09:30; Stop 04/18/21 at 09:31; Status DC Famotidine (Pepcid Vial) 20 mg BID IVP Last administered on 04/27/21at 19:41; S tart 04/18/21 at 12:00 Enoxaparin Sodium (Lovenox 40mg Syringe) 40 mg Q24H SQ ; Start 04/18/21 at 12:00; Status Cancel Furosemide (Lasix) 40 mg 1X ONCE IVP Last administered on 04/18/21at 16:24; Start 04/18/21 at 16:00; Stop 04/18/21 at 16:01; Status DC Furosemide (Lasix) 40 mg DAILY IVP Last administered on 04/27/21at 09:35; Start 04/19/21 at 09:00 Potassium Bicarbonate (Potassium Effervescent Tablet) 40 meq 1X ONCE FT Last administered on 04/18/21at 16:24; Start 04/18/21 at 16:15; Stop 04/18/21 at 16:1 6; Status DC Enoxaparin Sodium (Lovenox 40mg Syringe) 40 mg Q24H SQ Last administered on 04/27/21 19:41; Start 04/18/21 at 21:00 Potassium Bicarbonate (Potassium Effervescent Tablet) 40 meq 1X ONCE PO Last administered on 04/19/21at 10:25; Start 04/19/21 at 10:15; Stop 04/19/21 at 10:16; Status DC Potassium Bicarbonate (Potassium Effervescent Tablet) 40 meq 1X ONCE PO Last a dministered on 04/20/21at 08:13; Start 04/20/21 at 07:30; Stop 04/20/21 at 07:31; Status DC Dopamine HCl/ Dextrose 250 ml @ 18.113 mls/ hr CONT PRN IV SEE I/O RECORD Last administered on 04/21/21at 04:18; Start 04/20/21 at 13:45 Latanoprost (Xalatan) 1 drop HS OU Last administered on 04/27/21at 19:41; Start 04/21/21 at 21:00 Piperacillin Sod/ Tazobactam Sod (Zosyn Per Pharmacy) 1 each PRN DAILY PRN MC SEE COMMENTS; Start 04/22/21 at 11:00 Propofol 100 ml @ 2.823 mls/ hr CONT PRN IV PER PROTOCOL Last administered on 04/23/21at 08:40; Start 04/22/21 at 11:00 Piperacillin Sod/ Tazobactam Sod 3.375 gm/Sodium Chloride 50 ml @ 100 mls/hr Q6HRS IV Last administered on 04/28/21at 05:22; Start 04/22/21 at 12:00 Dexmedetomidine HCl 400 mcg/ Sodium Chloride 100 ml @ 0 mls/hr CONT PRN IV PER PROTOCOL Last administered on 04/24/21at 23:37; Start 04/23/21 at 18:30 Sodium Chloride 500 ml @ 500 mls/hr 1X PRN PRN IV SEE COMMENTS; Start 04/23/21 at 18:30 Atropine Sulfate (ATROPINE 0.5mg SYRINGE) 0.5 mg PRN Q5MIN PRN IV SEE COMMENTS; Start 04/23/21 at 18:30 Potassium Chloride/Water 100 ml @ 100 mls/hr Q1H IV Last administered on 04/27/21at 02:03; Start 04/26/21 at 16:00; Stop 04/26/21 at 23:59; Status DC Potassium Chloride/Water 100 ml @ 100 mls/hr Q1H IV Last administered on 04/27/21at 12:00; Start 04/27/21 at 09:00; Stop 04/27/21 at 12:59; Status DC Active Scripts Active Reported Hydrocodone-Apap 5-325 (Hydrocodone Bit/Acetaminophen) 1 Tab Tablet 1 Tab PO PRN Q6HRS PRN NITROGLYCERIN SubLingual (Nitroglycerin) 0.4 Mg Tab.subl 0.4 Mg SL PRN Q5MIN PRN Lasix (Furosemide) 20 Mg Tablet 1 Tab PO DAILY 30 Days Isosorbide Mononitrate Er (Isosorbide Mononitrate) 60 Mg Tab.er.24h 1 Tab PO DAILY Klor-Con M10 (Potassium Chloride) 10 Meq Tab.er.prt 10 Meq PO DAILY Vitamin D3 (Cholecalciferol (Vitamin D3)) 5,000 Unit Tab.rapdis 5,000 Unit PO DAILY Aspirin 81 Mg Tab.chew 81 Mg PO DAILY Amlodipine Besylate 10 Mg Tablet 10 Mg PO DAILY Fluoxetine Hcl 40 Mg Capsule 40 Mg PO DAILY Simvastatin 20 Mg Tablet 20 Mg PO HS Multi-Vitamin Daily (Multivitamin) 1 Each Tablet 1 Each PO DAILY Latanoprost 2.5 Ml Drops 1 Drop OU HS Vitals/I & O Vital Sign - Last 24 Hours 04/27/21 04/27/21 04/27/21 04/27/21 16:00 19:27 19:35 22:39 Temp 97.6 97.6 97.8 97.6 97.6 97.8 Pulse 64 67 65 Resp 18 16 18 B/P (MAP) 146/85 (105) 127/68 (87) 146/70 (95) Pulse Ox 96 98 92 O2 Delivery Nasal Cannula Nasal Cannula Nasal Cannula Nasal Cannula O2 Flow Rate 2.0 2.0 2.0 2.0 04/27/21 04/28/21 04/28/21 04/28/21 23:00 01:07 02:51 03:11 Temp 97.5 97.5 Pulse 78 Resp 22 B/P (MAP) 128/77 (94) Pulse Ox 97 95 97 96 O2 Delivery BiPAP/CPAP BiPAP/CPAP Nasal Cannula Nasal Cannula O2 Flow Rate 2.0 2.0 Intake and Output 04/27/21 04/27/21 04/28/21 15:00 23:00 07:00 Intake Total 120 ml 600 ml 500 ml Output Total 1200 ml 500 ml 300 ml Balance -1080 ml 100 ml [address] without contrast, 04/25. There is no acute or subacute extra-axial or intraparenchymal hemorrhage. There is no mass effect or midline shift. There is no hydrocephalus. There are areas of decreased attenuation within the cerebral white matter, nonspecific and likely related to chronic small vessel disease. There is cerebral volume loss. There is no complete opacification of the maxillary sinuses and there is severe ethmoid and moderate sphenoid sinus mucosal thickening. There is minimal fluid within the inferior mastoid air cells. There is no suspicious osseous lesion. IMPRESSION: 1. No acute intracranial finding. MRI is more sensitive for acute infarction. 2. Bilateral cerebral white matter changes, likely due to chronic small vessel disease. 3. Cerebral volume loss. 4. Paranasal sinus disease. Justicifation of Admission Dx: Justifications for Admission: Justification of Admission Dx: Yes Respiratory Failure: Mechanical Ventilation UNIQUE LONG MD Apr 28, 2021 08:56
[2021-04-28] MEDS: FAMOTIDINE 20 MG/2 ML VIAL IVP SCH (08:57)
[2021-04-28] MEDS: FUROSEMIDE 40 MG/4 ML VIAL. IVP SCH (08:57)
[2021-04-28 11:00] VITALS: BP 136/79
--- NOTE | 2021-04-28 11:08 | PDOC ---
PULMONARY PROGRESS NOTES DATE: 04/28/21 TIME: 11:05 Subjective extubated on 04/25 Fully awake. Doing very well on nasal cannula. Vitals Vital Signs Date Time Temp Pulse Resp B/P (MAP) Pulse Ox O2 Delivery O2 Flow Rate FiO2 04/28/21 07:00 96.7 69 20 113/85 (94) 97 Nasal Cannula 2.0 96.7 ROS: No Nausea, No Chest Pain General: Alert, No acute distress HEENT: Other (intubated) Lungs: Clear Cardiovascular: S1, S2 Abdomen: Soft, Non-tender Neuro Exam: Alert Extremities: Other (1+edema) Skin: Warm Labs Laboratory Tests Test 04/26/21 14:35 04/27/21 06:15 White Blood Count 11.2 x10^3/uL (4.0-11.0) Red Blood Count 3.98 x10^6/uL (3.50-5.40) Hemoglobin 12.4 g/dL (12.0-15.5) Hematocrit 36.8 % (36.0-47.0) Mean Corpuscular Volume 92 fL (79-100) Mean Corpuscular Hemoglobin 31 pg (25-35) Mean Corpuscular Hemoglobin Concent 34 g/dL (31-37) Red Cell Distribution Width 13.1 % (11.5-14.5) Platelet Count 325 x10^3/uL (140-400) Neutrophils (%) (Auto) 83 % (31-73) Lymphocytes (%) (Auto) 7 % (24-48) Monocytes (%) (Auto) 9 % (0-9) Eosinophils (%) (Auto) 0 % (0-3) Basophils (%) (Auto) 0 % (0-3) Neutrophils # (Auto) 9.3 x10^3/uL (1.8-7.7) Lymphocytes # (Auto) 0.8 x10^3/uL (1.0-4.8) Monocytes # (Auto) 1.0 x10^3/uL (0.0-1.1) Eosinophils # (Auto) 0.0 x10^3/uL (0.0-0.7) Basophils # (Auto) 0.0 x10^3/uL (0.0-0.2) Sodium Level 149 mmol/L (136-145) 146 mmol/L (136-145) Potassium Level 2.8 mmol/L (3.5-5.1) 3.2 mmol/L (3.5-5.1) Chloride Level 106 mmol/L (98-107) 106 mmol/L (98-107) Carbon Dioxide Level 37 mmol/L (21-32) 33 mmol/L (21-32) Anion Gap 6 (6-14) 7 (6-14) Blood Urea Nitrogen 16 mg/dL (7-20) 20 mg/dL (7-20) Creatinine 1.0 mg/dL (0.6-1.0) 0.9 mg/dL (0.6-1.0) Estimated GFR (Cockcroft-Gault) 54.1 61.0 Glucose Level 117 mg/dL (70-99) 120 mg/dL (70-99) Calcium Level 8.9 mg/dL (8.5-10.1) 9.4 mg/dL (8.5-10.1) Phosphorus Level 3.3 mg/dL (2.6-4.7) Magnesium Level 2.6 mg/dL (1.8-2.4) Medications Active Scripts Medications Dose Route/Sig Max Daily Dose Days Date Category Hydrocodone-Apap 5-325 (Hydrocodone Bit/Acetaminophen) 1 Tab Tablet 1 Tab PO PRN Q6HRS PRN 04/16/21 Reported NITROGLYCERIN SubLingual (Nitroglycerin) 0.4 Mg Tab.subl 0.4 Mg SL PRN Q5MIN PRN 04/16/21 Reported Lasix (Furosemide) 20 Mg Tablet 1 Tab PO DAILY 30 04/16/21 Reported Isosorbide Mononitrate Er (Isosorbide Mononitrate) 60 Mg Tab.er.24h 1 Tab PO DAILY 04/16/21 Reported Klor-Con M10 (Potassium Chloride) 10 Meq Tab.er.prt 10 Meq PO DAILY 04/16/21 Reported Vitamin D3 (Cholecalciferol (Vitamin D3)) 5,000 Unit Tab.rapdis 5,000 Unit PO DAILY 11/24/19 Reported Aspirin 81 Mg Tab.chew 81 Mg PO DAILY 11/24/19 Reported Amlodipine Besylate 10 Mg Tablet 10 Mg PO DAILY 11/24/19 Reported Fluoxetine Hcl 40 Mg Capsule 40 Mg PO DAILY 11/24/19 Reported Simvastatin 20 Mg Tablet 20 Mg PO HS 11/24/19 Reported Multi-Vitamin Daily (Multivitamin) 1 Each Tablet 1 Each PO DAILY 11/24/19 Reported Latanoprost 2.5 Ml Drops 1 Drop OU HS 11/24/19 Reported Impression . 1. Acute hypercapnic and hypoxic respiratory failure secondary to cardiac arrest/flash pulmonary edema. Extubated 04/25. Doing very well on nasal cannula. 2. 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 Etiology likely due to hypoxia. Initial chest x-ray consistent with flash pulmonary edema. 3. The patient with abnormal right heart cardiac catheterization, suggestive of left ventricular failure. She had a pulmonary capillary wedge pressure of 23 and a left ventricular end-diastolic pressure of 26. 4. Underlying obstructive sleep apnea and suspected obesity hypoventilation syndrome. 5. Shock, requiring dopamine, likely cardiogenic.--improved 6. No significant coronary artery disease. 7. Encephalopathy. Likely post sedation. Completely resolved Plan . Updated 04/28/2021 Doing very well on nasal cannula. Pulmonary status is stable. Cont. ABX per infectious disease recommendations. Follow cardiology recommendations--status post cardiac catheterization 55% coronaries clean, diuresis per cardiology lasix monitor k cr replace k DVT/GI prophylaxis: Lovenox Discussed with RN Pulmonary status stable we will see her as needed. Updated 04/27/2021 extubated 04/25 on 02 vm 35% fio2 titrate fio2 to keep sat 90% bipap prn during day cont at night Follow neurology recs. CT head reviewed Follow chest x-ray and ABG, Cont. ABX Follow cardiology recommendations--status post cardiac catheterization 55% coronaries clean, diuresis per cardiology lasix monitor k cr replace k DVT/GI prophylaxis: Lovenox Discussed with RN and RT Updated 04/25/2021 Continue current vent support 10500/50/5 Follow neurology recs. Patient is scheduled for CT head. Once back from CT head will proceed with CPAP trial and possible extubation. Follow chest x-ray and ABG, -- no change today Cont. ABX Follow cardiology recommendations--status post cardiac catheterization 55% coronaries clean, diuresis per cardiology Continue tube feed for nutritional support DVT/GI prophylaxis: Lovenox Discussed with RN and RT Updated 04/24/2021 Continue current vent support 10500/50/5 Follow neurology recs Follow chest x-ray and ABG, -- no change today plan to proceed with PS trial once more awake Cont. ABX Follow cardiology recommendations--status post cardiac catheterization 55% coronaries clean, diuresis per cardiology Continue tube feed for nutritional support DVT/GI prophylaxis: Lovenox Discussed with RN and RT Critical care time 30 minutes FOUZIA PEREZ MD Apr 28, 2021 11:08
--- NOTE | 2021-04-28 11:49 | NUR ---
SS following up with discharge planning. SS reviewed pt chart and discussed with pt RN. Pt is currently requiring oxygen at two liters nasal canula. COVID19 negative. Pt has no home oxygen. Pt now on PO diet. Pt on PO Augmentin. Pt on IV Lasix. PT/OT being ordered. SS will continue to follow for discharge planning.
[2021-04-28] MEDS: AMOXICILLIN/K CLAV 500/125MG TABLET. PO SCH ×2 (12:23→21:32)
[2021-04-28 14:32] VITALS: BP 139/71
[2021-04-28 14:32] LABS: CALCIUM 9.6 mg/dL (8.5-10.1); CREATININE 0.9 mg/dL (0.6-1.0)
--- NOTE | 2021-04-28 16:57 | PDOC ---
PROGRESS NOTES Date of Service DATE: 04/28/21 TIME: 16:55 Subjective Subjective Patient seen and examined Objective Objective Vital Signs Date Time Temp Pulse Resp B/P (MAP) Pulse Ox O2 Delivery O2 Flow Rate FiO2 04/28/21 14:32 96.4 60 18 139/71 (93) 97 Nasal Cannula 2.0 96.4 Intake and Output 04/28/21 07:00 Intake Total 1220 ml Output Total 2000 ml Balance -780 ml Intake Oral 1220 ml Output Urine Total 2000 ml # Bowel Movements 3 Physical Exam Abdomen: Normal bowel sounds Heart: Regular rate General: No acute distress Lungs: Other (Slightly decreased breath sounds) Assessment Assessment Acute hypercapnic/hypoxic respiratory failure towards the end of the heart catheterization. The patient is now off the ventilator. She is responsive to questions. Continuing present treatment. Cardiopulmonary arrest: noted asystolic event due to hypoxia. 8 min to ROSC. LHC revealed fluid overload but no significant CAD. Rhythm stable. Continuing present treatment. Acute on chronic diastolic CHF/pulmonary edema. Resolving Obesity with suspected CLEMENCIA/OHS HTN: controlled HLP Encephalopathy: Improved. No acute changes on CT head scan. Neurology following Comment Review of Relevant I have reviewed the following items clarisa (where applicable) has been applied. Labs Laboratory Tests Test 04/27/21 06:15 04/28/21 13:50 Sodium Level 146 mmol/L (136-145) 145 mmol/L (136-145) Potassium Level 3.2 mmol/L (3.5-5.1) 3.0 mmol/L (3.5-5.1) Chloride Level 106 mmol/L (98-107) 104 mmol/L (98-107) Carbon Dioxide Level 33 mmol/L (21-32) 32 mmol/L (21-32) Anion Gap 7 (6-14) 9 (6-14) Blood Urea Nitrogen 20 mg/dL (7-20) 21 mg/dL (7-20) Creatinine 0.9 mg/dL (0.6-1.0) 0.9 mg/dL (0.6-1.0) Estimated GFR (Cockcroft-Gault) 61.0 61.0 Glucose Level 120 mg/dL (70-99) 104 mg/dL (70-99) Calcium Level 9.4 mg/dL (8.5-10.1) 9.6 mg/dL (8.5-10.1) Laboratory Tests Test 04/28/21 13:50 Sodium Level 145 mmol/L (136-145) Potassium Level 3.0 mmol/L (3.5-5.1) Chloride Level 104 mmol/L (98-107) Carbon Dioxide Level 32 mmol/L (21-32) Anion Gap 9 (6-14) Blood Urea Nitrogen 21 mg/dL (7-20) Creatinine 0.9 mg/dL (0.6-1.0) Estimated GFR (Cockcroft-Gault) 61.0 Glucose Level 104 mg/dL (70-99) Calcium Level 9.6 mg/dL (8.5-10.1) Medications Current Medications Lidocaine HCl (Lidocaine 1% 20ml Vial) 20 ml STK-MED ONCE .ROUTE ; Start 04/16/21 at 07:35; Stop 04/16/21 at 07:35; Status DC Iodixanol (Visipaque 320) 100 ml STK-MED ONCE .ROUTE ; Start 04/16/21 at 07:35; Stop 04/16/21 at 07:35; Status DC Heparin Sodium/ Sodium Chloride 1,500 ml @ As Directed STK-MED ONCE .ROUTE ; Start 04/16/21 at 07:37; Stop 04/16/21 at 07:37; Status DC Heparin Sodium/ Sodium Chloride (HEPARIN for ARTERIAL LINE FLUSH) 1,000 unit 1X ONCE IART Last administered on 04/16/21at 08:30; Start 04/16/21 at 08:30; Stop 04/16/21 at 08:31; Status DC Heparin Sodium/ Sodium Chloride (HEPARIN for ARTERIAL LINE FLUSH) 1,000 unit 1X ONCE IART Last administered on 04/16/21at 08:30; Start 04/16/21 at 08:30; Stop 04/16/21 at 08:31; Status DC Midazolam HCl (Versed) 5 mg 1X ONCE IV Last administered on 04/16/21at 08:30; Start 04/16/21 at 08:30; Stop 04/16/21 at 08:31; Status DC Fentanyl Citrate (Fentanyl 2ml Vial) 100 mcg 1X ONCE IV Last administered on 04/16/21at 08:30; Start 04/16/21 at 08:30; Stop 04/16/21 at 08:31; Status DC Iodixanol (Visipaque 320) 100 ml 1X ONCE IART Last administered on 04/16/21at 08:30; Start 04/16/21 at 08:30; Stop 04/16/21 at 08:31; Status DC Lidocaine HCl (Lidocaine 1% 20ml Vial) 20 ml 1X ONCE INJ Last administered on 04/16/21at 08:30; Start 04/16/21 at 08:30; Stop 04/16/21 at 08:31; Status DC Info (CONTRAST GIVEN -- Rx MONITORING) 1 each PRN DAILY PRN MC SEE COMMENTS; Start 04/16/21 at 08:30; Stop 04/18/21 at 08:29; Status DC Iodixanol (Visipaque 320) 100 ml STK-MED ONCE .ROUTE ; Start 04/16/21 at 09:40; Stop 04/16/21 at 09:41; Status DC Heparin Sodium/ Sodium Chloride 500 ml @ As Directed STK-MED ONCE .ROUTE ; Start 04/16/21 at 09:52; Stop 04/16/21 at 09:53; Status DC Furosemide (Lasix) 100 mg STK-MED ONCE .ROUTE ; Start 04/16/21 at 09:57; Stop 04/16/21 at 09:58; Status DC Morphine Sulfate (Morphine Sulfate) 10 mg STK-MED ONCE .ROUTE ; Start 04/16/21 at 10:01; Stop 04/16/21 at 10:01; Status DC Ondansetron HCl (Zofran) 4 mg STK-MED ONCE .ROUTE ; Start 04/16/21 at 10:03; Stop 04/16/21 at 10:03; Status DC Heparin Sodium/ Sodium Chloride 500 ml @ As Directed STK-MED ONCE .ROUTE ; Start 04/16/21 at 10:24; Stop 04/16/21 at 10:24; Status DC Succinylcholine Chloride (Anectine) 200 mg STK-MED ONCE .ROUTE ; Start 04/16/21 at 10:26; Stop 04/16/21 at 10:27; Status DC Furosemide (Lasix) 100 mg 1X ONCE IVP Last administered on 04/16/21at 10:30; Start 04/16/21 at 10:30; Stop 04/16/21 at 10:35; Status DC Morphine Sulfate (Morphine Sulfate) 10 mg 1X ONCE IV Last administered on 04/16/21at 10:30; Start 04/16/21 at 10:30; Stop 04/16/21 at 10:35; Status DC Ondansetron HCl (Zofran) 4 mg 1X ONCE IVP Last administered on 04/16/21at 10:30; Start 04/16/21 at 10:30; Stop 04/16/21 at 10:35; Status DC Albuterol/ Ipratropium (Duoneb) 3 ml 1X ONCE NEB Last administered on 04/16/21at 10:05; Start 04/16/21 at 10:45; Stop 04/16/21 at 10:46; Status DC Fentanyl Citrate 30 ml @ 0 mls/hr CONT PRN IV SEE PROTOCOL Last administered on 04/17/21at 05:24; Start 04/16/21 at 10:45; Stop 04/17/21 at 10:44; Status DC Midazolam HCl 100 ml @ 0 mls/hr CONT PRN IV SEE PROTOCOL Last administered on 04/17/21at 08:54; Start 04/16/21 at 10:45; Stop 04/17/21 at 10:44; Status DC Dopamine HCl/ Dextrose 250 ml @ As Directed STK-MED ONCE IV ; Start 04/16/21 at 11:08; Stop 04/16/21 at 11:08; Status DC Dopamine HCl/ Dextrose 250 ml @ 17.138 mls/ hr CONT PRN IV SEE I/O RECORD Last administered on 04/17/21at 11:02; Start 04/16/21 at 12:00; Stop 04/17/21 at 11:59; Status DC Furosemide (Lasix) 40 mg 1X ONCE IVP Last administered on 04/16/21at 12:30; Start 04/16/21 at 12:30; Stop 04/16/21 at 12:31; Status DC Potassium Chloride/Water 100 ml @ 100 mls/hr Q1H IV Last administered on 04/16/21at 14:00; Start 04/16/21 at 13:00; Stop 04/16/21 at 14:59; Status DC Furosemide (Lasix) 40 mg STK-MED ONCE .ROUTE ; Start 04/16/21 at 12:37; Stop 04/16/21 at 12:37; Status DC Succinylcholine Chloride (Anectine) 200 mg STK-MED ONCE .ROUTE ; Start 04/16/21 at 16:48; Stop 04/16/21 at 16:49; Status DC Epinephrine HCl (EPINEPHrine SYRINGE) 2 mg STK-MED ONCE .ROUTE ; Start 04/16/21 at 11:00; Stop 04/16/21 at 18:11; Status DC Furosemide (Lasix) 40 mg 1X ONCE IVP Last administered on 04/17/21at 10:10; Start 04/17/21 at 10:00; Stop 04/17/21 at 10:01; Status DC Fentanyl Citrate 30 ml @ 0 mls/hr CONT PRN IV SEE PROTOCOL Last administered on 04/21/21at 04:04; Start 04/17/21 at 16:15; Stop 04/28/21 at 14:26; Status DC Midazolam HCl 100 ml @ 0 mls/hr CONT PRN IV SEE PROTOCOL Last administered on 04/20/21at 07:38; Start 04/17/21 at 16:15; Stop 04/28/21 at 14:26; Status DC Dopamine HCl/ Dextrose 250 ml @ 16.031 mls/ hr CONT PRN IV SEE I/O RECORD Last administered on 04/20/21at 02:00; Start 04/18/21 at 00:00; Stop 04/20/21 at 13:29; Status DC Furosemide (Lasix) 40 mg 1X ONCE IVP Last administered on 04/18/21at 10:00; Start 04/18/21 at 09:30; Stop 04/18/21 at 09:31; Status DC Potassium Bicarbonate (Potassium Effervescent Tablet) 40 meq 1X ONCE PEG Last administered on 04/18/21at 09:59; Start 04/18/21 at 09:30; Stop 04/18/21 at 09:31; Status DC Famotidine (Pepcid Vial) 20 mg BID IVP Last administered on 04/28/21at 08:57; Start 04/18/21 at 12:00; Stop 04/28/21 at 14:27; Status DC Enoxaparin Sodium (Lovenox 40mg Syringe) 40 mg Q24H SQ ; Start 04/18/21 at 1 2:00; Status Cancel Furosemide (Lasix) 40 mg 1X ONCE IVP Last administered on 04/18/21at 16:24; Start 04/18/21 at 16:00; Stop 04/18/21 at 16:01; Status DC Furosemide (Lasix) 40 mg DAILY IVP Last administered on 04/28/21at 08:57; Start 04/19/21 at 09:00 Potassium Bicarbonate (Potassium Effervescent Tablet) 40 meq 1X ONCE FT Last administered on 04/18/21at 16:24; Start 04/18/21 at 16:15; Stop 04/18/21 at 16:16; Status DC Enoxaparin Sodium (Lovenox 40mg Syringe) 40 mg Q24H SQ Last administered on 04/27/21at 19:41; Start 04/18/21 at 21:00 Potassium Bicarbonate (Potassium Effervescent Tablet) 40 meq 1X ONCE PO Last administered on 04/19/21at 10:25; Start 04/19/21 at 10:15; Stop 04/19/21 at 10:16; Status DC Potassium Bicarbonate (Potassium Effervescent Tablet) 40 meq 1X ONCE PO Last administered on 04/20/21at 08:13; Start 04/20/21 at 07:30; Stop 04/20/21 at 07:31; Status DC Dopamine HCl/ Dextrose 250 ml @ 18.113 mls/ hr CONT PRN IV SEE I/O RECORD Last administered on 04/21/21at 04:18; Start 04/20/21 at 13:45; Stop 04/28/21 at 14:26; Status DC Latanoprost (Xalatan) 1 drop HS OU Last administered on 04/27/21at 19:41; Start 04/21/21 at 21:00 Piperacillin Sod/ Tazobactam Sod (Zosyn Per Pharmacy) 1 each PRN DAILY PRN MC SEE COMMENTS; Start 04/22/21 at 11:00; Stop 04/28/21 at 11:09; Status DC Propofol 100 ml @ 2.823 mls/ hr CONT PRN IV PER PROTOCOL Last administered on 04/23/21at 08:40; Start 04/22/21 at 11:00; Stop 04/28/21 at 14:27; Status DC Piperacillin Sod/ Tazobactam Sod 3.375 gm/Sodium Chloride 50 ml @ 100 mls/hr Q6HRS IV Last administered on 04/28/21at 05:22; Start 04/22/21 at 12:00; Stop 04/28/21 at 11:09; Status DC Dexmedetomidine HCl 400 mcg/ Sodium Chloride 100 ml @ 0 mls/hr CONT PRN IV PER PROTOCOL Last administered on 04/24/21at 23:37; Start 04/23/21 at 18:30; Stop 04/28/21 at 14:25; Status DC Sodium Chloride 500 ml @ 500 mls/hr 1X PRN PRN IV SEE COMMENTS; Start 04/23/21 at 18:30 Atropine Sulfate (ATROPINE 0.5mg SYRINGE) 0.5 mg PRN Q5MIN PRN IV SEE COMMENTS; Start 04/23/21 at 18:30; Status Cancel Potassium Chloride/Water 100 ml @ 100 mls/hr Q1H IV Last administered on 04/27/21at 02:03; Start 04/26/21 at 16:00; Stop 04/26/21 at 23:59; Status DC Potassium Chloride/Water 100 ml @ 100 mls/hr Q1H IV Last administered on 04/27/21at 12:00; Start 04/27/21 at 09:00; Stop 04/27/21 at 12:59; Status DC Amoxicillin/ Clavulanate Potassium (Augmentin 500/ 125mg) 1 tab BID PO Last administered on 04/28/21at 12:23; Start 04/28/21 at 12:00; Stop 05/02/21 at 11:59 Famotidine (Pepcid) 20 mg BID PO ; Start 04/28/21 at 21:00 Lactobacillus Rhamnosus (Culturelle) 1 cap BID PO ; Start 04/28/21 at 21:00 Active Scripts Active Reported Hydrocodone-Apap 5-325 (Hydrocodone Bit/Acetaminophen) 1 Tab Tablet 1 Tab PO PRN Q6HRS PRN NITROGLYCERIN SubLingual (Nitroglycerin) 0.4 Mg Tab.subl 0.4 Mg SL PRN Q5MIN PRN Lasix (Furosemide) 20 Mg Tablet 1 Tab PO DAILY 30 Days Isosorbide Mononitrate Er (Isosorbide Mononitrate) 60 Mg Tab.er.24h 1 Tab PO DAILY Klor-Con M10 (Potassium Chloride) 10 Meq Tab.er.prt 10 Meq PO DAILY Vitamin D3 (Cholecalciferol (Vitamin D3)) 5,000 Unit Tab.rapdis 5,000 Unit PO DAILY Aspirin 81 Mg Tab.chew 81 Mg PO DAILY Amlodipine Besylate 10 Mg Tablet 10 Mg PO DAILY Fluoxetine Hcl 40 Mg Capsule 40 Mg PO DAILY Simvastatin 20 Mg Tablet 20 Mg PO HS Multi-Vitamin Daily (Multivitamin) 1 Each Tablet 1 Each PO DAILY Latanoprost 2.5 Ml Drops 1 Drop OU HS Vitals/I & O Vital Sign - Last 24 Hours 04/27/21 04/27/21 04/27/21 04/27/21 19:27 19:35 22:39 23:00 Temp 97.6 97.8 97.6 97.8 Pulse 67 65 Resp 16 18 B/P (MAP) 127/68 (87) 146/70 (95) Pulse Ox 98 92 97 O2 Delivery Nasal Cannula Nasal Cannula Nasal Cannula BiPAP/CPAP O2 Flow Rate 2.0 2.0 2.0 04/28/21 04/28/21 04/28/21 04/28/21 01:07 02:51 03:11 07:00 Temp 97.5 96.7 97.5 96.7 Pulse 78 69 Resp 22 20 B/P (MAP) 128/77 (94) 113/85 (94) Pulse Ox 95 97 96 97 O2 Delivery BiPAP/CPAP Nasal Cannula Nasal Cannula Nasal Cannula O2 Flow Rate 2.0 2.0 2.0 04/28/21 04/28/21 04/28/21 08:00 11:00 14:32 Temp 97.7 96.4 97.7 96.4 Pulse 64 60 Resp 18 18 B/P (MAP) 136/79 (98) 139/71 (93) Pulse Ox 98 97 O2 Delivery Nasal Cannula Nasal Cannula Nasal Cannula O2 Flow Rate 2.0 2.0 2.0 Intake and Output 04/27/21 04/27/21 04/28/21 15:00 23:00 07:00 Intake Total 120 ml 600 ml 500 ml Output Total 1200 ml 500 ml 300 ml Balance -1080 ml 100 ml 200 ml Justifications for Admission Other Justification Nutrition Consultation Dietary Evaluation: Recommendations by RD: Dietary education by RD Comments: TF Vital AF @ 40 ml/hr flushes:100ml q 6 hr or per MD. Expected Outcomes/Goals: to meet 60-70% energy needs via EN- met, goal ongoing Malnutrition Findings: Body Fat Depletion (Non Severe: Mild Depletion Weight Status: Obese KECIA MOON MD Apr 28, 2021 16:57
[2021-04-28] MEDS ORDERED: POTASSIUM CHLORIDE 20 MEQ TABLET.ER. PO ONE (17:00)
--- NOTE | 2021-04-28 18:33 | PDOC ---
[facility] PROGRESS NOTE Date of Service DOS: DATE: 04/28/21 TIME: 18:30 Chief Complaint Chief Complaint Dysphagiathat is post intubation Acute hypoxic hypercapnic respiratory failure status post intubation. Status post extubation on 04/26/2021 Cardiopulmonary arrest due to hypoxia 8 minutes with ROSC Acute metabolic and possible ischemic encephalopathy Acute on chronic CHF CLEMENCIA Hypertension Hypokalemia Transferred to the [facility] telemetry floor Pulmonology consulted, patient will likely need outpatient sleep study for CPAP Continue empiric IV antibiotics for possible aspiration pneumonia Lovenox for DVT prophylaxis Protonix or Pepcid GI prophylaxis ADA diet Full code Discussed with RN and SW Disposition inpatient management as above Surrogate decision maker is History of Present Illness History of Present Illness 75-year-old female with past medical history of hypertension, obesity, dyslipide jose m, sleep apnea, who was admitted for scheduled left heart cath on 04/16/2021 for chest pains that was relieved with nitroglycerin. Patient underwent left and right heart cath which showed no significant CAD. Unfortunately, at the end of the procedure patient developed increasing shortness of breath she was initially treated with IV diuretics and oxygen but her dyspnea persisted and she required emergency intubation and had periods of asystole. ACLS protocol was initiated. Please see CODE BLUE sheet for details. She was transferred to the ICU for further management and the hospitalist service was consulted for medical management. I saw the patient this morning intubated and not on any sedation. Pulmonology is following for vent management. Patient was responding appropriately to external stimuli and started to wake up. She will likely need a CT of the head as there is no sedation and the patient is not responding appropriately. 04/26/2021 No acute events overnight. Patient was extubated early in the evening and she tolerated well.. Patient is currently saturating 97 on room air. Patient is wanting to eat Jell-O. Pending speech evaluation. Pending PT OT evaluation for determining placement needs. Patient's chart, labs, images were reviewed and d iscussed with RN 04/27/2021 No acute events overnight. Patient responding well to 40 mg IV Lasix with 1.5 L urine output. We will repeat IV Lasix today and pending further speech evaluation. Patient is currently n.p.o. due to aspiration risk. Pending PT OT evaluation. Patient's chart, labs, images were reviewed and discussed with RN 04/28/2021: Afebrile. Currently breathing on 2 L nasal cannula. Placed on dysphagia III diet today. Seen by OT and recommended acute rehab; PT eval pending at this time. Vitals/I&O Vitals/I&O: Vital Signs Date Time Temp Pulse Resp B/P (MAP) Pulse Ox O2 Delivery O2 Flow Rate FiO2 04/28/21 14:32 96.4 60 18 139/71 (93) 97 Nasal Cannula 2.0 96.4 I & O 0 04/27/21 04/27/21 04/28/21 15:00 23:00 07:00 Intake Total 120 ml 600 ml 500 ml Output Total 1200 ml 500 ml 300 ml Balance -1080 ml 100 ml 200 ml Physical Exam General: Alert, No acute distress Heart: Regular rate Lungs: Clear Abdomen: Normal bowel sounds Extremities: No edema, Normal pulses Skin: No rashes, No breakdown Labs Labs: Laboratory Tests Test 04/28/21 13:50 Sodium Level 145 mmol/L (136-145) Potassium Level 3.0 mmol/L (3.5-5.1) Chloride Level 104 mmol/L (98-107) Carbon Dioxide Level 32 mmol/L (21-32) Anion Gap 9 (6-14) Blood Urea Nitrogen 21 mg/dL (7-20) Creatinine 0.9 mg/dL (0.6-1.0) Estimated GFR (Cockcroft-Gault) 61.0 Glucose Level 104 mg/dL (70-99) Calcium Level 9.6 mg/dL (8.5-10.1) Comment Review of Relevant I have reviewed the following items clarisa (where applicable) has been applied. Medications: Current Medications Medications (Trade) Dose Ordered Sig/Miguel Angel Route PRN Reason Start Time Stop Time Status Last Admin Dose Admin Amoxicillin/ Clavulanate Potassium (Augmentin 500/ 125mg) 1 tab BID PO 04/28/21 12:00 05/02/21 11:59 04/28/21 12:23 Potassium Chloride (Klor-Con) 40 meq 1X ONCE PO 04/28/21 17:00 04/28/21 17:05 DC 04/28/21 17:53 Justifications for Admission Other Justification DAPHNE CONWAY MD Apr 28, 2021 18:33
[2021-04-28 19:00] VITALS: BP 126/69
[2021-04-28] MEDS: ENOXAPARIN 40 MG/0.4 ML SYRINGE. SQ SCH (21:32)
[2021-04-28] MEDS: FAMOTIDINE 20 MG TABLET. PO SCH (21:32)
[2021-04-28] MEDS: LATANOPROST 0.005% OPHTH SOLUTION 2.5ML BOTTLE. OU SCH (21:32)
[2021-04-28] MEDS: LACTOBACILLUS RHAMNOSUS GG 1 CAPSULE. PO SCH (21:33)
[2021-04-28 22:53] VITALS: BP 127/70
[2021-04-29 03:01] VITALS: BP 115/59
[2021-04-29 04:55] LABS: BASO % 0 % (0-3); EOS # 0.1 x10^3/uL (0.0-0.7); EOS % 1 % (0-3); HEMATOCRIT 37.6 % (36.0-47.0); HEMOGLOBIN 12.2 g/dL (12.0-15.5); LYMPH # 1.7 x10^3/uL (1.0-4.8); LYMPH % 17 % (24-48); MEAN CORPUSCULAR HEMOGLOBIN 31 pg (25-35); MEAN CORPUSCULAR HGB CONC 32 g/dL (31-37); MEAN CORPUSCULAR VOLUME 96 fL (79-100); MONO # 1.1 x10^3/uL (0.0-1.1); MONO % 11 % (0-9); NEUT # 7.2 x10^3/uL (1.8-7.7); NEUT % 71 % (31-73); PLATELET COUNT 378 x10^3/uL (140-400); RED BLOOD COUNT 3.94 x10^6/uL (3.50-5.40); RED CELL DISTRIBUTION WIDTH 13.3 % (11.5-14.5); WHITE BLOOD COUNT 10.2 x10^3/uL (4.0-11.0)
[2021-04-29 05:22] LABS: CALCIUM 9.7 mg/dL (8.5-10.1); CREATININE 0.9 mg/dL (0.6-1.0); POTASSIUM 3.8 mmol/L (3.5-5.1)
[2021-04-29 07:00] VITALS: BP 108/85
--- NOTE | 2021-04-29 08:33 | PDOC ---
PROGRESS NOTES Date of Service DATE: 04/29/21 TIME: 08:32 Assessment Anoxic encephalopathy, did not have prolonged downtime Head CT negative Dysphagia post extubation, getting better Plan Requests Subramanian out, so ordered Neurology signs off Subjective No complaints Objective Vital Signs Date Time Temp Pulse Resp B/P (MAP) Pulse Ox O2 Delivery O2 Flow Rate FiO2 04/29/21 03:01 98.0 59 18 115/59 (77) 98 Nasal Cannula 2.0 98.0 Intake and Output 04/29/21 07:00 Intake Total 1130 ml Balance 1130 ml Intake Oral 1130 ml # Bowel Movements 1 PHYSICAL EXAM Alert. Oriented to place and person. PERRL. EOMI. CN: no focal findings. Muscle tone: normal. Muscle strength: 4/5 DTR: 2+ Plantar reflex: Flexor Gait: not examined in bed. Sensory exam: no abnormal findings. No cerebellar signs elicited. Review of Relevant I have reviewed the following items clarisa (where applicable) has been applied. Labs Laboratory Tests Test 04/28/21 13:50 04/29/21 03:55 Sodium Level 145 mmol/L (136-145) 143 mmol/L (136-145) Potassium Level 3.0 mmol/L (3.5-5.1) 3.8 mmol/L (3.5-5.1) Chloride Level 104 mmol/L (98-107) 102 mmol/L (98-107) Carbon Dioxide Level 32 mmol/L (21-32) 29 mmol/L (21-32) Anion Gap 9 (6-14) 12 (6-14) Blood Urea Nitrogen 21 mg/dL (7-20) 22 mg/dL (7-20) Creatinine 0.9 mg/dL (0.6-1.0) 0.9 mg/dL (0.6-1.0) Estimated GFR (Cockcroft-Gault) 61.0 61.0 Glucose Level 104 mg/dL (70-99) 82 mg/dL (70-99) Calcium Level 9.6 mg/dL (8.5-10.1) 9.7 mg/dL (8.5-10.1) White Blood Count 10.2 x10^3/uL (4.0-11.0) Red Blood Count 3.94 x10^6/uL (3.50-5.40) Hemoglobin 12.2 g/dL (12.0-15.5) Hematocrit 37.6 % (36.0-47.0) Mean Corpuscular Volume 96 fL (79-100) Mean Corpuscular Hemoglobin 31 pg (25-35) Mean Corpuscular Hemoglobin Concent 32 g/dL (31-37) Red Cell Distribution Width 13.3 % (11.5-14.5) Platelet Count 378 x10^3/uL (140-400) Neutrophils (%) (Auto) 71 % (31-73) Lymphocytes (%) (Auto) 17 % (24-48) Monocytes (%) (Auto) 11 % (0-9) Eosinophils (%) (Auto) 1 % (0-3) Basophils (%) (Auto) 0 % (0-3) Neutrophils # (Auto) 7.2 x10^3/uL (1.8-7.7) Lymphocytes # (Auto) 1.7 x10^3/uL (1.0-4.8) Monocytes # (Auto) 1.1 x10^3/uL (0.0-1.1) Eosinophils # (Auto) 0.1 x10^3/uL (0.0-0.7) Basophils # (Auto) 0.0 x10^3/uL (0.0-0.2) Laboratory Tests Test 04/28/21 13:50 04/29/21 03:55 Sodium Level 145 mmol/L (136-145) 143 mmol/L (136-145) Potassium Level 3.0 mmol/L (3.5-5.1) 3.8 mmol/L (3.5-5.1) Chloride Level 104 mmol/L (98-107) 102 mmol/L (98-107) Carbon Dioxide Level 32 mmol/L (21-32) 29 mmol/L (21-32) Anion Gap 9 (6-14) 12 (6-14) Blood Urea Nitrogen 21 mg/dL (7-20) 22 mg/dL (7-20) Creatinine 0.9 mg/dL (0.6-1.0) 0.9 mg/dL (0.6-1.0) Estimated GFR (Cockcroft-Gault) 61.0 61.0 Glucose Level 104 mg/dL (70-99) 82 mg/dL (70-99) Calcium Level 9.6 mg/dL (8.5-10.1) 9.7 mg/dL (8.5-10.1) White Blood Count 10.2 x10^3/uL (4.0-11.0) Red Blood Count 3.94 x10^6/uL (3.50-5.40) Hemoglobin 12.2 g/dL (12.0-15.5) Hematocrit 37.6 % (36.0-47.0) Mean Corpuscular Volume 96 fL (79-100) Mean Corpuscular Hemoglobin 31 pg (25-35) Mean Corpuscular Hemoglobin Concent 32 g/dL (31-37) Red Cell Distribution Width 13.3 % (11.5-14.5) Platelet Count 378 x10^3/uL (140-400) Neutrophils (%) (Auto) 71 % (31-73) Lymphocytes (%) (Auto) 17 % (24-48) Monocytes (%) (Auto) 11 % (0-9) Eosinophils (%) (Auto) 1 % (0-3) Basophils (%) (Auto) 0 % (0-3) Neutrophils # (Auto) 7.2 x10^3/uL (1.8-7.7) Lymphocytes # (Auto) 1.7 x10^3/uL (1.0-4.8) Monocytes # (Auto) 1.1 x10^3/uL (0.0-1.1) Eosinophils # (Auto) 0.1 x10^3/uL (0.0-0.7) Basophils # (Auto) 0.0 x10^3/uL (0.0-0.2) Medications Current Medications Lidocaine HCl (Lidocaine 1% 20ml Vial) 20 ml STK-MED ONCE .ROUTE ; Start 04/16/21 at 07:35; Stop 04/16/21 at 07:35; Status DC Iodixanol (Visipaque 320) 100 ml STK-MED ONCE .ROUTE ; Start 04/16/21 at 07:35; Stop 04/16/21 at 07:35; Status DC Heparin Sodium/ Sodium Chloride 1,500 ml @ As Directed STK-MED ONCE .ROUTE ; Start 04/16/21 at 07:37; Stop 04/16/21 at 07:37; Status DC Heparin Sodium/ Sodium Chloride (HEPARIN for ARTERIAL LINE FLUSH) 1,000 unit 1X ONCE IART Last administered on 04/16/21at 08:30; Start 04/16/21 at 08:30; Stop 04/16/21 at 08:31; Status DC Heparin Sodium/ Sodium Chloride (HEPARIN for ARTERIAL LINE FLUSH) 1,000 unit 1X ONCE IART Last administered on 04/16/21at 08:30; Start 04/16/21 at 08:30; Stop 04/16/21 at 08:31; Status DC Midazolam HCl (Versed) 5 mg 1X ONCE IV Last administered on 04/16/21at 08:30; Start 04/16/21 at 08:30; Stop 04/16/21 at 08:31; Status DC Fentanyl Citrate (Fentanyl 2ml Vial) 100 mcg 1X ONCE IV Last administered on 04/16/21at 08:30; Start 04/16/21 at 08:30; Stop 04/16/21 at 08:31; Status DC Iodixanol (Visipaque 320) 100 ml 1X ONCE IART Last administered on 04/16/21at 08:30; Start 04/16/21 at 08:30; Stop 04/16/21 at 08:31; Status DC Lidocaine HCl (Lidocaine 1% 20ml Vial) 20 ml 1X ONCE INJ Last administered on 04/16/21at 08:30; Start 04/16/21 at 08:30; Stop 04/16/21 at 08:31; Status DC Info (CONTRAST GIVEN -- Rx MONITORING) 1 each PRN DAILY PRN MC SEE COMMENTS; Start 04/16/21 at 08:30; Stop 04/18/21 at 08:29; Status DC Iodixanol (Visipaque 320) 100 ml STK-MED ONCE .ROUTE ; Start 04/16/21 at 09:40; Stop 04/16/21 at 09:41; Status DC Heparin Sodium/ Sodium Chloride 500 ml @ As Directed STK-MED ONCE .ROUTE ; Start 04/16/21 at 09:52; Stop 04/16/21 at 09:53; Status DC Furosemide (Lasix) 100 mg STK-MED ONCE .ROUTE ; Start 04/16/21 at 09:57; Stop 04/16/21 at 09:58; Status DC Morphine Sulfate (Morphine Sulfate) 10 mg STK-MED ONCE .ROUTE ; Start 04/16/21 at 10:01; Stop 04/16/21 at 10:01; Status DC Ondansetron HCl (Zofran) 4 mg STK-MED ONCE .ROUTE ; Start 04/16/21 at 10:03; Stop 04/16/21 at 10:03; Status DC Heparin Sodium/ Sodium Chloride 500 ml @ As Directed STK-MED ONCE .ROUTE ; Start 04/16/21 at 10:24; Stop 04/16/21 at 10:24; Status DC Succinylcholine Chloride (Anectine) 200 mg STK-MED ONCE .ROUTE ; Start 04/16/21 at 10:26; Stop 04/16/21 at 10:27; Status DC Furosemide (Lasix) 100 mg 1X ONCE IVP Last administered on 04/16/21at 10:30; Start 04/16/21 at 10:30; Stop 04/16/21 at 10:35; Status DC Morphine Sulfate (Morphine Sulfate) 10 mg 1X ONCE IV Last administered on 04/16/21at 10:30; Start 04/16/21 at 10:30; Stop 04/16/21 at 10:35; Status DC Ondansetron HCl (Zofran) 4 mg 1X ONCE IVP Last administered on 04/16/21at 10:30; Start 04/16/21 at 10:30; Stop 04/16/21 at 10:35; Status DC Albuterol/ Ipratropium (Duoneb) 3 ml 1X ONCE NEB Last administered on 04/16/21at 10:05; Start 04/16/21 at 10:45; Stop 04/16/21 at 10:46; Status DC Fentanyl Citrate 30 ml @ 0 mls/hr CONT PRN IV SEE PROTOCOL Last administered on 04/17/21at 05:24; Start 04/16/21 at 10:45; Stop 04/17/21 at 10:44; Status DC Midazolam HCl 100 ml @ 0 mls/hr CONT PRN IV SEE PROTOCOL Last administered on 04/17/21at 08:54; Start 04/16/21 at 10:45; Stop 04/17/21 at 10:44; Status DC Dopamine HCl/ Dextrose 250 ml @ As Directed STK-MED ONCE IV ; Start 04/16/21 at 11:08; Stop 04/16/21 at 11:08; Status DC Dopamine HCl/ Dextrose 250 ml @ 17.138 mls/ hr CONT PRN IV SEE I/O RECORD Last administered on 04/17/21at 11:02; Start 04/16/21 at 12:00; Stop 04/17/21 at 11:59; Status DC Furosemide (Lasix) 40 mg 1X ONCE IVP Last administered on 04/16/21at 12:30; Start 04/16/21 at 12:30; Stop 04/16/21 at 12:31; Status DC Potassium Chloride/Water 100 ml @ 100 mls/hr Q1H IV Last administered on 04/16/21at 14:00; Start 04/16/21 at 13:00; Stop 04/16/21 at 14:59; Status DC Furosemide (Lasix) 40 mg STK-MED ONCE .ROUTE ; Start 04/16/21 at 12:37; Stop 04/16/21 at 12:37; Status DC Succinylcholine Chloride (Anectine) 200 mg STK-MED ONCE .ROUTE ; Start 04/16/21 at 16:48; Stop 04/16/21 at 16:49; Status DC Epinephrine HCl (EPINEPHrine SYRINGE) 2 mg STK-MED ONCE .ROUTE ; Start 04/16/21 at 11:00; Stop 04/16/21 at 18:11; Status DC Furosemide (Lasix) 40 mg 1X ONCE IVP Last administered on 04/17/21at 10:10; Start 04/17/21 at 10:00; Stop 04/17/21 at 10:01; Status DC Fentanyl Citrate 30 ml @ 0 mls/hr CONT PRN IV SEE PROTOCOL Last administered on 04/21/21at 04:04; Start 04/17/21 at 16:15; Stop 04/28/21 at 14:26; Status DC Midazolam HCl 100 ml @ 0 mls/hr CONT PRN IV SEE PROTOCOL Last administered on 04/20/21at 07:38; Start 04/17/21 at 16:15; Stop 04/28/21 at 14:26; Status DC Dopamine HCl/ Dextrose 250 ml @ 16.031 mls/ hr CONT PRN IV SEE I/O RECORD Last administered on 04/20/21at 02:00; Start 04/18/21 at 00:00; Stop 04/20/21 at 13:29; Status DC Furosemide (Lasix) 40 mg 1X ONCE IVP Last administered on 04/18/21at 10:00; Start 04/18/21 at 09:30; Stop 04/18/21 at 09:31; Status DC Potassium Bicarbonate (Potassium Effervescent Tablet) 40 meq 1X ONCE PEG Last administered on 04/18/21 09:59; Start 04/18/21 at 09:30; Stop 04/18/21 at 09:31; Status DC Famotidine (Pepcid Vial) 20 mg BID IVP Last administered on 04/28/21 08:57; Start 04/18/21 at 12:00; Stop 04/28/21 at 14:27; Status DC Enoxaparin Sodium (Lovenox 40mg Syringe) 40 mg Q24H SQ ; Start 04/18/21 at 12:00; Status Cancel Furosemide (Lasix) 40 mg 1X ONCE IVP Last administered on 04/18/21 16:24; Start 04/18/21 at 16:00; Stop 04/18/21 at 16:01; Status DC Furosemide (Lasix) 40 mg DAILY IVP Last administered on 04/28/21 08:57; Start 04/19/21 at 09:00 Potassium Bicarbonate (Potassium Effervescent Tablet) 40 meq 1X ONCE FT Last administered on 04/18/21at 16:24; Start 04/18/21 at 16:15; Stop 04/18/21 at 16:16; Status DC Enoxaparin Sodium (Lovenox 40mg Syringe) 40 mg Q24H SQ Last administered on 04/28/21 21:32; Start 04/18/21 at 21:00 Potassium Bicarbonate (Potassium Effervescent Tablet) 40 meq 1X ONCE PO Last administered on 04/19/21at 10:25; Start 04/19/21 at 10:15; Stop 04/19/21 at 10:16; Status DC Potassium Bicarbonate (Potassium Effervescent Tablet) 40 meq 1X ONCE PO Last administered on 04/20/21at 08:13; Start 04/20/21 at 07:30; Stop 04/20/21 at 07:31; Status DC Dopamine HCl/ Dextrose 250 ml @ 18.113 mls/ hr CONT PRN IV SEE I/O RECORD Last administered on 04/21/21at 04:18; Start 04/20/21 at 13:45; Stop 04/28/21 at 14:26; Status DC Latanoprost (Xalatan) 1 drop HS OU Last administered on 04/28/21at 21:32; Start 04/21/21 at 21:00 Piperacillin Sod/ Tazobactam Sod (Zosyn Per Pharmacy) 1 each PRN DAILY PRN MC SEE COMMENTS; Start 04/22/21 at 11:00; Stop 04/28/21 at 11:09; Status DC Propofol 100 ml @ 2.823 mls/ hr CONT PRN IV PER PROTOCOL Last administered on 04/23/21at 08:40; Start 04/22/21 at 11:00; Stop 04/28/21 at 14:27; Status DC Piperacillin Sod/ Tazobactam Sod 3.375 gm/Sodium Chloride 50 ml @ 100 mls/hr Q6HRS IV Last administered on 04/28/21at 05:22; Start 04/22/21 at 12:00; Stop 04/28/21 at 11:09; Status DC Dexmedetomidine HCl 400 mcg/ Sodium Chloride 100 ml @ 0 mls/hr CONT PRN IV PER PROTOCOL Last administered on 04/24/21at 23:37; Start 04/23/21 at 18:30; Stop 04/28/21 at 14:25; Status DC Sodium Chloride 500 ml @ 500 mls/hr 1X PRN PRN IV SEE COMMENTS; Start 04/23/21 at 18:30 Atropine Sulfate (ATROPINE 0.5mg SYRINGE) 0.5 mg PRN Q5MIN PRN IV SEE COMMENTS; Start 04/23/21 at 18:30; Status Cancel Potassium Chloride/Water 100 ml @ 100 mls/hr Q1H IV Last administered on 04/27/21at 02:03; Start 04/26/21 at 16:00; Stop 04/26/21 at 23:59; Status DC Potassium Chloride/Water 100 ml @ 100 mls/hr Q1H IV Last administered on 04/27/21at 12:00; Start 04/27/21 at 09:00; Stop 04/27/21 at 12:59; Status DC Amoxicillin/ Clavulanate Potassium (Augmentin 500/ 125mg) 1 tab BID PO Last administered on 04/28/21at 21:32; Start 04/28/21 at 12:00; Stop 05/02/21 at 11:59 Famotidine (Pepcid) 20 mg BID PO Last administered on 04/28/21at 21:32; Start 04/28/21 at 21:00 Lactobacillus Rhamnosus (Culturelle) 1 cap BID PO Last administered on 04/28/21at 21:33; Start 04/28/21 at 21:00 Potassium Chloride (Klor-Con) 40 meq 1X ONCE PO Last administered on 04/28/21at 17:53; Start 04/28/21 at 17:00; Stop 04/28/21 at 17:05; Status DC Active Scripts Active Reported Hydrocodone-Apap 5-325 (Hydrocodone Bit/Acetaminophen) 1 Tab Tablet 1 Tab PO PRN Q6HRS PRN NITROGLYCERIN SubLingual (Nitroglycerin) 0.4 Mg Tab.subl 0.4 Mg SL PRN Q5MIN PRN Lasix (Furosemide) 20 Mg Tablet 1 Tab PO DAILY 30 Days Isosorbide Mononitrate Er (Isosorbide Mononitrate) 60 Mg Tab.er.24h 1 Tab PO DAILY Klor-Con M10 (Potassium Chloride) 10 Meq Tab.er.prt 10 Meq PO DAILY Vitamin D3 (Cholecalciferol (Vitamin D3)) 5,000 Unit Tab.rapdis 5,000 Unit PO DAILY Aspirin 81 Mg Tab.chew 81 Mg PO DAILY Amlodipine Besylate 10 Mg Tablet 10 Mg PO DAILY Fluoxetine Hcl 40 Mg Capsule 40 Mg PO DAILY Simvastatin 20 Mg Tablet 20 Mg PO HS Multi-Vitamin Daily (Multivitamin) 1 Each Tablet 1 Each PO DAILY Latanoprost 2.5 Ml Drops 1 Drop OU HS Vitals/I & O Vital Sign - Last 24 Hours 04/28/21 04/28/21 04/28/21 04/28/21 11:00 14:32 19:00 20:00 Temp 97.7 96.4 98.1 97.7 96.4 98.1 Pulse 64 60 66 Resp 18 18 18 B/P (MAP) 136/79 (98) 139/71 (93) 126/69 (88) Pulse Ox 98 97 98 O2 Delivery Nasal Cannula Nasal Cannula Nasal Cannula Nasal Cannula O2 Flow Rate 2.0 2.0 2.0 2.0 04/28/21 04/28/21 04/28/21 04/29/21 20:33 22:53 23:30 01:15 Temp 97.3 97.3 Pulse 62 Resp 18 B/P (MAP) 127/70 (89) Pulse Ox 96 98 95 98 O2 Delivery Nasal Cannula Nasal Cannula BiPAP/CPAP BiPAP/CPAP O2 Flow Rate 2.0 2.0 04/29/21 03:01 Temp 98.0 98.0 Pulse 59 Resp 18 B/P (MAP) 115/59 (77) Pulse Ox 98 O2 Delivery Nasal Cannula O2 Flow Rate 2.0 Intake and Output 04/28/21 04/28/21 04/29/21 15:00 23:00 07:00 Intake Total 620 ml 310 ml 200 ml Balance 620 ml 310 ml 200 ml Justicifation of Admission Dx: Justifications for Admission: Justification of Admission Dx: Yes Respiratory Failure: Mechanical Ventilation UNIQUE LONG MD Apr 29, 2021 08:33
[2021-04-29] MEDS: AMOXICILLIN/K CLAV 500/125MG TABLET. PO SCH ×2 (08:46→21:26)
[2021-04-29] MEDS: LACTOBACILLUS RHAMNOSUS GG 1 CAPSULE. PO SCH ×2 (08:46→21:26)
[2021-04-29] MEDS: FAMOTIDINE 20 MG TABLET. PO SCH ×2 (08:46→21:26)
[2021-04-29] MEDS: FUROSEMIDE 40 MG/4 ML VIAL. IVP SCH (08:46)
--- NOTE | 2021-04-29 10:28 | PDOC ---
[employer] PROGRESS NOTE Date of Service DOS: DATE: 04/29/21 TIME: 10:25 Chief Complaint Chief Complaint Dysphagiathat is post intubation Acute hypoxic hypercapnic respiratory failure status post intubation. Status post extubation on 04/26/2021 Cardiopulmonary arrest due to hypoxia 8 minutes with ROSC Acute metabolic and possible ischemic encephalopathy Acute on chronic CHF CLEMENCIA Hypertension Hypokalemia Transferred to the [facility] telemetry floor Pulmonology consulted, patient will likely need outpatient sleep study for CPAP Continue empiric IV antibiotics for possible aspiration pneumonia Lovenox for DVT prophylaxis Protonix or Pepcid GI prophylaxis ADA diet Full code Discussed with RN and SW Disposition inpatient management as above Surrogate decision maker is History of Present Illness History of Present Illness 75-year-old female with past medical history of hypertension, obesity, dyslipide jose m, sleep apnea, who was admitted for scheduled left heart cath on 04/16/2021 for chest pains that was relieved with nitroglycerin. Patient underwent left and right heart cath which showed no significant CAD. Unfortunately, at the end of the procedure patient developed increasing shortness of breath she was initially treated with IV diuretics and oxygen but her dyspnea persisted and she required emergency intubation and had periods of asystole. ACLS protocol was initiated. Please see CODE BLUE sheet for details. She was transferred to the ICU for further management and the hospitalist service was consulted for medical management. I saw the patient this morning intubated and not on any sedation. Pulmonology is following for vent management. Patient was responding appropriately to external stimuli and started to wake up. She will likely need a CT of the head as there is no sedation and the patient is not responding appropriately. 04/26/2021 No acute events overnight. Patient was extubated early in the evening and she tolerated well.. Patient is currently saturating 97 on room air. Patient is wanting to eat Jell-O. Pending speech evaluation. Pending PT OT evaluation for determining placement needs. Patient's chart, labs, images were reviewed and d iscussed with RN 04/27/2021 No acute events overnight. Patient responding well to 40 mg IV Lasix with 1.5 L urine output. We will repeat IV Lasix today and pending further speech evaluation. Patient is currently n.p.o. due to aspiration risk. Pending PT OT evaluation. Patient's chart, labs, images were reviewed and discussed with RN 04/28/2021: Afebrile. Currently breathing on 2 L nasal cannula. Placed on dysphagia III diet today. Seen by OT and recommended acute rehab; PT sima pending at this time. 04/29/2021: Afebrile. Currently breathing into his nasal cannula. 6-minute walk with an order today. She is tolerating her dysphagia 3 diet. She has been recommended acute rehab, but patient is wanting instead to discharge home with home health. Currently not feeling comfortable discharging home today; I discussed that she is improving well but if she would like to stay in the hospital 1 more day we can discharge home with home health tomorrow. She feels she still needs to have further physical therapy she can go to acute rehab. Vitals/I&O Vitals/I&O: Vital Signs Date Time Temp Pulse Resp B/P (MAP) Pulse Ox O2 Delivery O2 Flow Rate FiO2 04/29/21 07:00 97.0 61 20 108/85 (93) 99 Nasal Cannula 2.0 97.0 I & O 04/28/21 04/28/21 04/29/21 15:00 23:00 07:00 Intake Total 620 ml 310 ml 200 ml Balance 620 ml 310 ml 200 ml Physical Exam General: Alert, No acute distress Heart: Regular rate Lungs: Clear Abdomen: Normal bowel sounds Extremities: No edema, Normal pulses Skin: No rashes, No breakdown Labs Labs: Laboratory Tests Test 04/28/21 13:50 04/29/21 03:55 Sodium Level 145 mmol/L (136-145) 143 mmol/L (136-145) Potassium Level 3.0 mmol/L (3.5-5.1) 3.8 mmol/L (3.5-5.1) Chloride Level 104 mmol/L (98-107) 102 mmol/L (98-107) Carbon Dioxide Level 32 mmol/L (21-32) 29 mmol/L (21-32) Anion Gap 9 (6-14) 12 (6-14) Blood Urea Nitrogen 21 mg/dL (7-20) 22 mg/dL (7-20) Creatinine 0.9 mg/dL (0.6-1.0) 0.9 mg/dL (0.6-1.0) Estimated GFR (Cockcroft-Gault) 61.0 61.0 Glucose Level 104 mg/dL (70-99) 82 mg/dL (70-99) Calcium Level 9.6 mg/dL (8.5-10.1) 9.7 mg/dL (8.5-10.1) White Blood Count 10.2 x10^3/uL (4.0-11.0) Red Blood Count 3.94 x10^6/uL (3.50-5.40) Hemoglobin 12.2 g/dL (12.0-15.5) Hematocrit 37.6 % (36.0-47.0) Mean Corpuscular Volume 96 fL (79-100) Mean Corpuscular Hemoglobin 31 pg (25-35) Mean Corpuscular Hemoglobin Concent 32 g/dL (31-37) Red Cell Distribution Width 13.3 % (11.5-14.5) Platelet Count 378 x10^3/uL (140-400) Neutrophils (%) (Auto) 71 % (31-73) Lymphocytes (%) (Auto) 17 % (24-48) Monocytes (%) (Auto) 11 % (0-9) Eosinophils (%) (Auto) 1 % (0-3) Basophils (%) (Auto) 0 % (0-3) Neutrophils # (Auto) 7.2 x10^3/uL (1.8-7.7) Lymphocytes # (Auto) 1.7 x10^3/uL (1.0-4.8) Monocytes # (Auto) 1.1 x10^3/uL (0.0-1.1) Eosinophils # (Auto) 0.1 x10^3/uL (0.0-0.7) Basophils # (Auto) 0.0 x10^3/uL (0.0-0.2) Comment Review of Relevant I have reviewed the following items clarisa (where applicable) has been applied. Medications: Current Medications Medications (Trade) Dose Ordered Sig/Miguel Angel Route PRN Reason Start Time Stop Time Status Last Admin Dose Admin Amoxicillin/ Clavulanate Potassium (Augmentin 500/ 125mg) 1 tab BID PO 04/28/21 12:00 05/02/21 11:59 04/29/21 08:46 Famotidine (Pepcid) 20 mg BID PO 04/28/21 21:00 04/29/21 08:46 Lactobacillus Rhamnosus (Culturelle) 1 cap BID PO 04/28/21 21:00 04/29/21 08:46 Potassium Chloride (Klor-Con) 40 meq 1X ONCE PO 04/28/21 17:00 04/28/21 17:05 DC 04/28/21 17:53 Justifications for Admission Other Justification DAPHNE CONWAY MD Apr 29, 2021 10:28
--- NOTE | 2021-04-29 10:33 | PDOC ---
CARDIO Progress Notes Date and Time Date of Service 04/29/2021 Time of Evaluation 1020 Subjective Subjective: No Chest Pain, No shortness of breath, No Palpitations Vitals Vitals Vital Signs Date Time Temp Pulse Resp B/P (MAP) Pulse Ox O2 Delivery O2 Flow Rate FiO2 04/29/21 07:00 97.0 61 20 108/85 (93) 99 Nasal Cannula 2.0 97.0 Weight Weight [ ] Input and Output Intake and Output Intake and Output 04/29/21 07:00 Intake Total 1130 ml Balance 1130 ml Intake Oral 1130 ml # Bowel Movements 1 Laboratory Labs Laboratory Tests Test 04/28/21 13:50 04/29/21 03:55 Sodium Level 145 mmol/L (136-145) 143 mmol/L (136-145) Potassium Level 3.0 mmol/L (3.5-5.1) 3.8 mmol/L (3.5-5.1) Chloride Level 104 mmol/L (98-107) 102 mmol/L (98-107) Carbon Dioxide Level 32 mmol/L (21-32) 29 mmol/L (21-32) Anion Gap 9 (6-14) 12 (6-14) Blood Urea Nitrogen 21 mg/dL (7-20) 22 mg/dL (7-20) Creatinine 0.9 mg/dL (0.6-1.0) 0.9 mg/dL (0.6-1.0) Estimated GFR (Cockcroft-Gault) 61.0 61.0 Glucose Level 104 mg/dL (70-99) 82 mg/dL (70-99) Calcium Level 9.6 mg/dL (8.5-10.1) 9.7 mg/dL (8.5-10.1) White Blood Count 10.2 x10^3/uL (4.0-11.0) Red Blood Count 3.94 x10^6/uL (3.50-5.40) Hemoglobin 12.2 g/dL (12.0-15.5) Hematocrit 37.6 % (36.0-47.0) Mean Corpuscular Volume 96 fL (79-100) Mean Corpuscular Hemoglobin 31 pg (25-35) Mean Corpuscular Hemoglobin Concent 32 g/dL (31-37) Red Cell Distribution Width 13.3 % (11.5-14.5) Platelet Count 378 x10^3/uL (140-400) Neutrophils (%) (Auto) 71 % (31-73) Lymphocytes (%) (Auto) 17 % (24-48) Monocytes (%) (Auto) 11 % (0-9) Eosinophils (%) (Auto) 1 % (0-3) Basophils (%) (Auto) 0 % (0-3) Neutrophils # (Auto) 7.2 x10^3/uL (1.8-7.7) Lymphocytes # (Auto) 1.7 x10^3/uL (1.0-4.8) Monocytes # (Auto) 1.1 x10^3/uL (0.0-1.1) Eosinophils # (Auto) 0.1 x10^3/uL (0.0-0.7) Basophils # (Auto) 0.0 x10^3/uL (0.0-0.2) Physical Exam HEENT: Neck Supple W Full Motion Chest: Symmetric LUNGS: Other (diminished bases) Heart: RRR (SR) Abdomen: Soft N/T, Other (soft ) Extremities: No Calf Tenderness, Other (1+ bilateral Le pitting edema) Neurology: alert, oriented, follow commands Assessment Assessment 1. Acute hypercapnic/hypoxic respiratory failure: per pulmonary 2. Cardiopulmonary arrest: noted asystolic event due to hypoxia. 8 min to ROSC. LHC revealed fluid overload but no significant CAD. No significant arrhythmia so far 3. Acute on chronic diastolic CHF/pulmonary edema 4. Obesity with suspected CLEMENCIA/OHS 5. HTN: controlled 6. HLP 7. Anoxic Encephalopathy: much better. neurology following 8. Asymptoamtic SB; lowest 40s otherwise SR. No pauses or heartblocks Recommendations 1. Continue lasix therapy. 2. ASA and statin. Hold imdur. HBPM 3. Continue with pulmonary treatment, 4. Follow up with Dr Dixon on June 05 at 2:30 PM 5. 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
[2021-04-29 11:00] VITALS: BP 132/67
--- NOTE | 2021-04-29 13:51 | NUR ---
SS following up with discharge planning. SS reviewed pt chart and discussed with pt RN. Pt is currently requiring oxygen at two liters nasal canula. Pt has no home oxygen. COVID19 negative. Pt on PO Augmentin and IV Lasix. Pt on PO diet. PT/OT recommended acute rehabilitation. SS met with pt and pt's spouse and discussed discharge planning and acute rehabilitation. Pt and pt's spouse declined acute rehabilitation and are requesting home with home healthcare with no preference of company. Six minute walk ordered. Referral sent to [facility], ; fax [phone]. SS will continue to follow for discharge planning. Addendum: 04/29/21 at 1620 by ROSALINDA WASHINGTON Pt accepted on services with [facility].
[2021-04-29 15:00] VITALS: BP 126/63
[2021-04-29 19:00] VITALS: BP 124/66
[2021-04-29] MEDS: SIMVASTATIN 20 MG TABLET PO SCH (21:26)
[2021-04-29] MEDS: ENOXAPARIN 40 MG/0.4 ML SYRINGE. SQ SCH (21:27)
[2021-04-29] MEDS: LATANOPROST 0.005% OPHTH SOLUTION 2.5ML BOTTLE. OU SCH (21:28)
[2021-04-29 22:30] VITALS: BP 125/69
[2021-04-30 02:55] VITALS: BP 130/75
--- NOTE | 2021-04-30 05:50 | NUR ---
LATE ENTRY: this nurse took patient to [facility] at 0550 and placed back into chair, all movement intact No apparent S&S of stroke.
[2021-04-30 06:18] VITALS: BP_SYST 125; BP_SYST 133; BP_DIAS 90; BP_DIAS 96
[2021-04-30] MEDS: ASPIRIN CHEWABLE 81 MG TABLET. PO SCH (09:00)
[2021-04-30] MEDS ORDERED: IOHEXOL 300 MG/ML 100ML VIAL. IV ONE (09:30)
[2021-04-30] MEDS ORDERED: CONTRAST GIVEN. MC PRN (09:45)
--- NOTE | 2021-04-30 09:53 | NUR ---
called code stroke called, Ginny VALENCIA at bedside, patient sitting on bedside commode and is having left sided weakness. Last known well is last evening sometime, Ginny states patient was on BS commode when she came on shift. patient is alert and able to answer questions. NIHSS completed. Awaiting CTA report. Addendum: 04/30/21 at 0957 by VICKY JANSEN RN Amended: Links added.
--- NOTE | 2021-04-30 09:56 | RAD ---
EXAM: CT Head without IV contrast CLINICAL HISTORY: Reason: left sided weakness room [id number] / [facility]. Instructions: / History: COMPARISON: None. TECHNIQUE: Routine CT of the head without contrast. PQRS compliance statement - One or more of the following individualized dose reduction techniques wer e utilized for this study: 1. Automated exposure control 2. Adjustment of the mA and/or kV according to patient size 3. Use of iterative reconstruction technique FINDINGS: Examination is limited by motion artifact particularly in the middle cranial fossa. There is no evidence of hemorrhage, mass or extra-axial fluid collection. Murray-white differentiation is maintained with no evidence of edema. Subcortical, periventricular as w ell as deep white matter foci of hypoattenuation likely changes of chronic small vessel disease. There is no mass effect or shift of the intracranial structures. The ventricles, basilar cisterns and cortical sulci are normal in size and configuration for the paul ents stated age. The cerebellum and brainstem are unremarkable. The calvarium demonstrates no evidence of fracture or focal lesion. Layering opacification of the maxillary sinuses likely sinusitis. Mastoid air cells are clear. The visualized portions of the orbits are normal. Atherosclerotic calcifications of the intracranial internal carotid and vertebral arteries is seen. IMPRESSION: No evidence for acute intracranial process. White matter changes likely changes of chronic small vessel disease. Layering opacification of the maxillary sinuses, nonspecific but likely sinusitis. Findings discussed with Nimo at 04/30/2021 9:53 AM. FOR INTERNAL CODING PURPOSES RESULT CODE: (C) Electronically signed by: Shayne So MD (04/30/2021 9:54 AM) [id number]
[2021-04-30] MEDS ORDERED: ASPIRIN 325 MG TABLET PO ONE ×2 (10:00→11:30)
--- NOTE | 2021-04-30 10:01 | PDOC ---
[facility] PROGRESS NOTE Date of Service DOS: DATE: 04/30/21 TIME: 09:54 Chief Complaint Chief Complaint Dysphagiathat is post intubation Acute hypoxic hypercapnic respiratory failure status post intubation. Status post extubation on 04/26/2021 Cardiopulmonary arrest due to hypoxia 8 minutes with ROSC Acute metabolic and possible ischemic encephalopathy Acute on chronic CHF CLEMENCIA Hypertension Hypokalemia Transferred to [facility] telemetry floor Pulmonology consulted, patient will likely need outpatient sleep study for CPAP Continue empiric IV antibiotics for possible aspiration pneumonia Lovenox for DVT prophylaxis Protonix or Pepcid GI prophylaxis ADA diet Full code Discussed with RN and SW Disposition inpatient management as above Surrogate decision maker is History of Present Illness History of Present Illness 75-year-old female with past medical history of hypertension, obesity, dyslipidemia, sleep apnea, who was admitted for scheduled left heart cath on 04/16/2021 for chest pains that was relieved with nitroglycerin. Patient underwent left and right heart cath which showed no significant CAD. Unfortunately, at the end of the procedure patient developed increasing shortness of breath she was initially treated with IV diuretics and oxygen but her dyspnea persisted and she required emergency intubation and had periods of asystole. ACLS protocol was initiated. Please see CODE BLUE sheet for details. She was transferred to the ICU for further management and the hospitalist service was consulted for medical management. I saw the patient this morning intubated and not on any sedation. Pulmonology is following for vent management. Patient was responding appropriately to external stimuli and started to wake up. She will likely need a CT of the head as there is no sedation and the patient is not responding appropriately. 04/26/2021 No acute events overnight. Patient was extubated early in the evening and she tolerated well.. Patient is currently saturating 97 on room air. Patient is wanting to eat Jell-O. Pending speech evaluation. Pending PT OT evaluation for determining placement needs. Patient's chart, labs, images were reviewed and di scussed with RN 04/27/2021 No acute events overnight. Patient responding well to 40 mg IV Lasix with 1.5 L urine output. We will repeat IV Lasix today and pending further speech evaluation. Patient is currently n.p.o. due to aspiration risk. Pending PT OT evaluation. Patient's chart, labs, images were reviewed and discussed with RN 04/28/2021: Afebrile. Currently breathing on 2 L nasal cannula. Placed on dysphagia III diet today. Seen by OT and recommended acute rehab; PT sima pending at this time. 04/29/2021: Afebrile. Currently breathing into his nasal cannula. 6-minute walk with an order today. She is tolerating her dysphagia 3 diet. She has been recommended acute rehab, but patient is wanting instead to discharge home with home health. Currently not feeling comfortable discharging home today; I discussed that she is improving well but if she would like to stay in the hospital 1 more day we can discharge home with home health tomorrow. She feels she still needs to have further physical therapy she can go to acute rehab. 04/30/2021: Called patient's bedside for concern of new onset left-sided weakness and possible acute CVA. She has conflicting NIH scores depending on her ability to focus during my exam. There is some notable left-sided upper extremity weakness and complaints of left-sided facial numbness. Stat CT head and CTA head/neck pending. Will provide aspirin [address] Álvarez with neurology has been reconsulted to see patient. Vitals/I&O Vitals/I&O: Vital Signs Date Time Temp Pulse Resp B/P (MAP) Pulse Ox O2 Delivery O2 Flow Rate FiO2 04/30/21 06:18 97.9 70 19 125/90 (102) 98 Room Air 97.9 04/29/21 15:00 2.0 I & O 04/29/21 04/29/21 04/30/21 15:00 23:00 07:00 Intake Total 400 ml 280 ml 200 ml Output Total 400 ml Balance 0 ml 280 ml 200 ml Physical Exam General: Alert, No acute distress Heart: Regular rate Lungs: Clear Abdomen: Normal bowel sounds Extremities: No edema, Normal pulses Skin: No rashes, No breakdown Labs Labs: Laboratory Tests Test 04/30/21 09:18 Glucose (Fingerstick) 89 mg/dL (70-99) Comment Review of Relevant I have reviewed the following items clarisa (where applicable) has been applied. Medications: Current Medications Medications (Trade) Dose Ordered Sig/Miguel Angel Route PRN Reason Start Time Stop Time Status Last Admin Dose Admin Simvastatin (Zocor) 20 mg HS PO 04/29/21 21:00 04/29/21 21:26 Iohexol (Omnipaque 300 Mg/ml) 75 ml 1X ONCE IV 04/30/21 09:30 04/30/21 09:31 DC 04/30/21 09:52 Justifications for Admission Other Justification DAPHNE CONWAY MD Apr 30, 2021 10:01
[2021-04-30] MEDS ORDERED: ASPIRIN RECTAL 300 MG SUPP. PR ONE (10:15)
--- NOTE | 2021-04-30 10:16 | RAD ---
CLINICAL HISTORY: Reason: left sided weakness / Spl. Instructions: omni 300 75ml / History: COMPARISON: None available. TECHNIQUE: CT angiogram of the head and neck was performed following the administration of IV contras t. Multiplanar reconstructed images were obtained including 3D reconstructed images performed on an independent work station. Stenosis if present in the carotid arteries were measured using NASCET crit eria. PQRS compliance statement - One or more of the following individualized dose reduction techniques wer e utilized for this study: 1. Automated exposure control 2. Adjustment of the mA and/or kV according to patient size 3. Use of iterative reconstruction technique FINDINGS: CTA of the intracranial circulation reveals normal appearing distal internal carotid arteries includi ng the distal cervical, petrous, cavernous and supraclinoid portions. The anterior cerebral arteries are well visualized and without evidence of stenosis or occlusion. The middle cerebral arteries are well visualized and without evidence of stenosis or occlusion. The posterior cerebral arteries are well visualized and without evidence of stenosis or occlusion. The vertebral basilar system is normal with no evidence of stenosis or occlusion. In the neck, the origins of the great vessels are unremarkable. The common carotid arteries, bilaterally are normal with no evidence of significant stenosis or occlu eli. The internal carotid arteries are normal bilaterally with no evidence of stenosis. The vertebral arteries in the neck are well visualized bilaterally and unremarkable. Patchy and groundglass opacities in the upper lobes bilaterally may represent atelectasis or developi ng consolidation, incompletely included in the [id number]. Visualized thyroid is unremarkable. Lay ering opacification of the maxillary sinuses and left sphenoid sinus. Trace asymmetry of the right vo bradley cord likely physiologic although can be correlated with patient's symptoms. IMPRESSION: 1. No evidence for high-grade stenosis or occlusion of the intracranial or extracranial carotid or v ertebral basilar arteries 2. No evidence for high-grade stenosis or occlusion of the intracranial cerebral arteries. 3. Multifocal paranasal sinus opacifications with fluid levels possibly sinusitis. 4. Trace asymmetry of the right vocal cord likely physiologic although can be correlated with patien t's symptoms. 5. Minimal patchy parenchymal opacities of the visualized upper lungs possibly atelectasis or consol idative process Findings discussed with Nimo at 04/30/2021 10:08 AM. FOR INTERNAL CODING PURPOSES RESULT CODE: (C) Electronically signed by: Shayne So MD (04/30/2021 10:13 AM) [email or web address]
[2021-04-30 10:19] VITALS: BP 133/71
[2021-04-30] MEDS: FAMOTIDINE 20 MG TABLET. PO SCH ×2 (10:54→20:57)
[2021-04-30] MEDS: FUROSEMIDE 40 MG/4 ML VIAL. IVP SCH (10:54)
[2021-04-30] MEDS: AMOXICILLIN/K CLAV 500/125MG TABLET. PO SCH ×2 (10:54→20:57)
[2021-04-30] MEDS: LACTOBACILLUS RHAMNOSUS GG 1 CAPSULE. PO SCH ×2 (10:54→20:57)
--- NOTE | 2021-04-30 12:07 | NUR ---
SS following up with discharge planning. SS reviewed pt chart and discussed with pt RN. Pt is currently on room air. COVID19 negative. Pt accepted on services with [facility], ; fax [phone]. [facility] called this morning and per RN, pt had stroke. CT negative. Neurology following. Brain MRI and ST evaluation ordered. SS will continue to follow for discharge planning.
--- NOTE | 2021-04-30 12:49 | PDOC ---
PROGRESS NOTES Date of Service DATE: 04/30/21 TIME: 12:45 Assessment Called back to see patient because she woke up with left-sided weakness. This has gotten a little better as the morning goes on. I ordered stat CT of the head and CT angiogram, negative as reviewed below. Anoxic encephalopathy, did not have prolonged downtime Dysphagia post extubation, getting better, passed swallowing evaluation this morning Sinusitis on head CT Plan Await MRI of the brain Discussed with Dr. Marti, high suspicion for cardioembolic phenomenon despite negative work-up, consider starting apixaban in a few days Rehabilitation modalities Will need decision on whether to go to inpatient rehab. Also discussed with . Subjective Patient woke up with left-sided weakness this morning Objective Vital Signs Date Time Temp Pulse Resp B/P (MAP) Pulse Ox O2 Delivery O2 Flow Rate FiO2 04/30/21 10:19 97.8 69 19 133/71 (91) 94 Room Air 97.8 04/29/21 15:00 2.0 Intake and Output0 04/30/21 07:00 Intake Total 880 ml Output Total 400 ml Balance 480 ml Intake Oral 880 ml Output Urine Total 400 ml # Voids 2 PHYSICAL EXAM Alert. Oriented to place and person. PERRL. EOMI. CN: Left field cut. Muscle tone: normal. Muscle strength: 4/5 left hemiparesis DTR: 2+ Plantar reflex: Flexor Gait: not examined in bed. Sensory exam: Extinction on left side No cerebellar signs elicited. Review of Relevant I have reviewed the following items clarisa (where applicable) has been applied. Labs Laboratory Tests Test 04/28/21 13:50 04/29/21 03:55 04/30/21 09:18 Sodium Level 145 mmol/L (136-145) 143 mmol/L (136-145) Potassium Level 3.0 mmol/L (3.5-5.1) 3.8 mmol/L (3.5-5.1) Chloride Level 104 mmol/L (98-107) 102 mmol/L (98-107) Carbon Dioxide Level 32 mmol/L (21-32) 29 mmol/L (21-32) Anion Gap 9 (6-14) 12 (6-14) Blood Urea Nitrogen 21 mg/dL (7-20) 22 mg/dL (7-20) Creatinine 0.9 mg/dL (0.6-1.0) 0.9 mg/dL (0.6-1.0) Estimated GFR (Cockcroft-Gault) 61.0 61.0 Glucose Level 104 mg/dL (70-99) 82 mg/dL (70-99) Calcium Level 9.6 mg/dL (8.5-10.1) 9.7 mg/dL (8.5-10.1) White Blood Count 10.2 x10^3/uL (4.0-11.0) Red Blood Count 3.94 x10^6/uL (3.50-5.40) Hemoglobin 12.2 g/dL (12.0-15.5) Hematocrit 37.6 % (36.0-47.0) Mean Corpuscular Volume 96 fL (79-100) Mean Corpuscular Hemoglobin 31 pg (25-35) Mean Corpuscular Hemoglobin Concent 32 g/dL (31-37) Red Cell Distribution Width 13.3 % (11.5-14.5) Platelet Count 378 x10^3/uL (140-400) Neutrophils (%) (Auto) 71 % (31-73) Lymphocytes (%) (Auto) 17 % (24-48) Monocytes (%) (Auto) 11 % (0-9) Eosinophils (%) (Auto) 1 % (0-3) Basophils (%) (Auto) 0 % (0-3) Neutrophils # (Auto) 7.2 x10^3/uL (1.8-7.7) Lymphocytes # (Auto) 1.7 x10^3/uL (1.0-4.8) Monocytes # (Auto) 1.1 x10^3/uL (0.0-1.1) Eosinophils # (Auto) 0.1 x10^3/uL (0.0-0.7) Basophils # (Auto) 0.0 x10^3/uL (0.0-0.2) Glucose (Fingerstick) 89 mg/dL (70-99) Laboratory Tests Test 04/30/21 09:18 Glucose (Fingerstick) 89 mg/dL (70-99) Medications Current Medications Lidocaine HCl (Lidocaine 1% 20ml Vial) 20 ml STK-MED ONCE .ROUTE ; Start 04/16/21 at 07:35; Stop 04/16/21 at 07:35; Status DC Iodixanol (Visipaque 320) 100 ml STK-MED ONCE .ROUTE ; Start 04/16/21 at 07:35; Stop 04/16/21 at 07:35; Status DC Heparin Sodium/ Sodium Chloride 1,500 ml @ As Directed STK-MED ONCE .ROUTE ; Start 04/16/21 at 07:37; Stop 04/16/21 at 07:37; Status DC Heparin Sodium/ Sodium Chloride (HEPARIN for ARTERIAL LINE FLUSH) 1,000 unit 1X ONCE IART Last administered on 04/16/21at 08:30; Start 04/16/21 at 08:30; Stop 04/16/21 at 08:31; Status DC Heparin Sodium/ Sodium Chloride (HEPARIN for ARTERIAL LINE FLUSH) 1,000 unit 1X ONCE IART Last administered on 04/16/21at 08:30; Start 04/16/21 at 08:30; Stop 04/16/21 at 08:31; Status DC Midazolam HCl (Versed) 5 mg 1X ONCE IV Last administered on 04/16/21at 08:30; Start 04/16/21 at 08:30; Stop 04/16/21 at 08:31; Status DC Fentanyl Citrate (Fentanyl 2ml Vial) 100 mcg 1X ONCE IV Last administered on 04/16/21at 08:30; Start 04/16/21 at 08:30; Stop 04/16/21 at 08:31; Status DC Iodixanol (Visipaque 320) 100 ml 1X ONCE IART Last administered on 04/16/21at 08:30; Start 04/16/21 at 08:30; Stop 04/16/21 at 08:31; Status DC Lidocaine HCl (Lidocaine 1% 20ml Vial) 20 ml 1X ONCE INJ Last administered on 04/16/21at 08:30; Start 04/16/21 at 08:30; Stop 04/16/21 at 08:31; Status DC Info (CONTRAST GIVEN -- Rx MONITORING) 1 each PRN DAILY PRN MC SEE COMMENTS; Start 04/16/21 at 08:30; Stop 04/18/21 at 08:29; Status DC Iodixanol (Visipaque 320) 100 ml STK-MED ONCE .ROUTE ; Start 04/16/21 at 09:40; Stop 04/16/21 at 09:41; Status DC Heparin Sodium/ Sodium Chloride 500 ml @ As Directed STK-MED ONCE .ROUTE ; Start 04/16/21 at 09:52; Stop 04/16/21 at 09:53; Status DC Furosemide (Lasix) 100 mg STK-MED ONCE .ROUTE ; Start 04/16/21 at 09:57; Stop 04/16/21 at 09:58; Status DC Morphine Sulfate (Morphine Sulfate) 10 mg STK-MED ONCE .ROUTE ; Start 04/16/21 at 10:01; Stop 04/16/21 at 10:01; Status DC Ondansetron HCl (Zofran) 4 mg STK-MED ONCE .ROUTE ; Start 04/16/21 at 10:03; Stop 04/16/21 at 10:03; Status DC Heparin Sodium/ Sodium Chloride 500 ml @ As Directed STK-MED ONCE .ROUTE ; Start 04/16/21 at 10:24; Stop 04/16/21 at 10:24; Status DC Succinylcholine Chloride (Anectine) 200 mg STK-MED ONCE .ROUTE ; Start 04/16/21 at 10:26; Stop 04/16/21 at 10:27; Status DC Furosemide (Lasix) 100 mg 1X ONCE IVP Last administered on 04/16/21at 10:30; Start 04/16/21 at 10:30; Stop 04/16/21 at 10:35; Status DC Morphine Sulfate (Morphine Sulfate) 10 mg 1X ONCE IV Last administered on 04/16/21at 10:30; Start 04/16/21 at 10:30; Stop 04/16/21 at 10:35; Status DC Ondansetron HCl (Zofran) 4 mg 1X ONCE IVP Last administered on 04/16/21at 10:30; Start 04/16/21 at 10:30; Stop 04/16/21 at 10:35; Status DC Albuterol/ Ipratropium (Duoneb) 3 ml 1X ONCE NEB Last administered on 04/16/21at 10:05; Start 04/16/21 at 10:45; Stop 04/16/21 at 10:46; Status DC Fentanyl Citrate 30 ml @ 0 mls/hr CONT PRN IV SEE PROTOCOL Last administered on 04/17/21at 05:24; Start 04/16/21 at 10:45; Stop 04/17/21 at 10:44; Status DC Midazolam HCl 100 ml @ 0 mls/hr CONT PRN IV SEE PROTOCOL Last administered on 04/17/21at 08:54; Start 04/16/21 at 10:45; Stop 04/17/21 at 10:44; Status DC Dopamine HCl/ Dextrose 250 ml @ As Directed STK-MED ONCE IV ; Start 04/16/21 at 11:08; Stop 04/16/21 at 11:08; Status DC Dopamine HCl/ Dextrose 250 ml @ 17.138 mls/ hr CONT PRN IV SEE I/O RECORD Last administered on 04/17/21at 11:02; Start 04/16/21 at 12:00; Stop 04/17/21 at 11:59; Status DC Furosemide (Lasix) 40 mg 1X ONCE IVP Last administered on 04/16/21at 12:30; Start 04/16/21 at 12:30; Stop 04/16/21 at 12:31; Status DC Potassium Chloride/Water 100 ml @ 100 mls/hr Q1H IV Last administered on 04/16/21at 14:00; Start 04/16/21 at 13:00; Stop 04/16/21 at 14:59; Status DC Furosemide (Lasix) 40 mg STK-MED ONCE .ROUTE ; Start 04/16/21 at 12:37; Stop 04/16/21 at 12:37; Status DC Succinylcholine Chloride (Anectine) 200 mg STK-MED ONCE .ROUTE ; Start 04/16/21 at 16:48; Stop 04/16/21 at 16:49; Status DC Epinephrine HCl (EPINEPHrine SYRINGE) 2 mg STK-MED ONCE .ROUTE ; Start 04/16/21 at 11:00; Stop 04/16/21 at 18:11; Status DC Furosemide (Lasix) 40 mg 1X ONCE IVP Last administered on 04/17/21at 10:10; Start 04/17/21 at 10:00; Stop 04/17/21 at 10:01; Status DC Fentanyl Citrate 30 ml @ 0 mls/hr CONT PRN IV SEE PROTOCOL Last administered on 04/21/21at 04:04; Start 04/17/21 at 16:15; Stop 04/28/21 at 14:26; Status DC Midazolam HCl 100 ml @ 0 mls/hr CONT PRN IV SEE PROTOCOL Last administered on 04/20/21at 07:38; Start 04/17/21 at 16:15; Stop 04/28/21 at 14:26; Status DC Dopamine HCl/ Dextrose 250 ml @ 16.031 mls/ hr CONT PRN IV SEE I/O RECORD Last administered on 04/20/21at 02:00; Start 04/18/21 at 00:00; Stop 04/20/21 at 13:29; Status DC Furosemide (Lasix) 40 mg 1X ONCE IVP Last administered on 04/18/21at 10:00; Start 04/18/21 at 09:30; Stop 04/18/21 at 09:31; Status DC Potassium Bicarbonate (Potassium Effervescent Tablet) 40 meq 1X ONCE PEG Last administered on 04/18/21at 09:59; Start 04/18/21 at 09:30; Stop 04/18/21 at 09:31; Status DC Famotidine (Pepcid Vial) 20 mg BID IVP Last administered on 04/28/21at 08:57; Start 04/18/21 at 12:00; Stop 04/28/21 at 14:27; Status DC Enoxaparin Sodium (Lovenox 40mg Syringe) 40 mg Q24H SQ ; Start 04/18/21 at 12:00; Status Cancel Furosemide (Lasix) 40 mg 1X ONCE IVP Last administered on 04/18/21at 16:24; Start 04/18/21 at 16:00; Stop 04/18/21 at 16:01; Status DC Furosemide (Lasix) 40 mg DAILY IVP Last administered on 04/30/21at 10:54; Start 04/19/21 at 09:00 Potassium Bicarbonate (Potassium Effervescent Tablet) 40 meq 1X ONCE FT Last administered on 04/18/21at 16:24; Start 04/18/21 at 16:15; Stop 04/18/21 at 16:16; Status DC Enoxaparin Sodium (Lovenox 40mg Syringe) 40 mg Q24H SQ Last administered on 04/29/21at 21:27; Start 04/18/21 at 21:00 Potassium Bicarbonate (Potassium Effervescent Tablet) 40 meq 1X ONCE PO Last administered on 04/19/21at 10:25; Start 04/19/21 at 10:15; Stop 04/19/21 at 10:16; Status DC Potassium Bicarbonate (Potassium Effervescent Tablet) 40 meq 1X ONCE PO Last administered on 04/20/21at 08:13; Start 04/20/21 at 07:30; Stop 04/20/21 at 07:31; Status DC Dopamine HCl/ Dextrose 250 ml @ 18.113 mls/ hr CONT PRN IV SEE I/O RECORD Last administered on 04/21/21at 04:18; Start 04/20/21 at 13:45; Stop 04/28/21 at 14:26; Status DC Latanoprost (Xalatan) 1 drop HS OU Last administered on 04/29/21at 21:28; Start 04/21/21 at 21:00 Piperacillin Sod/ Tazobactam Sod (Zosyn Per Pharmacy) 1 each PRN DAILY PRN MC SEE COMMENTS; Start 04/22/21 at 11:00; Stop 04/28/21 at 11:09; Status DC Propofol 100 ml @ 2.823 mls/ hr CONT PRN IV PER PROTOCOL Last administered on 04/23/21at 08:40; Start 04/22/21 at 11:00; Stop 04/28/21 at 14:27; Status DC Piperacillin Sod/ Tazobactam Sod 3.375 gm/Sodium Chloride 50 ml @ 100 mls/hr Q6HRS IV Last administered on 04/28/21at 05:22; Start 04/22/21 at 12:00; Stop 04/28/21 at 11:09; Status DC Dexmedetomidine HCl 400 mcg/ Sodium Chloride 100 ml @ 0 mls/hr CONT PRN IV PER PROTOCOL Last administered on 04/24/21at 23:37; Start 04/23/21 at 18:30; Stop 04/28/21 at 14:25; Status DC Sodium Chloride 500 ml @ 500 mls/hr 1X PRN PRN IV SEE COMMENTS; Start 04/23/21 at 18:30 Atropine Sulfate (ATROPINE 0.5mg SYRINGE) 0.5 mg PRN Q5MIN PRN IV SEE COMMENTS; Start 04/23/21 at 18:30; Status Cancel Potassium Chloride/Water 100 ml @ 100 mls/hr Q1H IV Last administered on 04/27/21at 02:03; Start 04/26/21 at 16:00; Stop 04/26/21 at 23:59; Status DC Potassium Chloride/Water 100 ml @ 100 mls/hr Q1H IV Last administered on 04/27/21at 12:00; Start 04/27/21 at 09:00; Stop 04/27/21 at 12:59; Status DC Amoxicillin/ Clavulanate Potassium (Augmentin 500/ 125mg) 1 tab BID PO Last administered on 04/30/21at 10:54; Start 04/28/21 at 12:00; Stop 05/02/21 at 11:59 Famotidine (Pepcid) 20 mg BID PO Last administered on 04/30/21at 10:54; Start 04/28/21 at 21:00 Lactobacillus Rhamnosus (Culturelle) 1 cap BID PO Last administered on 04/30/21at 10:54; Start 04/28/21 at 21:00 Potassium Chloride (Klor-Con) 40 meq 1X ONCE PO Last administered on 04/28/21at 17:53; Start 04/28/21 at 17:00; Stop 04/28/21 at 17:05; Status DC Aspirin (Aspirin Chewable) 81 mg DAILY PO ; Start 04/30/21 at 09:00 Simvastatin (Zocor) 20 mg HS PO Last administered on 04/29/21at 21:26; Start 04/29/21 at 21:00 Iohexol (Omnipaque 300 Mg/ml) 75 ml 1X ONCE IV Last administered on 04/30/21at 09:52; Start 04/30/21 at 09:30; Stop 04/30/21 at 09:31; Status DC Info (CONTRAST GIVEN -- Rx MONITORING) 1 each PRN DAILY PRN MC SEE COMMENTS; Start 04/30/21 at 09:45; Stop 05/02/21 at 09:44 Aspirin (Cody Aspirin) 325 mg 1X ONCE PO ; Start 04/30/21 at 10:00; Stop 04/30 at 10:09; Status DC Aspirin (Aspirin Rectal Supp) 300 mg 1X ONCE MO Last administered on 04/30/21at 10:54; Start 04/30/21 at 10:15; Stop 04/30/21 at 11:29; Status DC Aspirin (Cody Aspirin) 325 mg 1X ONCE PO Last administered on 04/30/21at 11:38; Start 04/30/21 at 11:30; Stop 04/30/21 at 11:31; Status DC Active Scripts Active Reported Hydrocodone-Apap 5-325 (Hydrocodone Bit/Acetaminophen) 1 Tab Tablet 1 Tab PO PRN Q6HRS PRN NITROGLYCERIN SubLingual (Nitroglycerin) 0.4 Mg Tab.subl 0.4 Mg SL PRN Q5MIN PRN Lasix (Furosemide) 20 Mg Tablet 1 Tab PO DAILY 30 Days Isosorbide Mononitrate Er (Isosorbide Mononitrate) 60 Mg Tab.er.24h 1 Tab PO DAILY Klor-Con M10 (Potassium Chloride) 10 Meq Tab.er.prt 10 Meq PO DAILY Vitamin D3 (Cholecalciferol (Vitamin D3)) 5,000 Unit Tab.rapdis 5,000 Unit PO DAILY Aspirin 81 Mg Tab.chew 81 Mg PO DAILY Amlodipine Besylate 10 Mg Tablet 10 Mg PO DAILY Fluoxetine Hcl 40 Mg Capsule 40 Mg PO DAILY Simvastatin 20 Mg Tablet 20 Mg PO HS Multi-Vitamin Daily (Multivitamin) 1 Each Tablet 1 Each PO DAILY Latanoprost 2.5 Ml Drops 1 Drop OU HS Vitals/I & O Vital Sign - Last 24 Hours 04/29/21 04/29/21 04/29/21 04/29/21 15:00 19:00 22:21 22:30 Temp 98.2 98.1 98.0 98.2 98.1 98.0 Pulse 61 66 68 Resp 18 18 18 B/P (MAP) 126/63 (84) 124/66 (85) 125/69 (87) Pulse Ox 99 96 97 O2 Delivery Nasal Cannula Room Air Nasal Cannula BiPAP/CPAP O2 Flow Rate 2.0 04/30/21 04/30/21 04/30/21 04/30/21 02:55 06:18 08:00 10:19 Temp 98.1 97.9 97.8 98.1 97.9 97.8 Pulse 65 70 69 Resp 19 19 19 B/P (MAP) 130/75 (93) 125/90 (102) 133/71 (91) Pulse Ox 97 98 94 O2 Delivery Room Air Room Air Room Air Room Air Intake and Output 04/29/21 04/29/21 04/30/21 15:00 23:00 07:00 Intake Total 400 ml 280 ml 200 ml Output Total 400 ml Balance 0 ml 280 ml 200 ml Images EXAM: CT Head without IV contrast CLINICAL HISTORY: Reason: left sided weakness room [id number] / [facility]. Instructions: / History: COMPARISON: None. TECHNIQUE: Routine CT of the head without contrast. RS compliance statement - One or more of the following individualized dose reduction techniques were utilized for this study: 1. Automated exposure control 2. Adjustment of the mA and/or kV according to patient size 3. Use of iterative reconstruction technique FINDINGS: Examination is limited by motion artifact particularly in the middle cranial fossa. There is no evidence of hemorrhage, mass or extra-axial fluid collection. Murray-white differentiation is maintained with no evidence of edema. Subcortical, periventricular as well as deep white matter foci of hypoattenuation likely changes of chronic small vessel disease. There is no mass effect or shift of the intracranial structures. The ventricles, basilar cisterns and cortical sulci are normal in size and configuration for the patients stated age. The cerebellum and brainstem are unremarkable. The calvarium demonstrates no evidence of fracture or focal lesion. Layering opacification of the maxillary sinuses likely sinusitis. Mastoid air ce lls are clear. The visualized portions of the orbits are normal. Atherosclerotic calcifications of the intracranial internal carotid and vertebral arteries is seen. IMPRESSION: No evidence for acute intracranial process. White matter changes likely changes of chronic small vessel disease. Layering opacification of the maxillary sinuses, nonspecific but likely sinusitis. CTA of the intracranial circulation reveals normal appearing distal internal carotid arteries including the distal cervical, petrous, cavernous and supraclinoid portions. The anterior cerebral arteries are well visualized and without evidence of stenosis or occlusion. The middle cerebral arteries are well visualized and without evidence of stenosis or occlusion. The posterior cerebral arteries are well visualized and without evidence of stenosis or occlusion. The vertebral basilar system is normal with no evidence of stenosis or occlusion. In the neck, the origins of the great vessels are unremarkable. The common carotid arteries, bilaterally are normal with no evidence of significant stenosis or occlusion. The internal carotid arteries are normal bilaterally with no evidence of stenosis. The vertebral arteries in the neck are well visualized bilaterally and unremarkable. Patchy and groundglass opacities in the upper lobes bilaterally may represent atelectasis or developing consolidation, incompletely included in the [id number]. Visualized thyroid is unremarkable. Layering opacification of the maxillary sinuses and left sphenoid sinus. Trace asymmetry of the right vocal cord likely physiologic although can be correlated with patient's symptoms. IMPRESSION: 1. No evidence for high-grade stenosis or occlusion of the intracranial or extracranial carotid or vertebral basilar arteries 2. No evidence for high-grade stenosis or occlusion of the intracranial cerebral arteries. 3. Multifocal paranasal sinus opacifications with fluid levels possibly sinusitis. 4. Trace asymmetry of the right vocal cord likely physiologic although can be correlated with patient's symptoms. 5. Minimal patchy parenchymal opacities of the visualized upper lungs possibly atelectasis or consolidative process Justicifation of Admission Dx: Justifications for Admission: Justification of Admission Dx: Yes Respiratory Failure: Mechanical Ventilation UNIQUE LONG MD Apr 30, 2021 12:49
--- NOTE | 2021-04-30 16:10 | PDOC ---
PROGRESS NOTES Date of Service DATE: 04/30/21 TIME: 16:08 Subjective Subjective Patient seen and examined She is alert Objective Objective Vital Signs Date Time Temp Pulse Resp B/P (MAP) Pulse Ox O2 Delivery O2 Flow Rate FiO2 04/30/21 10:19 97.8 69 19 133/71 (91) 94 Room Air 97.8 04/29/21 15:00 2.0 Intake and Output 04/30/21 07:00 Intake Total 880 ml Output Total 400 ml Balance 480 ml Intake Oral 880 ml Output Urine Total 400 ml # Voids 2 Physical Exam Abdomen: Normal bowel sounds Heart: Regular rate General: No acute distress Lungs: Clear to auscultation Assessment Assessment Acute hypercapnic/hypoxic respiratory failure: Resolved. Has been doing well from a pulmonary viewpoint. Cardiopulmonary arrest: noted asystolic event due to hypoxia. 8 min to ROSC. LHC revealed fluid overload but no significant CAD. No significant arrhythmia so far Acute on chronic diastolic CHF/pulmonary edema. Resolved. Obesity with suspected CLEMENCIA/OHS HTN: controlled HLP Anoxic Encephalopathy: much better. neurology following. New onset this morning of left-sided weakness. Patient is alert and responsive. Appreciate neurology follow-up as above. CT head scan with no acute changes. CTA of the head neck also with no acute changes. MRI pending. We will schedule a SAMEER for tomorrow. Comment Review of Relevant I have reviewed the following items clarisa (where applicable) has been applied. Labs Laboratory Tests Test 04/29/21 03:55 04/30/21 09:18 White Blood Count 10.2 x10^3/uL (4.0-11.0) Red Blood Count 3.94 x10^6/uL (3.50-5.40) Hemoglobin 12.2 g/dL (12.0-15.5) Hematocrit 37.6 % (36.0-47.0) Mean Corpuscular Volume 96 fL (79-100) Mean Corpuscular Hemoglobin 31 pg (25-35) Mean Corpuscular Hemoglobin Concent 32 g/dL (31-37) Red Cell Distribution Width 13.3 % (11.5-14.5) Platelet Count 378 x10^3/uL (140-400) Neutrophils (%) (Auto) 71 % (31-73) Lymphocytes (%) (Auto) 17 % (24-48) Monocytes (%) (Auto) 11 % (0-9) Eosinophils (%) (Auto) 1 % (0-3) Basophils (%) (Auto) 0 % (0-3) Neutrophils # (Auto) 7.2 x10^3/uL (1.8-7.7) Lymphocytes # (Auto) 1.7 x10^3/uL (1.0-4.8) Monocytes # (Auto) 1.1 x10^3/uL (0.0-1.1) Eosinophils # (Auto) 0.1 x10^3/uL (0.0-0.7) Basophils # (Auto) 0.0 x10^3/uL (0.0-0.2) Sodium Level 143 mmol/L (136-145) Potassium Level 3.8 mmol/L (3.5-5.1) Chloride Level 102 mmol/L (98-107) Carbon Dioxide Level 29 mmol/L (21-32) Anion Gap 12 (6-14) Blood Urea Nitrogen 22 mg/dL (7-20) Creatinine 0.9 mg/dL (0.6-1.0) Estimated GFR (Cockcroft-Gault) 61.0 Glucose Level 82 mg/dL (70-99) Calcium Level 9.7 mg/dL (8.5-10.1) Glucose (Fingerstick) 89 mg/dL (70-99) Laboratory Tests Test 04/30/21 09:18 Glucose (Fingerstick) 89 mg/dL (70-99) Medications Current Medications Lidocaine HCl (Lidocaine 1% 20ml Vial) 20 ml STK-MED ONCE .ROUTE ; Start 04/16/21 at 07:35; Stop 04/16/21 at 07:35; Status DC Iodixanol (Visipaque 320) 100 ml STK-MED ONCE .ROUTE ; Start 04/16/21 at 07:35; Stop 04/16/21 at 07:35; Status DC Heparin Sodium/ Sodium Chloride 1,500 ml @ As Directed STK-MED ONCE .ROUTE ; Start 04/16/21 at 07:37; Stop 04/16/21 at 07:37; Status DC Heparin Sodium/ Sodium Chloride (HEPARIN for ARTERIAL LINE FLUSH) 1,000 unit 1X ONCE IART Last administered on 04/16/21at 08:30; Start 04/16/21 at 08:30; Stop 04/16/21 at 08:31; Status DC Heparin Sodium/ Sodium Chloride (HEPARIN for ARTERIAL LINE FLUSH) 1,000 unit 1X ONCE IART Last administered on 04/16/21at 08:30; Start 04/16/21 at 08:30; Stop 04/16/21 at 08:31; Status DC Midazolam HCl (Versed) 5 mg 1X ONCE IV Last administered on 04/16/21at 08:30; Start 04/16/21 at 08:30; Stop 04/16/21 at 08:31; Status DC Fentanyl Citrate (Fentanyl 2ml Vial) 100 mcg 1X ONCE IV Last administered on 04/16/21at 08:30; Start 04/16/21 at 08:30; Stop 04/16/21 at 08:31; Status DC Iodixanol (Visipaque 320) 100 ml 1X ONCE IART Last administered on 04/16/21at 08:30; Start 04/16/21 at 08:30; Stop 04/16/21 at 08:31; Status DC Lidocaine HCl (Lidocaine 1% 20ml Vial) 20 ml 1X ONCE INJ Last administered on 04/16/21at 08:30; Start 04/16/21 at 08:30; Stop 04/16/21 at 08:31; Status DC Info (CONTRAST GIVEN -- Rx MONITORING) 1 each PRN DAILY PRN MC SEE COMMENTS; Start 04/16/21 at 08:30; Stop 04/18/21 at 08:29; Status DC Iodixanol (Visipaque 320) 100 ml STK-MED ONCE .ROUTE ; Start 04/16/21 at 09:40; Stop 04/16/21 at 09:41; Status DC Heparin Sodium/ Sodium Chloride 500 ml @ As Directed STK-MED ONCE .ROUTE ; Start 04/16/21 at 09:52; Stop 04/16/21 at 09:53; Status DC Furosemide (Lasix) 100 mg STK-MED ONCE .ROUTE ; Start 04/16/21 at 09:57; Stop 04/16/21 at 09:58; Status DC Morphine Sulfate (Morphine Sulfate) 10 mg STK-MED ONCE .ROUTE ; Start 04/16/21 at 10:01; Stop 04/16/21 at 10:01; Status DC Ondansetron HCl (Zofran) 4 mg STK-MED ONCE .ROUTE ; Start 04/16/21 at 10:03; Stop 04/16/21 at 10:03; Status DC Heparin Sodium/ Sodium Chloride 500 ml @ As Directed STK-MED ONCE .ROUTE ; Start 04/16/21 at 10:24; Stop 04/16/21 at 10:24; Status DC Succinylcholine Chloride (Anectine) 200 mg STK-MED ONCE .ROUTE ; Start 04/16/21 at 10:26; Stop 04/16/21 at 10:27; Status DC Furosemide (Lasix) 100 mg 1X ONCE IVP Last administered on 04/16/21at 10:30; Start 04/16/21 at 10:30; Stop 04/16/21 at 10:35; Status DC Morphine Sulfate (Morphine Sulfate) 10 mg 1X ONCE IV Last administered on 04/16/21at 10:30; Start 04/16/21 at 10:30; Stop 04/16/21 at 10:35; Status DC Ondansetron HCl (Zofran) 4 mg 1X ONCE IVP Last administered on 04/16/21at 10:30; Start 04/16/21 at 10:30; Stop 04/16/21 at 10:35; Status DC Albuterol/ Ipratropium (Duoneb) 3 ml 1X ONCE NEB Last administered on 04/16/21at 10:05; Start 04/16/21 at 10:45; Stop 04/16/21 at 10:46; Status DC Fentanyl Citrate 30 ml @ 0 mls/hr CONT PRN IV SEE PROTOCOL Last administered on 04/17/21at 05:24; Start 04/16/21 at 10:45; Stop 04/17/21 at 10:44; Status DC Midazolam HCl 100 ml @ 0 mls/hr CONT PRN IV SEE PROTOCOL Last administered on 04/17/21at 08:54; Start 04/16/21 at 10:45; Stop 04/17/21 at 10:44; Status DC Dopamine HCl/ Dextrose 250 ml @ As Directed STK-MED ONCE IV ; Start 04/16/21 at 11:08; Stop 04/16/21 at 11:08; Status DC Dopamine HCl/ Dextrose 250 ml @ 17.138 mls/ hr CONT PRN IV SEE I/O RECORD Last administered on 04/17/21at 11:02; Start 04/16/21 at 12:00; Stop 04/17/21 at 11: 59; Status DC Furosemide (Lasix) 40 mg 1X ONCE IVP Last administered on 04/16/21at 12:30; Start 04/16/21 at 12:30; Stop 04/16/21 at 12:31; Status DC Potassium Chloride/Water 100 ml @ 100 mls/hr Q1H IV Last administered on 04/16/21at 14:00; Start 04/16/21 at 13:00; Stop 04/16/21 at 14:59; Status DC Furosemide (Lasix) 40 mg STK-MED ONCE .ROUTE ; Start 04/16/21 at 12:37; Stop at 12:37; Status DC Succinylcholine Chloride (Anectine) 200 mg STK-MED ONCE .ROUTE ; Start 04/16/21 at 16:48; Stop 04/16/21 at 16:49; Status DC Epinephrine HCl (EPINEPHrine SYRINGE) 2 mg STK-MED ONCE .ROUTE ; Start 04/16/21 at 11:00; Stop 04/16/21 at 18:11; Status DC Furosemide (Lasix) 40 mg 1X ONCE IVP Last administered on 04/17/21at 10:10; Start 04/17/21 at 10:00; Stop 04/17/21 at 10:01; Status DC Fentanyl Citrate 30 ml @ 0 mls/hr CONT PRN IV SEE PROTOCOL Last administered on 04/21/21at 04:04; Start 04/17/21 at 16:15; Stop 04/28/21 at 14:26; Status DC Midazolam HCl 100 ml @ 0 mls/hr CONT PRN IV SEE PROTOCOL Last administered on 04/20/21at 07:38; Start 04/17/21 at 16:15; Stop 04/28/21 at 14:26; Status DC Dopamine HCl/ Dextrose 250 ml @ 16.031 mls/ hr CONT PRN IV SEE I/O RECORD Last administered on 04/20/21at 02:00; Start 04/18/21 at 00:00; Stop 04/20/21 at 13:29; Status DC Furosemide (Lasix) 40 mg 1X ONCE IVP Last administered on 04/18/21at 10:00; Start 04/18/21 at 09:30; Stop 04/18/21 at 09:31; Status DC Potassium Bicarbonate (Potassium Effervescent Tablet) 40 meq 1X ONCE PEG Last administered on 04/18/21at 09:59; Start 04/18/21 at 09:30; Stop 04/18/21 at 09:31; Status DC Famotidine (Pepcid Vial) 20 mg BID IVP Last administered on 04/28/21at 08:57; Start 04/18/21 at 12:00; Stop 04/28/21 at 14:27; Status DC Enoxaparin Sodium (Lovenox 40mg Syringe) 40 mg Q24H SQ ; Start 04/18/21 at 12:00; Status Cancel Furosemide (Lasix) 40 mg 1X ONCE IVP Last administered on 04/18/21at 16:24; Start 04/18/21 at 16:00; Stop 04/18/21 at 16:01; Status DC Furosemide (Lasix) 40 mg DAILY IVP Last administered on 04/30/21at 10:54; Start 04/19/21 at 09:00 Potassium Bicarbonate (Potassium Effervescent Tablet) 40 meq 1X ONCE FT Last administered on 04/18/21at 16:24; Start 04/18/21 at 16:15; Stop 04/18/21 at 16:16; Status DC Enoxaparin Sodium (Lovenox 40mg Syringe) 40 mg Q24H SQ Last administered on 04/29/21at 21:27; Start 04/18/21 at 21:00 Potassium Bicarbonate (Potassium Effervescent Tablet) 40 meq 1X ONCE PO Last administered on 04/19/21at 10:25; Start 04/19/21 at 10:15; Stop 04/19/21 at 10:16; Status DC Potassium Bicarbonate (Potassium Effervescent Tablet) 40 meq 1X ONCE PO Last administered on 04/20/21at 08:13; Start 04/20/21 at 07:30; Stop 04/20/21 at 07:31; Status DC Dopamine HCl/ Dextrose 250 ml @ 18.113 mls/ hr CONT PRN IV SEE I/O RECORD Last administered on 04/21/21at 04:18; Start 04/20/21 at 13:45; Stop 04/28/21 at 14:26; Status DC Latanoprost (Xalatan) 1 drop HS OU Last administered on 04/29/21at 21:28; Start 04/21/21 at 21:00 Piperacillin Sod/ Tazobactam Sod (Zosyn Per Pharmacy) 1 each PRN DAILY PRN MC SEE COMMENTS; Start 04/22/21 at 11:00; Stop 04/28/21 at 11:09; Status DC Propofol 100 ml @ 2.823 mls/ hr CONT PRN IV PER PROTOCOL Last administered on 04/23/21at 08:40; Start 04/22/21 at 11:00; Stop 04/28/21 at 14:27; Status DC Piperacillin Sod/ Tazobactam Sod 3.375 gm/Sodium Chloride 50 ml @ 100 mls/hr Q6HRS IV Last administered on 04/28/21at 05:22; Start 04/22/21 at 12:00; Stop 04/28/21 at 11:09; Status DC Dexmedetomidine HCl 400 mcg/ Sodium Chloride 100 ml @ 0 mls/hr CONT PRN IV PER PROTOCOL Last administered on 04/24/21at 23:37; Start 04/23/21 at 18:30; Stop 04/28/21 at 14:25; Status DC Sodium Chloride 500 ml @ 500 mls/hr 1X PRN PRN IV SEE COMMENTS; Start 04/23/21 at 18:30 Atropine Sulfate (ATROPINE 0.5mg SYRINGE) 0.5 mg PRN Q5MIN PRN IV SEE COMMENTS; Start 04/23/21 at 18:30; Status Cancel Potassium Chloride/Water 100 ml @ 100 mls/hr Q1H IV Last administered on 04/27/21at 02:03; Start 04/26/21 at 16:00; Stop 04/26/21 at 23:59; Status DC Potassium Chloride/Water 100 ml @ 100 mls/hr Q1H IV Last administered on 04/27at 12:00; Start 04/27/21 at 09:00; Stop 04/27/21 at 12:59; Status DC Amoxicillin/ Clavulanate Potassium (Augmentin 500/ 125mg) 1 tab BID PO Last administered on 04/30/21at 10:54; Start 04/28/21 at 12:00; Stop 05/02/21 at 11:59 Famotidine (Pepcid) 20 mg BID PO Last administered on 04/30/21at 10:54; Start 04/28/21 at 21:00 Lactobacillus Rhamnosus (Culturelle) 1 cap BID PO Last administered on 04/30/21at 10:54; Start 04/28/21 at 21:00 Potassium Chloride (Klor-Con) 40 meq 1X ONCE PO Last administered on 04/28/21at 17:53; Start 04/28/21 at 17:00; Stop 04/28/21 at 17:05; Status DC Aspirin (Aspirin Chewable) 81 mg DAILY PO ; Start 04/30/21 at 09:00 Simvastatin (Zocor) 20 mg HS PO Last administered on 04/29/21at 21:26; Start 04/29/21 at 21:00 Iohexol (Omnipaque 300 Mg/ml) 75 ml 1X ONCE IV Last administered on 04/30/21at 09:52; Start 04/30/21 at 09:30; Stop 04/30/21 at 09:31; Status DC Info (CONTRAST GIVEN -- Rx MONITORING) 1 each PRN DAILY PRN MC SEE COMMENTS; Start 04/30/21 at 09:45; Stop 05/02/21 at 09:44 Aspirin (Cody Aspirin) 325 mg 1X ONCE PO ; Start 04/30/21 at 10:00; Stop 04/30/21 at 10:09; Status DC Aspirin (Aspirin Rectal Supp) 300 mg 1X ONCE CO Last administered on 04/30/21at 10:54; Start 04/30/21 at 10:15; Stop 04/30/21 at 11:29; Status DC Aspirin (Cody Aspirin) 325 mg 1X ONCE PO Last administered on 04/30/21at 11:38; Start 04/30/21 at 11:30; Stop 04/30/21 at 11:31; Status DC Active Scripts Active Reported Hydrocodone-Apap 5-325 (Hydrocodone Bit/Acetaminophen) 1 Tab Tablet 1 Tab PO PRN Q6HRS PRN NITROGLYCERIN SubLingual (Nitroglycerin) 0.4 Mg Tab.subl 0.4 Mg SL PRN Q5MIN PRN Lasix (Furosemide) 20 Mg Tablet 1 Tab PO DAILY 30 Days Isosorbide Mononitrate Er (Isosorbide Mononitrate) 60 Mg Tab.er.24h 1 Tab PO DAILY Klor-Con M10 (Potassium Chloride) 10 Meq Tab.er.prt 10 Meq PO DAILY Vitamin D3 (Cholecalciferol (Vitamin D3)) 5,000 Unit Tab.rapdis 5,000 Unit PO DAILY Aspirin 81 Mg Tab.chew 81 Mg PO DAILY Amlodipine Besylate 10 Mg Tablet 10 Mg PO DAILY Fluoxetine Hcl 40 Mg Capsule 40 Mg PO DAILY Simvastatin 20 Mg Tablet 20 Mg PO HS Multi-Vitamin Daily (Multivitamin) 1 Each Tablet 1 Each PO DAILY Latanoprost 2.5 Ml Drops 1 Drop OU HS Vitals/I & O Vital Sign - Last 24 Hours 04/29/21 04/29/21 04/29/21 04/30/21 19:00 22:21 22:30 02:55 Temp 98.1 98.0 98.1 98.1 98.0 98.1 Pulse 66 68 65 Resp 18 18 19 B/P (MAP) 124/66 (85) 125/69 (87) 130/75 (93) Pulse Ox 96 97 97 O2 Delivery Room Air Nasal Cannula BiPAP/CPAP Room Air 04/30/21 04/30/21 04/30/21 06:18 08:00 10:19 Temp 97.9 97.8 97.9 97.8 Pulse 70 69 Resp 19 19 B/P (MAP) 125/90 (102) 133/71 (91) Pulse Ox 98 94 O2 Delivery Room Air Room Air Room Air Intake and Output 04/29/21 04/29/21 04/30/21 15:00 23:00 07:00 Intake Total 400 ml 280 ml 200 ml Output Total 400 ml Balance 0 ml 280 ml 200 ml Justifications for Admission Other Justification Nutrition Consultation Dietary Evaluation: Recommendations by RD: Dietary education by RD Comments: diet per APPLIER dys III, chopped, thin liquids [place] food preferences and offer oral nutrition suppelments prn Expected Outcomes/Goals: to meet >75% est nutrition needs via po intake Malnutrition Findings: Body Fat Depletion (Non Severe: Mild Depletion Weight Status: Obese KECIA MOON MD Apr 30, 2021 16:10
[2021-04-30 19:00] VITALS: BP 118/52
[2021-04-30] MEDS: SIMVASTATIN 20 MG TABLET PO SCH (20:58)
[2021-04-30] MEDS: ENOXAPARIN 40 MG/0.4 ML SYRINGE. SQ SCH (20:58)
[2021-04-30] MEDS: LATANOPROST 0.005% OPHTH SOLUTION 2.5ML BOTTLE. OU SCH (20:58)
[2021-04-30 22:53] VITALS: BP 123/67
[2021-05-01 03:00] VITALS: BP 115/73
[2021-05-01 07:00] VITALS: BP 118/71
--- NOTE | 2021-05-01 08:07 | RAD ---
MRI of the brain without contrast 04/30/2021 Clinical History: Left-sided weakness.. Technique: Unenhanced T1-weighted sagittal and axial, T2-weighted axial and coronal and FLAIR, gradie nt echo and diffusion-weighted axial images of the brain were obtained. Findings: Comparison is made to the patient's CT scan of the head dated 04/30/2021. Some of the images are degraded by patient motion. Patchy, confluent and multiple focal areas of increased signal intensity are seen within the perivent ricular and white matter of both cerebral hemispheres along with the zita on the FLAIR and T2-weighte d images consistent with areas of fairly extensive small vessel ischemic disease. A curvilinear area of restricted diffusion is seen along the cortex of the right parietal temporal lo be. This measures 3 cm in greatest diameter. An additional area of restricted diffusion is seen more superiorly involving the right parietal lobe which measures 6 mm in greatest diameter. These are cons istent with areas of acute ischemia/infarction. There is no significant surrounding edema or associat ed mass effect. No additional acute parenchymal abnormality is seen. No extra-axial fluid collection is noted. Mild mucosal thickening is seen scattered throughout the paranasal sinuses. A large fluid level is se en involving the right maxillary sinus. A small fluid level is seen involving left maxillary sinus. T here are small to moderate-sized bilateral mastoid effusions. Normal flow voids are seen within the m ajor vascular structures surrounding the brain parenchyma. IMPRESSION: Areas of acute ischemia/infarction are seen involving the right parietal temporal lobe an d the right superior parietal lobe as discussed above. There is no surrounding edema or associated ma ss effect. These findings were discussed with the patient's nurse. Electronically signed by: Glenn Bateman MD (05/01/2021 8:04 AM) [id number]
[2021-05-01] MEDS ORDERED: LIDOCAINE 2% VISCOUS 15 ML SOLUTION. ONE (09:36)
[2021-05-01] MEDS ORDERED: BENZOCAINE ONE 20% MUCOSAL SPRAY. (09:36)
[2021-05-01] MEDS ORDERED: BENZOCAINE ONE 20% MUCOSAL SPRAY. MM (09:45)
[2021-05-01] MEDS ORDERED: LIDOCAINE 2% VISCOUS 15 ML SOLUTION. SWSW ONE (09:45)
[2021-05-01] MEDS ORDERED: LIDOCAINE 2% PF 5 ML VIAL. ONE (10:53)
[2021-05-01] MEDS ORDERED: PROPOFOL 10 MG/ML (20ML) VIAL. IV ONE (10:53)
--- NOTE | 2021-05-01 12:33 | PDOC ---
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 Speech therapy to work on cognitive issues Also discussed with . Subjective Feeling much better, thinks that her mental status is still not at its baseline even before the stroke Objective Vital Signs Date Time Temp Pulse Resp B/P (MAP) Pulse Ox O2 Delivery O2 Flow Rate FiO2 05/01/21 10:55 98 66 14 109/52 98 Room Air 98.0 05/01/21 10:40 2.0 Intake and Output 05/01/21 07:00 Intake Total 1805 ml Output Total 400 ml Balance 1405 ml Intake Oral 1805 ml Output Urine Total 400 ml # Voids 11 PHYSICAL EXAM Alert. Oriented to place and person. PERRL. EOMI. CN: Left field cut has resolved. Muscle tone: normal. Muscle strength: 5-/5 left hemiparesis DTR: 2+ Plantar reflex: Flexor Gait: not examined in bed. Sensory exam: Extinction on left side has resolved No cerebellar signs elicited. Review of Relevant I have reviewed the following items clarisa (where applicable) has been applied. Labs Laboratory Tests Test 04/30/21 09:18 Glucose (Fingerstick) 89 mg/dL (70-99) Medications Current Medications Lidocaine HCl (Lidocaine 1% 20ml Vial) 20 ml STK-MED ONCE .ROUTE ; Start 04/16/21 at 07:35; Stop 04/16/21 at 07:35; Status DC Iodixanol (Visipaque 320) 100 ml STK-MED ONCE .ROUTE ; Start 04/16/21 at 07:35; Stop 04/16/21 at 07:35; Status DC Heparin Sodium/ Sodium Chloride 1,500 ml @ As Directed STK-MED ONCE .ROUTE ; Start 04/16/21 at 07:37; Stop 04/16/21 at 07:37; Status DC Heparin Sodium/ Sodium Chloride (HEPARIN for ARTERIAL LINE FLUSH) 1,000 unit 1X ONCE IART Last administered on 04/16/21at 08:30; Start 04/16/21 at 08:30; Stop 04/16/21 at 08:31; Status DC Heparin Sodium/ Sodium Chloride (HEPARIN for ARTERIAL LINE FLUSH) 1,000 unit 1X ONCE IART Last administered on 04/16/21at 08:30; Start 04/16/21 at 08:30; Stop 04/16/21 at 08:31; Status DC Midazolam HCl (Versed) 5 mg 1X ONCE IV Last administered on 04/16/21at 08:30; Start 04/16/21 at 08:30; Stop 04/16/21 at 08:31; Status DC Fentanyl Citrate (Fentanyl 2ml Vial) 100 mcg 1X ONCE IV Last administered on 04/16/21at 08:30; Start 04/16/21 at 08:30; Stop 04/16/21 at 08:31; Status DC Iodixanol (Visipaque 320) 100 ml 1X ONCE IART Last administered on 04/16/21at 08:30; Start 04/16/21 at 08:30; Stop 04/16/21 at 08:31; Status DC Lidocaine HCl (Lidocaine 1% 20ml Vial) 20 ml 1X ONCE INJ Last administered on 04/16/21at 08:30; Start 04/16/21 at 08:30; Stop 04/16/21 at 08:31; Status DC Info (CONTRAST GIVEN -- Rx MONITORING) 1 each PRN DAILY PRN MC SEE COMMENTS; Start 04/16/21 at 08:30; Stop 04/18/21 at 08:29; Status DC Iodixanol (Visipaque 320) 100 ml STK-MED ONCE .ROUTE ; Start 04/16/21 at 09:40; Stop 04/16/21 at 09:41; Status DC Heparin Sodium/ Sodium Chloride 500 ml @ As Directed STK-MED ONCE .ROUTE ; Start 04/16/21 at 09:52; Stop 04/16/21 at 09:53; Status DC Furosemide (Lasix) 100 mg STK-MED ONCE .ROUTE ; Start 04/16/21 at 09:57; Stop 04/16/21 at 09:58; Status DC Morphine Sulfate (Morphine Sulfate) 10 mg STK-MED ONCE .ROUTE ; Start 04/16/21 at 10:01; Stop 04/16/21 at 10:01; Status DC Ondansetron HCl (Zofran) 4 mg STK-MED ONCE .ROUTE ; Start 04/16/21 at 10:03; Stop 04/16/21 at 10:03; Status DC Heparin Sodium/ Sodium Chloride 500 ml @ As Directed STK-MED ONCE .ROUTE ; Start 04/16/21 at 10:24; Stop 04/16/21 at 10:24; Status DC Succinylcholine Chloride (Anectine) 200 mg STK-MED ONCE .ROUTE ; Start 04/16/21 at 10:26; Stop 04/16/21 at 10:27; Status DC Furosemide (Lasix) 100 mg 1X ONCE IVP Last administered on 04/16/21at 10:30; Start 04/16/21 at 10:30; Stop 04/16/21 at 10:35; Status DC Morphine Sulfate (Morphine Sulfate) 10 mg 1X ONCE IV Last administered on 04/16/21at 10:30; Start 04/16/21 at 10:30; Stop 04/16/21 at 10:35; Status DC Ondansetron HCl (Zofran) 4 mg 1X ONCE IVP Last administered on 04/16/21at 10:30; Start 04/16/21 at 10:30; Stop 04/16/21 at 10:35; Status DC Albuterol/ Ipratropium (Duoneb) 3 ml 1X ONCE NEB Last administered on 04/16/21at 10:05; Start 04/16/21 at 10:45; Stop 04/16/21 at 10:46; Status DC Fentanyl Citrate 30 ml @ 0 mls/hr CONT PRN IV SEE PROTOCOL Last administered on 04/17/21at 05:24; Start 04/16/21 at 10:45; Stop 04/17/21 at 10:44; Status DC Midazolam HCl 100 ml @ 0 mls/hr CONT PRN IV SEE PROTOCOL Last administered on 04/17/21at 08:54; Start 04/16/21 at 10:45; Stop 04/17/21 at 10:44; Status DC Dopamine HCl/ Dextrose 250 ml @ As Directed STK-MED ONCE IV ; Start 04/16/21 at 11:08; Stop 04/16/21 at 11:08; Status DC Dopamine HCl/ Dextrose 250 ml @ 17.138 mls/ hr CONT PRN IV SEE I/O RECORD Last administered on 04/17/21at 11:02; Start 04/16/21 at 12:00; Stop 04/17/21 at 11:59; Status DC Furosemide (Lasix) 40 mg 1X ONCE IVP Last administered on 04/16/21at 12:30; Start 04/16/21 at 12:30; Stop 04/16/21 at 12:31; Status DC Potassium Chloride/Water 100 ml @ 100 mls/hr Q1H IV Last administered on 04/16/21at 14:00; Start 04/16/21 at 13:00; Stop 04/16/21 at 14:59; Status DC Furosemide (Lasix) 40 mg STK-MED ONCE .ROUTE ; Start 04/16/21 at 12:37; Stop 04/16/21 at 12:37; Status DC Succinylcholine Chloride (Anectine) 200 mg STK-MED ONCE .ROUTE ; Start 04/16/21 at 16:48; Stop 04/16/21 at 16:49; Status DC Epinephrine HCl (EPINEPHrine SYRINGE) 2 mg STK-MED ONCE .ROUTE ; Start 04/16/21 at 11:00; Stop 04/16/21 at 18:11; Status DC Furosemide (Lasix) 40 mg 1X ONCE IVP Last administered on 04/17/21at 10:10; Start 04/17/21 at 10:00; Stop 04/17/21 at 10:01; Status DC Fentanyl Citrate 30 ml @ 0 mls/hr CONT PRN IV SEE PROTOCOL Last administered on 04/21/21at 04:04; Start 04/17/21 at 16:15; Stop 04/28/21 at 14:26; Status DC Midazolam HCl 100 ml @ 0 mls/hr CONT PRN IV SEE PROTOCOL Last administered on 04/20/21at 07:38; Start 04/17/21 at 16:15; Stop 04/28/21 at 14:26; Status DC Dopamine HCl/ Dextrose 250 ml @ 16.031 mls/ hr CONT PRN IV SEE I/O RECORD Last administered on 04/20/21at 02:00; Start 04/18/21 at 00:00; Stop 04/20/21 at 13:29; Status DC Furosemide (Lasix) 40 mg 1X ONCE IVP Last administered on 04/18/21at 10:00; Start 04/18/21 at 09:30; Stop 04/18/21 at 09:31; Status DC Potassium Bicarbonate (Potassium Effervescent Tablet) 40 meq 1X ONCE PEG Last administered on 04/18/21at 09:59; Start 04/18/21 at 09:30; Stop 04/18/21 at 09:31; Status DC Famotidine (Pepcid Vial) 20 mg BID IVP Last administered on 04/28/21at 08:57; Start 04/18/21 at 12:00; Stop 04/28/21 at 14:27; Status DC Enoxaparin Sodium (Lovenox 40mg Syringe) 40 mg Q24H SQ ; Start 04/18/21 at 12:00; Status Cancel Furosemide (Lasix) 40 mg 1X ONCE IVP Last administered on 04/18/21at 16:24; Start 04/18/21 at 16:00; Stop 04/18/21 at 16:01; Status DC Furosemide (Lasix) 40 mg DAILY IVP Last administered on 04/30/21at 10:54; Start 04/19/21 at 09:00 Potassium Bicarbonate (Potassium Effervescent Tablet) 40 meq 1X ONCE FT Last administered on 04/18/21at 16:24; Start 04/18/21 at 16:15; Stop 04/18/21 at 16:16; Status DC Enoxaparin Sodium (Lovenox 40mg Syringe) 40 mg Q24H SQ Last administered on 04/30/21at 20:58; Start 04/18/21 at 21:00 Potassium Bicarbonate (Potassium Effervescent Tablet) 40 meq 1X ONCE PO Last administered on 04/19/21at 10:25; Start 04/19/21 at 10:15; Stop 04/19/21 at 10:16; Status DC Potassium Bicarbonate (Potassium Effervescent Tablet) 40 meq 1X ONCE PO Last administered on 04/20/21at 08:13; Start 04/20/21 at 07:30; Stop 04/20/21 at 07:31; Status DC Dopamine HCl/ Dextrose 250 ml @ 18.113 mls/ hr CONT PRN IV SEE I/O RECORD Last administered on 04/21/21at 04:18; Start 04/20/21 at 13:45; Stop 04/28/21 at 14:26; Status DC Latanoprost (Xalatan) 1 drop HS OU Last administered on 04/30/21at 20:58; Start 04/21/21 at 21:00 Piperacillin Sod/ Tazobactam Sod (Zosyn Per Pharmacy) 1 each PRN DAILY PRN MC SEE COMMENTS; Start 04/22/21 at 11:00; Stop 04/28/21 at 11:09; Status DC Propofol 100 ml @ 2.823 mls/ hr CONT PRN IV PER PROTOCOL Last administered on 04/23/21at 08:40; Start 04/22/21 at 11:00; Stop 04/28/21 at 14:27; Status DC Piperacillin Sod/ Tazobactam Sod 3.375 gm/Sodium Chloride 50 ml @ 100 mls/hr Q6HRS IV Last administered on 04/28/21at 05:22; Start 04/22/21 at 12:00; Stop 04/28/21 at 11:09; Status DC Dexmedetomidine HCl 400 mcg/ Sodium Chloride 100 ml @ 0 mls/hr CONT PRN IV PER PROTOCOL Last administered on 04/24/21at 23:37; Start 04/23/21 at 18:30; Stop 04/28/21 at 14:25; Status DC Sodium Chloride 500 ml @ 500 mls/hr 1X PRN PRN IV SEE COMMENTS; Start 04/23/21 at 18:30 Atropine Sulfate (ATROPINE 0.5mg SYRINGE) 0.5 mg PRN Q5MIN PRN IV SEE COMMENTS; Start 04/23/21 at 18:30; Status Cancel Potassium Chloride/Water 100 ml @ 100 mls/hr Q1H IV Last administered on 04/27/21at 02:03; Start 04/26/21 at 16:00; Stop 04/26/21 at 23:59; Status DC Potassium Chloride/Water 100 ml @ 100 mls/hr Q1H IV Last administered on 04/27/21at 12:00; Start 04/27/21 at 09:00; Stop 04/27/21 at 12:59; Status DC Amoxicillin/ Clavulanate Potassium (Augmentin 500/ 125mg) 1 tab BID PO Last administered on 04/30/21at 20:57; Start 04/28/21 at 12:00; Stop 05/02/21 at 11:59 Famotidine (Pepcid) 20 mg BID PO Last administered on 04/30/21at 20:57; Start 04/28/21 at 21:00 Lactobacillus Rhamnosus (Culturelle) 1 cap BID PO Last administered on 04/30/21at 20:57; Start 04/28/21 at 21:00 Potassium Chloride (Klor-Con) 40 meq 1X ONCE PO Last administered on 04/28/21at 17:53; Start 04/28/21 at 17:00; Stop 04/28/21 at 17:05; Status DC Aspirin (Aspirin Chewable) 81 mg DAILY PO ; Start 04/30/21 at 09:00 Simvastatin (Zocor) 20 mg HS PO Last administered on 04/30/21at 20:58; Start 04/29/21 at 21:00 Iohexol (Omnipaque 300 Mg/ml) 75 ml 1X ONCE IV Last administered on 04/30/21at 09:52; Start 04/30/21 at 09:30; Stop 04/30/21 at 09:31; Status DC Info (CONTRAST GIVEN -- Rx MONITORING) 1 each PRN DAILY PRN MC SEE COMMENTS; Start 04/30/21 at 09:45; Stop 05/02/21 at 09:44 Aspirin (Cody Aspirin) 325 mg 1X ONCE PO ; Start 04/30/21 at 10:00; Stop 04/30/21 at 10:09; Status DC Aspirin (Aspirin Rectal Supp) 300 mg 1X ONCE WI Last administered on 04/30/21at 10:54; Start 04/30/21 at 10:15; Stop 04/30/21 at 11:29; Status DC Aspirin (Cody Aspirin) 325 mg 1X ONCE PO Last administered on 04/30/21at 11:38; Start 04/30/21 at 11:30; Stop 04/30/21 at 11:31; Status DC Lidocaine HCl (Viscous Lidocaine) 15 ml STK-MED ONCE .ROUTE ; Start 05/01/21 at 09:36; Stop 05/01/21 at 09:36; Status DC Benzocaine (Hurricaine One) 1 spray STK-MED ONCE .ROUTE ; Start 05/01/21 at 09:36; Stop 05/01/21 at 09:37; Status DC Lidocaine HCl (Viscous Lidocaine) 15 ml 1X ONCE SWSW Last administered on 05/01/21at 10:46; Start 05/01/21 at 09:45; Stop 05/01/21 at 09:46; Status DC Benzocaine (Hurricaine One) 2 spray 1X ONCE MM Last administered on 05/01/21at 10:47; Start 05/01/21 at 09:45; Stop 05/01/21 at 09:46; Status DC Propofol (Diprivan) 200 mg STK-MED ONCE IV ; Start 05/01/21 at 10:53; Stop 05/01/21 at 10:54; Status DC Lidocaine HCl (Lidocaine Pf 2% Vial) 5 ml STK-MED ONCE .ROUTE ; Start 05/01/21 at 10:53; Stop 05/01/21 at 10:54; Status DC Active Scripts Active Reported Hydrocodone-Apap 5-325 (Hydrocodone Bit/Acetaminophen) 1 Tab Tablet 1 Tab PO PRN Q6HRS PRN NITROGLYCERIN SubLingual (Nitroglycerin) 0.4 Mg Tab.subl 0.4 Mg SL PRN Q5MIN PRN Lasix (Furosemide) 20 Mg Tablet 1 Tab PO DAILY 30 Days Isosorbide Mononitrate Er (Isosorbide Mononitrate) 60 Mg Tab.er.24h 1 Tab PO DAILY Klor-Con M10 (Potassium Chloride) 10 Meq Tab.er.prt 10 Meq PO DAILY Vitamin D3 (Cholecalciferol (Vitamin D3)) 5,000 Unit Tab.rapdis 5,000 Unit PO DAILY Aspirin 81 Mg Tab.chew 81 Mg PO DAILY Amlodipine Besylate 10 Mg Tablet 10 Mg PO DAILY Fluoxetine Hcl 40 Mg Capsule 40 Mg PO DAILY Simvastatin 20 Mg Tablet 20 Mg PO HS Multi-Vitamin Daily (Multivitamin) 1 Each Tablet 1 Each PO DAILY Latanoprost 2.5 Ml Drops 1 Drop OU HS Vitals/I & O Vital Sign - Last 24 Hours 04/30/21 04/30/21 04/30/21 05/01/21 19:00 20:00 22:53 03:00 Temp 98.1 97.7 97.5 98.1 97.7 97.5 Pulse 67 68 68 Resp 17 18 16 B/P (MAP) 118/52 (74) 123/67 (85) 115/73 (87) Pulse Ox 95 95 95 O2 Delivery Room Air Room Air Room Air Room Air 05/01/21 05/01/21 05/01/21 05/01/21 07:00 09:25 10:28 10:28 Temp 97.7 97.9 97.9 97.7 97.9 97.9 Pulse 70 63 68 Resp 18 16 14 B/P (MAP) 118/71 (87) 116/70 94/51 Pulse Ox 97 99 99 O2 Delivery Room Air Room Air Nasal Cannula Nasal Cannula O2 Flow Rate 2.0 2.0 05/01/21 05/01/21 05/01/21 10:40 10:55 10:55 Temp 98 98.0 Pulse 66 66 Resp 14 14 B/P (MAP) 122/61 109/52 Pulse Ox 99 98 O2 Delivery Nasal Cannula Room Air Room Air O2 Flow Rate 2.0 Intake and Output 04/30/21 04/30/21 05/01/21 15:00 23:00 07:00 Intake Total 780 ml 800 ml 225 ml Output Total 400 ml Balance 380 ml 800 ml 225 ml Images MRI of the brain without contrast 04/30/2021 Clinical History: Left-sided weakness.. Technique: Unenhanced T1-weighted sagittal and axial, T2-weighted axial and coronal and FLAIR, gradient echo and diffusion-weighted axial images of the brain were obtained. Findings: Comparison is made to the patient's CT scan of the head dated 04/30/2021. Some of the images are degraded by patient motion. Patchy, confluent and multiple focal areas of increased signal intensity are seen within the periventricular and white matter of both cerebral hemispheres along with the zita on the FLAIR and T2-weighted images consistent with areas of fairly extensive small vessel ischemic disease. A curvilinear area of restricted diffusion is seen along the cortex of the right parietal temporal lobe. This measures 3 cm in greatest diameter. An additional area of restricted diffusion is seen more superiorly involving the right parietal lobe which measures 6 mm in greatest diameter. These are consistent with areas of acute ischemia/infarction. There is no significant surrounding edema or associated mass effect. No additional acute parenchymal abnormality is seen. No extra-axial fluid collection is noted. Mild mucosal thickening is seen scattered throughout the paranasal sinuses. A large fluid level is seen involving the right maxillary sinus. A small fluid level is seen involving left maxillary sinus. There are small to moderate-sized bilateral mastoid effusions. Normal flow voids are seen within the major vascular structures surrounding the brain parenchyma. IMPRESSION: Areas of acute ischemia/infarction are seen involving the right parietal temporal lobe and the right superior parietal lobe as discussed above. There is no surrounding edema or associated mass effect. Justicifation of Admission Dx: Justifications for Admission: Justification of Admission Dx: Yes Respiratory Failure: Mechanical Ventilation UNIQUE LONG MD May 01, 2021 12:32
[2021-05-01] MEDS: ASPIRIN CHEWABLE 81 MG TABLET. PO SCH (12:43)
[2021-05-01] MEDS: LACTOBACILLUS RHAMNOSUS GG 1 CAPSULE. PO SCH ×2 (12:43→20:49)
[2021-05-01] MEDS: AMOXICILLIN/K CLAV 500/125MG TABLET. PO SCH ×2 (12:43→20:49)
[2021-05-01] MEDS: FAMOTIDINE 20 MG TABLET. PO SCH ×2 (12:43→20:49)
[2021-05-01] MEDS: FUROSEMIDE 40 MG/4 ML VIAL. IVP SCH (12:48)
--- NOTE | 2021-05-01 13:09 | CARD ---
MR#: [id number] Date of Study: 05/01/2021 Ordering Physician: FREDERICK GREER, Referring Physician: FREDERICK GREER, Tech: Lyle Coyne [facility] APPROVED REPORT EXAM: Two-dimensional and M-mode echocardiogram with Doppler and color Doppler. INDICATION Cardiac Disease: Chest Pain Reason For Test : Evaluate LV functionRule out Intracardiac Thrombus. PROCEDURE After obtaining informed consent, patient underwent transesophageal echo in the PACU. Type of Sedation : General Anesthesia Sedation was administered by Anesthesia Department. Transesophageal probe was inserted and advanced into esophagus by Roderick Greer MD. The SAMEER was performed without complications. Throughout the procedure, the blood pressure, pulse oximetry, cardiac rhythm, and rate were monitored . LEFT VENTRICLE The left ventricle is normal size. There is moderate concentric left ventricular hypertrophy. The lef t ventricular systolic function is normal and the ejection fraction is within normal range. EF 55% Th ere is normal LV segmental wall motion. No left ventricle thrombus noted on this study. There is no v entricular septal defect visualized. There is no left ventricular aneurysm. There is no mass noted in the left ventricle. RIGHT VENTRICLE The right ventricle is normal size. There is normal right ventricular wall thickness. The right ventr icular systolic function is normal. ATRIA The left atrium is moderately dilated. The right atrium is mildly dilated. The interatrial septum is intact with no evidence for an atrial septal defect or patent foramen ovale as noted on 2-D or Dopple r imaging. There is no thrombus noted in the left atrial appendage. AORTIC VALVE The aortic valve is moderately sclerotic. Doppler and Color Flow revealed no significant aortic regur gitation. There is no significant aortic valvular stenosis. There is no aortic valvular vegetation. MITRAL VALVE The posterior leaflet is restricted. There is no evidence of mitral valve prolapse. There is no stephany l valve stenosis. There is mild to moderate eccentric regurgitation. TRICUSPID VALVE The tricuspid valve is normal in structure and function. Doppler and Color Flow revealed no tricuspid valve regurgitation noted. There is no tricuspid valve prolapse or vegetation. There is no tricuspid valve stenosis. PULMONIC VALVE Doppler and Color Flow revealed no pulmonic valvular regurgitation. There is no pulmonic valvular sanya nosis. GREAT VESSELS The aortic root is normal in size. The ascending aorta is normal in size. The pulmonary artery is nor mal. The IVC is normal in size and collapses >50% with inspiration. PERICARDIAL EFFUSION There is no evidence of significant pericardial effusion. There is no pleural effusion. Critical Notification Critical Value: No <Conclusion> There is moderate concentric left ventricular hypertrophy. The left ventricular systolic function is normal and the ejection fraction is within normal range. EF 55% There is normal LV segmental wall motion. There is no thrombus noted in the left atrial appendage. There is mild to moderate eccentric regurgitation. No clear cardioembolic source noted. Signed by : Frederick Greer, Electronically Approved : 05/01/2021 13:09:34
--- NOTE | 2021-05-01 14:24 | PDOC ---
[facility] PROGRESS NOTE Date of Service DOS: DATE: 05/01/21 TIME: 14:11 Chief Complaint Chief Complaint Dysphagiathat is post intubation Acute hypoxic hypercapnic respiratory failure status post intubation. Status post extubation on 04/26/2021 Cardiopulmonary arrest due to hypoxia 8 minutes with ROSC Acute metabolic and possible ischemic encephalopathy Acute on chronic CHF CLEMENCIA Hypertension Hypokalemia History of Present Illness History of Present Illness 75-year-old female with past medical history of hypertension, obesity, dyslipidemia, sleep apnea, who was admitted for scheduled left heart cath on 04/16/2021 for chest pains that was relieved with nitroglycerin. Patient underwent left and right heart cath which showed no significant CAD. Unfortunately, at the end of the procedure patient developed increasing shortness of breath she was initially treated with IV diuretics and oxygen but her dyspnea persisted and she required emergency intubation and had periods of asystole. ACLS protocol was initiated. Please see CODE BLUE sheet for details. She was transferred to the ICU for further management and the hospitalist service was consulted for medical management. I saw the patient this morning intubated and not on any sedation. Pulmonology is following for vent management. Patient was responding appropriately to external stimuli and started to wake up. She will likely need a CT of the head as there is no sedation and the patient is not responding appropriately. 04/26/2021 No acute events overnight. Patient was extubated early in the evening and she tolerated well.. Patient is currently saturating 97 on room air. Patient is wanting to eat Jell-O. Pending speech evaluation. Pending PT OT evaluation for determining placement needs. Patient's chart, labs, images were reviewed and discussed with RN 04/27/2021 No acute events overnight. Patient responding well to 40 mg IV Lasix with 1.5 L urine output. We will repeat IV Lasix today and pending further speech evaluation. Patient is currently n.p.o. due to aspiration risk. Pending PT OT evaluation. Patient's chart, labs, images were reviewed and discussed with RN 04/28/2021: Afebrile. Currently breathing on 2 L nasal cannula. Placed on dysphagia III diet today. Seen by OT and recommended acute rehab; PT eval pending at this time. 04/29/2021: Afebrile. Currently breathing into his nasal cannula. 6-minute walk with an order today. She is tolerating her dysphagia 3 diet. She has been recommended acute rehab, but patient is wanting instead to discharge home with home health. Currently not feeling comfortable discharging home today; I discussed that she is improving well but if she would like to stay in the hospital 1 more day we can discharge home with home health tomorrow. She feels she still needs to have further physical therapy she can go to acute rehab. 04/30/2021: Called patient's bedside for concern of new onset left-sided weakness and possible acute CVA. She has conflicting NIH scores depending on her ability to focus during my exam. There is some notable left-sided upper extremity weakness and complaints of left-sided facial numbness. Stat CT head and CTA head/neck pending. Will provide aspirin [address] Álvarez with neurology has been reconsulted to see patient. 05/01/2021: Patient seen and examined. She is alert and in NAD. She is having a SAMEER completed today. The impression from her MRI yesterday showed areas of acute ischemia/infarction are seen involving the right parietal temporal lobe and the right superior parietal lobe as discussed above. There is no surrounding edema or associated mass effect. Discussed with RN. Chart reviewed. Vitals/I&O Vitals/I&O: Vital Signs Date Time Temp Pulse Resp B/P (MAP) Pulse Ox O2 Delivery O2 Flow Rate FiO2 05/01/21 10:55 98 66 14 109/52 98 Room Air 98.0 05/01/21 10:40 2.0 I & O 04/30/21 04/30/21 05/01/21 15:00 23:00 07:00 Intake Total 780 ml 800 ml 225 ml Output Total 400 ml Balance 380 ml 800 ml 225 ml Physical Exam General: Alert, No acute distress Heart: Regular rate Lungs: Clear Abdomen: Normal bowel sounds Extremities: No edema, Normal pulses Skin: No rashes, No breakdown Review of Systems Review of Systems: Gastrointestinal: No nausea or vomiting. Genitourinary: No urinary frequency or dysuria. Assessment and Plan Assessmemt and Plan Assessment: Dysphagiathat is post intubation Acute hypoxic hypercapnic respiratory failure status post intubation. Status post extubation on 04/26/2021 Cardiopulmonary arrest due to hypoxia 8 minutes with ROSC Acute metabolic and possible ischemic encephalopathy Acute on chronic CHF CLEMENCIA Hypertension Hypokalemia Plan: 1) Continue IV augmentin for possible aspiration pneumonia 2) Appreciate subspeciality consultation - Pulmonology: patient will likely need outpatient sleep study for CPAP - Cardiology (04/30): CT head scan with no acute changes. CTA of the head neck also with no acute changes. MRI pending. We will schedule a SAMEER for tomorrow. - Neurology (05/01): Await transesophageal echocardiogram results, verbal report is that it is normal. Start apixaban in a few days. Rehabilitation modalities. Needs inpatient rehab. 3) Continue Lovenox for DVT prophylaxis 4) Continue protonix or Pepcid GI prophylaxis 5) Home medications 6) Full code Comment Review of Relevant I have reviewed the following items clarisa (where applicable) has been applied. Medications: Current Medications Medications (Trade) Dose Ordered Sig/Miguel Angel Route PRN Reason Start Time Stop Time Status Last Admin Dose Admin Lidocaine HCl (Viscous Lidocaine) 15 ml 1X ONCE SWSW 05/01/21 09:45 05/01/21 09:46 DC 05/01/21 10:46 Benzocaine (Hurricaine One) 2 spray 1X ONCE MM 05/01/21 09:45 05/01/21 09:46 DC 05/01/21 10:47 Justifications for Admission Other Justification AFTAB PENG III DO May 01, 2021 14:24
--- NOTE | 2021-05-01 14:58 | NUR ---
SS following up with discharge planning. SS reviewed pt chart and discussed with pt RN. Pt is from home with spouse and is currently on room air. COVID19 negative. Pt had stroke yesterday. Pt on IV Lasix. Pt and spouse now requesting [facility]. SS met with pt and spouse in room to discuss discharge planning and [facility]. Pt and pt's spouse requesting to go to [facility], ; fax [phone]. SS phoned and faxed referral as requested. SS will continue to follow for discharge planning.
[2021-05-01 15:00] VITALS: BP 132/63
[2021-05-01] MEDS: DOCUSATE SODIUM 100 MG CAPSULE. PO PRN (18:17)
[2021-05-01 19:00] VITALS: BP 125/62
[2021-05-01] MEDS: SIMVASTATIN 20 MG TABLET PO SCH (20:49)
[2021-05-01] MEDS: LATANOPROST 0.005% OPHTH SOLUTION 2.5ML BOTTLE. OU SCH (20:49)
[2021-05-01] MEDS: ENOXAPARIN 40 MG/0.4 ML SYRINGE. SQ SCH (20:50)
[2021-05-01 23:00] VITALS: BP 120/63
[2021-05-02 03:00] VITALS: BP 115/69
[2021-05-02 06:26] LABS: BASO # 0.1 x10^3/uL (0.0-0.2); BASO % 1 % (0-3); EOS # 0.2 x10^3/uL (0.0-0.7); EOS % 3 % (0-3); HEMATOCRIT 35.8 % (36.0-47.0); LYMPH # 1.4 x10^3/uL (1.0-4.8); LYMPH % 21 % (24-48); MEAN CORPUSCULAR HEMOGLOBIN 31 pg (25-35); MEAN CORPUSCULAR HGB CONC 34 g/dL (31-37); MEAN CORPUSCULAR VOLUME 93 fL (79-100); MONO # 0.9 x10^3/uL (0.0-1.1); MONO % 13 % (0-9); NEUT # 4.3 x10^3/uL (1.8-7.7); NEUT % 63 % (31-73); PLATELET COUNT 378 x10^3/uL (140-400); RED BLOOD COUNT 3.86 x10^6/uL (3.50-5.40); RED CELL DISTRIBUTION WIDTH 13.3 % (11.5-14.5); WHITE BLOOD COUNT 6.9 x10^3/uL (4.0-11.0)
[2021-05-02 06:48] LABS: CALCIUM 9.4 mg/dL (8.5-10.1); CREATININE 0.9 mg/dL (0.6-1.0); POTASSIUM 3.4 mmol/L (3.5-5.1)
[2021-05-02 07:00] VITALS: BP 109/61
--- NOTE | 2021-05-02 08:36 | PDOC ---
PROGRESS NOTES Date of Service DATE: 05/02/21 TIME: 08:34 Assessment Strokes, right parietal temporal lobe and the right superior parietal lobe, with CTA negative, cardiac emboli are most likely, despite normal transesophageal echo Anoxic encephalopathy, did not have prolonged downtime Dysphagia post extubation, getting better, passed swallowing evaluation this morning Sinusitis on head CT Plan Consider outpatient cardiac monitoring Start apixaban tomorrow, discontinue aspirin after 2-day overlap Rehabilitation modalities Needs inpatient rehab. Speech therapy to work on cognitive issues Subjective No complaints Objective Vital Signs Date Time Temp Pulse Resp B/P (MAP) Pulse Ox O2 Delivery O2 Flow Rate FiO2 05/02/21 03:00 98.0 75 18 115/69 (84) 96 Room Air 98.0 05/01/21 10:40 2.0 Intake and Output 05/02/21 07:00 Intake Total 970 ml Output Total 2400 ml Balance -1430 ml Intake Oral 970 ml Output Urine Total 2400 ml Estimated Blood Loss 0 ml # Voids 2 PHYSICAL EXAM Alert. Oriented to place and person. PERRL. EOMI. CN: Left field cut has resolved. Muscle tone: normal. Muscle strength: 5-/5 left hemiparesis DTR: 2+ Plantar reflex: Flexor Gait: not examined in bed. Sensory exam: Extinction on left side has resolved No cerebellar signs elicited. Review of Relevant I have reviewed the following items clarisa (where applicable) has been applied. Labs Laboratory Tests Test 04/30/21 09:18 05/02/21 04:00 Glucose (Fingerstick) 89 mg/dL (70-99) White Blood Count 6.9 x10^3/uL (4.0-11.0) Red Blood Count 3.86 x10^6/uL (3.50-5.40) Hemoglobin 12.0 g/dL (12.0-15.5) Hematocrit 35.8 % (36.0-47.0) Mean Corpuscular Volume 93 fL (79-100) Mean Corpuscular Hemoglobin 31 pg (25-35) Mean Corpuscular Hemoglobin Concent 34 g/dL (31-37) Red Cell Distribution Width 13.3 % (11.5-14.5) Platelet Count 378 x10^3/uL (140-400) Neutrophils (%) (Auto) 63 % (31-73) Lymphocytes (%) (Auto) 21 % (24-48) Monocytes (%) (Auto) 13 % (0-9) Eosinophils (%) (Auto) 3 % (0-3) Basophils (%) (Auto) 1 % (0-3) Neutrophils # (Auto) 4.3 x10^3/uL (1.8-7.7) Lymphocytes # (Auto) 1.4 x10^3/uL (1.0-4.8) Monocytes # (Auto) 0.9 x10^3/uL (0.0-1.1) Eosinophils # (Auto) 0.2 x10^3/uL (0.0-0.7) Basophils # (Auto) 0.1 x10^3/uL (0.0-0.2) Sodium Level 139 mmol/L (136-145) Potassium Level 3.4 mmol/L (3.5-5.1) Chloride Level 101 mmol/L (98-107) Carbon Dioxide Level 26 mmol/L (21-32) Anion Gap 12 (6-14) Blood Urea Nitrogen 14 mg/dL (7-20) Creatinine 0.9 mg/dL (0.6-1.0) Estimated GFR (Cockcroft-Gault) 61.0 Glucose Level 91 mg/dL (70-99) Calcium Level 9.4 mg/dL (8.5-10.1) Laboratory Tests Test 05/02/21 04:00 White Blood Count 6.9 x10^3/uL (4.0-11.0) Red Blood Count 3.86 x10^6/uL (3.50-5.40) Hemoglobin 12.0 g/dL (12.0-15.5) Hematocrit 35.8 % (36.0-47.0) Mean Corpuscular Volume 93 fL (79-100) Mean Corpuscular Hemoglobin 31 pg (25-35) Mean Corpuscular Hemoglobin Concent 34 g/dL (31-37) Red Cell Distribution Width 13.3 % (11.5-14.5) Platelet Count 378 x10^3/uL (140-400) Neutrophils (%) (Auto) 63 % (31-73) Lymphocytes (%) (Auto) 21 % (24-48) Monocytes (%) (Auto) 13 % (0-9) Eosinophils (%) (Auto) 3 % (0-3) Basophils (%) (Auto) 1 % (0-3) Neutrophils # (Auto) 4.3 x10^3/uL (1.8-7.7) Lymphocytes # (Auto) 1.4 x10^3/uL (1.0-4.8) Monocytes # (Auto) 0.9 x10^3/uL (0.0-1.1) Eosinophils # (Auto) 0.2 x10^3/uL (0.0-0.7) Basophils # (Auto) 0.1 x10^3/uL (0.0-0.2) Sodium Level 139 mmol/L (136-145) Potassium Level 3.4 mmol/L (3.5-5.1) Chloride Level 101 mmol/L (98-107) Carbon Dioxide Level 26 mmol/L (21-32) Anion Gap 12 (6-14) Blood Urea Nitrogen 14 mg/dL (7-20) Creatinine 0.9 mg/dL (0.6-1.0) Estimated GFR (Cockcroft-Gault) 61.0 Glucose Level 91 mg/dL (70-99) Calcium Level 9.4 mg/dL (8.5-10.1) Medications Current Medications Lidocaine HCl (Lidocaine 1% 20ml Vial) 20 ml STK-MED ONCE .ROUTE ; Start 04/16/21 at 07:35; Stop 04/16/21 at 07:35; Status DC Iodixanol (Visipaque 320) 100 ml STK-MED ONCE .ROUTE ; Start 04/16/21 at 07:35; Stop 04/16/21 at 07:35; Status DC Heparin Sodium/ Sodium Chloride 1,500 ml @ As Directed STK-MED ONCE .ROUTE ; Start 04/16/21 at 07:37; Stop 04/16/21 at 07:37; Status DC Heparin Sodium/ Sodium Chloride (HEPARIN for ARTERIAL LINE FLUSH) 1,000 unit 1X ONCE IART Last administered on 04/16/21at 08:30; Start 04/16/21 at 08:30; Stop 04/16/21 at 08:31; Status DC Heparin Sodium/ Sodium Chloride (HEPARIN for ARTERIAL LINE FLUSH) 1,000 unit 1X ONCE IART Last administered on 04/16/21at 08:30; Start 04/16/21 at 08:30; Stop 04/16/21 at 08:31; Status DC Midazolam HCl (Versed) 5 mg 1X ONCE IV Last administered on 04/16/21at 08:30; Start 04/16/21 at 08:30; Stop 04/16/21 at 08:31; Status DC Fentanyl Citrate (Fentanyl 2ml Vial) 100 mcg 1X ONCE IV Last administered on 04/16/21at 08:30; Start 04/16/21 at 08:30; Stop 04/16/21 at 08:31; Status DC Iodixanol (Visipaque 320) 100 ml 1X ONCE IART Last administered on 04/16/21at 08:30; Start 04/16/21 at 08:30; Stop 04/16/21 at 08:31; Status DC Lidocaine HCl (Lidocaine 1% 20ml Vial) 20 ml 1X ONCE INJ Last administered on 04/16/21at 08:30; Start 04/16/21 at 08:30; Stop 04/16/21 at 08:31; Status DC Info (CONTRAST GIVEN -- Rx MONITORING) 1 each PRN DAILY PRN MC SEE COMMENTS; Start 04/16/21 at 08:30; Stop 04/18/21 at 08:29; Status DC Iodixanol (Visipaque 320) 100 ml STK-MED ONCE .ROUTE ; Start 04/16/21 at 09:40; Stop 04/16/21 at 09:41; Status DC Heparin Sodium/ Sodium Chloride 500 ml @ As Directed STK-MED ONCE .ROUTE ; Start 04/16/21 at 09:52; Stop 04/16/21 at 09:53; Status DC Furosemide (Lasix) 100 mg STK-MED ONCE .ROUTE ; Start 04/16/21 at 09:57; Stop 04/16/21 at 09:58; Status DC Morphine Sulfate (Morphine Sulfate) 10 mg STK-MED ONCE .ROUTE ; Start 04/16/21 at 10:01; Stop 04/16/21 at 10:01; Status DC Ondansetron HCl (Zofran) 4 mg STK-MED ONCE .ROUTE ; Start 04/16/21 at 10:03; Stop 04/16/21 at 10:03; Status DC Heparin Sodium/ Sodium Chloride 500 ml @ As Directed STK-MED ONCE .ROUTE ; Start 04/16/21 at 10:24; Stop 04/16/21 at 10:24; Status DC Succinylcholine Chloride (Anectine) 200 mg STK-MED ONCE .ROUTE ; Start 04/16/21 at 10:26; Stop 04/16/21 at 10:27; Status DC Furosemide (Lasix) 100 mg 1X ONCE IVP Last administered on 04/16/21at 10:30; Start 04/16/21 at 10:30; Stop 04/16/21 at 10:35; Status DC Morphine Sulfate (Morphine Sulfate) 10 mg 1X ONCE IV Last administered on 04/16/21at 10:30; Start 04/16/21 at 10:30; Stop 04/16/21 at 10:35; Status DC Ondansetron HCl (Zofran) 4 mg 1X ONCE IVP Last administered on 04/16/21at 10:30; Start 04/16/21 at 10:30; Stop 04/16/21 at 10:35; Status DC Albuterol/ Ipratropium (Duoneb) 3 ml 1X ONCE NEB Last administered on 04/16/21at 10:05; Start 04/16/21 at 10:45; Stop 04/16/21 at 10:46; Status DC Fentanyl Citrate 30 ml @ 0 mls/hr CONT PRN IV SEE PROTOCOL Last administered on 04/17/21at 05:24; Start 04/16/21 at 10:45; Stop 04/17/21 at 10:44; Status DC Midazolam HCl 100 ml @ 0 mls/hr CONT PRN IV SEE PROTOCOL Last administered on 04/17/21at 08:54; Start 04/16/21 at 10:45; Stop 04/17/21 at 10:44; Status DC Dopamine HCl/ Dextrose 250 ml @ As Directed STK-MED ONCE IV ; Start 04/16/21 at 11:08; Stop 04/16/21 at 11:08; Status DC Dopamine HCl/ Dextrose 250 ml @ 17.138 mls/ hr CONT PRN IV SEE I/O RECORD Last administered on 04/17/21at 11:02; Start 04/16/21 at 12:00; Stop 04/17/21 at 11:59; Status DC Furosemide (Lasix) 40 mg 1X ONCE IVP Last administered on 04/16/21at 12:30; Start 04/16/21 at 12:30; Stop 04/16/21 at 12:31; Status DC Potassium Chloride/Water 100 ml @ 100 mls/hr Q1H IV Last administered on 04/16/21at 14:00; Start 04/16/21 at 13:00; Stop 04/16/21 at 14:59; Status DC Furosemide (Lasix) 40 mg STK-MED ONCE .ROUTE ; Start 04/16/21 at 12:37; Stop 04/16/21 at 12:37; Status DC Succinylcholine Chloride (Anectine) 200 mg STK-MED ONCE .ROUTE ; Start 04/16/21 at 16:48; Stop 04/16/21 at 16:49; Status DC Epinephrine HCl (EPINEPHrine SYRINGE) 2 mg STK-MED ONCE .ROUTE ; Start 04/16/21 at 11:00; Stop 04/16/21 at 18:11; Status DC Furosemide (Lasix) 40 mg 1X ONCE IVP Last administered on 04/17/21at 10:10; Start 04/17/21 at 10:00; Stop 04/17/21 at 10:01; Status DC Fentanyl Citrate 30 ml @ 0 mls/hr CONT PRN IV SEE PROTOCOL Last administered on 04/21/21at 04:04; Start 04/17/21 at 16:15; Stop 04/28/21 at 14:26; Status DC Midazolam HCl 100 ml @ 0 mls/hr CONT PRN IV SEE PROTOCOL Last administered on 04/20/21at 07:38; Start 04/17/21 at 16:15; Stop 04/28/21 at 14:26; Status DC Dopamine HCl/ Dextrose 250 ml @ 16.031 mls/ hr CONT PRN IV SEE I/O RECORD Last administered on 04/20/21at 02:00; Start 04/18/21 at 00:00; Stop 04/20/21 at 13:29; Status DC Furosemide (Lasix) 40 mg 1X ONCE IVP Last administered on 04/18/21at 10:00; Start 04/18/21 at 09:30; Stop 04/18/21 at 09:31; Status DC Potassium Bicarbonate (Potassium Effervescent Tablet) 40 meq 1X ONCE PEG Last administered on 04/18/21at 09:59; Start 04/18/21 at 09:30; Stop 04/18/21 at 09:31; Status DC Famotidine (Pepcid Vial) 20 mg BID IVP Last administered on 04/28/21at 08:57; Start 04/18/21 at 12:00; Stop 04/28/21 at 14:27; Status DC Enoxaparin Sodium (Lovenox 40mg Syringe) 40 mg Q24H SQ ; Start 04/18/21 at 12:00; Status Cancel Furosemide (Lasix) 40 mg 1X ONCE IVP Last administered on 04/18/21at 16:24; Start 04/18/21 at 16:00; Stop 04/18/21 at 16:01; Status DC Furosemide (Lasix) 40 mg DAILY IVP Last administered on 05/01/21at 12:48; Start 04/19/21 at 09:00 Potassium Bicarbonate (Potassium Effervescent Tablet) 40 meq 1X ONCE FT Last administered on 04/18/21at 16:24; Start 04/18/21 at 16:15; Stop 04/18/21 at 16:16; Status DC Enoxaparin Sodium (Lovenox 40mg Syringe) 40 mg Q24H SQ Last administered on 05/01/21at 20:50; Start 04/18/21 at 21:00 Potassium Bicarbonate (Potassium Effervescent Tablet) 40 meq 1X ONCE PO Last administered on 04/19/21at 10:25; Start 04/19/21 at 10:15; Stop 04/19/21 at 10:16; Status DC Potassium Bicarbonate (Potassium Effervescent Tablet) 40 meq 1X ONCE PO Last administered on 04/20/21at 08:13; Start 04/20/21 at 07:30; Stop 04/20/21 at 07:31; Status DC Dopamine HCl/ Dextrose 250 ml @ 18.113 mls/ hr CONT PRN IV SEE I/O RECORD Last administered on 04/21/21at 04:18; Start 04/20/21 at 13:45; Stop 04/28/21 at 14:26; Status DC Latanoprost (Xalatan) 1 drop HS OU Last administered on 05/01/21at 20:49; Start 04/21/21 at 21:00 Piperacillin Sod/ Tazobactam Sod (Zosyn Per Pharmacy) 1 each PRN DAILY PRN MC SEE COMMENTS; Start 04/22/21 at 11:00; Stop 04/28/21 at 11:09; Status DC Propofol 100 ml @ 2.823 mls/ hr CONT PRN IV PER PROTOCOL Last administered on 04/23/21at 08:40; Start 04/22/21 at 11:00; Stop 04/28/21 at 14:27; Status DC Piperacillin Sod/ Tazobactam Sod 3.375 gm/Sodium Chloride 50 ml @ 100 mls/hr Q6HRS IV Last administered on 04/28/21at 05:22; Start 04/22/21 at 12:00; Stop 04/28/21 at 11:09; Status DC Dexmedetomidine HCl 400 mcg/ Sodium Chloride 100 ml @ 0 mls/hr CONT PRN IV PER PROTOCOL Last administered on 04/24/21at 23:37; Start 04/23/21 at 18:30; Stop 04/28/21 at 14:25; Status DC Sodium Chloride 500 ml @ 500 mls/hr 1X PRN PRN IV SEE COMMENTS; Start 04/23/21 at 18:30 Atropine Sulfate (ATROPINE 0.5mg SYRINGE) 0.5 mg PRN Q5MIN PRN IV SEE COMMENTS; Start 04/23/21 at 18:30; Status Cancel Potassium Chloride/Water 100 ml @ 100 mls/hr Q1H IV Last administered on 04/27/21at 02:03; Start 04/26/21 at 16:00; Stop 04/26/21 at 23:59; Status DC Potassium Chloride/Water 100 ml @ 100 mls/hr Q1H IV Last administered on 04/27/21at 12:00; Start 04/27/21 at 09:00; Stop 04/27/21 at 12:59; Status DC Amoxicillin/ Clavulanate Potassium (Augmentin 500/ 125mg) 1 tab BID PO Last administered on 05/01/21at 20:49; Start 04/28/21 at 12:00; Stop 05/02/21 at 11:59 Famotidine (Pepcid) 20 mg BID PO Last administered on 05/01/21at 20:49; Start 04/28/21 at 21:00 Lactobacillus Rhamnosus (Culturelle) 1 cap BID PO Last administered on 05/01/21at 20:49; Start 04/28/21 at 21:00 Potassium Chloride (Klor-Con) 40 meq 1X ONCE PO Last administered on 04/28/21at 17:53; Start 04/28/21 at 17:00; Stop 04/28/21 at 17:05; Status DC Aspirin (Aspirin Chewable) 81 mg DAILY PO Last administered on 05/01/21at 12:43; Start 04/30/21 at 09:00 Simvastatin (Zocor) 20 mg HS PO Last administered on 05/01/21at 20:49; Start 04/29/21 at 21:00 Iohexol (Omnipaque 300 Mg/ml) 75 ml 1X ONCE IV Last administered on 04/30/21at 09:52; Start 04/30/21 at 09:30; Stop 04/30/21 at 09:31; Status DC Info (CONTRAST GIVEN -- Rx MONITORING) 1 each PRN DAILY PRN MC SEE COMMENTS; Start 04/30/21 at 09:45; Stop 05/02/21 at 09:44 Aspirin (Cody Aspirin) 325 mg 1X ONCE PO ; Start 04/30/21 at 10:00; Stop 04/30/21 at 10:09; Status DC Aspirin (Aspirin Rectal Supp) 300 mg 1X ONCE TN Last administered on 04/30/21at 10:54; Start 04/30/21 at 10:15; Stop 04/30/21 at 11:29; Status DC Aspirin (Cody Aspirin) 325 mg 1X ONCE PO Last administered on 04/30/21at 11:38; Start 04/30/21 at 11:30; Stop 04/30/21 at 11:31; Status DC Lidocaine HCl (Viscous Lidocaine) 15 ml STK-MED ONCE .ROUTE ; Start 05/01/21 at 09:36; Stop 05/01/21 at 09:36; Status DC Benzocaine (Hurricaine One) 1 spray STK-MED ONCE .ROUTE ; Start 05/01/21 at 09:36; Stop 05/01/21 at 09:37; Status DC Lidocaine HCl (Viscous Lidocaine) 15 ml 1X ONCE SWSW Last administered on 05/01/21at 10:46; Start 05/01/21 at 09:45; Stop 05/01/21 at 09:46; Status DC Benzocaine (Hurricaine One) 2 spray 1X ONCE MM Last administered on 05/01/21at 10:47; Start 05/01/21 at 09:45; Stop 05/01/21 at 09:46; Status DC Propofol (Diprivan) 200 mg STK-MED ONCE IV ; Start 05/01/21 at 10:53; Stop 05/01/21 at 10:54; Status DC Lidocaine HCl (Lidocaine Pf 2% Vial) 5 ml STK-MED ONCE .ROUTE ; Start 05/01/21 at 10:53; Stop 05/01/21 at 10:54; Status DC Docusate Sodium (Colace) 100 mg PRN DAILY PRN PO HARD STOOLS Last administered on 05/01/21at 18:17; Start 05/01/21 at 13:00 Active Scripts Active Reported Hydrocodone-Apap 5-325 (Hydrocodone Bit/Acetaminophen) 1 Tab Tablet 1 Tab PO PRN Q6HRS PRN NITROGLYCERIN SubLingual (Nitroglycerin) 0.4 Mg Tab.subl 0.4 Mg SL PRN Q5MIN PRN Lasix (Furosemide) 20 Mg Tablet 1 Tab PO DAILY 30 Days Isosorbide Mononitrate Er (Isosorbide Mononitrate) 60 Mg Tab.er.24h 1 Tab PO DAILY Klor-Con M10 (Potassium Chloride) 10 Meq Tab.er.prt 10 Meq PO DAILY Vitamin D3 (Cholecalciferol (Vitamin D3)) 5,000 Unit Tab.rapdis 5,000 Unit PO DAILY Aspirin 81 Mg Tab.chew 81 Mg PO DAILY Amlodipine Besylate 10 Mg Tablet 10 Mg PO DAILY Fluoxetine Hcl 40 Mg Capsule 40 Mg PO DAILY Simvastatin 20 Mg Tablet 20 Mg PO HS Multi-Vitamin Daily (Multivitamin) 1 Each Tablet 1 Each PO DAILY Latanoprost 2.5 Ml Drops 1 Drop OU HS Vitals/I & O Vital Sign - Last 24 Hours 05/01/21 05/01/21 05/01/21 05/01/21 09:25 10:28 10:28 10:40 Temp 97.9 97.9 97.9 97.9 Pulse 63 68 66 Resp 16 14 14 B/P (MAP) 116/70 94/51 122/61 Pulse Ox 99 99 99 O2 Delivery Room Air Nasal Cannula Nasal Cannula Nasal Cannula O2 Flow Rate 2.0 2.0 2.0 05/01/21 05/01/21 05/01/21 05/01/21 10:55 10:55 15:00 19:00 Temp 98 97.8 97.7 98.0 97.8 97.7 Pulse 66 69 71 Resp 14 18 18 B/P (MAP) 109/52 132/63 (86) 125/62 (83) Pulse Ox 98 95 97 O2 Delivery Room Air Room Air Room Air Room Air 05/01/21 05/01/21 05/02/21 20:00 23:00 03:00 Temp 97.8 98.0 97.8 98.0 Pulse 67 75 Resp 18 18 B/P (MAP) 120/63 (82) 115/69 (84) Pulse Ox 96 96 O2 Delivery Room Air Room Air Room Air Intake and Output 05/01/21 05/01/21 05/02/21 15:00 23:00 07:00 Intake Total 300 ml 470 ml 200 ml Output Total 1800 ml 600 ml Balance -1500 ml 470 ml -400 ml Images SAMEER: LEFT VENTRICLE The left ventricle is normal size. There is moderate concentric left ventricular hypertrophy. The left ventricular systolic function is normal and the ejection fraction is within normal range. EF 55% There is normal LV segmental wall motion. No left ventricle thrombus noted on this study. There is no ventricular septal defect visualized. There is no left ventricular aneurysm. There is no mass noted in the left ventricle. RIGHT VENTRICLE The right ventricle is normal size. There is normal right ventricular wall thickness. The right ventricular systolic function is normal. ATRIA The left atrium is moderately dilated. The right atrium is mildly dilated. The interatrial septum is intact with no evidence for an atrial septal defect or patent foramen ovale as noted on 2-D or Doppler imaging. There is no thrombus noted in the left atrial appendage. AORTIC VALVE The aortic valve is moderately sclerotic. Doppler and Color Flow revealed no significant aortic regurgitation. There is no significant aortic valvular stenosis. There is no aortic valvular vegetation. MITRAL VALVE The posterior leaflet is restricted. There is no evidence of mitral valve prolapse. There is no mitral valve stenosis. There is mild to moderate eccentric regurgitation. TRICUSPID VALVE The tricuspid valve is normal in structure and function. Doppler and Color Flow revealed no tricuspid valve regurgitation noted. There is no tricuspid valve prolapse or vegetation. There is no tricuspid valve stenosis. PULMONIC VALVE Doppler and Color Flow revealed no pulmonic valvular regurgitation. There is no pulmonic valvular stenosis. GREAT VESSELS The aortic root is normal in size. The ascending aorta is normal in size. The p ulmonary artery is normal. The IVC is normal in size and collapses >50% with inspiration. PERICARDIAL EFFUSION There is no evidence of significant pericardial effusion. There is no pleural effusion. Critical Notification Critical Value: No <Conclusion> There is moderate concentric left ventricular hypertrophy. The left ventricular systolic function is normal and the ejection fraction is within normal range. EF 55% There is normal LV segmental wall motion. There is no thrombus noted in the left atrial appendage. There is mild to moderate eccentric regurgitation. No clear cardioembolic source noted. Justicifation of Admission Dx: Justifications for Admission: Justification of Admission Dx: Yes Respiratory Failure: Mechanical Ventilation UNIQUE LONG MD May 02, 2021 08:36
[2021-05-02] MEDS ORDERED: ANTI-COAG MONITOR BY PHARMACY. MC PRN (08:45)
[2021-05-02] MEDS: FAMOTIDINE 20 MG TABLET. PO SCH ×2 (10:08→21:10)
[2021-05-02] MEDS: DOCUSATE SODIUM 100 MG CAPSULE. PO PRN (10:08)
[2021-05-02] MEDS: AMOXICILLIN/K CLAV 500/125MG TABLET. PO SCH (10:08)
[2021-05-02] MEDS: ASPIRIN CHEWABLE 81 MG TABLET. PO SCH (10:08)
[2021-05-02] MEDS: LACTOBACILLUS RHAMNOSUS GG 1 CAPSULE. PO SCH ×2 (10:08→21:10)
[2021-05-02] MEDS: FUROSEMIDE 40 MG/4 ML VIAL. IVP SCH (10:08)
--- NOTE | 2021-05-02 10:40 | PDOC ---
[employer] PROGRESS NOTE Date of Service DOS: DATE: 05/02/21 TIME: 10:31 Chief Complaint Chief Complaint Dysphagiathat is post intubation Acute hypoxic hypercapnic respiratory failure status post intubation. Status post extubation on 04/26/2021 Cardiopulmonary arrest due to hypoxia 8 minutes with ROSC Acute metabolic and possible ischemic encephalopathy Acute on chronic CHF CLEMENCIA Hypertension Hypokalemia History of Present Illness History of Present Illness 75-year-old female with past medical history of hypertension, obesity, dyslipidemia, sleep apnea, who was admitted for scheduled left heart cath on 04/16/2021 for chest pains that was relieved with nitroglycerin. Patient underwent left and right heart cath which showed no significant CAD. Unfortunately, at the end of the procedure patient developed increasing shortness of breath she was initially treated with IV diuretics and oxygen but her dyspnea persisted and she required emergency intubation and had periods of asystole. ACLS protocol was initiated. Please see CODE BLUE sheet for details. She was transferred to the ICU for further management and the hospitalist service was consulted for medical management. I saw the patient this morning intubated and not on any sedation. Pulmonology is following for vent management. Patient was responding appropriately to external stimuli and started to wake up. She will likely need a CT of the head as there is no sedation and the patient is not responding appropriately. 04/26/2021 No acute events overnight. Patient was extubated early in the evening and she tolerated well.. Patient is currently saturating 97 on room air. Patient is wanting to eat Jell-O. Pending speech evaluation. Pending PT OT evaluation for determining placement needs. Patient's chart, labs, images were reviewed and discussed with RN 04/27/2021 No acute events overnight. Patient responding well to 40 mg IV Lasix with 1.5 L urine output. We will repeat IV Lasix today and pending further speech evaluation. Patient is currently n.p.o. due to aspiration risk. Pending PT OT evaluation. Patient's chart, labs, images were reviewed and discussed with RN 04/28/2021: Afebrile. Currently breathing on 2 L nasal cannula. Placed on dysphagia III diet today. Seen by OT and recommended acute rehab; PT eval pending at this time. 04/29/2021: Afebrile. Currently breathing into his nasal cannula. 6-minute walk with an order today. She is tolerating her dysphagia 3 diet. She has been recommended acute rehab, but patient is wanting instead to discharge home with home health. Currently not feeling comfortable discharging home today; I discussed that she is improving well but if she would like to stay in the hospital 1 more day we can discharge home with home health tomorrow. She feels she still needs to have further physical therapy she can go to acute rehab. 04/30/2021: Called patient's bedside for concern of new onset left-sided weakness and possible acute CVA. She has conflicting NIH scores depending on her ability to focus during my exam. There is some notable left-sided upper extremity weakness and complaints of left-sided facial numbness. Stat CT head and CTA head/neck pending. Will provide aspirin [address] Álvarez with neurology has been reconsulted to see patient. 05/01/2021: Patient seen and examined. She is alert and in NAD. She is having a SAMEER completed today. The impression from her MRI yesterday showed areas of acute ischemia/infarction are seen involving the right parietal temporal lobe and the right superior parietal lobe as discussed above. There is no surrounding edema or associated mass effect. Discussed with RN. Chart reviewed. 05/02/2021: Patient seen and examined. She is sitting up in her chair in NAD. She states she is not in any pain and ate a full breakfast today. She was able to state that today's date is 05/02/2021. SAMEER yesterday showed moderate concentric left ventricular hypertrophy.The left ventricular systolic function is normal and the ejection fraction is within normal range. EF 55% There is normal LV segmental wall motion.There is no thrombus noted in the left atrial appendage.There is mild to moderate eccentric regurgitation. No clear cardioembolic source noted. Discussed with RN. Chart reviewed. Vitals/I&O Vitals/I&O: Vital Signs Date Time Temp Pulse Resp B/P (MAP) Pulse Ox O2 Delivery O2 Flow Rate FiO2 05/02/21 07:00 97.9 69 18 109/61 (77) 95 Room Air 97.9 05/01/21 10:40 2.0 I & O 05/01/21 05/01/21 05/02/21 15:00 23:00 07:00 Intake Total 300 ml 470 ml 200 ml Output Total 1800 ml 600 ml Balance -1500 ml 470 ml -400 ml Physical Exam General: Alert, No acute distress Heart: Regular rate Lungs: Clear Abdomen: Normal bowel sounds Extremities: No edema, Normal pulses Skin: No rashes, No breakdown Labs Labs: Laboratory Tests Test 05/02/21 04:00 White Blood Count 6.9 x10^3/uL (4.0-11.0) Red Blood Count 3.86 x10^6/uL (3.50-5.40) Hemoglobin 12.0 g/dL (12.0-15.5) Hematocrit 35.8 % (36.0-47.0) Mean Corpuscular Volume 93 fL (79-100) Mean Corpuscular Hemoglobin 31 pg (25-35) Mean Corpuscular Hemoglobin Concent 34 g/dL (31-37) Red Cell Distribution Width 13.3 % (11.5-14.5) Platelet Count 378 x10^3/uL (140-400) Neutrophils (%) (Auto) 63 % (31-73) Lymphocytes (%) (Auto) 21 % (24-48) Monocytes (%) (Auto) 13 % (0-9) Eosinophils (%) (Auto) 3 % (0-3) Basophils (%) (Auto) 1 % (0-3) Neutrophils # (Auto) 4.3 x10^3/uL (1.8-7.7) Lymphocytes # (Auto) 1.4 x10^3/uL (1.0-4.8) Monocytes # (Auto) 0.9 x10^3/uL (0.0-1.1) Eosinophils # (Auto) 0.2 x10^3/uL (0.0-0.7) Basophils # (Auto) 0.1 x10^3/uL (0.0-0.2) Sodium Level 139 mmol/L (136-145) Potassium Level 3.4 mmol/L (3.5-5.1) Chloride Level 101 mmol/L (98-107) Carbon Dioxide Level 26 mmol/L (21-32) Anion Gap 12 (6-14) Blood Urea Nitrogen 14 mg/dL (7-20) Creatinine 0.9 mg/dL (0.6-1.0) Estimated GFR (Cockcroft-Gault) 61.0 Glucose Level 91 mg/dL (70-99) Calcium Level 9.4 mg/dL (8.5-10.1) Review of Systems Review of Systems: Gastrointestinal: No nausea or vomiting. Genitourinary: No urinary frequency or dysuria. Assessment and Plan Assessmemt and Plan Assessment: Dysphagiathat is post intubation Acute hypoxic hypercapnic respiratory failure status post intubation. Status post extubation on 04/26/2021 Cardiopulmonary arrest due to hypoxia 8 minutes with ROSC Acute metabolic and possible ischemic encephalopathy Acute on chronic CHF CLEMENCIA Hypertension Hypokalemia Plan: 1) Continue IV augmentin for possible aspiration pneumonia 2) Appreciate subspeciality consultation - Neurology (05/02): Consider outpatient cardiac monitoring. Start apixaban tomorrow, discontinue aspirin after 2-day overlap. Rehabilitation modalities. Needs inpatient rehab. Speech therapy to work on cognitive issues 3) Discharge disposition pending 4) Continue Lovenox for DVT prophylaxis 5) Continue pepcid for GI prophylaxis 6) Home medications 7) Full code Comment Review of Relevant I have reviewed the following items clarisa (where applicable) has been applied. Medications: Current Medications Medications (Trade) Dose Ordered Sig/Miguel Angel Route PRN Reason Start Time Stop Time Status Last Admin Dose Admin Docusate Sodium (Colace) 100 mg PRN DAILY PRN PO HARD STOOLS 05/01/21 13:00 05/02/21 10:08 Info (Anti-Coagulation Monitoring By Pharmacy) 1 each PRN DAILY PRN MC PER PROTOCOL 05/02/21 08:45 05/02/21 09:27 Justifications for Admission Other Justification AFTAB PENG III DO May 02, 2021 10:40
[2021-05-02 11:00] VITALS: BP 113/64
--- NOTE | 2021-05-02 12:31 | NUR ---
SS following up with discharge planning. SS reviewed pt chart and discussed with pt RN. Pt is currently on room air. COVID19 negative. Pt on IV Lasix. SS received notification that [facility] remains on admission hold at this time. SS met with pt and discussed. Pt was agreeable to [facility], ; fax [phone]. Referral was sent to [facility] and pt accepted pending new COVID19 test. COVID19 test currently pending for placement. OT meet with pt and discussed placement. Pt now requesting referral to [facility], ; fax [phone]. Referral phoned and faxed to [facility]. SS will continue to follow for discharge planning.
[2021-05-02 15:00] VITALS: BP 114/75
[2021-05-02 19:45] VITALS: BP 121/63
[2021-05-02] MEDS: SIMVASTATIN 20 MG TABLET PO SCH (21:10)
[2021-05-02] MEDS: ENOXAPARIN 40 MG/0.4 ML SYRINGE. SQ SCH (21:10)
[2021-05-02] MEDS: LATANOPROST 0.005% OPHTH SOLUTION 2.5ML BOTTLE. OU SCH (21:43)
[2021-05-02 23:10] VITALS: BP 116/67
[2021-05-03] MEDS ORDERED: ACETAMINOPHEN 325 MG TABLET. PO PRN (01:00)
[2021-05-03 03:40] VITALS: BP 112/66
[2021-05-03 04:44] LABS: BASO % 1 % (0-3); EOS # 0.2 x10^3/uL (0.0-0.7); EOS % 3 % (0-3); HEMOGLOBIN 11.4 g/dL (12.0-15.5); LYMPH # 1.4 x10^3/uL (1.0-4.8); LYMPH % 22 % (24-48); MEAN CORPUSCULAR HEMOGLOBIN 31 pg (25-35); MEAN CORPUSCULAR HGB CONC 34 g/dL (31-37); MEAN CORPUSCULAR VOLUME 91 fL (79-100); MONO # 0.8 x10^3/uL (0.0-1.1); MONO % 13 % (0-9); NEUT # 3.9 x10^3/uL (1.8-7.7); NEUT % 61 % (31-73); PLATELET COUNT 370 x10^3/uL (140-400); RED BLOOD COUNT 3.72 x10^6/uL (3.50-5.40); RED CELL DISTRIBUTION WIDTH 13.5 % (11.5-14.5); WHITE BLOOD COUNT 6.3 x10^3/uL (4.0-11.0)
[2021-05-03 05:06] LABS: CALCIUM 9.2 mg/dL (8.5-10.1); CREATININE 0.9 mg/dL (0.6-1.0); POTASSIUM 3.1 mmol/L (3.5-5.1)
[2021-05-03 07:00] VITALS: BP 142/73
[2021-05-03] MEDS: FAMOTIDINE 20 MG TABLET. PO SCH ×2 (08:49→21:14)
[2021-05-03] MEDS: APIXABAN 5 MG TABLET. PO SCH ×2 (08:49→21:14)
[2021-05-03] MEDS: LACTOBACILLUS RHAMNOSUS GG 1 CAPSULE. PO SCH ×2 (08:49→21:14)
[2021-05-03] MEDS: ASPIRIN CHEWABLE 81 MG TABLET. PO SCH (08:49)
[2021-05-03] MEDS: FUROSEMIDE 40 MG/4 ML VIAL. IVP SCH (08:50)
[2021-05-03 11:22] VITALS: BP 122/67
--- NOTE | 2021-05-03 11:55 | PDOC ---
[employer] PROGRESS NOTE Date of Service DOS: DATE: 05/03/21 TIME: 11:54 Chief Complaint Chief Complaint Dysphagiathat is post intubation Acute hypoxic hypercapnic respiratory failure status post intubation. Status post extubation on 04/26/2021 Cardiopulmonary arrest due to hypoxia 8 minutes with ROSC Acute metabolic and possible ischemic encephalopathy, new small strokes Acute on chronic CHF CLEMENCIA Hypertension Hypokalemia History of Present Illness History of Present Illness 75-year-old female with past medical history of hypertension, obesity, dyslipidemia, sleep apnea, who was admitted for scheduled left heart cath on 04/16/2021 for chest pains that was relieved with nitroglycerin. Patient underwent left and right heart cath which showed no significant CAD. Unfortunately, at the end of the procedure patient developed increasing shortness of breath she was initially treated with IV diuretics and oxygen but her dyspnea persisted and she required emergency intubation and had periods of asystole. ACLS protocol was initiated. Please see CODE BLUE sheet for details. She was transferred to the ICU for further management and the hospitalist service was consulted for medical management. I saw the patient this morning intubated and not on any sedation. Pulmonology is following for vent management. Patient was responding appropriately to external stimuli and started to wake up. She will likely need a CT of the head as there is no sedation and the patient is not responding appropriately. 04/26/2021 No acute events overnight. Patient was extubated early in the evening and she tolerated well.. Patient is currently saturating 97 on room air. Patient is wanting to eat Jell-O. Pending speech evaluation. Pending PT OT evaluation for determining placement needs. Patient's chart, labs, images were reviewed and discussed with RN 04/27/2021 No acute events overnight. Patient responding well to 40 mg IV Lasix with 1.5 L urine output. We will repeat IV Lasix today and pending further speech evaluation. Patient is currently n.p.o. due to aspiration risk. Pending PT OT evaluation. Patient's chart, labs, images were reviewed and discussed with RN 04/28/2021: Afebrile. Currently breathing on 2 L nasal cannula. Placed on dysphagia III diet today. Seen by OT and recommended acute rehab; PT eval pending at this time. 04/29/2021: Afebrile. Currently breathing into his nasal cannula. 6-minute walk with an order today. She is tolerating her dysphagia 3 diet. She has been recommended acute rehab, but patient is wanting instead to discharge home with home health. Currently not feeling comfortable discharging home today; I discussed that she is improving well but if she would like to stay in the hospital 1 more day we can discharge home with home health tomorrow. She feels she still needs to have further physical therapy she can go to acute rehab. 04/30/2021: Called patient's bedside for concern of new onset left-sided weakness and possible acute CVA. She has conflicting NIH scores depending on her ability to focus during my exam. There is some notable left-sided upper extremity weakness and complaints of left-sided facial numbness. Stat CT head and CTA head/neck pending. Will provide aspirin [address] Álvarez with neurology has been reconsulted to see patient. 05/01/2021: Patient seen and examined. She is alert and in NAD. She is having a SAMEER completed today. The impression from her MRI yesterday showed areas of acute ischemia/infarction are seen involving the right parietal temporal lobe and the right superior parietal lobe as discussed above. There is no surrounding edema or associated mass effect. Discussed with RN. Chart reviewed. 05/02/2021: Patient seen and examined. She is sitting up in her chair in NAD. She states she is not in any pain and ate a full breakfast today. She was able to state that today's date is 05/02/2021. SAMEER yesterday showed moderate concentric left ventricular hypertrophy.The left ventricular systolic function is normal and the ejection fraction is within normal range. EF 55% There is normal LV segmental wall motion.There is no thrombus noted in the left atrial appendage.There is mild to moderate eccentric regurgitation. No clear car dioembolic source noted. Discussed with RN. Chart reviewed. 05/03, getting stronger, had urinary incontinence today, will needs more PT and OT, rehab had been planned, w hol weekend coming up, will try to DC home over next few days if able, discusseed at length Vitals/I&O Vitals/I&O: Vital Signs Date Time Temp Pulse Resp B/P (MAP) Pulse Ox O2 Delivery O2 Flow Rate FiO2 05/03/21 11:22 97.4 74 16 122/67 (85) 98 Room Air 97.4 I & O 05/02/21 05/02/21 05/03/21 15:00 23:00 07:00 Intake Total 240 ml 240 ml Output Total 500 ml Balance 240 ml -260 ml Physical Exam General: Alert, No acute distress Heart: Regular rate Lungs: Clear Abdomen: Normal bowel sounds Extremities: No edema, Normal pulses Skin: No rashes, No breakdown Labs Labs: Laboratory Tests Test 05/03/21 04:00 White Blood Count 6.3 x10^3/uL (4.0-11.0) Red Blood Count 3.72 x10^6/uL (3.50-5.40) Hemoglobin 11.4 g/dL (12.0-15.5) Hematocrit 34.0 % (36.0-47.0) Mean Corpuscular Volume 91 fL (79-100) Mean Corpuscular Hemoglobin 31 pg (25-35) Mean Corpuscular Hemoglobin Concent 34 g/dL (31-37) Red Cell Distribution Width 13.5 % (11.5-14.5) Platelet Count 370 x10^3/uL (140-400) Neutrophils (%) (Auto) 61 % (31-73) Lymphocytes (%) (Auto) 22 % (24-48) Monocytes (%) (Auto) 13 % (0-9) Eosinophils (%) (Auto) 3 % (0-3) Basophils (%) (Auto) 1 % (0-3) Neutrophils # (Auto) 3.9 x10^3/uL (1.8-7.7) Lymphocytes # (Auto) 1.4 x10^3/uL (1.0-4.8) Monocytes # (Auto) 0.8 x10^3/uL (0.0-1.1) Eosinophils # (Auto) 0.2 x10^3/uL (0.0-0.7) Basophils # (Auto) 0.0 x10^3/uL (0.0-0.2) Sodium Level 139 mmol/L (136-145) Potassium Level 3.1 mmol/L (3.5-5.1) Chloride Level 102 mmol/L (98-107) Carbon Dioxide Level 30 mmol/L (21-32) Anion Gap 7 (6-14) Blood Urea Nitrogen 10 mg/dL (7-20) Creatinine 0.9 mg/dL (0.6-1.0) Estimated GFR (Cockcroft-Gault) 61.0 Glucose Level 94 mg/dL (70-99) Calcium Level 9.2 mg/dL (8.5-10.1) Comment Review of Relevant I have reviewed the following items clarisa (where applicable) has been applied. Medications: Current Medications Medications (Trade) Dose Ordered Sig/Miguel Angel Route PRN Reason Start Time Stop Time Status Last Admin Dose Admin Apixaban (Eliquis) 5 mg BID PO 05/03/21 09:00 05/03/21 08:49 Justifications for Admission Other Justification JOSE CARDONA MD May 03, 2021 11:55
[2021-05-03] MEDS ORDERED: POTASSIUM CHLORIDE 20 MEQ TABLET.ER. PO ONE (14:45)
[2021-05-03 15:00] VITALS: BP 118/68
[2021-05-03 19:37] VITALS: BP 132/72
[2021-05-03] MEDS: LATANOPROST 0.005% OPHTH SOLUTION 2.5ML BOTTLE. OU SCH (21:13)
[2021-05-03] MEDS: SIMVASTATIN 20 MG TABLET PO SCH (21:14)
[2021-05-03 22:29] VITALS: BP 133/71
[2021-05-04 03:08] VITALS: BP 125/71
[2021-05-04 05:04] LABS: BASO # 0.1 x10^3/uL (0.0-0.2); BASO % 1 % (0-3); EOS # 0.2 x10^3/uL (0.0-0.7); EOS % 3 % (0-3); HEMATOCRIT 34.2 % (36.0-47.0); HEMOGLOBIN 11.4 g/dL (12.0-15.5); LYMPH # 1.3 x10^3/uL (1.0-4.8); LYMPH % 19 % (24-48); MEAN CORPUSCULAR HEMOGLOBIN 31 pg (25-35); MEAN CORPUSCULAR HGB CONC 33 g/dL (31-37); MEAN CORPUSCULAR VOLUME 92 fL (79-100); MONO # 0.7 x10^3/uL (0.0-1.1); MONO % 10 % (0-9); NEUT # 4.3 x10^3/uL (1.8-7.7); NEUT % 66 % (31-73); PLATELET COUNT 344 x10^3/uL (140-400); RED BLOOD COUNT 3.71 x10^6/uL (3.50-5.40); RED CELL DISTRIBUTION WIDTH 13.4 % (11.5-14.5); WHITE BLOOD COUNT 6.5 x10^3/uL (4.0-11.0)
[2021-05-04 05:23] LABS: CALCIUM 9.3 mg/dL (8.5-10.1); CREATININE 0.8 mg/dL (0.6-1.0); GFR 69.9; POTASSIUM 3.4 mmol/L (3.5-5.1)
[2021-05-04 07:00] VITALS: BP 123/72
[2021-05-04] MEDS: FAMOTIDINE 20 MG TABLET. PO SCH (08:15)
[2021-05-04] MEDS: APIXABAN 5 MG TABLET. PO SCH (08:15)
[2021-05-04] MEDS: LACTOBACILLUS RHAMNOSUS GG 1 CAPSULE. PO SCH (08:15)
[2021-05-04] MEDS ORDERED: FUROSEMIDE 40 MG TABLET. PO SCH (09:00)
[2021-05-04] MEDS ORDERED: FURO40TA4 PO (09:51)
[2021-05-04] MEDS ORDERED: APIX5TAB PO (09:51)
--- NOTE | 2021-05-04 09:57 | SNU/HH DC ---
DISCHARGE WITH HOME HEALTH DISCHARGE INFORMATION: Discharge Date: May 04, 2021 Final Diagnosis: Dysphagiathat is post intubation Acute hypoxic hypercapnic respiratory failure status post intubation. Status post extubation on 04/26/2021 Cardiopulmonary arrest due to hypoxia 8 minutes with ROSC Acute metabolic and possible ischemic encephalopathy, new small strokes, CVA, right parietal temporal lobe and the right superior parietal lobe, with CTA negative, cardiac emboli are most likely, despite normal transesophageal echo Acute on chronic CHF CLEMENCIA Hypertension Hypokalemia Sinusitis on head CT Condition on Discharge: Stable HOME HEALTH: Face to Face: I certify this patient is under my care and that I had a face to face encounter that meets the physician face to face encounter requirements with this patient on 05/04 Medical Complications: CVA, Other (hypoxia) RN For Eval/Treatment: Yes Physical Therapy For: Evalulation/Treatment Occupational Therapy For: Evaluation/Treatment Pt Meets Homebound Status: Unsteady balance w/ amb,, Limited distance walking POST DISCHARGE ORDERS: Activity Instructions for Disc: Activity as tolerated, Avoid exertion Weight Bearing Status after Di: No restrictions Bathing Instructions: Shower-keep dressing dry, No Tub Bath until see Dr. RAMIREZ AFTER DISCHARGE: Cardiac Wound/Incision Care: Ice to area for comfort, May get incision wet FOLLOW-UP: Follow up with: Dr. Mcleod, < 1 week Warfarin Follow UP: on eliquis, stop the aspirin TREATMENT/EQUIPMENT ORDERS: Adaptive Equipment Issued: Front wheeled walker CERTIFICATION STATEMENT: Certification Statement: Certification Statement: Based on the above finding, I certify that this patient is confined to the home and needs intermittent detention care, physical therapy and/or speech therapy, or continues to need occupational therapy.~ This patient is under my care, and I have initiated the establishment of the plan of care.~ This patient will be followed by myself or a community physician who will periodically review the plan of care. Home Meds Active Scripts Apixaban (ELIQUIS) 5 Mg Tablet, 5 MG PO BID for CVA, #60 TAB 2 Refills Prov:JOSE CARDONA MD 05/04/21 Furosemide (FUROSEMIDE) 40 Mg Tablet, 40 MG PO DAILY for CHF, #30 TAB Prov:JOSE CARDONA MD 05/04/21 Reported Medications Hydrocodone Bit/Acetaminophen (HYDROCODONE-APAP 5-325 ) 1 Tab Tablet, 1 TAB PO PRN Q6HRS PRN for PAIN, TAB 0 Refills 04/16/21 Nitroglycerin (NITROGLYCERIN SubLingual) 0.4 Mg Tab.subl, 0.4 MG SL PRN Q5MIN PRN for CHEST PAIN, ML 04/16/21 Isosorbide Mononitrate (ISOSORBIDE MONONITRATE ER) 60 Mg Tab.er.24h, 1 TAB PO DAILY for rx, #30 TAB 5 Refills 04/16/21 Potassium Chloride (KLOR-CON M10) 10 Meq Tab.er.prt, 10 MEQ PO DAILY for rx, TAB.SR 04/16/21 Cholecalciferol (Vitamin D3) (Vitamin D3) 5,000 Unit Tab.rapdis, 5000 UNIT PO DAILY for SUPPLEMENT, TAB 11/24/19 Amlodipine Besylate (AMLODIPINE BESYLATE) 10 Mg Tablet, 10 MG PO DAILY for TREAT BP, TAB 11/24/19 Fluoxetine Hcl (FLUOXETINE HCL) 40 Mg Capsule, 40 MG PO DAILY for TREAT DE PRESSION, CAP 11/24/19 Simvastatin (SIMVASTATIN) 20 Mg Tablet, 20 MG PO HS for FOR CHOLESTEROL, #30 TAB 0 Refills 11/24/19 Multivitamin (MULTI-VITAMIN DAILY) 1 Each Tablet, 1 EACH PO DAILY for SUPPLEMENT, TAB 11/24/19 Latanoprost (LATANOPROST) 2.5 Ml Drops, 1 DROP OU HS for TREAT GLAUCOMA, EACH 11/24/19 Discontinued Reported Medications Furosemide (LASIX) 20 Mg Tablet, 1 TAB PO DAILY for rx for 30 Days, #30 TAB 0 Refills 04/16/21 Aspirin (ASPIRIN) 81 Mg Tab.chew, 81 MG PO DAILY for BLOOD THINNER, TAB.CHEW 11/24/19 JOSE CARDONA MD May 04, 2021 09:57
--- NOTE | 2021-05-04 10:01 | PDOC3 ---
Discharge Summary Visit Information Date of Admission: Apr 16, 2011 Date of Discharge: May 04, 2021 Final Diagnosis Dysphagiathat is post intubation Acute hypoxic hypercapnic respiratory failure status post intubation. Status post extubation on 04/26/2021 Cardiopulmonary arrest due to hypoxia 8 minutes with ROSC Acute metabolic and possible ischemic encephalopathy, new small strokes, CVA, right parietal temporal lobe and the right superior parietal lobe, with CTA negative, cardiac emboli are most likely, despite normal transesophageal echo Acute on chronic CHF CLEMENCIA Hypertension Hypokalemia Sinusitis on head CT Brief Hospital Course Allergies Allergies Coded Allergies Type Severity Reaction Last Updated Verified olanzapine Allergy Intermediate 04/25/21 Yes Vital Signs Vital Signs Date Time Temp Pulse Resp B/P (MAP) Pulse Ox O2 Delivery O2 Flow Rate FiO2 05/04/21 07:00 97.6 68 16 123/72 (89) 97 Room Air 97.6 Lab Results Laboratory Tests Test 05/02/21 11:35 05/03/21 04:00 05/04/21 04:30 SARS-CoV-2 RNA (SHAKIRA) Negative (Negative) White Blood Count 6.3 x10^3/uL (4.0-11.0) 6.5 x10^3/uL (4.0-11.0) Red Blood Count 3.72 x10^6/uL (3.50-5.40) 3.71 x10^6/uL (3.50-5.40) Hemoglobin 11.4 g/dL (12.0-15.5) 11.4 g/dL (12.0-15.5) Hematocrit 34.0 % (36.0-47.0) 34.2 % (36.0-47.0) Mean Corpuscular Volume 91 fL (79-100) 92 fL (79-100) Mean Corpuscular Hemoglobin 31 pg (25-35) 31 pg (25-35) Mean Corpuscular Hemoglobin Concent 34 g/dL (31-37) 33 g/dL (31-37) Red Cell Distribution Width 13.5 % (11.5-14.5) 13.4 % (11.5-14.5) Platelet Count 370 x10^3/uL (140-400) 344 x10^3/uL (140-400) Neutrophils (%) (Auto) 61 % (31-73) 66 % (31-73) Lymphocytes (%) (Auto) 22 % (24-48) 19 % (24-48) Monocytes (%) (Auto) 13 % (0-9) 10 % (0-9) Eosinophils (%) (Auto) 3 % (0-3) 3 % (0-3) Basophils (%) (Auto) 1 % (0-3) 1 % (0-3) Neutrophils # (Auto) 3.9 x10^3/uL (1.8-7.7) 4.3 x10^3/uL (1.8-7.7) Lymphocytes # (Auto) 1.4 x10^3/uL (1.0-4.8) 1.3 x10^3/uL (1.0-4.8) Monocytes # (Auto) 0.8 x10^3/uL (0.0-1.1) 0.7 x10^3/uL (0.0-1.1) Eosinophils # (Auto) 0.2 x10^3/uL (0.0-0.7) 0.2 x10^3/uL (0.0-0.7) Basophils # (Auto) 0.0 x10^3/uL (0.0-0.2) 0.1 x10^3/uL (0.0-0.2) Sodium Level 139 mmol/L (136-145) 140 mmol/L (136-145) Potassium Level 3.1 mmol/L (3.5-5.1) 3.4 mmol/L (3.5-5.1) Chloride Level 102 mmol/L (98-107) 104 mmol/L (98-107) Carbon Dioxide Level 30 mmol/L (21-32) 28 mmol/L (21-32) Anion Gap 7 (6-14) 8 (6-14) Blood Urea Nitrogen 10 mg/dL (7-20) 8 mg/dL (7-20) Creatinine 0.9 mg/dL (0.6-1.0) 0.8 mg/dL (0.6-1.0) Estimated GFR (Cockcroft-Gault) 61.0 69.9 Glucose Level 94 mg/dL (70-99) 93 mg/dL (70-99) Calcium Level 9.2 mg/dL (8.5-10.1) 9.3 mg/dL (8.5-10.1) Laboratory Tests Test 05/04/21 04:30 White Blood Count 6.5 x10^3/uL (4.0-11.0) Red Blood Count 3.71 x10^6/uL (3.50-5.40) Hemoglobin 11.4 g/dL (12.0-15.5) Hematocrit 34.2 % (36.0-47.0) Mean Corpuscular Volume 92 fL (79-100) Mean Corpuscular Hemoglobin 31 pg (25-35) Mean Corpuscular Hemoglobin Concent 33 g/dL (31-37) Red Cell Distribution Width 13.4 % (11.5-14.5) Platelet Count 344 x10^3/uL (140-400) Neutrophils (%) (Auto) 66 % (31-73) Lymphocytes (%) (Auto) 19 % (24-48) Monocytes (%) (Auto) 10 % (0-9) Eosinophils (%) (Auto) 3 % (0-3) Basophils (%) (Auto) 1 % (0-3) Neutrophils # (Auto) 4.3 x10^3/uL (1.8-7.7) Lymphocytes # (Auto) 1.3 x10^3/uL (1.0-4.8) Monocytes # (Auto) 0.7 x10^3/uL (0.0-1.1) Eosinophils # (Auto) 0.2 x10^3/uL (0.0-0.7) Basophils # (Auto) 0.1 x10^3/uL (0.0-0.2) Sodium Level 140 mmol/L (136-145) Potassium Level 3.4 mmol/L (3.5-5.1) Chloride Level 104 mmol/L (98-107) Carbon Dioxide Level 28 mmol/L (21-32) Anion Gap 8 (6-14) Blood Urea Nitrogen 8 mg/dL (7-20) Creatinine 0.8 mg/dL (0.6-1.0) Estimated GFR (Cockcroft-Gault) 69.9 Glucose Level 93 mg/dL (70-99) Calcium Level 9.3 mg/dL (8.5-10.1) Brief Hospital Course Ms. Sewell is a 75 old female who presented o for an outpatient cardiac catheterization, as part of work-up for chest pain and dyspnea on exertion. There was no evidence of coronary artery disease. At the end of the procedure, she developed shortness of breath, was treated with oxygen, IV Lasix, pulmonary treatments, she was emergently intubated, during the procedure, she had periods of asystole requiring chest compressions. No seizure activity was observed. in ICU For days, and did not wake up well Neuro consult, eval showed small strokes, med changed, eliquis startd, afib risk, SAMEER noted post CVA, she got much stronger over time, Assessment Assessment SAMEER <Conclusion> There is moderate concentric left ventricular hypertrophy. The left ventricular systolic function is normal and the ejection fraction is within normal range. EF 55% There is normal LV segmental wall motion. There is no thrombus noted in the left atrial appendage. There is mild to moderate eccentric regurgitation. No clear cardioembolic source noted. Discharge Information Condition at Discharge: Improved Follow Up: Weeks Disposition/Orders: D/C to Home w/ HH Scheduled Amlodipine Besylate (Amlodipine Besylate) 10 Mg Tablet, 10 MG PO DAILY for TREAT BP, (Reported) Entered as Reported by: JAYCOB PAINTING on 11/24/191147 Last Taken: Unknown Dose on 04/16/21 Last Action: Reviewed on 04/16/212133 by Avis Thompson Apixaban (Eliquis) 5 Mg Tablet, 5 MG PO BID for CVA, #60 Ref 2 Prescribed by: JOSE CARDONA on 05/04/21 0951 Cholecalciferol (Vitamin D3) (Vitamin D3) 5,000 Unit Tab.rapdis, 5,000 UNIT PO DAILY for SUPPLEMENT, (Reported) Entered as Reported by: JAYCOB PAINTING on 11/24/19 1149 Last Taken: Unknown Dose on 04/15/21 Last Action: Reviewed on 04/16/212133 by Avis Thompson Fluoxetine Hcl (Fluoxetine Hcl) 40 Mg Capsule, 40 MG PO DAILY for TREAT DEPRESSION, (Reported) Entered as Reported by: JAYCOB PAINTING on 11/24/19 1148 Last Taken: Unknown Dose on 04/16/21 Last Action: Reviewed on 04/16/212133 by Avis Thompson Furosemide (Furosemide) 40 Mg Tablet, 40 MG PO DAILY for CHF, #30 Prescribed by: JOSE CARDONA on 05/04/21 0951 Isosorbide Mononitrate (Isosorbide Mononitrate Er) 60 Mg Tab.er.24h, 1 TAB PO DAILY for rx, #30 Ref 5 (Reported) Entered as Reported by: CRISTI BOYLE on 04/16/21814 Last Taken: Unknown Dose on 04/15/21 Last Action: Reviewed on 04/16/212133 by Avis Thompson Latanoprost (Latanoprost) 2.5 Ml Drops, 1 DROP OU HS for TREAT GLAUCOMA, (Reported) Entered as Reported by: JAYCOB PAINTING on 11/24/19 1148 Last Taken: Unknown Dose on 04/15/21 Last Action: Continued on 04/21/21 0726 by DAMIEN SAEED Multivitamin (Multi-Vitamin Daily) 1 Each Tablet, 1 EACH PO DAILY for SUPPLEME NT, (Reported) Entered as Reported by: JAYCOB PAINTING on 11/24/19 1148 Last Taken: Unknown Dose on 04/15/21 Last Action: Reviewed on 04/16/212133 by Avis Thompson Potassium Chloride (Klor-Con M10) 10 Meq Tab.er.prt, 10 MEQ PO DAILY for rx, (Reported) Entered as Reported by: CRISTI BOYLE on 04/16/21814 Last Taken: Unknown Dose on 04/15/21 Last Action: Reviewed on 04/16/212133 by Avis Thompson Simvastatin (Simvastatin) 20 Mg Tablet, 20 MG PO HS for FOR CHOLESTEROL, #30 Ref 0 (Reported) Entered as Reported by: JAYCOB PAINTING on 11/24/19 1148 Last Taken: Unknown Dose on 04/15/21 Last Action: Continued on 04/29/21 1029 by KYA FORTUNE Scheduled PRN Hydrocodone Bit/Acetaminophen (Hydrocodone-Apap 5-325 ) 1 Tab Tablet, 1 TAB PO PRN Q6HRS PRN for PAIN, Ref 0 (Reported) Entered as Reported by: Avis Thompson on 04/16/212133 Last Action: Reviewed on 04/16/212133 by Avis Thompson Nitroglycerin (NITROGLYCERIN SubLingual) 0.4 Mg Tab.subl, 0.4 MG SL PRN Q5MIN PRN for CHEST PAIN, (Reported) Entered as Reported by: CRISTI BOYLE on 04/16/21814 Last Taken: Unknown Dose on Unknown Date & Time Last Action: Reviewed on 04/16/212133 by Avis Thompson Discontinued Medications Aspirin (Aspirin) 81 Mg Tab.chew, 81 MG PO DAILY for BLOOD THINNER, (Reported) Entered as Reported by: JAYCOB PAINTING on 11/24/19 1148 Last Taken: Unknown Dose on 04/15/21 Last Action: Continued on 04/29/21 1029 by KYA FORTUNE Furosemide (Lasix) 20 Mg Tablet, 1 TAB PO DAILY for rx for 30 Days, #30 Ref 0 (Reported) Entered as Reported by: CRISTI BOLYE on 04/16/21814 Last Taken: Unknown Dose on 04/15/21 Last Action: Reviewed on 04/16/212133 by Avis Thompson Patient Instructions Patient Instructions pt seen and eval face to face on 05/04, 39 minutes had been discussing rehab placement, she improved enough to transfer and use walker, will have home health, f/u outpatient Justicifation of Admission Dx: Justifications for Admission: Justification of Admission Dx: Yes Respiratory Failure: Mechanical Ventilation JOSE CARDONA MD May 04, 2021 10:01
[2021-05-04 10:43] VITALS: BP 114/67
--- NOTE | 2021-05-04 13:45 | NUR ---
Discharge Note: HANS JUSTIN Discharge instructions and discharge home medications reviewed with Patient and a copy given. All questions have been answered and understanding verbalized. The following instructions and handouts were given: Stroke Dysphagia 3 diet Discontinued lines and drains: IV lines and skin intact. Patient discharged to home with [facility] home health. Discharged to personal motor vehicle escorted by .
== END 2021-05-04 13:48 | disposition home health service (06) | DRG 207 ==
LOC: CCL 07:05 → 1 WEST ICU 16:00 → 6 SOUTH 04-27 10:41
PROVIDERS: ADMIT Internal Medicine Cardiovascular Disease; ATTEND Internal Medicine Cardiovascular Disease
PROC: B2111ZZ Fluoroscopy of Multiple Coronary Arteries using Low Osmolar Contrast (ICD-10-PCS; principal; 2021-04-16)
PROC: 5A1955Z Respiratory Ventilation, Greater than 96 Consecutive Hours (ICD-10-PCS; 2021-04-16)
PROC: B2151ZZ Fluoroscopy of Left Heart using Low Osmolar Contrast (ICD-10-PCS; 2021-04-16)
PROC: 4A023N7 Measurement of Cardiac Sampling and Pressure, Left Heart, Percutaneous Approach (ICD-10-PCS; 2021-04-16)
PROC: 0BH17EZ Insertion of Endotracheal Airway into Trachea, Via Natural or Artificial Opening (ICD-10-PCS; 2021-04-16)
PROC: 5A09357 Assistance with Respiratory Ventilation, Less than 24 Consecutive Hours, Continuous Positive Airway Pressure (ICD-10-PCS; 2021-04-25)
PROC: 5A09357 Assistance with Respiratory Ventilation, Less than 24 Consecutive Hours, Continuous Positive Airway Pressure (ICD-10-PCS; 2021-04-27)
PROC: 5A09357 Assistance with Respiratory Ventilation, Less than 24 Consecutive Hours, Continuous Positive Airway Pressure (ICD-10-PCS; 2021-04-28)
PROC: 5A09357 Assistance with Respiratory Ventilation, Less than 24 Consecutive Hours, Continuous Positive Airway Pressure (ICD-10-PCS; 2021-04-29)
PROC: B24BZZ4 Ultrasonography of Heart with Aorta, Transesophageal (ICD-10-PCS; 2021-05-01)
DX: J96.01 Acute respiratory failure with hypoxia (principal); I50.33 Acute on chronic diastolic (congestive) heart failure; I46.9 Cardiac arrest, cause unspecified; R57.0 Cardiogenic shock; G93.1 Anoxic brain damage, not elsewhere classified; J96.02 Acute respiratory failure with hypercapnia; E66.9 Obesity, unspecified; Z68.31 Body mass index [BMI] 31.0-31.9, adult; E78.5 Hyperlipidemia, unspecified; E87.6 Hypokalemia; G47.33 Obstructive sleep apnea (adult) (pediatric); I11.0 Hypertensive heart disease with heart failure; I27.20 Pulmonary hypertension, unspecified; R13.10 Dysphagia, unspecified; Z96.649 Presence of unspecified artificial hip joint; K21.9 Gastro-esophageal reflux disease without esophagitis; J32.9 Chronic sinusitis, unspecified; Z20.822 Contact with and (suspected) exposure to COVID-19; Z82.49 Family history of ischemic heart disease and other diseases of the circulatory system; Z86.73 Personal history of transient ischemic attack (TIA), and cerebral infarction without residual deficits; Z90.710 Acquired absence of both cervix and uterus
CPT/HCPCS: 36415; 36600; 70450; 70496; 70498; 70551; 71045; 80048; 80053; 80061; 82805; 82962; 83735; 83880; 84100; 84443; 85007; 85025; 85027; 87426; 93312; 93460; 93567; 94002; 94003; 94640; 94660; 94760; 99152; 99153; C1773; C1894; J0171; J1265; J1644; J1650; J1940; J2250; J2270; J2405; J2543; J2704; J3010; J3480; J3490; Q9967; U0003; U0005; 92523-GN; 92526-GN; 92610-GN; 97110-GP; 97116-GP; 97530-GP; 97535-GO; G0378

== ENCOUNTER → 2021-09-16 | Outpatient (CLI) | payer MEDICARE ==
[~2021-09-16] MED LIST changes: +APIX5TAB PO; +FURO-69 PO; +FURO40TA4 PO; +ISOS60TA55 PO; +NITR0.4T22 SL; +POTA-112 PO; +POTA-116 PO; -POTA10TA6 PO
--- NOTE | 2021-09-16 16:59 | CARD ---
MR#: [id number] Date of Study: 09/16/2021 Ordering Physician: NARENDRA DIXON, Referring Physician: NARENDRA DIXON, Tech: Kimberly Benedict [facility] APPROVED REPORT EXAM: Two-dimensional and M-mode echocardiogram with Doppler and color Doppler. Other Information Quality : AverageHR: 63bpm Rhythm : NSR INDICATION Dyspnea RISK FACTORS Hypertension Obesity 2D DIMENSIONS RVDd3.5 (2.9-3.5cm)Left Atrium(2D)5.1 (1.6-4.0cm) IVSd1.7 (0.7-1.1cm)Aortic Root(2D)3.3 (2.0-3.7cm) LVDd3.8 (3.9-5.9cm)LVOT Diameter2.2 (1.8-2.4cm) PWd1.3 (0.7-1.1cm)LVDs3.1 (2.5-4.0cm) FS (%) 18.9 %SV25.3 ml Aortic Valve AoV Peak Armando.126.7cm/sAoV VTI26.7cm AO Peak GR.6.4mmHgLVOT Peak Armando.114.4cm/s AO Mean GR.3mmHgAVA (VMAX)3.32cm2 Mitral Valve MV E Gyzwisuc151.9cm/sMV DECEL BECJ111ht MV A Zwtcjjhz19.2cm/sE/A Ratio3.4 Pulmonary Valve PV Peak Cmyuejor38.4cm/s Tricuspid Valve TR P. Axfmotdw042db/sTR Peak Gr.62mmHg LEFT VENTRICLE The left ventricle is normal size. There is mild concentric left ventricular hypertrophy. The left ve ntricular systolic function is normal and the ejection fraction is within normal range. LV ejection f raction of 55 to 60%. There is normal LV segmental wall motion. Transmitral Doppler flow pattern is G rade II-pseudonormal filling dynamics. RIGHT VENTRICLE The right ventricle is normal size. There is normal right ventricular wall thickness. The right ventr icular systolic function is normal. ATRIA The left atrium is moderately dilated. The right atrium size is normal. The interatrial septum is int act with no evidence for an atrial septal defect or patent foramen ovale as noted on 2-D or Doppler i maging. AORTIC VALVE The aortic valve is normal in structure and function. Doppler and Color Flow revealed no significant aortic regurgitation. There is no significant aortic valvular stenosis. MITRAL VALVE The mitral valve is normal in structure and function. There is no evidence of mitral valve prolapse. There is no mitral valve stenosis. Doppler and Color-flow revealed mild to moderate mitral regurgitat ion. TRICUSPID VALVE The tricuspid valve is normal in structure and function. Doppler and Color Flow revealed mild tricusp id regurgitation. Estimated PAP >50 mmHg. There is no tricuspid valve stenosis. PULMONIC VALVE The pulmonary valve is normal in structure and function. Doppler and Color Flow revealed mild pulmoni c valvular regurgitation. GREAT VESSELS The aortic root is normal in size. The ascending aorta is normal in size. The IVC is normal in size a nd collapses >50% with inspiration. PERICARDIAL EFFUSION There is a trivial effusion anteriorly around the right ventricle and a trivial amount of fluid at th e lateral wall of the left ventricle. Critical Notification Critical Value: No <Conclusion> The left ventricle is normal size. The left ventricular systolic function is normal and the ejection fraction is within normal range. LV ejection fraction of 55 to 60%. There is mild concentric left ventricular hypertrophy. Doppler and Color Flow revealed no significant aortic regurgitation. There is no significant aortic valvular stenosis. Doppler and Color-flow revealed mild to moderate mitral regurgitation. Doppler and Color Flow revealed mild tricuspid regurgitation. Estimated PAP >50 mmHg. Signed by : Narendra Dixon MD Electronically Approved : 09/16/2021 16:58:41
== END ==
LOC: ECHO 14:11
PROVIDERS: ATTEND Internal Medicine Cardiovascular Disease
DX: I08.8 Other rheumatic multiple valve diseases (principal); I31.3 Pericardial effusion (noninflammatory); R06.09 Other forms of dyspnea
CPT/HCPCS: 93306; C8929

== ENCOUNTER → 2021-11-11 | Outpatient (CLI) | payer MEDICARE ==
--- NOTE | 2021-11-11 13:11 | KCIC ---
Bilateral digital screening mammograms with 3-D tomosynthesis: Reason for examination: Routine screening. Comparison is made to previous studies dated back to 09/06/2017. Bilateral mammograms in CC and oblique projections were obtained with 2-D imaging and 3-D tomosynthes is imaging on a Siemens Inspiration unit and reviewed on the workstation. Interpretation was made wit h the benefit of CAD. The skin and nipples show no abnormalities. No abnormal axillary lymph nodes are seen. The breast par enchyma shows scattered fatty and fibroglandular density. (Breast density: Category B.) There are no dominant masses, suspicious calcifications or architectural distortion. Impression: No evidence of malignancy. Recommend routine screening. BI-RAD Category 1: Negative. "Our facility is accredited by the [employer] Mammography Program." This patient's information has been entered into a reminder system for the patient to be notified wit h the results of her examination and a target date for the next mammogram. Electronically signed by: Lissy Dos Santos MD (11/11/2021 1:09 PM) [id number]
== END ==
LOC: KCIC MAMMO 11:02
PROVIDERS: ATTEND Family Medicine
DX: Z12.31 Encounter for screening mammogram for malignant neoplasm of breast (principal)
CPT/HCPCS: 77063; 77067